=== PATIENT | male | born 1940 | race Caucasian/White ===

== ENCOUNTER 2016-04-03 19:49 | Inpatient (IN) | payer MEDICARE ==
[2016-04-03] MEDS ORDERED: ASPIRIN 81 MG CHEW PO STA (19:54)
[2016-04-03] MEDS ORDERED: NITROGLYCERIN OINT 1 INCH/GM PACKET TOPICAL STA (19:54)
--- NOTE | 2016-04-03 20:03 | ED ---
General Adult HPI - General Chief complaint: Chest Pain Stated complaint: chest pains Time Seen by Provider: 04/03/16 19:53 Source: patient, EMS, RN notes reviewed Mode of arrival: EMS Limitations: no limitations - History of Present Illness Initial comments: Patient is a pleasant 75-year-old male presenting to the emergency department complaining of chest discomfort. Onset was prior to arrival. Discomfort was somewhat severe and patient did have a syncopal episode. Patient states discomfort is minimal at this time. Patient does have some associated dyspnea which is near resolved here patient was sweaty earlier. Patient does feel somewhat nauseated still. Patient does have a history of similar problems. See associated with heart problems. 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 No leg pain or swelling. No cough or fever. Discomfort is described as pressure. No radiation. - Related Data Home Medications Medication Instructions Recorded Confirmed Aspirin 325 mg PO DAILY 04/03/16 04/03/16 Benazepril HCl [Lotensin] 40 mg PO DAILY 04/03/16 04/03/16 Calcium Carbonate [Calcium] 600 mg PO BID 04/03/16 04/03/16 Dostinex(Cabergoline) 0.5mg 0.5 mg PO TU 04/03/16 04/03/16 Furosemide [Lasix] 40 mg PO BID 04/03/16 04/03/16 Gabapentin [Neurontin] 300 mg PO TID 04/03/16 04/03/16 Isosorbide Mononitrate ER [Imdur] 60 mg PO DAILY 04/03/16 04/03/16 Levothyroxine Sodium [Synthroid] 112 mcg PO DAILY 04/03/16 04/03/16 Magnesium Oxide [Mag-Ox] 250 mg PO DAILY 04/03/16 04/03/16 Multivitamins, Thera [Multivitamin] 1 tab PO DAILY 04/03/16 04/03/16 Niacin 500 mg PO DAILY 04/03/16 04/03/16 [place]-3 Fatty Acids/Fish Oil [Fish 1 cap PO DAILY 04/03/16 04/03/16 Oil 1,000 mg Softgel] Potassium 99 mg PO BID 04/03/16 04/03/16 amLODIPine [Norvasc] 10 mg PO DAILY 04/03/16 04/03/16 Allergies Allergy/AdvReac Type Severity Reaction Status Date / Time Penicillins Allergy Rash/Hives Verified 04/03/16 20:17 Review of Systems ROS Statement: Those systems with pertinent positive or pertinent negative responses have been documented in the HPI. ROS Other: All systems not noted in ROS Statement are negative. Constitutional: Denies: fever Eyes: Denies: eye pain ENT: Denies: ear pain Respiratory: Reports: dyspnea. 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 History of Any Multi-Drug Resistant Organisms: None Reported Past Surgical History: Cholecystectomy Additional Past Surgical History / Comment(s): triple bipass Past Psychological History: No Psychological Hx Reported Smoking Status: Former smoker Past Alcohol Use History: Rare Past Drug Use History: None Reported General Exam Limitations: no limitations General appearance: alert, in no apparent distress Head exam: Present: atraumatic Eye exam: Present: normal appearance, PERRL ENT exam: Present: normal oropharynx Neck exam: Present: normal inspection Respiratory exam: Present: normal lung sounds bilaterally Cardiovascular Exam: Present: regular rate, normal rhythm Expanded Peripheral pulses: 2+: Radial (R), Radial (L), Dorsalis Pedis (R), Dorsalis Pedis (L) GI/Abdominal exam: Present: soft. Absent: distended, tenderness, pulsatile mass Extremities exam: Present: normal inspection. Absent: pedal edema, joint swelling, calf tenderness Neurological exam: Present: alert Psychiatric exam: Present: normal affect, normal mood Skin exam: Absent: rash Course Vital Signs 04/03/16 04/03/16 19:56 21:13 Temperature 96.9 F L Pulse Rate 58 L 60 Respiratory 16 14 Rate Blood Pressure 133/76 138/68 O2 Sat by Pulse 99 99 Oximetry EKG Findings - EKG Comments: EKG Findings:: Sinus bradycardia at 57. First we AV block with a TX of 238. QRS 160. QT 478. QTC 465. Left axis. Right bundle branch block. Left anterior fascicular block. PVC present. No acute ST change. Medical Decision Making - Medical Decision Making Patient reevaluated and resting comfortably in bed. Patient only complains of mild nausea and lightheadedness. Reglan provided. Patient and family updated on results and plan. Case was discussed in detail with practitioner coach operator, who will admit for Dr. Willis, covering for Dr. Pate, consult will be placed for cardiology. Admission orders written. IV heparin started. - Lab Data Result diagrams: 04/03/16 20:00 04/03/16 20:00 Lab Results 04/03/16 04/03/16 04/03/16 Range/Units 20:00 20:00 20:00 WBC 6.4 (3.8-10.6) k/uL RBC 4.45 (4.30-5.90) m/uL Hgb 13.5 (13.0-17.5) gm/dL Hct 39.5 (39.0-53.0) % MCV 88.7 (80.0-100.0) fL MCH 30.4 (25.0-35.0) pg MCHC 34.3 (31.0-37.0) g/dL RDW 13.1 (11.5-15.5) % Plt Count 145 L (150-450) k/uL Neutrophils % 61 % Lymphocytes % 29 % Monocytes % 6 % Eosinophils % 2 % Basophils % 1 % Neutrophils # 3.9 (1.3-7.7) k/uL Lymphocytes # 1.8 (1.0-4.8) k/uL Monocytes # 0.4 (0-1.0) k/uL Eosinophils # 0.1 (0-0.7) k/uL Basophils # 0.0 (0-0.2) k/uL PT (9.0-12.0) sec INR (<1.1) APTT (22.0-30.0) sec D-Dimer (<0.60) mg/L FEU Sodium 142 (137-145) mmol/L Potassium 3.9 (3.5-5.1) mmol/L Chloride 107 (98-107) mmol/L Carbon Dioxide 21 L (22-30) mmol/L Anion Gap 14 mmol/L BUN 21 H (9-20) mg/dL Creatinine 1.02 (0.66-1.25) mg/dL Est GFR (MDRD) Af Amer >60 (>60 ml/min/1.73 sqM) Est GFR (MDRD) Non-Af >60 (>60 ml/min/1.73 sqM) Glucose 107 H (74-99) mg/dL Calcium 9.5 (8.4-10.2) mg/dL Magnesium 2.1 (1.6-2.3) mg/dL Total Bilirubin 0.5 (0.2-1.3) mg/dL AST 23 (17-59) U/L ALT 34 (21-72) U/L Alkaline Phosphatase 63 (38-126) U/L Total Creatine Kinase 277 H (55-170) U/L CK-MB (CK-2) 3.8 H* (0.0-2.4) ng/mL CK-MB (CK-2) Rel Index 1.4 Troponin I <0.012 (0.000-0.034) ng/mL NT-Pro-B Natriuret Pep pg/mL Total Protein 6.8 (6.3-8.2) g/dL Albumin 4.1 (3.5-5.0) g/dL 04/03/16 04/03/16 Range/Units 20:00 20:00 WBC (3.8-10.6) k/uL RBC (4.30-5.90) m/uL Hgb (13.0-17.5) gm/dL Hct (39.0-53.0) % MCV (80.0-100.0) fL MCH (25.0-35.0) pg MCHC (31.0-37.0) g/dL RDW (11.5-15.5) % Plt Count (150-450) k/uL Neutrophils % % Lymphocytes % % Monocytes % % Eosinophils % % Basophils % % Neutrophils # (1.3-7.7) k/uL Lymphocytes # (1.0-4.8) k/uL Monocytes # (0-1.0) k/uL Eosinophils # (0-0.7) k/uL Basophils # (0-0.2) k/uL PT 10.7 (9.0-12.0) sec INR 1.1 (<1.1) APTT 23.5 (22.0-30.0) sec D-Dimer 0.27 (<0.60) mg/L FEU Sodium (137-145) mmol/L Potassium (3.5-5.1) mmol/L Chloride (98-107) mmol/L Carbon Dioxide (22-30) mmol/L Anion Gap mmol/L BUN (9-20) mg/dL Creatinine (0.66-1.25) mg/dL Est GFR (MDRD) Af Amer (>60 ml/min/1.73 sqM) Est GFR (MDRD) Non-Af (>60 ml/min/1.73 sqM) Glucose (74-99) mg/dL Calcium (8.4-10.2) mg/dL Magnesium (1.6-2.3) mg/dL Total Bilirubin (0.2-1.3) mg/dL AST (17-59) U/L ALT (21-72) U/L Alkaline Phosphatase (38-126) U/L Total Creatine Kinase (55-170) U/L CK-MB (CK-2) (0.0-2.4) ng/mL CK-MB (CK-2) Rel Index Troponin I (0.000-0.034) ng/mL NT-Pro-B Natriuret Pep 322 pg/mL Total Protein (6.3-8.2) g/dL Albumin (3.5-5.0) g/dL - Radiology Data Radiology results: image reviewed (Chest x-ray shows cardiomegaly without acute process.) Critical Care Time Critical Care Time: Yes Total Critical Care Time: 32 Disposition Clinical Impression: Unstable angina pectoris, Syncope Disposition: ADMITTED IP TO THIS HOSP
[2016-04-03 20:16] LABS: Basophils % (A) 1 %; CH 31.4; CHCM 35.6; Eosinophils # (A) 0.1 k/uL (0-0.7); Eosinophils % (A) 2 %; HCT 39.5 % (39.0-53.0); HDW 2.91; HGB 13.5 gm/dL (13.0-17.5); Luc # (Auto) 0.14; Luc % (Auto) 2; Lymphocytes # (A) 1.8 k/uL (1.0-4.8); Lymphocytes % (A) 29 %; MCH 30.4 pg (25.0-35.0); MCHC 34.3 g/dL (31.0-37.0); MCV 88.7 fL (80.0-100.0); Mean Platelet Volume 8.6; Monocytes # (A) 0.4 k/uL (0-1.0); Monocytes % (A) 6 %; Neutrophils # (A) 3.9 k/uL (1.3-7.7); Neutrophils % (A) 61 %; RBC 4.45 m/uL (4.30-5.90); RDW 13.1 % (11.5-15.5); WBC 6.4 k/uL (3.8-10.6); WBC (Perox) 6.48
[2016-04-03 20:31] LABS: INR 1.1 (<1.1); Partial Thromboplastin Time 23.5 sec (22.0-30.0); Prothrombin Time 10.7 sec (9.0-12.0)
--- NOTE | 2016-04-03 20:36 | XR ---
EXAMINATION TYPE: XR chest 2V DATE OF EXAM: 04/03/2016 8:29 PM COMPARISON: NONE HISTORY: Chest pain. TECHNIQUE: Frontal and lateral views of the chest are obtained. FINDINGS: Underlying emphysematous change may be present as there is flattened hemidiaphragms on late ral view. Sternal wires and mediastinal clips are seen. There is no suspicious focal air space opacit y, pleural effusion, or pneumothorax seen. The cardiac silhouette size is enlarged. Cannot exclude m ild central vascular congestion. The osseous structures are somewhat demineralized. Mild multilevel height loss in the mid thoracic spine is present. IMPRESSION: Cardiomegaly without suspicious acute pulmonary process.
[2016-04-03 20:37] LABS: ALT 34 U/L (21-72); AST 23 U/L (17-59); Alkaline Phosphatase 63 U/L (38-126); Anion Gap 14 mmol/L; Blood Urea Nitrogen 21 mg/dL (9-20); Calcium 9.5 mg/dL (8.4-10.2); Carbon Dioxide 21 mmol/L (22-30); Chloride 107 mmol/L (98-107); Creatine Kinase 277 U/L (55-170); Glucose 107 mg/dL (74-99); Magnesium 2.1 mg/dL (1.6-2.3); Non-African American GFR(MDRD) >60 (>60 ml/min/1.73 sqM); Potassium 3.9 mmol/L (3.5-5.1); Sodium 142 mmol/L (137-145); Total Bilirubin 0.5 mg/dL (0.2-1.3); Total Protein 6.8 g/dL (6.3-8.2)
[2016-04-03 20:49] LABS: Troponin I <0.012 ng/mL (0.000-0.034)
[2016-04-03 20:53] LABS: Creatine Kinase MB 3.8 ng/mL (0.0-2.4)
[2016-04-03] MEDS ORDERED: HEPARIN SODIUM,PORCINE 5,000 UNIT/ML 1 ML VIAL IV ONE (21:35)
[2016-04-03] MEDS ORDERED: HEPARIN SODIUM,PORCINE 5,000 UNIT/ML 1 ML VIAL IV PRN (21:35)
[2016-04-03] MEDS ORDERED: NITROGLYCERIN SL TABS 0.4 MG TAB SUBLINGUAL PRN (21:35)
[2016-04-03] MEDS ORDERED: HEPARIN SODIUM,PORCINE/D5W PMX 25,000 UNIT in DEXTROSE/WATER 1 500ML.BAG IV SCH (21:45)
[2016-04-03 23:56] VITALS: BMI 40.6
[2016-04-04 03:04] LABS: Troponin I 0.016 ng/mL (0.000-0.034)
[2016-04-04 03:08] LABS: Creatine Kinase MB 3.8 ng/mL (0.0-2.4)
[2016-04-04] MEDS: NITROGLYCERIN OINT 1 INCH/GM PACKET TOPICAL SCH ×2 (06:06→06:11)
[2016-04-04 09:45] LABS: Mean Platelet Volume 8.7
[2016-04-04 10:14] LABS: Creatine Kinase 181 U/L (55-170)
[2016-04-04] MEDS ORDERED: AMINOPHYLLINE 500 MG/20 ML VIAL IV PRN (10:17)
[2016-04-04] MEDS ORDERED: REGADENOSON 0.4 MG/5 ML SYRINGE IV ONE (10:17)
[2016-04-04 10:26] LABS: Troponin I <0.012 ng/mL (0.000-0.034)
--- NOTE | 2016-04-04 10:26 | P.PN ---
Progress Note - Text This is an addendum to the dictated cardiology consultation. The patient has a known history of CAD, post bypass in 2010 with BARRETO to the LAD and saphenous vein graft to the diagonal and the RCA, his grafts were patent in 2012. He presents with a syncopal episode and a loss of bladder control. He has been feeling occasional palpitations and dizziness on and off for 2 weeks. He has no prior history of syncope or documented arrhythmia. He denies any significant peripheral edema, PND or orthopnea. He has no symptoms of angina pectoris. In the past his systolic function was normal. 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 He has episode of tachycardia that appears to be SVT with retrograde P waves. His presentation could be related to a complete heart block because of his trifascicular block or significant pauses after the tachycardia. I will obtain an echocardiogram and an MPI. If there is no evidence of ischemia and his systolic function is normal then he will need to proceed with an EP study and probable pacemaker implantation. I discussed those findings with the patient. Thank you for this consult we will follow with you.
--- NOTE | 2016-04-04 10:27 | P.CRDCN ---
History of Present Illness Consult date: 04/04/16 Requesting physician: Aaron Rowland Consult reason: sycope Chief complaint: Syncope History of present illness: This is a pleasant 75-year-old gentleman who follows with Dr. Kwok in the office. He has a known history of coronary artery disease with prior bypass surgery approximately 5 years ago, at which time the patient underwent a BARRETO to the LAD, saphenous vein graft to the diagonal, saphenous vein graft to the PLV branch of the RCA history also of hypertension, hyperlipidemia, intolerant to statins, he takes niacin at home. The patient presents to the hospital following a syncopal episode at home. He states that he was sitting on the couch watching TV, and without warning he passed out. According to the patient his states that he was making snoring respirations and she was unable to wake him up. Upon wakening he was confused as to where he was, he did lose bowel and bladder function and was extremely diaphoretic. Patient does state that over the past couple of weeks he has noticed occasional palpitations with his heart racing very fast. He also states that he's been getting intermittent episodes of lightheadedness. Denies any chest pressure or heaviness. Initial EKG on presentation here showed a sinus bradycardia with a first-degree AV block and a right bundle branch pattern, occasional PVCs. Just prior to 4 AM this morning patient was noted to become quite tachycardic, he initially had a PVC then went into what appears to be an atrial tachycardia with a heart rate in the 130s. Patient states he did feel mild discomfort and palpitations in his chest at that time. EKG performed following that again showed a sinus bradycardia with a long first-degree AV block, right bundle branch block pattern. Laboratory data was reviewed, CBC normal, d-dimer negative, potassium 3.9, BUN 21 and creatinine 1.0. Troponins 0.012, 0.016. BNP level 322. At the time of my examination this morning, patient feels well, he does state when he gets up to do something he does have mild dizziness and lightheadedness. 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 History of Any Multi-Drug Resistant Organisms: None Reported Past Surgical History: Cholecystectomy Additional Past Surgical History / Comment(s): triple bipass, cholecystectomy 2016 Past Anesthesia/Blood Transfusion Reactions: No Reported Reaction Past Psychological History: No Psychological Hx Reported Smoking Status: Never smoker Past Alcohol Use History: Rare Past Drug Use History: None Reported Medications and Allergies Home Medications Medication Instructions Recorded Confirmed Type Aspirin 325 mg PO DAILY 04/03/16 04/03/16 History Benazepril HCl [Lotensin] 40 mg PO DAILY 04/03/16 04/03/16 History Calcium Carbonate [Calcium] 600 mg PO BID 04/03/16 04/03/16 History Dostinex(Cabergoline) 0.5mg 0.5 mg PO TU 04/03/16 04/03/16 History Furosemide [Lasix] 40 mg PO BID 04/03/16 04/03/16 History Gabapentin [Neurontin] 300 mg PO TID 04/03/16 04/03/16 History Isosorbide Mononitrate ER [Imdur] 60 mg PO DAILY 04/03/16 04/03/16 History Levothyroxine Sodium [Synthroid] 112 mcg PO DAILY 04/03/16 04/03/16 History Magnesium Oxide [Mag-Ox] 250 mg PO DAILY 04/03/16 04/03/16 History Multivitamins, Thera [Multivitamin] 1 tab PO DAILY 04/03/16 04/03/16 History Niacin 500 mg PO DAILY 04/03/16 04/03/16 History [place]-3 Fatty Acids/Fish Oil [Fish 1 cap PO DAILY 04/03/16 04/03/16 History Oil 1,000 mg Softgel] Potassium 99 mg PO BID 04/03/16 04/03/16 History amLODIPine [Norvasc] 10 mg PO DAILY 04/03/16 04/03/16 History Allergies Allergy/AdvReac Type Severity Reaction Status Date / Time Penicillins Allergy Rash/Hives Verified 04/03/16 20:17 Physical Exam Vitals: Vital Signs Temp Pulse Pulse Resp BP BP Pulse Ox 04/04/16 09:00 97.6 F 55 L 16 121/67 96 04/04/16 04:00 97.8 F 123 H 17 142/84 97 04/04/16 00:00 97.9 F 56 L 18 126/73 95 04/03/16 23:11 97.8 F 54 L 18 123/75 96 04/03/16 22:06 58 L 16 144/77 97 Intake and Output 04/03/16 04/04/16 04/04/16 22:59 06:59 14:59 Intake Total 640 Output Total 500 Balance 140 Intake: Intake, IV Titration 160 Amount Heparin Sodium,Porcine/ 160 D5w Pmx 25,000 unit In Dextrose/Water 1 500ml. bag @ 7.88 UNITS/KG/HR 20 .01 mls/hr IV .Q24H ARNULFO Rx#:[id number] Oral 480 Output: Urine 500 Other: Voiding Method Toilet Toilet # Voids 2 Weight 136 kg PHYSICAL EXAMINATION: HEENT: Head is atraumatic, normocephalic. Pupils equal, round. Neck is supple. There is no elevated jugular venous pressure. HEART EXAMINATION: Heart S1, S2 normal. No murmur or gallop heard. CHEST EXAMINATION: Lungs are clear to auscultation and precussion. No chest wall tenderness is noted on palpation or with deep breathing. ABDOMEN: Soft, nontender. Bowel sounds are heard. No organomegaly noted. EXTREMITIES: 2+ peripheral pulses with no evidence of peripheral edema and no calf tenderness noted. NEUROLOGIC patient is awake, alert and oriented -3. . Results 04/04/16 09:22 04/03/16 20:00 Cardiac Enzymes 04/04/16 Range/Units 02:00 CK-MB (CK-2) 3.8 H* (0.0-2.4) ng/mL Troponin I 0.016 (0.000-0.034) ng/mL Coagulation 04/04/16 Range/Units 09:22 APTT 26.8 (22.0-30.0) sec CBC 04/04/16 Range/Units 09:22 Plt Count 140 L (150-450) k/uL Current Medications Generic Name Dose Route Start Last Admin Trade Name Freq PRN Reason Stop Dose Admin Aspirin 325 mg 04/04/16 09:00 Aspirin PO DAILY ARNULFO Heparin Sodium (Porcine) 0 unit 04/03/16 21:35 Heparin IV Q6HR PRN Low PTT Protocol Heparin Sodium/Dextrose 25,000 500 mls @ 20.01 mls/hr 04/03/16 21:45 22:02 unit/ IV Solution IV 7.88 units/kg/hr .Q24H ARNULFO 20.01 mls/hr Protocol Administration 7.88 UNITS/KG/HR Nitroglycerin 1 inch 04/04/16 00:00 04/04/16 06:11 Nitro-Bid Oint TOPICAL 1 inch Q6HR ARNULFO Administration Nitroglycerin 0.4 mg 04/03/16 21:35 Nitrostat SUBLINGUAL Q5M PRN Chest Pain Intake and Output 04/03/16 04/04/16 04/04/16 22:59 06:59 14:59 Intake Total 640 Output Total 500 Balance 140 Intake: Intake, IV Titration 160 Amount Heparin Sodium,Porcine/ 160 D5w Pmx 25,000 unit In Dextrose/Water 1 500ml. bag @ 7.88 UNITS/KG/HR 20 .01 mls/hr IV .Q24H ARNULFO Rx#:[id number] Oral 480 Output: Urine 500 Other: Voiding Method Toilet Toilet # Voids 2 Weight 136 kg 04/04/16 09:22 EKG Interpretations (text) Initial EKG shows a sinus bradycardia with first-degree AV block present right bundle branch block pattern. Assessment and Plan Plan: Assessment and plan #1 syncope, rule out cardiac causes. #2 arrhythmia, sinus bradycardia with long first-degree AV block and right bundle branch block pattern and left access,(trifasicular block) episode of tachyarrhythmia with a heart rate in the 130s to 140s. #3 known history of coronary artery disease and prior bypass surgery #4 hypertension #5 hyperlipidemia, intolerant to statins , on niacin. #6 hypothyroidism Plan We will obtain an echocardiogram with Doppler study. We will also request a Lexiscan be performed today. Consult will be requested with for possible pacemaker implantation as well as evaluation for tachyarrhythmia. Resume home medications at a lower dose. Further recommendations to follow. DNP note has been reviewed, I agree with a documented findings and plan of care. Patient was seen and examined.
[2016-04-04] MEDS ORDERED: ASPIRIN 325 MG TAB PO SCH (10:30)
[2016-04-04] MEDS: ASPIRIN 325 MG TAB PO SCH (10:31)
[2016-04-04 10:32] LABS: Creatine Kinase MB 3.6 ng/mL (0.0-2.4)
--- NOTE | 2016-04-04 12:26 | ECHOF ---
Referral Reason:syncope MEASUREMENTS -------- HEIGHT: 182.9 cm WEIGHT: 135.6 kg BP: 121/67 RVIDd: 4.3 cm (< 3.3) IVSd: 1.5 cm (0.6 - 1.1) LVIDd: 5.7 cm (3.9 - 5.3) LVPWd: 1.4 cm (0.6 - 1.1) IVSs: 2.3 cm LVIDs: 4.5 cm LVPWs: 1.4 cm LA Diam: 5.0 cm (2.7 - 3.8) LAESV Index (A-L): 45.73 ml/m Ao Diam: 3.5 cm (2.0 - 3.7) AV Cusp: 2.3 cm (1.5 - 2.6) LA Diam: 5.7 cm (2.7 - 3.8) MV EXCURSION: 25.965 mm (> 18.000) MV EF SLOPE: 102 mm/s (70 - 150) EPSS: 0.4 cm MV E Mario: 0.62 m/s MV DecT: 227 ms MV A Mario: 0.82 m/s MV E/A Ratio: 0.76 MV E Mario: 0.62 m/s RAP: 5.00 mmHg RVSP: 41.95 mmHg FINDINGS -------- Sinus rhythm. This was a technically adequate study. There is mild concentric left ventricular hypertrophy. Overall left ventricular systolic function is low-normal with, an EF between 50 - 55 %. Pseudonormal LV filling pattern, consistent with elevated LA pressure. The right ventricle is normal in size. LA is severely dilated >40 ml/m2 The right atrial size is normal. There is mild aortic valve sclerosis. There is no evidence of aortic regurgitation. Mild mitral annular calcification present. Mild mitral regurgitation is present. Mild tricuspid regurgitation present. There is no evidence of pulmonary hypertension. The right ventricular systolic pressure, as measured by Doppler, is 41.95mmHg. There is no pulmonic regurgitation present. The aortic root size is normal. There is no pericardial effusion. CONCLUSIONS -------- 1. There is mild concentric left ventricular hypertrophy. 2. The right ventricular systolic pressure, as measured by Doppler, is 41.95mmHg. 3. Overall left ventricular systolic function is low-normal with, an EF between 50 - 55 %. 4. Pseudonormal LV filling pattern, consistent with elevate LA pressure. 5. LA is severely dilated >40 ml/m2 6. There is mild aortic valve sclerosis. 7. Mild mitral annular calcification present. 8. Mild mitral regurgitation is present. 9. Mild tricuspid regurgitation present. 10. There is no evidence of pulmonary hypertension. [employer] INTERPRETER: Carina Rogers RDCS
--- NOTE | 2016-04-04 14:14 | NM ---
EXAMINATION TYPE: NM stress lexiscan cardiolite DATE OF EXAM: 04/04/2016 1:29 PM COMPARISON: Chest x-ray same date HISTORY: Chest pain, coronary artery disease, syncope TECHNIQUE: After the intravenous administration of 11 mCi Tc 99m Sestamibi - Cardiolite resting SPEC T images acquired 65 minutes post injection. The patient received 0.4mg Lexiscan, 27.4 mCi Tc 99m Sestamibi - Stress images obtained [address] injection FINDINGS: Review of stress and rest SPECT images demonstrates decreased uptake of the radiopharmaceutical along the inferior and inferolateral left ventricular myocardium on stress images as compared to rest imag es Gated analysis shows normal wall motion with an estimated left ventricular ejection fraction of 55 %. IMPRESSION: Pharmacologically induced left ventricular myocardial ischemia
[2016-04-04] MEDS: LEVOTHYROXINE 112 MCG TAB PO SCH (14:20)
[2016-04-04] MEDS: NIACIN TR 500 MG CAPSULE.ER PO SCH (14:20)
[2016-04-04] MEDS: amLODIPine 5 MG TAB PO SCH (14:20)
[2016-04-04] MEDS: LISINOPRIL 20 MG TAB PO SCH (14:20)
[2016-04-04] MEDS ORDERED: CLINDAMYCIN 600 MG in SODIUM CHLORIDE 0.9% IRRIGATIO 250 ML IRRIGATION ONE (15:03)
[2016-04-04] MEDS ORDERED: CLINDAMYCIN 900 MG in DEXTROSE 5% IN WATER 50 ML IVPB ONE ×2 (15:03)
[2016-04-04] MEDS: SODIUM CHLORIDE 0.9% 1,000 ML IV SCH (16:39)
--- NOTE | 2016-04-04 17:37 | P.CRDCN ---
History of Present Illness Consult reason: sycope History of present illness: 75-year-old male patient of Dr. Rowland and Dr. Kwok He was sitting when he lost consciousness abruptly and made grunting sounds without any convulsions or seizure activity he was very sweaty at that time according to his and was not responding. She called EMS and he slowly came around. He was incontinent of urine. Patient has no recollection of the event. No trauma since he was sitting at that time. His was unable to wake him up, he was extremely diaphoretic, making snoring respirations and grunting sounds and he did lose control of his bowel and bladder. 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 Later on, earlier this morning just before 4 PM he had tachycardia between 120- 130 beats a minute. This was a supraventricular tachycardia and was documented and twelve-lead ECG. Patient did not have a syncopal spell. According to him he is been having recurrent episodes of palpitations also but on associated with syncope. Labs are reviewed. Troponins are borderline, normal BNP, normal electrolytes potassium is normal No reversible causes, No incriminating medications Impression Episode of loss of consciousness while sitting associated with snoring or/ grunting respirations and diaphoresis in the setting of trifascicular block on the twelve-lead ECG. His most likely diagnosis is sudden bradycardia most likely secondary to abrupt AV block resulting in loss of consciousness and prolonged enough to cause sweating and loss of bowel and bladder function secondary to cerebral hypoperfusion History of recurrent palpitations and documented SVT without loss of consciousness. This is a second and separate problem and will be addressed at a later date Coronary artery disease status post coronary artery bypass grafting Possible inferior wall ischemia on Lexiscan stress testing, performed today Hypertension Dyslipidemia Normal LV function Not on any AV laurence blocking drugs Intolerant of statins Plan Dual-chamber pacemaker for management of syncope in the setting of trifascicular block Beta blockers may be begun thereafter for management of SVT and later an EP study and ablation can be performed after 3 months Address inferior wall ischemia per Dr. Dr. Melendez and Dr. Wyatt's assessment. I will implant a permanent pacemaker so that in case he does require any coronary intervention, he does not go into complete heart block during such a time. 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 History of Any Multi-Drug Resistant Organisms: None Reported Past Surgical History: Cholecystectomy Additional Past Surgical History / Comment(s): triple bipass, cholecystectomy 2016 Past Anesthesia/Blood Transfusion Reactions: No Reported Reaction Past Psychological History: No Psychological Hx Reported Smoking Status: Never smoker Past Alcohol Use History: Rare Past Drug Use History: None Reported Medications and Allergies Home Medications Medication Instructions Recorded Confirmed Type Aspirin 325 mg PO DAILY 04/03/16 04/03/16 History Benazepril HCl [Lotensin] 40 mg PO DAILY 04/03/16 04/03/16 History Calcium Carbonate [Calcium] 600 mg PO BID 04/03/16 04/03/16 History Dostinex(Cabergoline) 0.5mg 0.5 mg PO TU 04/03/16 04/03/16 History Furosemide [Lasix] 40 mg PO BID 04/03/16 04/03/16 History Gabapentin [Neurontin] 300 mg PO TID 04/03/16 04/03/16 History Isosorbide Mononitrate ER [Imdur] 60 mg PO DAILY 04/03/16 04/03/16 History Levothyroxine Sodium [Synthroid] 112 mcg PO DAILY 04/03/16 04/03/16 History Magnesium Oxide [Mag-Ox] 250 mg PO DAILY 04/03/16 04/03/16 History Multivitamins, Thera [Multivitamin] 1 tab PO DAILY 04/03/16 04/03/16 History Niacin 500 mg PO DAILY 04/03/16 04/03/16 History [place]-3 Fatty Acids/Fish Oil [Fish 1 cap PO DAILY 04/03/16 04/03/16 History Oil 1,000 mg Softgel] Potassium 99 mg PO BID 04/03/16 04/03/16 History amLODIPine [Norvasc] 10 mg PO DAILY 04/03/16 04/03/16 History Allergies Allergy/AdvReac Type Severity Reaction Status Date / Time Penicillins Allergy Rash/Hives Verified 04/03/16 20:17 Physical Exam Vitals: Vital Signs Temp Pulse Pulse Resp BP BP Pulse Ox 04/04/16 16:40 97.7 F 59 L 16 136/72 96 04/04/16 16:00 97.7 F 59 L 16 136/72 96 04/04/16 11:29 97.6 F 62 16 148/76 96 04/04/16 09:00 97.6 F 55 L 16 121/67 96 04/04/16 04:00 97.8 F 123 H 17 142/84 97 04/04/16 00:00 97.9 F 56 L 18 126/73 95 04/03/16 23:11 97.8 F 54 L 18 123/75 96 04/03/16 22:06 58 L 16 144/77 97 Intake and Output 04/04/16 04/04/16 04/04/16 06:59 14:59 22:59 Intake Total 640 484.456 Output Total 500 700 Balance 140 -215.544 Intake: Intake, IV Titration 160 244.456 Amount Heparin Sodium,Porcine/ 160 244.456 D5w Pmx 25,000 unit In Dextrose/Water 1 500ml. bag @ 7.88 UNITS/KG/HR 20 .01 mls/hr IV .Q24H [facility] Rx#:[id number] Oral 480 240 Output: Urine 500 700 Other: Voiding Method Toilet Toilet Toilet # Voids 2 1 Weight 136 kg Results 04/04/16 09:22 04/03/16 20:00 Cardiac Enzymes 04/04/16 04/04/16 Range/Units 02:00 09:22 CK-MB (CK-2) 3.8 H* 3.6 H* (0.0-2.4) ng/mL Troponin I 0.016 <0.012 (0.000-0.034) ng/mL Coagulation 04/04/16 Range/Units 09:22 APTT 26.8 (22.0-30.0) sec Lipids 04/04/16 Range/Units 09:22 Triglycerides 237 H (<150) mg/dL Cholesterol 164 (<200) mg/dL HDL Cholesterol 40 (40-60) mg/dL CBC 04/04/16 Range/Units 09:22 Plt Count 140 L (150-450) k/uL Current Medications Generic Name Dose Route Start Last Admin Trade Name Freq PRN Reason Stop Dose Admin Amlodipine Besylate 5 mg 04/04/16 10:30 04/04/16 14:20 Norvasc PO 5 mg DAILY [facility] Administration Aspirin 325 mg 04/04/16 09:00 04/04/16 10:31 Aspirin PO 325 mg DAILY [facility] Administration Calcium Carbonate/Glycine 500 mg 04/04/16 21:00 Tums PO BID [facility] Furosemide 40 mg 04/04/16 17:30 Lasix PO BID@0900,1600 [facility] Gabapentin 300 mg 04/04/16 22:00 Neurontin PO TID [facility] Heparin Sodium (Porcine) 0 unit 04/03/16 21:35 04/04/16 10:30 Heparin IV 4,000 unit Q6HR PRN Administration Low PTT Protocol Sodium Chloride 1,000 mls @ 20 mls/hr 04/04/16 15:15 04/04/16 16:39 Saline 0.9% IV Not Given .Q24H [facility] Isosorbide Mononitrate 60 mg 04/05/16 09:00 Imdur PO DAILY [facility] Levothyroxine Sodium 112 mcg 04/04/16 10:30 04/04/16 14:20 Synthroid PO 112 mcg 0630 [facility] Administration Lisinopril 20 mg 04/04/16 10:30 04/04/16 14:20 Zestril PO 20 mg DAILY [facility] Administration Magnesium Oxide 400 mg 04/05/16 09:00 Mag-Ox PO DAILY [facility] Multivitamins 1 each 04/05/16 12:00 Theragran PO DAILY@1200 [facility] Niacin 500 mg 04/04/16 10:30 04/04/16 14:20 Niacin Tr PO 500 mg DAILY [facility] Administration Nitroglycerin 0.4 mg 04/03/16 21:35 Nitrostat SUBLINGUAL Q5M PRN Chest Pain Non-Formulary Medication 0.5 mg 04/05/16 17:04 Dostinex(Cabergoline) 0.5mg PO [facility] [place] Intake and Output 04/04/16 04/04/16 04/04/16 06:59 14:59 22:59 Intake Total 640 484.456 Output Total 500 700 Balance 140 -215.544 Intake: Intake, IV Titration 160 244.456 Amount Heparin Sodium,Porcine/ 160 244.456 D5w Pmx 25,000 unit In Dextrose/Water 1 500ml. bag @ 7.88 UNITS/KG/HR 20 .01 mls/hr IV .Q24H [facility] Rx#:[id number] Oral 480 240 Output: Urine 500 700 Other: Voiding Method Toilet Toilet Toilet # Voids 2 1 Weight 136 kg 04/04/16 09:22
[2016-04-04] MEDS ORDERED: IOHEXOL 350 MG/ML 100 ML BOTTLE INJ ONE (17:59)
[2016-04-04] MEDS ORDERED: IV FLUID CONTINUATION 600 ML IV ONE (18:10)
[2016-04-04] MEDS ORDERED: fentaNYL (PF) 50 MCG/ML 2 ML AMP ONE (18:13)
[2016-04-04] MEDS ORDERED: MIDAZOLAM 2 MG/2 ML VIAL ONE (18:13)
[2016-04-04] MEDS ORDERED: fentaNYL (PF) 50 MCG/ML 2 ML AMP IV ONE (18:15)
[2016-04-04] MEDS ORDERED: MIDAZOLAM 2 MG/2 ML VIAL IVP ONE (18:15)
[2016-04-04] MEDS ORDERED: LIDOCAINE 1% INJ 10MG/ML (20 ML MDV) SQ ONE (18:21)
--- NOTE | 2016-04-04 19:29 | P.PCN ---
Preoperative Diagnosis: Patient underwent EP procedure under conscious sedation/moderate sedation, monitoring of the level of consciousness and physiologic parameters including but not limited to vital signs and oxygenation. Patient tolerated the procedure well without any acute complications. Start time: 18:15 Stop time: 19:25
[2016-04-04] MEDS ORDERED: ACETAMINOPHEN TAB 325 MG TAB PO PRN (19:30)
[2016-04-04] MEDS ORDERED: HYDROcodone/APAP 5-325MG 1 EACH TAB PO PRN (19:30)
[2016-04-04] MEDS ORDERED: ACETAMINOPHEN IV (For NPO) 1,000 MG in EMPTY BAG 1 BAG IVPB ONE (20:00)
--- NOTE | 2016-04-04 20:29 | PCN ---
DATE OF PROCEDURE: Woo Oglesby was admitted with an episode of loss of consciousness while sitting. He made snorting/grunting respirations and was completely unconscious for a fair amount of time when his called EMS. He has an underlying trifascicular block and no AV laurence blocking drugs on board. He is brought in for dual-chamber pacemaker. He also has recurrent supraventricular tachycardia, but this was not associated with syncope and has been documented in the hospital. He has an underlying right bundle branch block, left anterior fascicular block and prolonged TX interval. He underwent a dual-chamber pacemaker implantation. The patient was brought to the EP lab in a fasting state. Written informed consent was obtained prior to the procedure. IV antibiotics were administered. Left pectoral area was prepped and draped as per protocol. 1% Lidocaine was used for local anesthesia. An incision was made over the ( ) deltopectoral groove about 1.5 cm medial to it. The incision was carried down to level of pectoralis muscle. A subfascial pocket was made. Hemostasis was assured. The left axillary vein was accessed at 2 separate points under fluoroscopy after left upper extremity venogram was performed. Two leads were positioned in the right heart using appropriate sheath. The atrial lead was a [employer]ge[employer] MRI 45 cm model #7740, serial [id number]. P waves were 3 mV, pacing threshold 1.1 v at 0.4 ms, pacing impedance of 657 ohms. The 10 v test was negative. The RV lead was a [employer]ge[employer] MRI model #7732, 59 cm in length and serial [id number]. R waves 11.8 mV, pacing threshold 0.6 v at 0.4 ms, pacing impedance 953 ohms. The 10 v test was negative. Both leads were secured to the underlying pectoralis fascia using 2 nonabsorbale sutures. The pocket was irrigated with antibiotic solution. Leads were connected to the generator ([employer] MRI ELDR, model number L331, serial #[id number]. The lead and the generator were placed in the subfascial pocket. The wound was closed in 3 layers and dressed per protocol. The device was secured to the underlying pectoralis muscle. Wound was closed in 3 layers and dressed per protocol. Result: Successful dual-chamber pacemaker implantation for syncope while sitting in the setting of underlying trifascicular block and underlying coronary disease, status post coronary artery bypass grafting. PLAN: Start with Metoprolol XL 25 mg p.o. daily for management of SVT. Again 3 to 4 months and SVT ablation will be performed. This was discussed with the family.
[2016-04-04] MEDS: GABAPENTIN 300 MG CAP PO SCH (20:39)
[2016-04-04] MEDS: FUROSEMIDE 40 MG TAB PO SCH (20:39)
[2016-04-04] MEDS: METOPROLOL SUCCINATE (ER) 25 MG TAB.ER.24H PO SCH (20:39)
[2016-04-04] MEDS: CALCIUM CARBONATE 500 MG CHEWABLE PO SCH (20:39)
[2016-04-04] MEDS ORDERED: NON-FORMULARY DRUG (Potassium [Potassium] 99 MG) PO SCH (21:00)
[2016-04-04 22:59] LABS: Appearance,Urine Clear (Clear); Bilirubin,Urine Negative (Negative); Glucose,Urine (UA) Negative (Negative); Ketones,Urine Negative (Negative); Leukocyte Esterase,Urine Negative (Negative); Nitrite,Urine Negative (Negative); PH, Urine 6.5 (5.0-8.0); Protein,Urine Negative (Negative); Specific Gravity,Urine 1.017 (1.001-1.035); UA Billing (MACRO vs. MICRO) CHEM; Urobilinogen,Urine <2.0 mg/dL (<2.0)
[2016-04-04] MEDS: CLINDAMYCIN 900 MG in DEXTROSE 5% IN WATER 50 ML IVPB SCH ×2 (23:40)
[2016-04-05] MEDS: CLINDAMYCIN 900 MG in DEXTROSE 5% IN WATER 50 ML IVPB SCH ×6 (06:32→17:13)
[2016-04-05] MEDS: LEVOTHYROXINE 112 MCG TAB PO SCH (06:32)
[2016-04-05 06:44] LABS: Basophils % (A) 1 %; CH 31.1; CHCM 34.1; Eosinophils # (A) 0.1 k/uL (0-0.7); Eosinophils % (A) 2 %; HCT 44.5 % (39.0-53.0); HDW 2.89; HGB 14.6 gm/dL (13.0-17.5); Luc # (Auto) 0.16; Luc % (Auto) 2; Lymphocytes # (A) 1.8 k/uL (1.0-4.8); Lymphocytes % (A) 28 %; MCH 30.1 pg (25.0-35.0); MCHC 32.9 g/dL (31.0-37.0); MCV 91.5 fL (80.0-100.0); Mean Platelet Volume 8.2; Monocytes # (A) 0.4 k/uL (0-1.0); Monocytes % (A) 6 %; Neutrophils # (A) 4.1 k/uL (1.3-7.7); Neutrophils % (A) 62 %; RBC 4.87 m/uL (4.30-5.90); RDW 13.1 % (11.5-15.5); WBC 6.7 k/uL (3.8-10.6); WBC (Perox) 6.49
[2016-04-05 06:57] LABS: Anion Gap 14 mmol/L; Blood Urea Nitrogen 14 mg/dL (9-20); Calcium 9.3 mg/dL (8.4-10.2); Carbon Dioxide 19 mmol/L (22-30); Chloride 109 mmol/L (98-107); Glucose 83 mg/dL (74-99); Non-African American GFR(MDRD) >60 (>60 ml/min/1.73 sqM); Potassium 4.2 mmol/L (3.5-5.1); Sodium 142 mmol/L (137-145)
--- NOTE | 2016-04-05 07:19 | HP ---
DATE OF ADMISSION: DATE OF SERVICE: 04/04/2016 Chief complaints are syncope and chest pain. HISTORY OF PRESENT ILLNESS: This 75-year-old gentleman with the past medical history of multiple medical problems including CAD, hypertension, history of pituitary tumor, cholecystectomy, history of CAD, CABG being followed by Dr. Rowland in the outpatient setting apparently the chair and watching TV, drinking a pop and the patient apparently had a syncopal episode and the patient passed out. Subsequently patient was taken to the emergency room, but the patient was mildly confused after the episode which lasted for a few minutes. The patient also complaining of some vague chest pain. The patient also had some hacking cough after that and because of multiple complex medical issues, the patient came to [facility] and admitted for further evaluation and treatment. The EKG showed trifascicular block and the troponins are negative, but creatine kinase elevated 277 and triglycerides of 237, platelets 140. The patient admitted for further evaluation and treatment. Cardiology's evaluation . There is no history of fever, rigors or chills. No history of any seizure movements at this time. The patient also had an episode of incontinence after the syncope. PAST MEDICAL HISTORY: History of CAD, CABG, history of hypertension, history of pituitary tumor, history of triple bypass, cholecystectomy. MEDICATIONS PRIOR TO ADMISSION: 1. Norvasc, 10 mg p.o. daily. 2. Potassium 999 mg p.o. b.i.d. 3. [place] 3 fatty acid p.o. daily. 4. Niacin 500 mg p.o. daily. 5. Multivitamins 1 p.o. daily. 6. Magnesium oxide 250 mg daily. 7. Synthroid 112 mcg p.o. daily. 8. Imdur 60 mg daily. 9. Neurontin 300 mg t.i.d. 10. Lasix 40 mg b.i.d. 11. Dostinex 0.5 mg p.o. Monday. 12. Calcium 600 mg p.o. b.i.d. 13. Lotensin 40 mg p.o. daily. 14. Aspirin 325 mg daily. Allergies are PENICILLIN. FAMILY HISTORY: No history of heart disease or strokes in the family. SOCIAL HISTORY: No history of smoking. No history of alcohol intake. REVIEW OF SYSTEMS: ENT: As mentioned earlier.. CARDIOVASCULAR: As mentioned earlier. RESPIRATORY: No cough. GI: No nausea. : No dysuria. NERVOUS SYSTEM: As mentioned earlier.. ALLERGY/IMMUNOLOGY: No asthma or hayfever. MUSCULOSKELETAL: As mentioned earlier. HEMATOLOGY/ONCOLOGY: As mentioned earlier.. ENDOCRINE: As mentioned earlier.. CONSTITUTIONAL: As mentioned earlier. DERMATOLOGY: Negative. RHEUMATOLOGY: Negative. PSYCHIATRY: As mentioned earlier. PHYSICAL EXAMINATION: The patient is alert and oriented x3. Pulse is 58, blood pressure 144/77, respirations 16, temperature 97.8, pulse ox 97% on 2 L. HEENT: Conjunctivae normal. Oral mucosa moist. NECK: No jugular venous distention. No carotid bruit. No lymph node enlargement. CARDIOVASCULAR: S1 and S2, muffled. No S3, no S4. RESPIRATORY: Breath sounds diminished at the bases. A few scattered rhonchi and crackles. ABDOMEN: Soft, obese, nontender. No mass palpable. LEGS: No edema, no swelling. NERVOUS SYSTEM: Higher function as mentioned earlier. Cranial nerves 2 through 12 grossly intact. Eye movements are full in all directions. Moves all 4 limbs. No focal motor or sensory dysfunction. Gait is normal. SKIN: No ulcers, rashes or bleeding. LYMPHATICS: No lymphadenopathy of neck, axillae or groin. JOINTS: There are no deforming arthropathy. LABS: Platelet 140s, WBC 6.4, hemoglobin 13.5. Glucose 107 . Creatine kinase 277. Triglycerides 237. ASSESSMENT: 1. Syncope, possibly acute transient ischemic attack possibly cardiac arrhythmia. 2. Rule out seizure disorder. 3. Chest pain, rule out acute coronary syndrome. 4. Increased CK and CK-MB with normal Troponins. 5. Hypertriglyceridemia. 6. Decreased TSH with normal free T4. 7. Thrombocytopenia, mild. 8. History of coronary artery disease, coronary artery bypass grafting. 9. History of cholecystectomy. 10. History of pituitary tumors. 11. Hypertension history. 12. Obesity with body mass index of 40.7. RECOMMENDATIONS AND DISCUSSION: This 75-year-old gentleman presented with multiple complex medical issues, we will monitor the patient closely. Continue the current medications. Continue symptomatic treatment. Will obtain cardiovascular and neurovascular workup. Also, Cardiology and Neurology have been consulted. Otherwise, CAT scan of the brain will also be checked. Guarded prognosis because of multiple complex medical issues. Further recommendations to follow. A copy of dictation will be forwarded to Dr. Rowland who is the primary physician. See orders for details. GILMA
[2016-04-05] MEDS: amLODIPine 5 MG TAB PO SCH (08:01)
[2016-04-05] MEDS: ASPIRIN 325 MG TAB PO SCH (08:01)
[2016-04-05] MEDS: CALCIUM CARBONATE 500 MG CHEWABLE PO SCH (08:02)
[2016-04-05] MEDS: LISINOPRIL 20 MG TAB PO SCH (08:02)
[2016-04-05] MEDS: FUROSEMIDE 40 MG TAB PO SCH ×2 (08:02→17:14)
[2016-04-05] MEDS: GABAPENTIN 300 MG CAP PO SCH ×2 (08:02→17:14)
[2016-04-05] MEDS: METOPROLOL SUCCINATE (ER) 25 MG TAB.ER.24H PO SCH (08:03)
[2016-04-05] MEDS: NIACIN TR 500 MG CAPSULE.ER PO SCH (08:03)
--- NOTE | 2016-04-05 08:07 | XR ---
EXAMINATION TYPE: XR chest 2V DATE OF EXAM: 04/05/2016 6:51 AM COMPARISON: Prior chest x-ray March HISTORY: Status post pacemaker placement TECHNIQUE: Frontal and lateral views of the chest are obtained. FINDINGS: There is no focal air space opacity, pleural effusion, or pneumothorax seen. The cardiac silhouette size is within normal limits. There is been interval placement of a generator in the left pectoral region, leads are present in the right atrium and ventricle. There are overlying cardiac le ads. Prominent lung volumes suggest underlying COPD. Patient is post median sternotomy. The osseous s tructures are intact. IMPRESSION: No acute cardiopulmonary process.
[2016-04-05] MEDS ORDERED: MAGNESIUM OXIDE 400 MG TAB PO SCH (09:00)
[2016-04-05] MEDS ORDERED: ISOSORBIDE MONONITRATE ER 60 MG TAB.ER.24H PO SCH (09:00)
[2016-04-05] MEDS ORDERED: NON-FORMULARY DRUG (Omega-3 Fatty Acids/Fish Oil [Fish Oil 1,000 Mg Softgel] 1 CAP) PO SCH (09:00)
[2016-04-05] MEDS ORDERED: METOPROLOL TARTRATE 25 MG TAB PO SCH (09:30)
--- NOTE | 2016-04-05 11:10 | CT ---
EXAMINATION TYPE: CT brain wo con DATE OF EXAM: 04/05/2016 10:50 AM COMPARISON: NONE HISTORY: 75-year-old male with syncope. TECHNIQUE: Examination was done in axial plane without intravenous contrast. Coronal and sagittal reconstructio ns performed. CT DLP: 1308 mGycm Automated exposure control for dose reduction was used. FINDINGS: There is no evidence of acute intracranial hemorrhage, acute ischemic changes, mass, mass-effect, or extra-axial fluid collection. There is no effacement of cerebral sulci or basal subarachnoid cister ns. There is no hydrocephalus. There is no midline shift. Dasilva-white matter distinction is preserv ed. Mild generalized cerebral cortical atrophy. Prominent choroid plexus calcifications. Mild mucosal thickening within the ethmoid air cells. Mastoid air cells are well pneumatized. Orbits and globes appear intact. IMPRESSION: No acute intracranial abnormality seen.
[2016-04-05] MEDS ORDERED: MULTIVITAMINS, THERA 1 EACH TAB PO SCH (12:00)
--- NOTE | 2016-04-05 12:09 | P.PN ---
Subjective Principal diagnosis: Syncope This is a pleasant 75-year-old gentleman who follows regularly with Dr. Kwok in the office. He has a known history of coronary artery disease with prior bypass surgery, hypertension, hyperlipidemia. He presented to the hospital with syncope, patient was found on the property claims manager to have a trifascicular block as well as intermittent SVT. He underwent implantation of a permanent pacemaker yesterday by Dr. Miguel. Device was interrogated this morning and is functioning appropriately, chest x-ray was performed which did not reveal any evidence of a pneumothorax. He was noted at times on his telemetry strips to have tachycardia through the night. Beta ashok this morning was increased to 25 mg one tablet by mouth twice a day. He also underwent a stress test yesterday which revealed pharmacologically induced ischemia in the inferior wall region. He may be able to be discharged home today, a follow-up appointment will be made with Dr. Kwok in the office one week. It was explained to the patient in detail that he may require cardiac catheterization as an outpatient. This will be further discussed in the office by Dr. Kwok. Objective - Vital Signs Vital signs: Vital Signs Temp 97.5 F L 04/05/16 04:00 Pulse 51 L 04/05/16 08:00 Resp 16 04/05/16 08:00 BP 127/66 04/05/16 08:00 Pulse Ox 96 04/05/16 08:00 Intake & Output 04/04/16 04/05/16 04/05/16 18:59 06:59 18:59 Intake Total 610.456 890 180 Output Total 700 2100 Balance -89.544 -1210 180 Weight 132.3 kg Intake: IV 126 Intake, IV Titration 244.456 410 Amount ACETAMINOPHEN IV (For NPO 100 ) 1,000 mg In Empty Bag 1 bag @ 400 mls/hr IVPB ONCE ONE Rx#:[id number] Clindamycin 900 mg In 50 Dextrose 5% in Water 50 ml @ 100 mls/hr IVPB ONCE ONE Rx#:[id number] Clindamycin 900 mg In 100 Dextrose 5% in Water 50 ml @ 100 mls/hr IVPB Q6HR [facility] Rx#:[id number] Heparin Sodium,Porcine/ 244.456 D5w Pmx 25,000 unit In Dextrose/Water 1 500ml. bag @ 7.88 UNITS/KG/HR 20 .01 mls/hr IV .Q24H [facility] Rx#:[id number] Sodium Chloride 0.9% 1, 160 000 ml @ 20 mls/hr IV . Q24H [facility] Rx#:[id number] Oral 240 480 180 Output: Urine 700 2100 Other: Voiding Method Toilet Toilet Toilet # Voids 1 2 - Exam PHYSICAL EXAMINATION: HEENT: Head is atraumatic, normocephalic. Pupils equal, round. Neck is supple. There is no elevated jugular venous pressure. HEART EXAMINATION: Heart S1, S2 normal. No murmur or gallop heard. CHEST EXAMINATION: Lungs are clear to auscultation and precussion. No chest wall tenderness is noted on palpation or with deep breathing. Site of pacemaker implantation, dressing is dry and intact. ABDOMEN: Soft, nontender. Bowel sounds are heard. No organomegaly noted. EXTREMITIES: 2+ peripheral pulses with no evidence of peripheral edema and no calf tenderness noted. NEUROLOGIC patient is awake, alert and oriented -3. . - Labs CBC & Chem 7: 04/05/16 05:27 04/05/16 05:27 Labs: Abnormal Lab Results - Last 24 Hours (Table) 04/04/16 04/05/16 04/05/16 Range/Units 09:22 05:27 05:27 Plt Count 146 L (150-450) k/uL Chloride 109 H (98-107) mmol/L Carbon Dioxide 19 L (22-30) mmol/L Triglycerides 237 H (<150) mg/dL TSH 0.070 L (0.465-4.680) mIU/L Assessment and Plan Plan: Assessment and plan #1 syncope, evidence of trifasicular block and SVT, s/p Pacemaker insertion of yesterday #2 known history of coronary artery disease and prior bypass surgery #3 hypertension #4 hyperlipidemia, intolerant to statins , on niacin. #5 hypothyroidism #6 Positive Stress Test Plan Patient may be able to be discharged home today. A follow-up appointment will be made with Dr. Kwok in the office and device clinic in one week. will also require outpatient cardiac catheterization, this will be further discussed in the office in one week at his office appointment. DNP note has been reviewed, I agree with a documented findings and plan of care. Patient was seen and examined.
[2016-04-05 14:21] VITALS: TEMP 96.7
[2016-04-05 14:59] VITALS: BP 111/58; PULSE 61; RESP 18
[2016-04-05] MEDS ORDERED: DOSTINEX PO SCH (17:04)
[2016-04-05] MEDS: SODIUM CHLORIDE 0.9% 1,000 ML IV SCH (17:13)
--- NOTE | 2016-04-06 08:51 | EEG ---
DATE OF SERVICE: 04/05/2016 REASON FOR TESTING: Syncope. AGE: 75Y DESCRIPTION OF THE PROCEDURE: This EEG was performed using a 21-channel digital electroencephalograph, following the international 10 to 20 system. DESCRIPTION OF THE RECORDING: From the beginning of the tracing, and with the patient's eyes closed, the background rhythm was mostly consisting of 9 Hz alpha frequency in the posterior occipital leads. No obvious asymmetry is seen. Photic stimulation was performed with a minimal driving response seen. No pathological waves were elicited. Hyperventilation was not performed. Occasional muscle and movement artifacts are seen. Later in the tracing, the patient does reach stage II of sleep and occasional sleep spindles and K complexes are seen. No epileptiform discharges were seen. His EKG lead showed a regular rate and rhythm. INTERPRETATION: This asleep and awake EEG can be considered within normal limits. There was no asymmetry seen. No epileptiform discharges were noticed. The absence of epileptiform discharges does not rule out the diagnosis of epilepsy, therefore, clinical correlation is recommended.
--- NOTE | 2016-04-06 10:56 | DS ---
DATE OF ADMISSION: 04/03/2016 DATE OF DISCHARGE: 04/05/2016 FINAL DIAGNOSES: 1. 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 2. Possible acute transient ischemic attack. 3. Rule out seizure disorder. 4. Chest pain, rule out acute coronary artery syndrome. 5. Positive stress test. 6. Increased CK, CK-MB within normal troponins. 7. Hypertriglyceridemia. 8. Decreased TSH with normal FT4. 9. Thrombocytopenia, mild. 10. History of coronary artery disease, coronary artery bypass grafting. 11. History of cholecystectomy. 12. History of pituitary tumor. 13. History of hypertension. 14. Obesity, body mass index is 40.7. 15. FULL CODE. DISCHARGE DISPOSITION: The patient will be discharged in a stable with guarded prognosis. Discharge will be cleared by Cardiology and Neurology. HISTORY OF PRESENT ILLNESS: This 75-year-old gentleman with a past medical history of multiple medical problems admitted with syncope. Patient follows with Dr. Rowland in the outpatient setting. Cardiology evaluated the patient and patient also had trifascicular block, and as well as apparent tachycardia. Cardiology performed a pacemaker implantation because of concerns for complete heart block. The patient also had a full neurology work-up. The stress test was positive. Cardiology recommended outpatient followup and possibly cardiac catheterization. Neurology has seen the patient for neurovascular work-up, including EEG. If neurology clears the, patient will be discharged home with the following advice and medication. On exam, vitals are stable. CARDIOVASCULAR SYSTEM: S1, S2, muffled. ABDOMEN: Soft. NERVOUS SYSTEM: No focal deficits. Discharge advice: 1. Diet is cardiac. 2. Activity limited until followup. 3. Follow up with Dr. Dawn in one week. 4. Follow up with Dr. Rowland as advised. 5. Follow up with Cardiology as advised. Medications will be as before: 1. Dostinex that is Cabergoline 0.5 p.o. Monday. 2. Tylenol 650 q.6 p.r.n. 3. Aspirin 325 mg daily. 4. Lotensin 40 mg p.o. daily. 5. Calcium 600 mg p.o. b.i.d. 6. Lasix 40 mg p.o. b.i.d. 7. Neurontin 300 mg p.o. t.i.d. 8. [place] 5 mg q.4 p.r.n. 9. Imdur ER 60 mg p.o. daily. 10. Synthroid 112 mcg p.o. daily. 11. Magnesium oxide 250 mg p.o. daily. 12. Lopressor 25 mg p.o. b.i.d. 13. Multivitamin 1 p.o. daily. 14. Niacin 500 mg p.o. daily. 15. [place]-3 fatty acid 1 p.o. daily. 16. Potassium 99 mg p.o. b.i.d. 17. Norvasc 5 mg p.o. daily. Once again, the patient will be discharged in a stable condition with guarded prognosis.
--- NOTE | 2016-04-06 14:45 | EST ---
DATE OF SERVICE: 04/04/2016 AGE: 75Y SEX: M HT: 72" WT: 299 lbs. Lexiscan Cardiolite Stress Test *Heart Rate Blood Pressure *Rest: 56 Rest: 168/70 * *Max. Achieved: 71 Maximum BP: 174/71 85% PMHR: 134 100% PMHR: 146 *METS: - INDICATIONS: Syncope MEDICATIONS: - Scan Cardiolite study was performed. Peak heart rate of 71 was achieved. Maximum blood pressure of 174/71 mmHg was noted. Resting EKG shows normal sinus rhythm with QRS morphology suggestive of right bundle branch block pattern was noted. No ST segment depression suggestive of ischemia is noted. The results of the nuclear study will follow.
== END 2016-04-05 18:33 | disposition home or self-care (01) | DRG 243 ==
LOC: EC 19:49 → MERGE 21:34 → 6SEL 21:34
PROVIDERS: ADMIT Hospitalist; ATTEND Hospitalist
PROC: 02H63JZ Insertion of Pacemaker Lead into Right Atrium, Percutaneous Approach (ICD-10-PCS; 2016-04-04)
PROC: 02HK3JZ Insertion of Pacemaker Lead into Right Ventricle, Percutaneous Approach (ICD-10-PCS; 2016-04-04)
PROC: 0JH606Z Insertion of Pacemaker, Dual Chamber into Chest Subcutaneous Tissue and Fascia, Open Approach (ICD-10-PCS; principal; 2016-04-04 17:00)
DX: I45.3 Trifascicular block (principal); I24.9 Acute ischemic heart disease, unspecified; G45.9 Transient cerebral ischemic attack, unspecified; D69.6 Thrombocytopenia, unspecified; I47.1 Supraventricular tachycardia; G40.909 Epilepsy, unspecified, not intractable, without status epilepticus; I10 Essential (primary) hypertension; E03.9 Hypothyroidism, unspecified; E66.9 Obesity, unspecified; E78.1 Pure hyperglyceridemia; I25.10 Atherosclerotic heart disease of native coronary artery without angina pectoris; E78.5 Hyperlipidemia, unspecified; Z68.41 Body mass index [BMI] 40.0-44.9, adult; Z79.82 Long term (current) use of aspirin; Z79.899 Other long term (current) drug therapy; Z87.891 Personal history of nicotine dependence; Z88.0 Allergy status to penicillin; Z95.1 Presence of aortocoronary bypass graft
CPT/HCPCS: 33208; 36415; 70450; 71020; 78452; 80048; 80053; 80061; 80306; 81003; 82550; 82553; 83735; 83880; 84439; 84443; 84484; 85025; 85049; 85379; 85610; 85730; 93005; 93017; 93306; 95819; 96374; 99291

== ENCOUNTER 2016-04-28 06:32 | Day surgery (SDC) | payer MEDICARE ==
[2016-04-25 13:34] VITALS: BMI 39.3
[~2016-04-28 06:32] MED LIST: ALPRAZolam 0.25 MG TAB PO PRN; ALPRAZolam 0.5 MG TAB PO PRN; ASPIRIN 325 MG TAB PO STA; ATORVASTATIN 80 MG TAB PO STA; NITROGLYCERIN SL TABS 0.4 MG TAB SUBLINGUAL PRN; SODIUM CHLORIDE 0.9% 1,000 ML in EMPTY BAG 1 BAG IV ONE
[2016-04-28] MEDS ORDERED: LIDOCAINE 2% INJ 20 MG/ML (20 ML MDV) ONE (07:08)
[2016-04-28] MEDS ORDERED: SODIUM CHLORIDE 0.9% 1,000 ML IV ONE (07:12)
[2016-04-28 07:17] VITALS: TEMP 97.3
[2016-04-28] MEDS ORDERED: MIDAZOLAM 2 MG/2 ML VIAL ONE (07:29)
[2016-04-28] MEDS ORDERED: MIDAZOLAM 2 MG/2 ML VIAL IVP ONE (07:31)
[2016-04-28] MEDS ORDERED: LIDOCAINE 2% INJ 20 MG/ML SQ ONE ×2 (07:36)
[2016-04-28] MEDS ORDERED: IOHEXOL 350 MG/ML 100 ML BOTTLE INJ ONE (08:00)
[2016-04-28] MEDS ORDERED: RX INFO: IV CONTRAST WAS GIVEN 1 EACH MISC MISCELLANE PRN (08:03)
[2016-04-28] MEDS ORDERED: SODIUM CHLORIDE 0.9% 1,000 ML IV SCH (08:15)
--- NOTE | 2016-04-28 08:40 | CC ---
DATE OF SERVICE: 04/28/2016 The referring physician is Dr. Rowland. INDICATION: Syncope with abnormal stress test. Patient presented to the hospital a few weeks ago with syncope. Had bifascicular block which was thought to be responsible for his syncope. Underwent permanent pacemaker placement. He underwent a stress test at that time that revealed ischemia due to which he was advised to undergo cardiac catheterization. He has known CAD, status post CABG with BARRETO to LAD, venous graft to diag and PLV. At the last catheterization in 2012, the graft to the PLV was atretic. PROCEDURE NOTE: After obtaining informed consent, left heart catheterization, coronary angiogram and selective injection of the bypass grafts was performed using standard Anali catheters. BARRETO was engaged using a Joby catheter and a Glidewire was used. Patient tolerated the procedure well without any obvious immediate complications. A femoral angiogram was performed and Angio-Seal was deployed for hemostasis. FINDINGS: 1. HEMODYNAMICS: Left ventricular end-diastolic pressure is 10 to 12 mm. There is no significant gradient across the aortic valve. 2. LEFT VENTRICULOGRAM: Left ventriculogram was not performed. 3. ANGIOGRAPHIC DATA: LEFT MAIN CORONARY ARTERY: Left main coronary artery is a normal size vessel and is free of stenosis. Divides into left anterior descending coronary artery and circumflex coronary artery. Circumflex coronary artery and its branches are free of significant stenosis. LAD appears completely occluded in its proximal part. A large diagonal branch has a 95% stenosis. Right coronary artery is a large dominant vessel and the PDA shows a 70% stenosis, which is unchanged compared to a lesion noted in 2013 that has been managed medically. SELECTIVE INJECTION OF THE BYPASS GRAFTS: 1. BARRETO to LAD: BARRETO appears patent. Both the anastomotic sites are free of disease. The body of the graft is free of disease and the [place] vessel is free of stenosis. 2. VENOUS GRAFT TO THE DIAGONAL: Both the proximal and distal anastomotic sites are free of disease. Body of the graft is normal and the [place] vessel is normal. 3. Venous graft to the right coronary artery appears atretic similar to the previous cardiac catheterization. CONCLUSIONS: 1. [place] 2-vessel coronary artery disease with patent BARRETO to LAD, patent venous graft to diag. 2. Atretic venous graft to the PLV, unchanged and coronary anatomy of the [place] right coronary artery, which appears irregular, ectatic in the proximal part and the PLV has a significant lesion, but this was noted on a cardiac cath in the past. The patient is free of angina, shortness of breath; hence, I advised him on continued medical therapy at this time. Total sedation time was 30 minutes.
[2016-04-28 09:23] VITALS: RESP 16
[2016-04-28 12:11] VITALS: BP 116/59; PULSE 50
== END 2016-04-28 13:02 | disposition home or self-care (01) ==
LOC: CATHCVL 06:32
PROVIDERS: ATTEND Internal Medicine Cardiovascular Disease
DX: I25.10 Atherosclerotic heart disease of native coronary artery without angina pectoris (principal); I10 Essential (primary) hypertension; E78.2 Mixed hyperlipidemia; I49.5 Sick sinus syndrome; Z79.82 Long term (current) use of aspirin; Z79.899 Other long term (current) drug therapy; Z95.1 Presence of aortocoronary bypass graft; Z95.0 Presence of cardiac pacemaker; Z88.0 Allergy status to penicillin; Z82.49 Family history of ischemic heart disease and other diseases of the circulatory system
CPT/HCPCS: 93459; C1760; C1769 ×2; C1894; J2001; J2250; Q9967

== ENCOUNTER 2016-07-24 14:39 | Emergency (ER) | payer MEDICARE ==
[2016-07-24 14:50] VITALS: BP 145/80; PULSE 51; RESP 18; TEMP 97.4
[2016-07-24] MEDS ORDERED: DIAZEPAM 5 MG TAB PO STA (15:07)
[2016-07-24] MEDS ORDERED: HYDROcodone/APAP 5-325MG 1 EACH TAB PO STA (15:07)
[2016-07-24] MEDS ORDERED: KETOROLAC 60 MG/2 ML VIAL IM STA (15:07)
--- NOTE | 2016-07-24 15:07 | ED ---
General Adult HPI - General Chief complaint: Extremity Problem,Nontraumatic Stated complaint: Leg Pain Time Seen by Provider: 07/24/16 14:51 Source: patient, RN notes reviewed, old records reviewed Mode of arrival: wheelchair Limitations: no limitations - History of Present Illness Initial comments: This is a 75-year-old male here for evaluation of leg pain. Patient has bilateral hamstring pain. Worse with movement worse when he bends over. Worse with walking. Patient has history of back pain history of difficulty with ambulation and does walk with a cane. Denies trauma, denies fall. Denies abdominal pain or fever. Denies loss of bowel or bladder. No modifying factors or pain, although he did take an [place] estimated it and it did improve. Symptoms are going on 6 days. No prior evaluation - Related Data Home Medications Medication Instructions Recorded Confirmed Furosemide [Lasix] 40 mg PO BID 05/17/15 07/24/16 Aspirin 325 mg PO DAILY 04/03/16 07/24/16 Benazepril HCl [Lotensin] 40 mg PO DAILY 04/03/16 07/24/16 Dostinex(Cabergoline) 0.5mg 0.5 mg PO TU 04/03/16 07/24/16 Gabapentin [Neurontin] 300 mg PO TID 04/03/16 07/24/16 Isosorbide Mononitrate ER [Imdur] 60 mg PO QAM 04/03/16 07/24/16 Levothyroxine Sodium [Synthroid] 112 mcg PO QAM 04/03/16 07/24/16 Magnesium Oxide [Mag-Ox] 250 mg PO DAILY 04/03/16 07/24/16 Multivitamins, Thera [Multivitamin 1 tab PO DAILY 04/03/16 07/24/16 (formulary)] Potassium 99 mg PO BID 04/03/16 07/24/16 Krill Oil 500 mg PO DAILY 04/25/16 07/24/16 Calcium Citrate 250 mg PO BID 07/24/16 07/24/16 Metoprolol Tartrate [Lopressor] 50 mg PO TID 07/24/16 07/24/16 Niacin (Inositol Niacinate) 400 mg PO QID 07/24/16 07/24/16 [Niacin Flush Free 500 mg Cap] Allergies Allergy/AdvReac Type Severity Reaction Status Date / Time Penicillins Allergy Rash/Hives Verified 07/24/16 15:16 Review of Systems ROS Statement: Those systems with pertinent positive or pertinent negative responses have been documented in the HPI. ROS Other: All systems not noted in ROS Statement are negative. 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 History of Any Multi-Drug Resistant Organisms: None Reported Past Surgical History: Cholecystectomy, Coronary Bypass/CABG, Pacemaker Additional Past Surgical History / Comment(s): triple bipass 5-2010, cholecystectomy 2015,[employer] Pacemaker Lt chest Past Anesthesia/Blood Transfusion Reactions: No Reported Reaction Type of Cardiac Device: Permanent Pacemaker Device Placement Date:: Mar 2016 Past Psychological History: No Psychological Hx Reported Smoking Status: Never smoker Past Alcohol Use History: Rare Past Drug Use History: None Reported - Past Family History Mother Family Medical History: Cancer Additional Family Medical History / Comment(s): CABG, Colon Cancer Father Family Medical History: Cancer Additional Family Medical History / Comment(s): Father of cancer unsure which type of cancer Brother(s) Additional Family Medical History / Comment(s): Brother had X4 Bypass General Exam Limitations: no limitations General appearance: alert, in no apparent distress Head exam: Present: atraumatic, normocephalic, normal inspection Eye exam: Present: normal appearance, PERRL, EOMI. Absent: scleral icterus, conjunctival injection, periorbital swelling ENT exam: Present: normal exam, mucous membranes moist Neck exam: Present: normal inspection. Absent: tenderness, meningismus, lymphadenopathy Respiratory exam: Present: normal lung sounds bilaterally. Absent: respiratory distress, wheezes, rales, rhonchi, stridor Cardiovascular Exam: Present: regular rate, normal rhythm, normal heart sounds. Absent: systolic murmur, diastolic murmur, rubs, gallop, clicks GI/Abdominal exam: Present: soft, normal bowel sounds. Absent: distended, tenderness, guarding, rebound, rigid Extremities exam: Present: normal inspection, full ROM, normal capillary refill. Absent: tenderness, pedal edema, joint swelling, calf tenderness Back exam: Present: normal inspection Neurological exam: Present: alert, oriented X3, CN II-XII intact Psychiatric exam: Present: normal affect, normal mood Skin exam: Present: warm, dry, intact, normal color. Absent: rash Course Vital Signs 07/24/16 14:47 Temperature 97.4 F L Pulse Rate 51 L Respiratory 18 Rate Blood Pressure 145/80 O2 Sat by Pulse 98 Oximetry - Reevaluation(s) Reevaluation #1: 07/24/16 15:21 Patient does have difficulty in ambulation, walks with caution Medical Decision Making - Medical Decision Making 75 male to the ED co back pain and strain, difficulty walking and pain with ambulatoin , does have back and disk diseaes, no trauma, nidia give pain control and follow up with Ortho - Radiology Data Radiology results: report reviewed (CT LS spine does show significant disk disease and spnial stenosis), image reviewed Disposition Clinical Impression: Morbid obesity, BMI 38.0-38.9,adult, Spinal stenosis Disposition: HOME SELF-CARE Condition: Good Instructions: Acute Low Back Pain (ED), Lumbar Radiculopathy (ED) Referrals: Aaron Rowland MD [Primary Care Provider] - 1-2 days Serafin Johnson DO [Doctor of Osteopathic Medicine] - 1-2 days
--- NOTE | 2016-07-24 15:47 | CT ---
EXAMINATION TYPE: CT sacrum wo con DATE OF EXAM: 07/24/2016 COMPARISON: NONE HISTORY: Leg pain and difficulty walking. CT DLP: 3325.4 mGycm Automated exposure control for dose reduction was used. FINDINGS: Multiple axial sections were obtained from L4 to S5 with no contrast. There is narrowing at L5-S1 disc space with vacuum disc. There is endplate spur formation. There is 5 mm anterior subluxation of L4 in relation L5. The sacral segments have normal alignment. I see no fr acture. There is moderate hypertrophic facet arthropathy in the lower lumbar spine. The sacroiliac alonso ints are intact. 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 NO EVIDENCE OF A SACRAL FRACTURE.
--- NOTE | 2016-07-24 15:52 | CT ---
EXAMINATION TYPE: CT lumbar spine wo con DATE OF EXAM: 07/24/2016 3:37 PM COMPARISON: NONE HISTORY: Leg pain and difficulty walking. CT DLP: 3325.4 mGycm Automated exposure control for dose reduction was used. Unenhanced CT of the lumbar spine was performed. Bone and soft tissue window settings are submitted as well as coronal and sagittal reconstructions. There is 5 mm anterior subluxation of L4 in relation L5. There is narrowing at L5-S1 disc space with vacuum disc. There is moderate hypertrophic facet arthropathy at L4-5 and L5-S1. There is no compress ion fracture. There is spurring of the endplates throughout the lumbar spine. There is no lumbar para spinal mass. There is spinal stenosis at L3-4 L4-5 due to facet arthropathy and subluxation. There is bilateral neural foraminal stenosis at L5-S1. There is suggestion of a moderate posterior L3-4 disc herniation centrally and to the right side. IMPRESSION: Multilevel spondylosis. Degenerative first degree L4-5 spondylolisthesis. Moderate spinal stenosis at L3-4 L4-5. No compression fracture. There is suggestion of a posterior disc herniation at L3-4 contr ibuting to the spinal stenosis. This appears increased in size compared to old CT scan of the abdomen of 05/17/2015. MR scan or CT myelogram would be helpful for further evaluation if clinically indicated .
== END 2016-07-24 16:25 | disposition home or self-care (01) ==
LOC: EC 14:39
DX: M48.06 Spinal stenosis, lumbar region (principal); E66.01 Morbid (severe) obesity due to excess calories; I10 Essential (primary) hypertension; I25.10 Atherosclerotic heart disease of native coronary artery without angina pectoris; Z79.82 Long term (current) use of aspirin; Z79.899 Other long term (current) drug therapy; Z88.0 Allergy status to penicillin; Z68.38 Body mass index [BMI] 38.0-38.9, adult
CPT/HCPCS: 72131; 72192; 99284; 96372; J1885

== ENCOUNTER 2016-10-23 11:10 | Emergency (ER) | payer MEDICARE ==
[2016-10-23 11:18] VITALS: RESP 18
[2016-10-23] MEDS ORDERED: KETOROLAC 30 MG/ML 1 ML VIAL IVP STA (12:23)
[2016-10-23] MEDS ORDERED: HYDROmorphone 1 MG/ML 1 ML SYRINGE IVP STA (12:23)
[2016-10-23] MEDS ORDERED: methylPREDNISolone SOD SUCCI 125 MG/2 ML VIAL IV STA (12:23)
[2016-10-23] MEDS ORDERED: DIAZEPAM 5 MG/ML 2 ML INJ IVP STA (12:23)
--- NOTE | 2016-10-23 13:47 | ED ---
Back Pain HPI - General Chief Complaint: Back Pain/Injury Stated Complaint: Back Pain Time Seen by Provider: 10/23/16 11:28 Source: patient, EMS - History of Present Illness Initial Comments: 76-year-old male with past medical history of coronary artery disease , hypertension, tumor on his pituitary, cholecystectomy, CABG, pacemaker present for evaluation of acute on chronic back pain. He states that he has been having back pain since July and he had spinal injections about 2-3 months ago which did provide some improvement in his symptoms over over the last 2 weeks he has been progressively getting worse. This morning he states that his pain was so intense that he was unable to get up from his chair. He denies any saddle anesthesia, lower extremity weakness, bowel or bladder irregularities, or midline back pain. Receding trauma or falls. - Related Data Home Medications Medication Instructions Recorded Confirmed Furosemide [Lasix] 40 mg PO DAILY 05/17/15 11/18/16 Aspirin 325 mg PO DAILY 04/03/16 11/18/16 Benazepril HCl [Lotensin] 40 mg PO DAILY 04/03/16 11/18/16 Dostinex(Cabergoline) 0.5mg 0.5 mg PO TU 04/03/16 11/18/16 Gabapentin [Neurontin] 300 mg PO TID 04/03/16 11/18/16 Isosorbide Mononitrate ER [Imdur] 60 mg PO QAM 04/03/16 11/18/16 Levothyroxine Sodium [Synthroid] 112 mcg PO QAM 04/03/16 11/18/16 Magnesium Oxide [Mag-Ox] 250 mg PO BID 04/03/16 11/18/16 Multivitamins, Thera [Multivitamin 1 tab PO DAILY 04/03/16 11/18/16 (formulary)] Potassium 99 mg PO BID 04/03/16 11/18/16 Krill Oil 500 mg PO DAILY 04/25/16 11/18/16 Calcium Citrate 250 mg PO BID 07/24/16 11/18/16 Metoprolol Tartrate [Lopressor] 50 mg PO TID 07/24/16 11/18/16 Niacin (Inositol Niacinate) 1,000 mg PO BID 07/24/16 11/18/16 [Niacin Flush Free 500 mg Cap] Glucosamine Sulfate 500 mg PO DAILY 11/18/16 11/18/16 HYDROcodone/APAP 5-325MG [[place] 1 - 2 tab PO TID 11/18/16 11/18/16 5-325] HYDROcodone/APAP 7.5-325MG [[place] 1 tab PO TID PRN 11/18/16 11/18/16 7.5-325] Loratadine 10 mg PO DAILY 11/18/16 11/18/16 Melatonin 5 mg PO HS 11/18/16 11/18/16 Nitroglycerin Sl Tabs [Nitrostat] 0.4 mg SUBLINGUAL Q5M PRN 11/18/16 11/18/16 Allergies Allergy/AdvReac Type Severity Reaction Status Date / Time Penicillins Allergy Rash/Hives Verified 11/18/16 12:29 Review of Systems ROS Statement: Those systems with pertinent positive or pertinent negative responses have been documented in the HPI. ROS Other: All systems not noted in ROS Statement are negative. Constitutional: Denies: fever, chills Eyes: Denies: eye pain, eye discharge, vision change ENT: Denies: ear pain, throat pain, congestion Respiratory: Denies: cough, dyspnea Cardiovascular: Denies: chest pain, palpitations, edema, syncope Endocrine: Denies: fatigue, polydipsia, polyuria Gastrointestinal: Denies: abdominal pain, nausea, vomiting Genitourinary: Denies: urgency, dysuria, hematuria, testicular pain, testicular mass Musculoskeletal: Reports: back pain, arthralgia. Denies: joint swelling, myalgia Skin: Denies: rash, lesions Neurological: Denies: headache, weakness Psychiatric: Denies: anxiety, depression Hematological/Lymphatic: Denies: easy bleeding, easy bruising 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 History of Any Multi-Drug Resistant Organisms: None Reported Past Surgical History: Cholecystectomy, Coronary Bypass/CABG, Pacemaker Additional Past Surgical History / Comment(s): triple bipass 5-2010, cholecystectomy 2015,[employer] Pacemaker Lt chest Past Anesthesia/Blood Transfusion Reactions: No Reported Reaction Type of Cardiac Device: Permanent Pacemaker Device Placement Date:: Mar 2016 Past Psychological History: No Psychological Hx Reported Smoking Status: Former smoker Past Alcohol Use History: Rare Past Drug Use History: None Reported - Past Family History Mother Family Medical History: Cancer Additional Family Medical History / Comment(s): CABG, Colon Cancer Father Family Medical History: Cancer Additional Family Medical History / Comment(s): Father of cancer unsure which type of cancer Brother(s) Additional Family Medical History / Comment(s): Brother had X4 Bypass General Exam General appearance: alert, in distress (Mild) Head exam: Present: atraumatic, normocephalic, normal inspection Eye exam: Present: normal appearance, PERRL, EOMI. Absent: scleral icterus, conjunctival injection, periorbital swelling ENT exam: Present: normal exam, mucous membranes moist Neck exam: Present: normal inspection. Absent: tenderness, meningismus, lymphadenopathy Respiratory exam: Present: normal lung sounds bilaterally. Absent: respiratory distress, wheezes, rales, rhonchi, stridor Cardiovascular Exam: Present: normal rhythm, bradycardia, normal heart sounds. Absent: systolic murmur, diastolic murmur, rubs, gallop, clicks GI/Abdominal exam: Present: soft, normal bowel sounds. Absent: distended, tenderness, guarding, rebound, rigid Rectal exam: Present: deferred Extremities exam: Present: normal inspection, full ROM, normal capillary refill. Absent: tenderness, pedal edema, joint swelling, calf tenderness Back exam: Present: tenderness, paraspinal tenderness. Absent: full ROM, vertebral tenderness, rash noted Neurological exam: Present: alert, oriented X3, CN II-XII intact Psychiatric exam: Present: normal affect, normal mood Skin exam: Present: warm, dry, intact, normal color. Absent: rash Course Vital Signs 10/23/16 10/23/16 10/23/16 11:14 13:19 14:05 Temperature 97.3 F L 98.0 F Pulse Rate 51 L 50 L 51 L Respiratory 18 18 18 Rate Blood Pressure 207/102 163/81 166/82 O2 Sat by Pulse 97 96 97 Oximetry Medical Decision Making - Medical Decision Making 76-year-old male with past medical history as noted above presented for evaluation of acute on chronic back pain. On physical examination he does appear to be in distress however he did receive 10 mg of morphine in route and states that his pain is markedly improved from prior to arrival. He does have bilateral lower back pain with some radiation down his legs. There are no red flag signs for cauda equina syndrome or spinal cord compression. The patient was provided with more pain control and on reevaluation he was able to get up and ambulate to the room. He was offered further imaging however he stated at this time he didn't think was necessary and that he was feeling appropriate to be discharged home. He was instructed on the warning signs and symptoms of worsening or concerning symptoms. He was further advised to follow-up with his primary care physician but to return to this facility if his symptoms should worsen or persist. The patient acknowledged an understanding of this information and agreed with this plan of care. Disposition Clinical Impression: Mechanical back pain Disposition: HOME SELF-CARE Condition: Stable Instructions: Chronic Back Pain (ED) Additional Instructions: Please use medication as discussed. Please follow up with family doctor if symptoms have not improved over the next two days. Please return to the emergency room if your symptoms increase or worsen or for any other concerns. Referrals: Aaron Rowland MD [Primary Care Provider] - 1-2 days Time of Disposition: 13:47
[2016-10-23 14:06] VITALS: BP 166/82; PULSE 51; TEMP 98
--- NOTE | 2016-10-25 08:22 | CDI ---
Documentation Clarification OP Dear Nadeem COBOS DO Please do addendum to ED report for HPI , Physical exam and MDM. Thank you, Melanie Ervin [employer] If you have any question, Please contact coding compliance specialist at [phone] [facility]
== END 2016-10-23 14:05 | disposition home or self-care (01) ==
LOC: EC 11:10
DX: G89.29 Other chronic pain (principal); M54.5 Low back pain; R00.1 Bradycardia, unspecified; I25.10 Atherosclerotic heart disease of native coronary artery without angina pectoris; I10 Essential (primary) hypertension; Z95.0 Presence of cardiac pacemaker; Z95.1 Presence of aortocoronary bypass graft; Z88.0 Allergy status to penicillin; Z79.82 Long term (current) use of aspirin; Z79.891 Long term (current) use of opiate analgesic; Z79.899 Other long term (current) drug therapy; Z87.891 Personal history of nicotine dependence
CPT/HCPCS: 99283; 96374; 96375 ×3; J2930; J3360; J1885; J1170

== ENCOUNTER → 2016-11-22 | Outpatient (CLI) | payer MEDICARE ==
[2016-11-22 11:35] LABS: Basophils % (A) 1 %; CH 31.9; CHCM 34.3; Eosinophils # (A) 0.2 k/uL (0-0.7); Eosinophils % (A) 3 %; HCT 42.5 % (39.0-53.0); HDW 2.87; HGB 14.4 gm/dL (13.0-17.5); Luc # (Auto) 0.11; Luc % (Auto) 2; Lymphocytes # (A) 1.6 k/uL (1.0-4.8); Lymphocytes % (A) 25 %; MCH 31.8 pg (25.0-35.0); MCV 93.6 fL (80.0-100.0); Mean Platelet Volume 8.4; Monocytes # (A) 0.3 k/uL (0-1.0); Monocytes % (A) 5 %; Neutrophils # (A) 4.1 k/uL (1.3-7.7); Neutrophils % (A) 65 %; RBC 4.54 m/uL (4.30-5.90); RDW 13.3 % (11.5-15.5); WBC 6.3 k/uL (3.8-10.6); WBC (Perox) 6.43
[2016-11-22 11:48] LABS: ALT 38 U/L (21-72); AST 18 U/L (17-59); Alkaline Phosphatase 67 U/L (38-126); Anion Gap 9 mmol/L; Blood Urea Nitrogen 28 mg/dL (9-20); Calcium 9.9 mg/dL (8.4-10.2); Carbon Dioxide 27 mmol/L (22-30); Chloride 104 mmol/L (98-107); Glucose 98 mg/dL (74-99); Non-African American GFR(MDRD) >60 (>60 ml/min/1.73 sqM); Potassium 4.6 mmol/L (3.5-5.1); Sodium 140 mmol/L (137-145); Total Bilirubin 0.7 mg/dL (0.2-1.3); Total Protein 6.8 g/dL (6.3-8.2)
[2016-11-22 11:50] LABS: Partial Thromboplastin Time 23.6 sec (22.0-30.0); Prothrombin Time 10.5 sec (9.0-12.0)
--- NOTE | 2016-11-22 12:08 | XR ---
EXAMINATION TYPE: XR chest 2V DATE OF EXAM: 11/22/2016 COMPARISON: 04/05/2016 HISTORY: Shortness of breath TECHNIQUE: Frontal and lateral views of the chest are obtained. FINDINGS: Scattered senescent parenchymal changes noted. Hyperinflation compatible with COPD. No evidence for infiltrate. No evidence for atelectasis. Heart size is stable. Mediastinal structures are stable and grossly unremarkable. No evidence for hilar prominence. Degenerative changes dorsal spine. IMPRESSION: 1. No evidence for acute pulmonary disease.
== END | disposition home or self-care (01) ==
LOC: LABPAT 10:54
PROVIDERS: ATTEND Orthopaedic Surgery Orthopaedic Surgery of the Spine
DX: Z01.818 Encounter for other preprocedural examination (principal); Z51.81 Encounter for therapeutic drug level monitoring; Z79.01 Long term (current) use of anticoagulants
CPT/HCPCS: 36415; 71020; 80053; 85025; 85610; 85730; 86850; 86900; 86901; 87070

== ENCOUNTER → 2016-11-23 | Outpatient (CLI) | payer MEDICARE ==
[2016-11-23 11:13] LABS: Appearance,Urine Clear (Clear); Bilirubin,Urine Negative (Negative); Glucose,Urine (UA) Negative (Negative); Ketones,Urine Negative (Negative); Leukocyte Esterase,Urine Negative (Negative); Nitrite,Urine Negative (Negative); Protein,Urine Negative (Negative); Specific Gravity,Urine 1.018 (1.001-1.035); UA Billing (MACRO vs. MICRO) CHEM; Urobilinogen,Urine <2.0 mg/dL (<2.0)
== END | disposition home or self-care (01) ==
LOC: LABPAT 09:21
PROVIDERS: ATTEND Orthopaedic Surgery Orthopaedic Surgery of the Spine
DX: Z01.812 Encounter for preprocedural laboratory examination (principal); Z51.81 Encounter for therapeutic drug level monitoring; Z79.01 Long term (current) use of anticoagulants
CPT/HCPCS: 81003

== ENCOUNTER 2016-11-30 06:40 | Observation (INO) | payer MEDICARE ==
[2016-11-18 13:04] VITALS: BMI 39.3
[~2016-11-30 06:40] MED LIST changes: -ALPRAZolam 0.25 MG TAB PO PRN; -ALPRAZolam 0.5 MG TAB PO PRN; -ASPIRIN 325 MG TAB PO STA; -ATORVASTATIN 80 MG TAB PO STA; +BACITRACIN 50,000 UNIT, POLYMYXIN B 500,000 UNIT in SODIUM CHLORIDE 0.9% IRRIGATIO 1,00... IRRIGATION ONE; +DEXAMETHASONE SOD PHOSPHATE 10 MG/ML 1 ML VIAL IV ONE; +HYDROmorphone 0.5 MG/0.5 ML SYRINGE IVP PRN; +LACTATED RINGERS 1,000 ML IV SCH; +LIDOCAINE 1% 20 ML VIAL (10MG/ML) FOR IV START INTRADERMA PRN; +MIDAZOLAM 2 MG/2 ML VIAL IV PRN; -NITROGLYCERIN SL TABS 0.4 MG TAB SUBLINGUAL PRN; +ONDANSETRON 4 MG/2 ML VIAL IVP ONE; +SCOPOLAMINE 1.5MG/72HR PATCH TRANSDERM ONE; -SODIUM CHLORIDE 0.9% 1,000 ML in EMPTY BAG 1 BAG IV ONE; +ceFAZolin 3 GM in SODIUM CHLORIDE 0.9% 100 ML IVPB ONE
[2016-11-30] MEDS ORDERED: NEOSTIGMINE 1 MG/ML 10 ML VIAL ONE (08:30)
[2016-11-30] MEDS ORDERED: ROCURONIUM BROMIDE 10 MG/ML 10 ML VIAL IV ONE (08:30)
[2016-11-30] MEDS ORDERED: MIDAZOLAM 2 MG/2 ML VIAL ONE (08:30)
[2016-11-30] MEDS ORDERED: fentaNYL (PF) 50 MCG/ML 2 ML AMP ONE (08:30)
[2016-11-30] MEDS ORDERED: GLYCOPYRROLATE 0.2 MG/ML 2 ML VIAL ONE (08:30)
[2016-11-30] MEDS ORDERED: SUCCINYLCHOLINE CHLORIDE 100 MG/5 ML SYR IV ONE (08:30)
[2016-11-30] MEDS ORDERED: PROPOFOL 10 MG/ML 20 ML VIAL IV ONE (08:30)
[2016-11-30] MEDS ORDERED: LIDOCAINE 1% INJ 10MG/ML (20 ML MDV) ONE (08:30)
[2016-11-30] MEDS ORDERED: PHENYLEPHRINE-0.9% NACL SYG 1 MG/10 ML SYRINGE ONE (08:30)
--- NOTE | 2016-11-30 10:16 | P.DS ---
Providers Date of admission: 11/30/16 06:40 Attending physician: Serafin Johnson Consults: 11/30/16 09:46 Consult Physician Stat Consulting Provider: Adriana Ward Consult Reason/Comments: SURGERY CANCELLED DUE TO ARRYTHMIA Do you want consulting provider notified?: Yes Primary care physician: [facility] Course: Patient presented to the hospital today for his scheduled lumbar spinal surgery of decompression and fusion L3 4 L4 5 L5-S1. He had gone through clearance preoperatively and was not have good vital signs and stable medical condition preoperatively. However today on admission and preoperative holding area he was slightly tachycardic with pulse of approximately 105. He was evaluated with anesthesia and I felt that they be able to control the pressure and the pulse appropriately. He went through induction and was sedated and intubated. He had a Montes catheter placed. His pulse remained somewhat high of 105 to 115. He was slightly hypotensive and that was able to control with neostigmine. His pulse remained elevated and tachycardic with a sinus rhythm. He is not having PVT's. He was not having stimulation from his pacemaker. Given the tachycardia with slight hypotension, as well as his history of pituitary tumor, was difficult to predict how the patient may respond during the surgical procedure which was scheduled to be several hours long, involved significant blood loss and would be performed in a prone position. Certainly surgery would but the patient's cardiorespiratory status at some stress and given his tachycardia that was a new incidence for him today this would provide increased risk for him if we're to proceed with the surgery. Long discussions were done with anesthesia department and with our service and we decided to cancel case for today and postpone for now. The patient will be able to be discharged today if he is a sympathetic after the postanesthesia care unit recovery to be further worked up with his primary care physician as well as cardiology for appropriate clearance prior to rescheduling. I discussed this at length with his and she understands. I answered her questions best my ability and language she can understand understand. They will be discharged with close follow-up. Plan - Discharge Summary New Discharge Prescriptions: No Action Furosemide [Lasix] 40 mg PO DAILY Potassium 99 mg PO BID Multivitamins, Thera [Multivitamin (formulary)] 1 tab PO DAILY Dostinex(Cabergoline) 0.5mg 0.5 mg PO TU Aspirin 325 mg PO DAILY Levothyroxine Sodium [Synthroid] 112 mcg PO QAM Isosorbide Mononitrate ER [Imdur] 60 mg PO QAM Gabapentin [Neurontin] 300 mg PO TID Benazepril HCl [Lotensin] 40 mg PO DAILY Magnesium Oxide [Mag-Ox] 250 mg PO BID Krill Oil 500 mg PO DAILY Calcium Citrate 250 mg PO BID Niacin (Inositol Niacinate) [Niacin Flush Free 500 mg Cap] 1,000 mg PO BID Metoprolol Tartrate [Lopressor] 50 mg PO TID HYDROcodone/APAP 5-325MG [[place] 5-325] 1 - 2 tab PO TID Loratadine 10 mg PO DAILY HYDROcodone/APAP 7.5-325MG [[place] 7.5-325] 1 tab PO TID PRN PRN Reason: Pain Glucosamine Sulfate 500 mg PO DAILY Nitroglycerin Sl Tabs [Nitrostat] 0.4 mg SUBLINGUAL Q5M PRN PRN Reason: CP Melatonin 5 mg PO HS Discharge Medication List Furosemide [Lasix] 40 mg PO DAILY 05/17/15 [History] Aspirin 325 mg PO DAILY 04/03/16 [History] Benazepril HCl [Lotensin] 40 mg PO DAILY 04/03/16 [History] Dostinex(Cabergoline) 0.5mg 0.5 mg PO TU 04/03/16 [History] Gabapentin [Neurontin] 300 mg PO TID 04/03/16 [History] Isosorbide Mononitrate ER [Imdur] 60 mg PO QAM 04/03/16 [History] Levothyroxine Sodium [Synthroid] 112 mcg PO QAM 04/03/16 [History] Magnesium Oxide [Mag-Ox] 250 mg PO BID 04/03/16 [History] Multivitamins, Thera [Multivitamin (formulary)] 1 tab PO DAILY 04/03/16 [History ] Potassium 99 mg PO BID 04/03/16 [History] Krill Oil 500 mg PO DAILY 04/25/16 [History] Calcium Citrate 250 mg PO BID 07/24/16 [History] Metoprolol Tartrate [Lopressor] 50 mg PO TID 07/24/16 [History] Niacin (Inositol Niacinate) [Niacin Flush Free 500 mg Cap] 1,000 mg PO BID 07/24 [History] Glucosamine Sulfate 500 mg PO DAILY 11/18/16 [History] HYDROcodone/APAP 5-325MG [[place] 5-325] 1 - 2 tab PO TID 11/18/16 [History] HYDROcodone/APAP 7.5-325MG [[place] 7.5-325] 1 tab PO TID PRN 11/18/16 [History] Loratadine 10 mg PO DAILY 11/18/16 [History] Melatonin 5 mg PO HS 11/18/16 [History] Nitroglycerin Sl Tabs [Nitrostat] 0.4 mg SUBLINGUAL Q5M PRN 11/18/16 [History] Follow up Appointment(s)/Referral(s): Aaron Rowland MD [Primary Care Provider] - 3 Days (eval for tachycardia surgical clearance) Serafin Johnson DO [Doctor of Osteopathic Medicine] - 2 Weeks (surgical rescheduling)
[2016-11-30] MEDS ORDERED: NITROGLYCERIN SL TABS 0.4 MG TAB SUBLINGUAL PRN (11:59)
[2016-11-30] MEDS ORDERED: HYDROcodone/APAP 7.5-325MG 1 EACH TAB PO PRN (11:59)
[2016-11-30] MEDS ORDERED: ASPIRIN 325 MG TAB PO SCH (12:00)
[2016-11-30] MEDS ORDERED: FUROSEMIDE 40 MG TAB PO SCH (12:00)
[2016-11-30 12:36] LABS: Anion Gap 8 mmol/L; Blood Urea Nitrogen 12 mg/dL (9-20); Carbon Dioxide 25 mmol/L (22-30); Chloride 108 mmol/L (98-107); Glucose 89 mg/dL (74-99); Non-African American GFR(MDRD) >60 (>60 ml/min/1.73 sqM); Potassium 4.2 mmol/L (3.5-5.1); Sodium 141 mmol/L (137-145)
[2016-11-30 12:46] VITALS: RESP 18
--- NOTE | 2016-11-30 12:52 | CONS ---
CONSULTATION Mr. Oglesby is a 76-year-old gentleman who is seen in consultation in the recovery room to evaluate the patient for cardiac arrhythmia. This patient was supposed to have a back surgery. The patient underwent anesthesia and after that, patient was noticed to have and a possible ventricular tachycardia on the monitor and the surgery was canceled. Patient was not symptomatic. This patient has a known stable coronary artery disease with a prior history of coronary artery bypass surgery. Patient had a BARRETO graft to the LAD, saphenous vein graft to the diag and saphenous vein graft to the PLV branch of the RCA. The patient had a right bundle branch block and left anterior fascicular block, underwent a dual-chamber pacemaker in March of 2016. Patient's pacemaker was checked about 2 months ago. At that time, it was normal. The patient has a history of hypertension, dyslipidemia. He denies any history of the recent syncope. The patient had a recent stress test which was normal. PAST MEDICAL HISTORY: Includes a history of coronary artery bypass surgery, history of permanent pacemaker. HOME MEDICATIONS: Include: 1. Aspirin. 2. Benazepril 40 mg daily. 3. Imdur 60 mg daily. 4. Lasix 40 mg daily. 5. Gabapentin 1 capsule 3 times a day. 6. Metoprolol 50 mg b.i.d. 7. Magnesium. 8. Nitrostat. 9. Niacin and. 10.Synthroid. REVIEW OF THE SYSTEMS: Otherwise unremarkable. PHYSICAL EXAMINATION: At present reveals a 76-year-old gentleman who does not appear to be in any acute distress at present. The patient's blood pressure is 170/80 mmHg. HEAD/ENT: Negative. NECK: Supple. There is no increase in jugular venous pressure. Both the carotid pulses are felt. There is no bruit. CHEST: Symmetrical. HEART: The PMI is not felt. First and second heart sounds are normal. No significant murmurs are noted. LUNGS: Clinically clear to auscultation and percussion. ABDOMEN: Soft. Liver and spleen are not enlarged. EXTREMITIES: Peripheral pulses are 2+. EKG shows normal sinus rhythm with a QRS morphology suggestive of right bundle branch block pattern is noted. FINAL IMPRESSION: 1. This patient had an episode of the wide QRS complex tachycardia on the monitor after induction of anesthesia. Exact nature of the patient's arrhythmia is unclear. I am not sure whether it is an nonsustained supraventricular tachycardia or ventricular tachycardia. There is no definite previous history of any symptomatic tachy arrhythmia. 2. Stable coronary artery disease with prior history of coronary artery bypass surgery. 3. Status post functioning demand pacemaker. RECOMMENDATIONS: We would recommend to observe the patient on the telemetry for 24 hours. We will interrogate the pacemaker and see what kind of arrhythmia is that. We will check a BMP and magnesium level and continue the patient on his cardiac medications. If no significant arrhythmias are noted on the pacemaker analysis, then patient can undergo the surgery. MMODL / IJN: [id number] /
--- NOTE | 2016-11-30 13:20 | ECHOF ---
Referral Reason:SURGERY CANCELLED DUE TO RUN OF V TACH DROP IN BP MEASUREMENTS -------- HEIGHT: 182.9 cm WEIGHT: 131.5 kg BP: RVIDd: 4.0 cm (< 3.3) IVSd: 1.5 cm (0.6 - 1.1) LVIDd: 5.6 cm (3.9 - 5.3) LVPWd: 1.1 cm (0.6 - 1.1) IVSs: 1.9 cm LVIDs: 4.7 cm LVPWs: 1.5 cm LAESV Index (A-L): 46.19 ml/m Ao Diam: 3.6 cm (2.0 - 3.7) AV Cusp: 2.2 cm (1.5 - 2.6) LA Diam: 5.4 cm (2.7 - 3.8) MV EXCURSION: 14.308 mm (> 18.000) MV EF SLOPE: 103 mm/s (70 - 150) EPSS: 0.7 cm MV E Mario: 0.76 m/s MV DecT: 217 ms MV A Mario: 0.74 m/s MV E/A Ratio: 1.03 RAP: 5.00 mmHg RVSP: 33.39 mmHg FINDINGS -------- Paced rhythm. Morbid Obesity The left ventricular size is normal. There is moderate concentric left ventricular hypertrophy. Overall left ventricular systolic function is low-normal with, an EF between 50 - 55 %. The right ventricle is moderate to severely enlarged. LA is severely dilated >40 ml/m2 The right atrial size is normal. There is mild aortic valve sclerosis. There is no evidence of aortic regurgitation. Mild mitral annular calcification present. Mild mitral regurgitation is present. Mild tricuspid regurgitation present. There is no evidence of pulmonary hypertension. The right ventricular systolic pressure, as measured by Doppler, is 33.39mmHg. The pulmonic valve was not well visualized. The aortic root size is normal. There is no pericardial effusion. CONCLUSIONS -------- 1. Morbid Obesity 2. Mild tricuspid regurgitation present. 3. There is no evidence of pulmonary hypertension. 4. The right ventricular systolic pressure, as measured by Doppler, is 33.39mmHg. 5. The pulmonic valve was not well visualized. 6. The aortic root size is normal. 7. There is no pericardial effusion. 8. The left ventricular size is normal. 9. There is moderate concentric left ventricular hypertrophy. 10. Overall left ventricular systolic function is low-normal with, an EF between 50 - 55 %. 11. The right ventricle is moderate to severely enlarged. 12. LA is severely dilated >40 ml/m2 13. There is mild aortic valve sclerosis. 14. Mild mitral annular calcification present. 15. Mild mitral regurgitation is present. GUIDE DOG MOBILITY INSTRUCTOR: Carina Rogers RDCS
[2016-11-30] MEDS ORDERED: METOPROLOL TARTRATE 25 MG TAB PO STA (13:32)
[2016-11-30 15:35] VITALS: BP 135/72; PULSE 51; TEMP 97.8
[2016-11-30] MEDS ORDERED: METOPROLOL TARTRATE 50 MG TAB PO SCH (16:00)
[2016-11-30] MEDS ORDERED: GABAPENTIN 300 MG CAP PO SCH (16:00)
[2016-11-30] MEDS ORDERED: METOPROLOL TARTRATE 25 MG TAB PO SCH (16:00)
[2016-11-30] MEDS ORDERED: CALCIUM CARBONATE 500 MG CHEWABLE PO SCH (17:30)
--- NOTE | 2016-11-30 18:24 | P.HPIM ---
History of Present Illness H&P Date: 11/30/16 Chief Complaint: tachycardia 76 year old male with PMHx CAD s/p CABG, hypertension , hyperlipidemia. He presented for an elective surgical intervention which has to be cancelled due to development of arrhythmia in the OR. 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 however he did not have any associated symptoms with the tachyarrhythmia and did not lose his pulse. He later was evaluated by cardiology and had 2D echo done, and his pacemaker was interrogated and showed paced tachycardia with no evidence of Vtach. Patient had a recent stress test done 2 months ago which was reported to be within normal limits. He currently reports no symptoms of dizziness, chest pain , shortness of breath , headache, nausea or vomiting. He denies any syncope or arrhythmias at home. I discussed the case with Ortho , and they have cancelled all plans for surgery at this time, and to follow up with them as OP. Cardiology has cleared the patient to have surgery as scheduled by ortho. Review of Systems Constitutional: Patient reports no fever, no chills, no night sweating, no significant weight changes Eyes: Patient reports no visual changes, no eye pain ENT: Patient reports no ear pain, no rhinorrhea, no sore throat Cardiovascular: Patient reports no chest pain, no exertional dyspnea, no peripheral leg edema, no orthopnea, no paroxysmal nocturnal dyspnea Respiratory:Patient reports no cough, no wheezing, no shortness of breath Gastrointestinal: Patient reports no diarrhea, no constipation, no nausea no vomiting, no abdominal pain Genitourinary: Patient reports no dysuria, no hematuria, no changes in urinary habits, no genital lesions Musculoskeletal: Patient reports no muscle pain, he reports chronic low back pain radiating to both lower extremities , limiting his activities of daily living Psychiatric: Patient reports no changes in mood or memory, no suicidal ideation , no anxiety Endocrine: Patient reports no heat intolerance, no cold intolerance, no excessive thirst, no polyuria Neurological: Patient reports no focal neurologic deficits, no weakness, no numbness, no tingling Hem/Lymphatic: Patient reports no bleeding tendency, no bruising, no swollen lymph glands Allergic/Immun: Patient reports no recent allergic reactions Skin: Patient reports no rashes, no pruritis, no ulcers 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 History of Any Multi-Drug Resistant Organisms: None Reported Past Surgical History: Cholecystectomy, Coronary Bypass/CABG, Pacemaker Additional Past Surgical History / Comment(s): triple bipass 5-2010, cholecystectomy 2015,[employer] Pacemaker Lt chest Past Anesthesia/Blood Transfusion Reactions: No Reported Reaction Type of Cardiac Device: Permanent Pacemaker Device Placement Date:: Mar 2016 Past Psychological History: No Psychological Hx Reported Smoking Status: Former smoker Past Alcohol Use History: Rare Past Drug Use History: None Reported - Past Family History Mother Family Medical History: Cancer Additional Family Medical History / Comment(s): CABG, Colon Cancer Father Family Medical History: Cancer Additional Family Medical History / Comment(s): Father of cancer unsure which type of cancer Brother(s) Additional Family Medical History / Comment(s): Brother had X4 Bypass Medications and Allergies Home Medications and Allergies Comment(s): reviewed Home Medications Medication Instructions Recorded Confirmed Type Furosemide [Lasix] 40 mg PO DAILY 05/17/15 11/30/16 History Aspirin 325 mg PO DAILY 04/03/16 11/30/16 History Benazepril HCl [Lotensin] 40 mg PO DAILY 04/03/16 11/30/16 History Dostinex(Cabergoline) 0.5mg 0.5 mg PO TU 04/03/16 11/30/16 History Gabapentin [Neurontin] 300 mg PO TID 04/03/16 11/30/16 History Isosorbide Mononitrate ER [Imdur] 60 mg PO QAM 04/03/16 11/30/16 History Levothyroxine Sodium [Synthroid] 112 mcg PO QAM 04/03/16 11/30/16 History Magnesium Oxide [Mag-Ox] 250 mg PO BID 04/03/16 11/30/16 History Multivitamins, Thera [Multivitamin 1 tab PO DAILY 04/03/16 11/30/16 History (formulary)] Potassium 99 mg PO BID 04/03/16 11/30/16 History Krill Oil 500 mg PO DAILY 04/25/16 11/30/16 History Calcium Citrate 250 mg PO BID 07/24/16 11/30/16 History Glucosamine Sulfate 500 mg PO DAILY 11/18/16 11/30/16 History HYDROcodone/APAP 5-325MG [[place] 1 - 2 tab PO TID 11/18/16 11/30/16 History 5-325] HYDROcodone/APAP 7.5-325MG [[place] 1 tab PO TID PRN 11/18/16 11/30/16 History 7.5-325] Loratadine 10 mg PO DAILY 11/18/16 11/30/16 History Melatonin 5 mg PO HS 11/18/16 11/30/16 History Nitroglycerin Sl Tabs [Nitrostat] 0.4 mg SUBLINGUAL Q5M PRN 11/18/16 11/30/16 History Metoprolol Tartrate [Lopressor] 75 mg PO TID #100 tab 11/30/16 Rx Niacin (Inositol Niacinate) 1,000 mg PO BID 11/30/16 11/30/16 History [Niacin Flush Free 500 mg Cap] Allergies Allergy/AdvReac Type Severity Reaction Status Date / Time Penicillins Allergy Rash/Hives Verified 11/30/16 07:18 Physical Exam Vitals: Vital Signs Temp Pulse Pulse Pulse Resp BP BP 11/30/16 16:00 50 L 51 L 18 11/30/16 15:32 97.8 F 51 L 18 135/72 11/30/16 12:48 50 L 50 L 18 11/30/16 12:45 97.5 F L 50 L 18 159/84 11/30/16 11:55 50 L 16 148/65 11/30/16 11:25 50 L 16 127/65 11/30/16 10:55 50 L 16 136/83 11/30/16 10:40 50 L 17 125/61 11/30/16 10:25 50 L 16 129/60 11/30/16 10:10 50 L 16 135/84 11/30/16 09:55 50 L 16 142/73 11/30/16 09:40 97.4 F L 50 L 16 140/85 11/30/16 06:53 97.8 F 50 L 16 160/77 Pulse Ox 11/30/16 16:00 11/30/16 15:32 97 11/30/16 12:48 11/30/16 12:45 97 11/30/16 11:55 98 11/30/16 11:25 96 11/30/16 10:55 98 11/30/16 10:40 96 11/30/16 10:25 98 11/30/16 10:10 99 11/30/16 09:55 99 11/30/16 09:40 99 11/30/16 06:53 98 Intake and Output 11/30/16 11/30/16 11/30/16 06:59 14:59 22:59 Intake Total 610 Balance 610 Intake: IV 250 Oral 360 Constitutional: No acute distress, conversant, pleasant Eyes: Anicteric sclerae, moist conjunctiva, no lid-lag Pupils equal round reactive to light ENMT: NC/AT Oropharynx clear, no erythema, exudates Neck: Supple, FROM, no masses, or JVD No carotid bruits No thyromegaly Lungs: Clear to auscultation Clear to percussion Normal respiratory effort, no accessory muscle use palpable pace maker under his left anterior upper chest Cardiovascular: Heart regular in rate and rhythm, No murmurs, gallops, or rubs No peripheral edema Abdominal: Soft Nontender, no guarding, rebound or rigidity Abdomen moving with respiration Normoactive bowel sounds No hepatomegaly, No splenomegaly No palpable mass No abdominal wall hernia noted Skin: Normal temperature, tone, texture, turgor No induration No subcutaneous nodules No rash, lesions No ulcers Extremities: No digital cyanosis No clubbing Pedal pulses intact and symmetrical Radial pulses intact and symmetrical No calf tenderness Psychiatric: Alert and oriented to person, place and time Appropriate affect fair judgment Neuro Muscles Strength 5/5 in all 4 extremities Sensation to light touch grossly present throughout Cranial nerves II-XII grossly intact No focal sensory deficits Lymphatics: no palpable cervical or supraclavicular , or inguinal lymph nodes Results CBC & Chem 7: 11/30/16 10:23 Labs: Abnormal Lab Results - Last 24 Hours (Table) 11/30/16 Range/Units 10:23 Chloride 108 H (98-107) mmol/L Thrombosis Risk Factor Assmnt - Choose All That Apply Each Factor Represents 1 point: Obesity (BMI >25), Swollen legs (current) Each Risk Factor Represents 2 Points: Major surgery Each Risk Factor Represents 3 Points: Age 75 years or older Each Risk Factor Represents 5 Points: Major surgery lasting over 3 hours Thrombosis Risk Factor Assessment Total Risk Factor Score: 12 Thrombosis Risk Factor Assessment Level: High Risk Assessment and Plan (1) Pacemaker-mediated tachycardia Narrative/Plan: device interrogated settings adjusted patient asymptomatic evaluated by cardiology metoprolol dose adjusted electrolytes unremarkable Current Visit: Yes Status: Acute Code(s): I49.9 - CARDIAC ARRHYTHMIA, UNSPECIFIED SNOMED Code(s): 050944290 (2) History of coronary artery bypass graft x 3 Narrative/Plan: stable continue home medication s Current Visit: No Status: Chronic Code(s): Z95.1 - PRESENCE OF AORTOCORONARY BYPASS GRAFT SNOMED Code(s): 526758150 (3) Hypertension Narrative/Plan: blood pressure controlle d Current Visit: No Status: Chronic Code(s): I10 - ESSENTIAL (PRIMARY) HYPERTENSION SNOMED Code(s): 26109650 Plan: patient is stable from internal medicine stand point Echocardiogram reviewed, preserved left ventricular ejection fraction pacemaker interrogated, showing pacemaker mediated tachycardia, settings adjusted metoprolol dose adjusted patient to be discharged in stable medical condition, surgical plans has canceled follow up OP with cardiology , PCP. and ortho
[2016-11-30] MEDS ORDERED: NIACIN TR 500 MG CAPSULE.ER PO SCH (21:00)
[2016-11-30] MEDS ORDERED: MELATONIN 5 MG TABLET PO SCH (21:00)
[2016-11-30] MEDS ORDERED: [UNRECOGNIZED DRUG - REMARK] PO SCH (21:00)
[2016-11-30] MEDS ORDERED: MAGNESIUM OXIDE 400 MG TAB PO SCH (21:00)
[2016-11-30] MEDS ORDERED: POTASSIUM CHLORIDE ORAL LIQUID 40 MEQ/30 ML CUP PO SCH (21:00)
[2016-12-01] MEDS ORDERED: LEVOTHYROXINE 112 MCG TAB PO SCH (06:30)
[2016-12-01] MEDS ORDERED: NON-FORMULARY DRUG (Krill Oil [Krill Oil] 500 MG) PO SCH (09:00)
[2016-12-01] MEDS ORDERED: LORATADINE 10 MG TAB PO SCH (09:00)
[2016-12-01] MEDS ORDERED: LISINOPRIL 20 MG TAB PO SCH (09:00)
[2016-12-01] MEDS ORDERED: ISOSORBIDE MONONITRATE ER 60 MG TAB.ER.24H PO SCH (09:00)
[2016-12-01] MEDS ORDERED: NON-FORMULARY DRUG (Glucosamine Sulfate 500 MG) PO SCH (09:00)
[2016-12-01] MEDS ORDERED: MULTIVITAMINS, THERA 1 EACH TAB PO SCH (12:00)
[2016-12-06] MEDS ORDERED: DOSTINEX PO SCH (12:00)
== END 2016-11-30 18:30 | disposition home or self-care (01) ==
LOC: INTOOBSV 06:40 → 2ORMAIN 06:40 → 3OBS 11:56
PROVIDERS: ADMIT Internal Medicine; ATTEND Internal Medicine
DX: I49.9 Cardiac arrhythmia, unspecified (principal); Z53.09 Procedure and treatment not carried out because of other contraindication; M51.26 Other intervertebral disc displacement, lumbar region; M51.36 Other intervertebral disc degeneration, lumbar region; M54.16 Radiculopathy, lumbar region; M43.16 Spondylolisthesis, lumbar region; I10 Essential (primary) hypertension; I95.9 Hypotension, unspecified; Z95.1 Presence of aortocoronary bypass graft; E78.5 Hyperlipidemia, unspecified; I25.10 Atherosclerotic heart disease of native coronary artery without angina pectoris; D49.7 Neoplasm of unspecified behavior of endocrine glands and other parts of nervous system; Z95.0 Presence of cardiac pacemaker; Z79.82 Long term (current) use of aspirin; Z79.899 Other long term (current) drug therapy; Z87.891 Personal history of nicotine dependence; Z80.0 Family history of malignant neoplasm of digestive organs; Z88.0 Allergy status to penicillin; E66.9 Obesity, unspecified; Z68.39 Body mass index [BMI] 39.0-39.9, adult; E03.9 Hypothyroidism, unspecified
CPT/HCPCS: 93288; 93306; 93005; 86900; 86901; 80048; 83735; 86850; G0378; G0379; J2250; J2710; J2001; J3010; J2370; J0330; J2704

== ENCOUNTER 2016-12-26 10:57 | Inpatient (IN) | payer MEDICARE ==
[2016-12-19 12:01] VITALS: BMI 39.0
[~2016-12-26 10:57] MED LIST changes: -HYDROmorphone 0.5 MG/0.5 ML SYRINGE IVP PRN; +HYDROmorphone 1 MG/ML 1 ML SYRINGE IVP PRN; -LACTATED RINGERS 1,000 ML IV SCH; -LIDOCAINE 1% 20 ML VIAL (10MG/ML) FOR IV START INTRADERMA PRN; -MIDAZOLAM 2 MG/2 ML VIAL IV PRN; -SCOPOLAMINE 1.5MG/72HR PATCH TRANSDERM ONE
[2016-12-26] MEDS ORDERED: LIDOCAINE 1% 20 ML VIAL (10MG/ML) FOR IV START INTRADERMA ONE (11:43)
[2016-12-26] MEDS: LACTATED RINGERS 1,000 ML IV SCH ×2 (11:43→12:16)
[2016-12-26] MEDS ORDERED: CLINDAMYCIN 900 MG in DEXTROSE 5% IN WATER 50 ML IVPB STA ×2 (11:55)
[2016-12-26] MEDS ORDERED: fentaNYL (PF) 50 MCG/ML 2 ML AMP ONE (12:15)
[2016-12-26] MEDS ORDERED: GLYCOPYRROLATE 0.2 MG/ML 2 ML VIAL ONE (12:15)
[2016-12-26] MEDS ORDERED: ALBUMIN HUMAN 5% 250 ML BOTTLE IVPB ONE (12:15)
[2016-12-26] MEDS ORDERED: PHENYLEPHRINE-0.9% NACL SYG 1 MG/10 ML SYRINGE ONE (12:15)
[2016-12-26] MEDS ORDERED: ePHEDrine SULFATE/0.9% NACL/PF 50 MG/5 ML SYRINGE IV ONE (12:15)
[2016-12-26] MEDS ORDERED: PROPOFOL 10 MG/ML 20 ML VIAL IV ONE (12:15)
[2016-12-26] MEDS ORDERED: HYDROmorphone (PF) 1 MG/ML ONE (12:15)
[2016-12-26] MEDS ORDERED: ROCURONIUM BROMIDE 10 MG/ML 10 ML VIAL IV ONE (12:15)
[2016-12-26] MEDS ORDERED: SUCCINYLCHOLINE CHLORIDE 100 MG/5 ML SYR IV ONE (12:15)
[2016-12-26] MEDS ORDERED: MIDAZOLAM 2 MG/2 ML VIAL ONE (12:15)
[2016-12-26] MEDS ORDERED: THROMBIN (BOVINE) 5,000 UNIT VIAL MISCELLANE ONE (13:32)
[2016-12-26] MEDS ORDERED: BUPIVACAINE-EPI 0.5%-1:200,000 10 ML VIAL SQ ONE (13:32)
[2016-12-26] MEDS ORDERED: GELATIN SPONGE,ABSORB (LARGE) 1 EACH SPONGE TOPICAL ONE (13:32)
--- NOTE | 2016-12-26 16:15 | XR ---
EXAMINATION TYPE: XR lumbar spine 2 or 3V DATE OF EXAM: 12/26/2016 COMPARISON: 12/26/2016 HISTORY: 76-year-old male heart replacement in OR TECHNIQUE: Intraoperative AP and lateral views FINDINGS: Images show placement of transpedicular screws on both sides at L3-S1 levels. The left L3 transpedicu lar screw distal aspect may be skirting the cortex of the superior vertebral endplate. IMPRESSION: Transpedicular screws from L3 through S1 levels. The distal aspect of the left L3 screw may be skirti ng or just violating the cortex of the superior endplate.
[2016-12-26] MEDS ORDERED: LACTATED RINGERS 1,000 ML IV ONE (16:18)
--- NOTE | 2016-12-26 16:56 | XR ---
EXAMINATION TYPE: XR lumbar spine 1V DATE OF EXAM: 12/26/2016 COMPARISON: NONE HISTORY: 76-year-old male needle placement in OR TECHNIQUE: Portable crosstable lateral view FINDINGS: Metallic needle is present along the posterior margin of the L4 superior endplate. There is grade 1 a nterolisthesis at L4-L5. IMPRESSION: Metal needle along the posterior margin of the L4 superior endplate.
[2016-12-26] MEDS ORDERED: BUPIVACAINE (PF) 0.25% 30 ML VIAL SQ ONE (17:02)
[2016-12-26] MEDS ORDERED: HYDROmorphone 1 MG/ML 1 ML SYRINGE IVP PRN (17:27)
[2016-12-26] MEDS ORDERED: HYDROcodone/APAP 5-325MG 1 EACH TAB PO PRN (17:27)
[2016-12-26] MEDS ORDERED: BENZOCAINE/MENTHOL LOZENG 1 EACH LOZENGE MUCOUS MEM PRN (17:27)
[2016-12-26] MEDS ORDERED: MAGNESIUM HYDROXIDE 2,400 MG/10 ML CUP PO PRN (17:27)
[2016-12-26] MEDS ORDERED: HYDROmorphone PCA 5 MG/25 ML SYRINGE IV PRN (17:27)
[2016-12-26] MEDS ORDERED: DIAZEPAM 5 MG TAB PO PRN (17:27)
[2016-12-26] MEDS ORDERED: HYDROcodone/APAP 7.5-325MG 1 EACH TAB PO PRN (17:30)
--- NOTE | 2016-12-26 17:40 | P.OP ---
Date of Procedure: 12/26/16 Preoperative Diagnosis: Severe spinal stenosis L3 4 L4 5 L5-S1, Spondylolisthesis L4 5, degenerative disc disease L3 4 L4 5 L5-S1, facet arthrosis L3 4 L4 5 L5-S1, low back pain and bilateral lower extremity radiculopathy, neurogenic claudication Postoperative Diagnosis: Same Anesthesia: GETA Pathology: none sent Condition: stable Disposition: PACU Description of Procedure: BRIEF OPERATIVE NOTE Preoperative Diagnosis: Severe spinal stenosis L3 4 L4 5 L5-S1, spinal listhesis L4 5, neurogenic claudication, degenerative disc disease, facet arthrosis, low back pain with lower extremity radiculopathy Postoperative Diagnosis: Same Procedure: Laminectomy and decompression with wide bilateral foraminotomies and partial facetectomy bilaterally L3 4 L4 5 L5-S1 Posterior lateral decompression and fusion L3 4 L4 5 L5-S1 Aspiration of bone marrow aspirate. Using The pedicle of L4 on the right Local autogenous bone grafting Use of Cell Saver Use of bone graft extenders Use of neuro monitoring Surgeon: Dr. Johnson Director Marketing Analytics: Kevin ROMERO who is present throughout the entire the case persistence during positioning, dissection, exposure, visualization, and all crucial elements of the case as well as closure. Anesthesia: General anesthesia Estimated blood loss: Approximately 1300 mL with 585 mL given back through Cell Saver Complications: None apparent Components implanted: K2M [place] pedicle screw system with use of 8 screws measuring 6.5 mm in diameter to rods one cross-link. We also used one large osteoamp Sponge and 15 mL of DBX bone fibers to supplemental local autogenous bone graft and bone marrow aspirate Disposition: To recovery room in good stable condition. OPERATIVE INDICATIONS The patient has had long-standing issues in their lower back and lower extremities. He was having worsening symptoms despite aggressive conservative care. He was found to have severe spinal stenosis at multiple levels in his lumbar spine as well as degenerative disc disease and spondylolisthesis with some dynamic instability. He was having worsening symptoms with his back and lower extremities and having severe neurogenic claudication. His imaging correlated well with his symptoms and we discussed various treatment options. The patient has been through conservative treatment. We discussed various treatment options including surgery, and the patient wishes to proceed with surgery We discussed the risk, patient's alternatives and benefits of surgery including but not limited to, risk of bleeding risk of infection, risk of need for further surgery, risk of decreased, loss of motion, muscle function, malunion nonunion, hardware failure, nerve damage, paralysis, heart attack, blindness and . The patient was interested in pursuing surgical intervention. He had had his surgery initially postponed due to some rapid heart rate but this was remedied and worked up with cardiology and he was found have stable and good clearance for surgery from a cardiology standpoint and we' re able to proceed with surgery. OPERATIVE SUMMARY After discussing all the risks, patient alternatives and benefits at length, the patient elected to proceed with surgical intervention, signed informed consent, and presented for their procedure. The patient was seen and examined in the preoperative holding area and the surgical site was marked. The patient was given antibiotics and brought to the operating room. The patient was sedated and intubated by anesthesia in standard fashion. The patient was positioned on to the operating room table in a prone position on the appropriate frame which was well-padded and well molded. We were careful to pad any bony prominences and pressure points. We were careful to maintain the patient's cervical spine and good neutral alignment and position throughout. The patient was prepped and draped in a normal standard fashion. An appropriate timeout and keystone protocol performed. We were able to proceed with the surgery. The local wound area was infiltrated with local anesthetic. An incision was made at the midline longitudinally over the appropriate levels from L3 to S1. Dissection was taken down subcutaneously to the level of the fascia which was split midline. Dissection was taken over the lamina bilaterally over the facet joints and to the transverse processes. Intraoperative x-ray was taken which showed a marker at the appropriate level at L4. With the appropriate level positively confirmed, we were able to proceed with placement of the pedicle holes and screws. The patient had all their twitches back. The patient had severe overgrowth and significant severe facet arthrosis with large osteophytic spurring throughout his lumbar spine on the exposed areas from L3 to S1. I did take down large amounts of osteophytic spurring nor to expose the appropriate level. There was some increased level of difficulty with the case due to this. The wound was copiously irrigated and suctioned dry as had been done periodically throughout the case. Screw holes were established similarly at each level. A sharp awl was used to establish the starting hole at L3, 4, 5, and S1 bilaterally. It was palpated and found to have good for banuelos and good base. A monitored Steffee probe was used to establish the pedicle hole. It was positioned so there was no stimulation at 12 mA. The hole was palpated and found to have good for banuelos and a good base. The hole was tapped with the appropriate sized tap. The transverse process or sacral ala was decorticated with a high-speed bur. I was able to use these holes to place the appropriate size screw and good alignment and good position with good bony purchase. At the L3 screw on the left I did redirect the screw to get good alignment and good position after the initial x-ray and was able to get good realignment. When the screws were inserted there were stimulated, and found to have no stimulation at 20 mA. I was able to turn my attention to the decompression. decompression was performed with a combination of rongeurs, curettes, Kerrison rongeurs and a ball -tip feeler at L3 4 L4 5 and L5-S1. All of the bone that was removed was stripped and morcellized for use as autogenous bone graft later in the case. The patient had extremely severe central and bilateral foraminal stenosis at L3 4 and L4 5 and L5-S1 bilaterally. I performed decompression removing the lamina as well as ligamentum flavum and partial facetectomy with foraminotomy large bone spurs and facet capsule. I was able to remedy this throughout the decompression while maintaining good protection of the dura and getting good central and bilateral foraminal decompression. I was able to obtain good central decompression as well as wide bilateral foraminal decompression at L3 4 L4 5 and L5-S1. There is no evidence of dural tear or leak. Good hemostasis was maintained. The wound was irrigated and suctioned dry. With the hardware intact, intraoperative x-ray was again taken which showed good alignment and position of the hardware at the appropriate levels at L3 4 5 and S1. We were then able to measure, contour and place the rods and appropriate hardware bilaterally. I was able to place capcrews, tighten them down, and shear them off appropriately. With this intact I was able to place the local autogenous bone graft with additional bone graft enhancer as necessary into the posterior lateral gutters bilaterally. With the bone graft intact, a stable construct, and good decompression at the appropriate levels from L3 to S1, we were able to proceed with closure. Good hemostasis was maintained. There is no evidence of dural tear or leak. The fascia was closed for a watertight closure. The subcutaneous tissue was closed over a superficial drain. The subcuticular tissue was closed with absorbable suture. The wound was cleaned and dried and dressed with the appropriate dressing. The drapes were broken down. The patient was gently rolled back onto their hospital bed being careful to maintain their cervical spine and good neutral alignment and position. They were woken up by anesthesia, extubated, and brought to the recovery room in good stable condition. The patient will be admitted to the hospital for appropriate postoperative care , medical management and monitoring. We will continue to follow them closely about the postoperative course.
[2016-12-26] MEDS ORDERED: CALCIUM CITRATE 250 MG PO SCH (21:00)
[2016-12-26] MEDS ORDERED: NON-FORMULARY DRUG (Potassium [Potassium] 99 MG) PO SCH (21:00)
[2016-12-26] MEDS: CLINDAMYCIN 900 MG in DEXTROSE 5% IN WATER 50 ML IVPB SCH ×4 (22:30→23:08)
[2016-12-26] MEDS: MAGNESIUM OXIDE 400 MG TAB PO SCH (22:31)
[2016-12-26] MEDS: GABAPENTIN 300 MG CAP PO SCH (22:31)
[2016-12-26] MEDS: NIACIN TR 500 MG CAPSULE.ER PO SCH (22:31)
[2016-12-26] MEDS: METOPROLOL TARTRATE 25 MG TAB PO SCH (22:31)
[2016-12-26] MEDS: SODIUM CHLORIDE 0.9% 1,000 ML IV SCH (22:33)
--- NOTE | 2016-12-26 23:25 | XR ---
EXAMINATION TYPE: XR lumbar spine 2 or 3V DATE OF EXAM: 12/26/2016 CLINICAL HISTORY: Low back surgery TECHNIQUE: Frontal and lateral images of the lumbar spine are obtained. COMPARISON: Lumbar spine x-ray earlier today FINDINGS: There are 5 lumbar type vertebral bodies redemonstrated. There is redemonstration of bilat eral intrapedicular screws L3-S1 level. Left L3 screw has been adjusted in the interval There is stab le grade 1 anterolisthesis of L4 on L5. There is stable moderate disc space narrowing L5-S1 level. Th ere is prominent right lateral spur L2-L3 level redemonstrated. IMPRESSION: Improved alignment of left L3 screw after repositioning.
[2016-12-27] MEDS: ONDANSETRON 4 MG/2 ML VIAL IVP PRN (00:32)
[2016-12-27] MEDS: HYDROcodone/APAP 5-325MG 1 EACH TAB PO PRN ×2 (02:28→21:00)
[2016-12-27] MEDS: HYDROmorphone 1 MG/ML 1 ML SYRINGE IVP PRN ×3 (04:50→20:06)
[2016-12-27] MEDS: LACTATED RINGERS 1,000 ML IV SCH (05:35)
[2016-12-27] MEDS: CLINDAMYCIN 900 MG in DEXTROSE 5% IN WATER 50 ML IVPB SCH ×4 (06:19→11:54)
[2016-12-27] MEDS: LEVOTHYROXINE 112 MCG TAB PO SCH (06:20)
[2016-12-27 06:38] LABS: Basophils % (A) 0 %; CH 31.1; CHCM 34.1; Eosinophils % (A) 0 %; HCT 34.8 % (39.0-53.0); HDW 2.99; HGB 11.6 gm/dL (13.0-17.5); Luc # (Auto) 0.06; Luc % (Auto) 1; Lymphocytes # (A) 0.7 k/uL (1.0-4.8); Lymphocytes % (A) 7 %; MCH 30.6 pg (25.0-35.0); MCHC 33.3 g/dL (31.0-37.0); MCV 91.7 fL (80.0-100.0); Mean Platelet Volume 8.7; Monocytes # (A) 0.7 k/uL (0-1.0); Monocytes % (A) 7 %; Neutrophils % (A) 84 %; RDW 14.1 % (11.5-15.5); WBC 9.5 k/uL (3.8-10.6); WBC (Perox) 10.23
[2016-12-27 06:49] LABS: Anion Gap 6 mmol/L; Blood Urea Nitrogen 16 mg/dL (9-20); Carbon Dioxide 27 mmol/L (22-30); Chloride 105 mmol/L (98-107); Glucose 146 mg/dL (74-99); Non-African American GFR(MDRD) >60 (>60 ml/min/1.73 sqM); Potassium 4.4 mmol/L (3.5-5.1); Sodium 138 mmol/L (137-145)
--- NOTE | 2016-12-27 08:23 | P.PN ---
Progress Note - Text Progress Note Date: 12/27/16 Orthopedic Spine Patient is a pleasant 76-year-old male who is seen and examined at the bedside following posterior lateral decompression and fusion performed yesterday. Patient states they are doing well postsurgically. He does have some pain at the surgical site. He is not currently experiencing any lower extremity radiculopathy symptoms. Currently does not complain of nausea, vomiting, fever , or chills. He was experiencing some nausea last night after receiving pain medication but his nausea improved after eating. Patient was able to eat some breakfast this morning without difficulty. Patient states pain has been adequately controlled. Montes catheter remains intact. Patient has not been out of bed swelling. Patient does state he feels he has some left-sided abdominal pain and feels like gas. SVT was reported during surgical intervention. Patient was transferred to selective care following surgery with consultation placed for cardiology. Physical Exam Lumbar Fusion: Status post surgical day number 1 Patient is awake, alert, and oriented 3 Vital signs stable Good chest excursion with deep inspiration and expiration; O2 nasal cannula intact Abdomen soft nontender; significant pain with palpation over the left side of the abdomen where the patient states he feels gas pain Dorsiflexion, plantarflexion, and extensor hallucis longus positive sustained bilaterally No signs or symptoms of DVT; no calf pain; pneumatic cuffs not currently intact bilateral lower extremities Dressing is clean, dry, and intact; no erythema, purulence, or signs of infection Hemovac drain well secure Neurovascularly intact bilaterally lower extremities Assessment: Posterior lateral decompression and fusion L3-4, L4-5, L5-S1 L3-4, L4-5, and L5-S1 severe spinal canal stenosis, facet arthrosis, and degenerative disc disease L4-5 spondylolisthesis Neurogenic claudication Low back pain with bilateral lower extremity radiculopathy Reported SVT during surgery; history of pacemaker placement Plan: 1. Ambulate as tolerated; work with Physical Therapy to increase mobilization 2. Continue pain control with IV and oral medications 3. Dressing to remain intact; Hemovac drain will remain intact until tomorrow; tomorrow dressing and Hemovac drain removed; dressing will be changed to nonstick Telfa and Tegaderm 4. Medical management can continue to manage patient for patient's other medical issues; patient has been placed with Dr. Rowland 5. Consultation also has been placed with cardiology for further evaluation for reported SVT during surgical intervention; patient does have history of pacemaker placement 6. We will continue to follow the patient closely 7. Patient can follow-up with Kevin Germain PA-C or Dr. Edgar Johnson at [facility] in 2-3 weeks following discharge
[2016-12-27] MEDS: SODIUM CHLORIDE 0.9% 1,000 ML IV SCH (08:56)
[2016-12-27] MEDS: MULTIVITAMINS, THERA 1 EACH TAB PO SCH (08:57)
[2016-12-27] MEDS: FUROSEMIDE 40 MG TAB PO SCH (08:57)
[2016-12-27] MEDS: ASPIRIN 325 MG TAB PO SCH (08:57)
[2016-12-27] MEDS: SENNOSIDES-DOCUSATE SODIUM 1 EACH TAB PO SCH (08:58)
[2016-12-27] MEDS: METOPROLOL TARTRATE 25 MG TAB PO SCH ×3 (08:58→21:03)
[2016-12-27] MEDS: NIACIN TR 500 MG CAPSULE.ER PO SCH ×2 (08:59→21:02)
[2016-12-27] MEDS: MAGNESIUM OXIDE 400 MG TAB PO SCH ×2 (08:59→21:03)
[2016-12-27] MEDS: GABAPENTIN 300 MG CAP PO SCH ×3 (08:59→21:03)
[2016-12-27] MEDS: LISINOPRIL 20 MG TAB PO SCH (08:59)
[2016-12-27] MEDS ORDERED: DOSTINEX PO SCH (09:00)
[2016-12-27] MEDS: ISOSORBIDE MONONITRATE ER 60 MG TAB.ER.24H PO SCH (09:00)
--- NOTE | 2016-12-27 12:23 | CONS ---
CONSULTATION This is a 76-year-old gentleman who sees Dr. Kwok in the outpatient setting. He was admitted for an extensive laminectomy that was performed yesterday and apparently intraoperatively there was a episode of SVT and therefore I was asked to see him. Dr. Kwok had seen this patient prior to surgery and had okayed him for the operation considering that he is a moderate risk. Surgery was performed uneventfully. This morning, patient is in sinus rhythm, hemodynamically stable, resting comfortably without symptoms. He does have history of CAD, previous bypass surgery, sick sinus syndrome with symptomatic bradycardia, for which he has a dual-chamber pacemaker that was performed in March of this year. He also has hypertension and hyperlipidemia, both of which are under good control. At the time of my evaluation, he is resting comfortably without symptoms. Rhythm strip reviewed that is available to me suggests that patient is really in a sinus rhythm with underlying right bundle branch block pattern. He also has some paced beats which are appropriate. There is no evidence of any SVT that is evident to me. PAST MEDICAL HISTORY: 1. CAD with history of prior bypass surgery. 2. Hypertension. 3. Hyperlipidemia. 4. Sick sinus syndrome with symptomatic bradycardia, status post permanent pacemaker that is functioning well. MEDICATIONS: Medications at home include benazepril, gabapentin, Imdur, Lasix, magnesium oxide, metoprolol tartrate 75 mg t.i.d., potassium supplements, and Synthroid 112 mcg daily. ALLERGIES: PENICILLIN. REVIEW OF SYSTEMS: Unremarkable other than above-mentioned facts. PHYSICAL EXAMINATION: On examination, blood pressure is 118/70, pulse rate is 64 per minute, regular. HEENT: Unremarkable. Fundus was not examined by me. Neck is supple. I cannot appreciate any significant JVD. There is no carotid bruit. Heart exam reveals S1, S2 heard normally, but distant heart sounds. I cannot hear any murmurs. Lungs reveal diminished decent air entry. Abdomen is soft. Lower extremity exam revealed palpable pulses. No edema. Central nervous system is normal grossly. EKG in the chart revealed a sinus mechanism with evidence of right bundle with left posterior block, nonspecific ST-T changes. IMPRESSION: 1. Apparently patient had supraventricular tachycardia, which was very transient. I cannot see any such rhythm strips. 2. History of sick sinus syndrome with symptomatic bradycardia and a pacemaker that is functioning well. 3. Coronary artery disease with previous bypass surgery. 4. Hypertension. 5. Hyperlipidemia. 6. Status post extensive back surgery with laminectomy that was performed by Dr. Johnson uneventfully. RECOMMENDATIONS: From a cardiac standpoint, I believe we will continue all his medications including beta blockers. We will continue. He can be transferred to the surgery floor with remote telemetry. No aggressive intervention necessary from a cardiac standpoint. I discussed my thoughts in detail with the patient. Thank you very much for the consult. BRITTANY / KESHIAN: [id number] /
[2016-12-28] MEDS ORDERED: HYDROmorphone 1 MG/ML 1 ML SYRINGE ONE (03:15)
[2016-12-28] MEDS ORDERED: HYDROcodone/APAP 5-325MG 1 EACH TAB ONE (03:15)
[2016-12-28] MEDS: HYDROmorphone 1 MG/ML 1 ML SYRINGE IVP PRN ×2 (04:56→09:11)
[2016-12-28] MEDS: SODIUM CHLORIDE 0.9% 1,000 ML IV SCH ×2 (06:29→15:29)
[2016-12-28 07:23] LABS: Basophils % (A) 0 %; CH 31.2; CHCM 34.5; Eosinophils # (A) 0.1 k/uL (0-0.7); Eosinophils % (A) 1 %; HCT 30.8 % (39.0-53.0); HDW 2.95; HGB 10.5 gm/dL (13.0-17.5); Luc % (Auto) 1; Lymphocytes # (A) 1.1 k/uL (1.0-4.8); Lymphocytes % (A) 10 %; MCH 31.2 pg (25.0-35.0); MCHC 34.2 g/dL (31.0-37.0); MCV 91.1 fL (80.0-100.0); Monocytes # (A) 0.7 k/uL (0-1.0); Monocytes % (A) 6 %; Neutrophils # (A) 8.6 k/uL (1.3-7.7); Neutrophils % (A) 81 %; RBC 3.38 m/uL (4.30-5.90); RDW 13.7 % (11.5-15.5); WBC 10.6 k/uL (3.8-10.6); WBC (Perox) 11.39
[2016-12-28] MEDS: HYDROcodone/APAP 5-325MG 1 EACH TAB PO PRN ×3 (07:40→21:38)
[2016-12-28] MEDS: LEVOTHYROXINE 112 MCG TAB PO SCH (10:36)
[2016-12-28] MEDS: ASPIRIN 325 MG TAB PO SCH (10:37)
[2016-12-28] MEDS: FUROSEMIDE 40 MG TAB PO SCH (10:39)
[2016-12-28] MEDS: GABAPENTIN 300 MG CAP PO SCH ×3 (10:39→21:11)
[2016-12-28] MEDS: ISOSORBIDE MONONITRATE ER 60 MG TAB.ER.24H PO SCH (10:40)
[2016-12-28] MEDS: LISINOPRIL 20 MG TAB PO SCH (10:40)
[2016-12-28] MEDS: MAGNESIUM OXIDE 400 MG TAB PO SCH ×2 (10:41→21:11)
[2016-12-28] MEDS: METOPROLOL TARTRATE 25 MG TAB PO SCH ×3 (10:41→21:11)
[2016-12-28] MEDS: NIACIN TR 500 MG CAPSULE.ER PO SCH ×2 (10:42→21:11)
[2016-12-28] MEDS: SENNOSIDES-DOCUSATE SODIUM 1 EACH TAB PO SCH (10:42)
[2016-12-28] MEDS: MULTIVITAMINS, THERA 1 EACH TAB PO SCH (12:57)
--- NOTE | 2016-12-28 17:55 | P.PN ---
Progress Note - Text Progress Note Date: 12/28/16 Orthopedic Spine Patient is a pleasant 76-year-old male who is seen and examined at the bedside following posterior lateral decompression and fusion performed yesterday. Patient states they are doing well postsurgically. He does have some pain at the surgical site. He is not currently experiencing any lower extremity radiculopathy symptoms. Currently does not complain of nausea, vomiting, fever , or chills. Patient was able to eat some breakfast this morning without difficulty. Patient states pain has been adequately controlled. He has taken less IV pain medication and is trying to control his pain or medication. Yesterday he was in selective care and was seen and examined by cardiology who cleared the patient from a cardiac standpoint. He was transferred to [facility] today. He has been able to sit in a bedside chair with assistance of therapy. He has not tried to ambulate. Montes catheter was discontinued yesterday. He has not been able to urinate today. Nursing was planning to bladder scan him but he was able to void over 300 mL at the bedside without significant difficulty. He has no new complaints today. He is not complaining of any abdominal pain today. I discussed was the patient today the possibility of discharge to rehabilitation facility prior to returning home. He states he does not currently feel he would like to put the stress on his for her to try to help take care of him at home and he feels rehab may be an appropriate plan of care at the time of discharge. Physical Exam Lumbar Fusion: Status post surgical day number 2 Patient is awake, alert, and oriented 3 Vital signs stable Good chest excursion with deep inspiration and expiration; O2 nasal cannula intact Abdomen soft nontender Dorsiflexion, plantarflexion, and extensor hallucis longus positive sustained bilaterally No signs or symptoms of DVT; no calf pain; pneumatic cuffs not currently intact bilateral lower extremities Dressing is clean, dry, and intact; no erythema, purulence, or signs of infection; dressing is removed during physical examination and nonstick Telfa, Silverlon, and Tegaderm is placed over the incision site Hemovac drain well secure; Hemovac drain is discontinued during physical examination Neurovascularly intact bilaterally lower extremities Assessment: Posterior lateral decompression and fusion L3-4, L4-5, L5-S1 L3-4, L4-5, and L5-S1 severe spinal canal stenosis, facet arthrosis, and degenerative disc disease L4-5 spondylolisthesis Neurogenic claudication Low back pain with bilateral lower extremity radiculopathy Reported SVT during surgery; history of pacemaker placement Plan: 1. Ambulate as tolerated; work with Physical Therapy to increase mobilization 2. Continue pain control with IV and oral medications; we will plan to start tapering him off IV pain medications and try to control his pain on oral medications in anticipation for discharge 3. Hemovac drain has been removed during physical examination; dressing has been removed and changed; nonstick Telfa, Silverlon dressing, and Tegaderm is placed and intact over the incision site 4. Medical management can continue to manage patient for patient's other medical issues ; patient has been placed with Dr. Rowland 5. Consultation has also been placed was social work for possible rehabilitation placement at discharge 6. We will continue to follow the patient closely 7. Patient can follow-up with Kevin Germain PA-C or Dr. Edgar Johnson at [facility] in 2-3 weeks following discharge
--- NOTE | 2016-12-28 18:36 | P.CONS ---
History of Present Illness - Reason for Consult Consult date: 12/28/16 medical management Requesting physician: Serafin Johnson - Chief Complaint post operative care - History of Present Illness 76 year old male , known to our service, with PMHx of CAD post CABG, SSS post pacemaker. presented for elective extensive back surgery. 1 month ago surgery was cancelled due to pacemaker malfunction that was thought to be NSVT. Today he is seen POD # 2 upon primary team request as we cover his PCP dr. Rowland. Patient underwent laminectomy that he tolerated well, had an episode of SVT in the OR, then was evaluated by cardiology who deemed him to be stable. today he is seen in medical consultation, reports tolerating surgery, currently tolerating diet, denies any nausea or vomiting, chest pain or SOB. he has passed urine, but did not pass a BM yet. He did not attempt to walk yet but was able to stand up today, He continues to report some controlled lower back pain , but without features of radiculopathy. He reports some chronic heaviness/ weakness in his Lower extremity that has not changed compared to before surgery. He is looking at possible placement at rehab facility once discharged from the hospital . otherwise, denies any evidence of GI bleeding, denies any focal neurological deficits. He is satisfied with his post surgical course so far. He denies any palpitations Patient had thorough cardiac evaluation during his last hospital stay, including pacemaker interrogation which showed no evidence of NSVT (but did reveal pacemaker tachycardia , eventually pacemaker settings were adjusted) , had a 2D echocardiogram which was unremarkable , and 3 months ago he had a stress test that was within normal limits. Review of Systems Pertinent positives as noted in HPI. 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, doesn't use CPAP, neuropathy, this surgery was rescheduled from November due to tachycardia History of Any Multi-Drug Resistant Organisms: None Reported Past Surgical History: Cholecystectomy, Coronary Bypass/CABG, Heart Catheterization, Hernia Repair, Pacemaker Additional Past Surgical History / Comment(s): triple bypass -2010, [employer]emaker Lt chest Past Anesthesia/Blood Transfusion Reactions: No Reported Reaction Type of Cardiac Device: Permanent Pacemaker Device Placement Date:: Mar 2016 Smoking Status: Former smoker - Past Family History Mother Family Medical History: Cancer Additional Family Medical History / Comment(s): CABG, Colon Cancer Father Family Medical History: Cancer Additional Family Medical History / Comment(s): Father of cancer unsure which type of cancer Brother(s) Additional Family Medical History / Comment(s): Brother had X4 Bypass Medications and Allergies Home Medications Medication Instructions Recorded Confirmed Type Furosemide [Lasix] 40 mg PO DAILY 05/17/15 12/26/16 History Aspirin 325 mg PO DAILY 04/03/16 12/26/16 History Benazepril HCl [Lotensin] 40 mg PO DAILY 04/03/16 12/26/16 History Dostinex(Cabergoline) 0.5mg 0.5 mg PO TU 04/03/16 12/26/16 History Gabapentin [Neurontin] 300 mg PO TID 04/03/16 12/26/16 History Isosorbide Mononitrate ER [Imdur] 60 mg PO QAM 04/03/16 12/26/16 History Levothyroxine Sodium [Synthroid] 112 mcg PO QAM 04/03/16 12/26/16 History Magnesium Oxide [Mag-Ox] 250 mg PO BID 04/03/16 12/26/16 History Multivitamins, Thera [Multivitamin 1 tab PO DAILY 04/03/16 12/26/16 History (formulary)] Potassium 99 mg PO BID 04/03/16 12/26/16 History Krill Oil 500 mg PO DAILY 04/25/16 12/26/16 History Calcium Citrate 250 mg PO BID 07/24/16 12/26/16 History Glucosamine Sulfate 500 mg PO DAILY 11/18/16 12/26/16 History HYDROcodone/APAP 7.5-325MG [[place] 1 tab PO TID PRN 11/18/16 12/26/16 History 7.5-325] Loratadine 10 mg PO DAILY 11/18/16 12/26/16 History Melatonin 5 mg PO HS 11/18/16 12/26/16 History Nitroglycerin Sl Tabs [Nitrostat] 0.4 mg SUBLINGUAL Q5M PRN 11/18/16 12/26/16 History Metoprolol Tartrate [Lopressor] 75 mg PO TID #100 tab 11/30/16 12/26/16 Rx Niacin (Inositol Niacinate) 1,000 mg PO BID 11/30/16 12/26/16 History [Niacin Flush Free 500 mg Cap] Allergies Allergy/AdvReac Type Severity Reaction Status Date / Time Penicillins Allergy Rash/Hives Verified 12/26/16 11:11 Physical Exam Vitals: Vital Signs Temp Pulse Pulse Resp BP Pulse Ox 12/28/16 16:00 18 12/28/16 15:00 98.7 F 60 18 115/55 93 L 12/28/16 10:00 63 18 12/28/16 07:00 98.4 F 64 20 142/72 63 L 12/27/16 22:15 98.6 F 12/27/16 21:48 102.3 F H 60 16 115/62 94 L 12/27/16 19:35 63 Intake and Output 12/28/16 12/28/16 12/28/16 06:59 14:59 22:59 Intake Total 200 525 Output Total 90 Balance 200 435 Intake: Intake, IV Titration 525 Amount Sodium Chloride 0.9% 1, 525 000 ml @ 75 mls/hr IV . [id number] [facility] Rx#:[id number] Oral 200 Output: Drainage 90 Back 90 Other: Voiding Method Urinal Urinal Constitutional: No acute distress, conversant, pleasant Eyes: Anicteric sclerae, moist conjunctiva, no lid-lag Pupils equal round reactive to light ENMT: NC/AT Oropharynx clear, no erythema, exudates Neck: Supple, FROM, no masses, or JVD No carotid bruits No thyromegaly Lungs: Clear to auscultation Clear to percussion Normal respiratory effort, no accessory muscle use Cardiovascular: Heart regular in rate and rhythm, No murmurs, gallops, or rubs pacemaker palpable over left ant chest No peripheral edema Abdominal: Soft Nontender, no guarding, rebound or rigidity Abdomen moving with respiration Normoactive bowel sounds No hepatomegaly, No splenomegaly No palpable mass No abdominal wall hernia noted Skin: Normal temperature, tone, texture, turgor No induration No subcutaneous nodules No rash, lesions No ulcers Extremities: No digital cyanosis No clubbing Pedal pulses intact and symmetrical Radial pulses intact and symmetrical No calf tenderness Psychiatric: Alert and oriented to person, place and time Appropriate affect fair judgment Neuro Muscles Strength 5/5 in bilateral upper extremities, and -4/5 in his lower extremities bilaterally Sensation to light touch grossly present throughout Cranial nerves II-XII grossly intact No focal sensory deficits Back exam deferred as patient chose to avoid excessive movement as it might exacerbate pain Lymphatics: no palpable cervical or supraclavicular , or inguinal lymph nodes Results Results: reviewed CBC & Chem 7: 12/28/16 07:09 12/27/16 06:01 Labs: Abnormal Lab Results - Last 24 Hours (Table) 12/28/16 Range/Units 07:09 RBC 3.38 L (4.30-5.90) m/uL Hgb 10.5 L (13.0-17.5) gm/dL Hct 30.8 L (39.0-53.0) % Plt Count 100 L (150-450) k/uL Neutrophils # 8.6 H (1.3-7.7) k/uL Assessment and Plan (1) Spinal stenosis Narrative/Plan: POD #2 post posterior lateral decompression Current Visit: Yes Status: Acute Code(s): M48.00 - SPINAL STENOSIS, SITE UNSPECIFIED SNOMED Code(s): 38593176 (2) History of coronary artery bypass graft x 3 Narrative/Plan: stable now continue home meds Current Visit: No Status: Chronic Code(s): Z95.1 - PRESENCE OF AORTOCORONARY BYPASS GRAFT SNOMED Code(s): 494588734 (3) Hypertension Narrative/Plan: blood pressure controlled continue home meds Current Visit: No Status: Chronic Code(s): I10 - ESSENTIAL (PRIMARY) HYPERTENSION SNOMED Code(s): 72970740 (4) DVT prophylaxis Narrative/Plan: mechanical due to spine surgery Current Visit: Yes Status: Acute Code(s): QAI2835 - SNOMED Code(s): 478828130 (5) Hypothyroidism Narrative/Plan: continue levothyroxin Current Visit: Yes Status: Acute Code(s): E03.9 - HYPOTHYROIDISM, UNSPECIFIED SNOMED Code(s): 25832182 (6) Anemia Narrative/Plan: post operative blood loss, stable now Current Visit: Yes Status: Acute Code(s): D64.9 - ANEMIA, UNSPECIFIED SNOMED Code(s): 218030382 (7) Thrombocytopenia Narrative/Plan: chronic and stable unknown underlying cause defer to OP workup and follow up no evidence of acute bleeding at this point Current Visit: Yes Status: Acute Code(s): D69.6 - THROMBOCYTOPENIA, UNSPECIFIED SNOMED Code(s): 162696730 Plan: check morning labs check A1C due to elevated blood sugar Thank you for allowing us to participate in the care of this patient. We will follow up along with you, Do not hesitate to contact us with questions. Someone can be reached from the [facility] hospitalist group at all hours of the day at [phone]. patient is stable from internal medicine stand point for discharge, patient would possibly benefit from subacute rehab placement
[2016-12-28] MEDS: LACTATED RINGERS 1,000 ML IV SCH (22:11)
[2016-12-29 02:02] LABS: Glucose,Whole Blood 131 mg/dL (75-99)
[2016-12-29] MEDS: HYDROcodone/APAP 5-325MG 1 EACH TAB PO PRN (02:56)
[2016-12-29 02:58] LABS: Glucose,Whole Blood 140 mg/dL (75-99)
[2016-12-29] MEDS: ONDANSETRON 4 MG/2 ML VIAL IVP PRN (02:59)
[2016-12-29] MEDS: HYDROmorphone 1 MG/ML 1 ML SYRINGE IVP PRN ×5 (03:14→21:20)
[2016-12-29] MEDS: SODIUM CHLORIDE 0.9% 1,000 ML IV SCH ×2 (03:29→11:50)
[2016-12-29] MEDS: LEVOTHYROXINE 112 MCG TAB PO SCH ×2 (04:45→06:08)
[2016-12-29] MEDS: LACTATED RINGERS 1,000 ML IV SCH (04:46)
[2016-12-29 06:37] LABS: Basophils % (A) 0 %; CH 32.3; CHCM 34.9; Eosinophils # (A) 0.1 k/uL (0-0.7); Eosinophils % (A) 1 %; HCT 29.3 % (39.0-53.0); HDW 3.19; HGB 9.9 gm/dL (13.0-17.5); Luc # (Auto) 0.12; Luc % (Auto) 1; Lymphocytes # (A) 1.1 k/uL (1.0-4.8); Lymphocytes % (A) 11 %; MCH 31.2 pg (25.0-35.0); MCHC 33.6 g/dL (31.0-37.0); MCV 92.8 fL (80.0-100.0); Mean Platelet Volume 9.1; Monocytes # (A) 0.5 k/uL (0-1.0); Monocytes % (A) 5 %; Neutrophils # (A) 7.9 k/uL (1.3-7.7); Neutrophils % (A) 82 %; RBC 3.16 m/uL (4.30-5.90); RDW 12.7 % (11.5-15.5); WBC 9.7 k/uL (3.8-10.6); WBC (Perox) 10.38
[2016-12-29 06:49] LABS: Anion Gap 5 mmol/L; Blood Urea Nitrogen 11 mg/dL (9-20); Calcium 8.5 mg/dL (8.4-10.2); Carbon Dioxide 24 mmol/L (22-30); Chloride 105 mmol/L (98-107); Glucose 130 mg/dL (74-99); Non-African American GFR(MDRD) >60 (>60 ml/min/1.73 sqM); Phosphorus 2.2 mg/dL (2.5-4.5); Potassium 3.7 mmol/L (3.5-5.1); Sodium 134 mmol/L (137-145)
[2016-12-29] MEDS: ISOSORBIDE MONONITRATE ER 60 MG TAB.ER.24H PO SCH (08:11)
[2016-12-29] MEDS: ASPIRIN 325 MG TAB PO SCH (08:11)
[2016-12-29] MEDS: SENNOSIDES-DOCUSATE SODIUM 1 EACH TAB PO SCH (08:11)
[2016-12-29] MEDS: NIACIN TR 500 MG CAPSULE.ER PO SCH ×2 (08:11→21:18)
[2016-12-29] MEDS: GABAPENTIN 300 MG CAP PO SCH ×3 (08:12→21:18)
[2016-12-29] MEDS: METOPROLOL TARTRATE 25 MG TAB PO SCH ×3 (08:12→21:18)
[2016-12-29] MEDS: LISINOPRIL 20 MG TAB PO SCH (08:12)
[2016-12-29] MEDS: MAGNESIUM OXIDE 400 MG TAB PO SCH ×2 (08:12→21:18)
[2016-12-29] MEDS: FUROSEMIDE 40 MG TAB PO SCH (08:12)
--- NOTE | 2016-12-29 08:52 | P.PN ---
Progress Note - Text Progress Note Date: 12/29/16 Postoperative day #3 Patient is seen and examined today at bedside. He was brought up to selective care in regards to recurrence of tachycardia into the 140s yesterday. He was having some sensation of increased heart rate his chest yesterday. He denies any shortness of breath. He says that he was doing well in terms of his pain over the past 2 days but was having a little bit more difficulty this morning. The patient has some pain around the surgical site as expected. Pain is being controlled with medication. Physical Exam Afebrile with stable vital signs Abdomen is soft nontender. Chest has good excursion deep and space expiration The incision site is clean dry and intact. No erythema there is no purulence. There is no active drainage. No evidence of infection Extremities have not had neurologic change from prior to surgery. He has sustained dorsal flexion plantar flexion and extensor hallucis longus intact Calves and thighs were soft nontender without evidence of DVT. Assessment/Plan Postoperative day #3 status post open decompression and fusion at L3 4 L4 5 and L5-S1 for his severe spinal stenosis with lower extremity radiculopathy and degenerative disc disease The patient has been having some tachycardia and is being managed workup further with cardiology. He does have history of pacemaker which had some paced tachycardia in the recent past which needed adjustment but had been stabilized. I'm unsure what is causing his new tachycardia at this point and he will continue with his workup and management with medicine and cardiology. Patient is progressing as expected from the surgery in terms of his pain. We will continue to increase the patient's mobilization with therapy. We will continue pain control with oral or IV medications. We'll continue to follow patient closely. Is likely this will need subacute rehab or inpatient rehab after discharge in the next 1-2 days
[2016-12-29] MEDS: POTAS-SOD-PHOS 278-164-250 MG 1 EACH PACKET PO SCH ×3 (10:09→21:19)
--- NOTE | 2016-12-29 10:55 | P.PN ---
Subjective Progress Note Date: 12/29/16 Principal diagnosis: Patient seen and examined in follow-up postoperatively, and supraventricular tachycardia 76-year-old male with past medical history of coronary artery disease status post CABG. History of sick sinus syndrome status post pacemaker. Patient was seen in this hospital a month ago where his surgery was canceled due to tachyarrhythmias however asymptomatic which later was found to be due to pacemaker malfunction which was revised and readjusted surgery was canceled at that time. Patient presented this time for an elective back surgery he had one event of supraventricular tachycardia again asymptomatic that was evaluated by cardiology patient underwent the surgery tolerate well. During postoperative day #3 patient had another event tachyarrhythmia at this time was symptomatic associated with trouble breathing and sweating along with chest pain patient was transferred to the cardiac unit for further care and monitoring. Patient seen and examined today reported the palpitation events that woke him up from sleep 3 in the morning was associated with profuse sweating trouble breathing and some chest pain, he currently feels comfortable denies any chest pain or trouble breathing but he is anxious about that event overnight. Otherwise he is tolerating diet and eager to go to rehab for further care once stable Objective - Vital Signs Vital signs: Vital Signs Temp 98.3 F 12/29/16 08:00 Pulse 60 12/29/16 08:00 Resp 19 12/29/16 08:00 BP 127/58 12/29/16 08:00 Pulse Ox 97 12/29/16 08:00 Intake & Output 12/28/16 12/29/16 12/29/16 18:59 06:59 18:59 Intake Total 525 975 240 Output Total 90 1000 Balance 435 -25 240 Weight 0 g Intake: IV 975 Sodium Chloride 0.9% 1, 975 000 ml @ 75 mls/hr IV . [id number] [facility] Rx#:[id number] Intake, IV Titration 525 Amount Sodium Chloride 0.9% 1, 525 000 ml @ 75 mls/hr IV . [id number] [facility] Rx#:[id number] Oral 240 Output: Drainage 90 Back 90 Urine 1000 Other: Voiding Method Urinal Bedside Commode Bedside Commode Urinal Urinal # Voids 3 - Exam Constitutional: vital signs stable, Not in acute distress, pleasant, conversant Lungs: Clear to auscultation bilaterally, clear to percussion, normal respiratory effort Cardiovascular: Regular rate and rhythm, no murmurs, no gallops, no rubs, no peripheral edema Gastrointestinal: Soft, no tenderness to palpation, bowel sounds positive, no abdominal wall hernias Extremities: No digital cyanosis or ischemia, peripheral pulses palpable and equal over bilateral dorsalis pedis artery, no calf muscle tenderness Psych: Alert, oriented to place, person and time - Labs CBC & Chem 7: 12/29/16 06:20 12/29/16 06:20 Labs: Abnormal Lab Results - Last 24 Hours (Table) 12/29/16 12/29/16 12/29/16 Range/Units 02:00 02:55 06:20 RBC 3.16 L (4.30-5.90) m/uL Hgb 9.9 L (13.0-17.5) gm/dL Hct 29.3 L (39.0-53.0) % Plt Count 109 L (150-450) k/uL Neutrophils # 7.9 H (1.3-7.7) k/uL Sodium (137-145) mmol/L Glucose (74-99) mg/dL POC Glucose (mg/dL) 131 H 140 H (75-99) mg/dL Phosphorus (2.5-4.5) mg/dL TSH (0.465-4.680) mIU/L 12/29/16 12/29/16 Range/Units 06:20 06:20 RBC (4.30-5.90) m/uL Hgb (13.0-17.5) gm/dL Hct (39.0-53.0) % Plt Count (150-450) k/uL Neutrophils # (1.3-7.7) k/uL Sodium 134 L (137-145) mmol/L Glucose 130 H (74-99) mg/dL POC Glucose (mg/dL) (75-99) mg/dL Phosphorus 2.2 L (2.5-4.5) mg/dL TSH 0.070 L (0.465-4.680) mIU/L Assessment and Plan (1) Tachyarrhythmia Narrative/Plan: another episode of symptomatic arrhythmia proceeded with trouble breathing and sweating Cardiology following Check TSH and free T4 patient has history of hypothyroid last checked was in March Consider interrogation of his pacemaker Monitoring in the cardiac unit Continue with beta blockers metoprolol Current Visit: Yes Status: Acute Code(s): R00.0 - TACHYCARDIA, UNSPECIFIED SNOMED Code(s): 7889962 (2) Spinal stenosis Narrative/Plan: POD #3 post posterior lateral decompression Pain control and further management per or throat Physical therapy and possible placement at rehab postacute care Current Visit: Yes Status: Acute Code(s): M48.00 - SPINAL STENOSIS, SITE UNSPECIFIED SNOMED Code(s): 68100977 (3) History of coronary artery bypass graft x 3 Narrative/Plan: stable now continue home meds IRAIDA inhibitor Beta ashok aspirin Current Visit: No Status: Chronic Code(s): Z95.1 - PRESENCE OF AORTOCORONARY BYPASS GRAFT SNOMED Code(s): 760869089 (4) Hypertension Narrative/Plan: blood pressure controlled continue home meds IRAIDA inhibitor ashok Current Visit: No Status: Chronic Code(s): I10 - ESSENTIAL (PRIMARY) HYPERTENSION SNOMED Code(s): 75997153 (5) DVT prophylaxis Narrative/Plan: mechanical due to spine surgery Current Visit: Yes Status: Acute Code(s): KFQ9419 - SNOMED Code(s): 024758382 (6) Hypothyroidism Narrative/Plan: continue levothyroxin TSH Free T4 Current Visit: Yes Status: Acute Code(s): E03.9 - HYPOTHYROIDISM, UNSPECIFIED SNOMED Code(s): 98090233 (7) Anemia Narrative/Plan: post operative blood loss, slight drop from baseline Current Visit: Yes Status: Acute Code(s): D64.9 - ANEMIA, UNSPECIFIED SNOMED Code(s): 321486482 (8) Thrombocytopenia Narrative/Plan: chronic and stable unknown underlying cause defer to OP workup and follow up no evidence of acute bleeding at this point Current Visit: Yes Status: Acute Code(s): D69.6 - THROMBOCYTOPENIA, UNSPECIFIED SNOMED Code(s): 011041669 Plan: Thyroid testing is unremarkable, free T4 at goal continue current levothyroxine dose follow-up outpatient Await further cardiology input regarding patient's tachycardia overnight
[2016-12-29] MEDS: FERROUS SULFATE 325 MG TAB PO SCH ×2 (11:47→17:13)
[2016-12-29] MEDS: MULTIVITAMINS, THERA 1 EACH TAB PO SCH (11:50)
--- NOTE | 2016-12-29 12:09 | P.PN ---
Subjective Progress Note Date: 12/29/16 Physical pleasant 46-year-old gentleman who sees to [place] office. Medical history of coronary artery disease with prior bypass surgery, hypertension, hyperlipidemia, sick sinus syndrome with symptomatic bradycardia, status post permanent pacemaker. Was initially admitted to the hospital to undergo extensive laminectomy that was performed on the . He was later found to have some SVT and subsequently some atrial fibrillation with rapid ventricular response with a bundle branch block with quite a wide curious morphology. At which time he was transferred back to the telemetry unit. She is currently on metoprolol tartrate 25 mg by mouth 3 times a day. Today, heart rates have been fairly well-controlled and the patient is in sinus rhythm. Objective - Vital Signs Vital signs: Vital Signs Temp 98.0 F 12/29/16 11:35 Pulse 100 12/29/16 11:55 Resp 18 12/29/16 11:55 BP 125/74 12/29/16 11:35 Pulse Ox 97 12/29/16 08:00 Intake & Output 12/28/16 12/29/16 12/29/16 18:59 06:59 18:59 Intake Total 525 975 240 Output Total 90 1000 Balance 435 -25 240 Weight 0 g Intake: IV 975 Sodium Chloride 0.9% 1, 975 000 ml @ 75 mls/hr IV . [id number] [facility] Rx#:[id number] Intake, IV Titration 525 Amount Sodium Chloride 0.9% 1, 525 000 ml @ 75 mls/hr IV . [id number] [facility] Rx#:[id number] Oral 240 Output: Drainage 90 Back 90 Urine 1000 Other: Voiding Method Urinal Bedside Commode Bedside Commode Urinal Urinal # Voids 3 - Exam PHYSICAL EXAMINATION: HEENT: Head is atraumatic, normocephalic. Pupils equal, round. Neck is supple. There is no elevated jugular venous pressure. HEART EXAMINATION: Heart sounds regular, S1 and S2 normal. No murmur or gallop heard. CHEST EXAMINATION: Lungs are clear to auscultation and precussion. No chest wall tenderness is noted on palpation or with deep breathing. ABDOMEN: Soft, nontender. Bowel sounds are heard. No organomegaly noted. EXTREMITIES: 2+ peripheral pulses with evidence of trace peripheral edema and no calf tenderness noted. NEUROLOGIC patient is awake, alert and oriented x3. . - Labs CBC & Chem 7: 12/29/16 06:20 12/29/16 06:20 Labs: Abnormal Lab Results - Last 24 Hours (Table) 12/29/16 12/29/16 12/29/16 Range/Units 02:00 02:55 06:20 RBC 3.16 L (4.30-5.90) m/uL Hgb 9.9 L (13.0-17.5) gm/dL Hct 29.3 L (39.0-53.0) % Plt Count 109 L (150-450) k/uL Neutrophils # 7.9 H (1.3-7.7) k/uL Sodium (137-145) mmol/L Glucose (74-99) mg/dL POC Glucose (mg/dL) 131 H 140 H (75-99) mg/dL Phosphorus (2.5-4.5) mg/dL TSH (0.465-4.680) mIU/L 12/29/16 12/29/16 Range/Units 06:20 06:20 RBC (4.30-5.90) m/uL Hgb (13.0-17.5) gm/dL Hct (39.0-53.0) % Plt Count (150-450) k/uL Neutrophils # (1.3-7.7) k/uL Sodium 134 L (137-145) mmol/L Glucose 130 H (74-99) mg/dL POC Glucose (mg/dL) (75-99) mg/dL Phosphorus 2.2 L (2.5-4.5) mg/dL TSH 0.070 L (0.465-4.680) mIU/L Assessment and Plan Assessment: #1 paroxysmal atrial fibrillation with rapid ventricular response, new onset 2 history of sick sinus syndrome with symptomatic bradycardia, status post pacemaker #3 history of coronary artery disease with prior bypass surgery #4 hypertension #5 hyperlipidemia #6 status post extensive back surgery with laminectomy that was performed by Dr. Johnson Plan: From cardiology's perspective, we will continue beta blockers. We will start the patient on anticoagulation when okayed by Dr. Johnson. We'll continue to follow the patient for further recommendations accordingly. [employer] note has been reviewed, I agree with a documented findings and plan of care. Patient was seen and examined.
[2016-12-29] MEDS ORDERED: DIGOXIN 250 MCG/ML 2 ML AMP IVP ONE (12:44)
[2016-12-29] MEDS ORDERED: HYDROmorphone 0.5 MG/0.5 ML SYRINGE IVP PRN (18:29)
[2016-12-30] MEDS: LACTATED RINGERS 1,000 ML IV SCH (01:34)
[2016-12-30] MEDS: NITROGLYCERIN SL TABS 0.4 MG TAB SUBLINGUAL PRN ×2 (02:19→02:25)
[2016-12-30] MEDS ORDERED: HYDROmorphone 2 MG/ML 1 ML SYRINGE IVP PRN (02:28)
[2016-12-30] MEDS: SODIUM CHLORIDE 0.9% 1,000 ML IV SCH (02:38)
[2016-12-30 03:26] VITALS: PULSE 74
[2016-12-30] MEDS: HYDROcodone/APAP 5-325MG 1 EACH TAB PO PRN (05:04)
[2016-12-30] MEDS: LEVOTHYROXINE 112 MCG TAB PO SCH (06:33)
[2016-12-30] MEDS: FERROUS SULFATE 325 MG TAB PO SCH (06:33)
[2016-12-30] MEDS: METOPROLOL TARTRATE 25 MG TAB PO SCH (08:03)
[2016-12-30] MEDS: NIACIN TR 500 MG CAPSULE.ER PO SCH (08:03)
[2016-12-30] MEDS: POTAS-SOD-PHOS 278-164-250 MG 1 EACH PACKET PO SCH (08:04)
[2016-12-30] MEDS: MULTIVITAMINS, THERA 1 EACH TAB PO SCH (08:04)
[2016-12-30] MEDS: MAGNESIUM OXIDE 400 MG TAB PO SCH (08:04)
[2016-12-30] MEDS: LISINOPRIL 20 MG TAB PO SCH (08:04)
[2016-12-30] MEDS: ISOSORBIDE MONONITRATE ER 60 MG TAB.ER.24H PO SCH (08:04)
[2016-12-30] MEDS: FUROSEMIDE 40 MG TAB PO SCH (08:04)
[2016-12-30] MEDS: GABAPENTIN 300 MG CAP PO SCH (08:04)
[2016-12-30] MEDS: ASPIRIN 325 MG TAB PO SCH (08:04)
[2016-12-30 08:30] VITALS: RESP 18
--- NOTE | 2016-12-30 08:38 | P.PN ---
Progress Note - Text Progress Note Date: 12/30/16 Orthopedic Spine Patient is a pleasant 76-year-old male who is seen and examined at the bedside following posterior lateral decompression and fusion performed Monday. Patient states they are doing ok postsurgically. He does have some pain at the surgical site. He is not currently experiencing any lower extremity radiculopathy symptoms. Currently does not complain of nausea, vomiting, fever , or chills. Patient was able to eat dinner last night and breakfast this morning without difficulty. Patient states pain has been adequately controlled. Patient was transferred back to [facility] after he went into atrial fibrillation. Patient is being seen and examined by cardiology. Cardiology plans to start anticoagulation therapy. Nursing states patient is also scheduled to undergo interrogation of his pacemaker today to verify it is working appropriately. Patient states he would like to be discharged from hospital and get to rehab as soon as possible. He has been able to void without difficulty. He has no new complaints today. He is not complaining of any abdominal pain today. Patient has been seen and examined by social work to is working on possible discharged to [facility]. Physical Exam Lumbar Fusion: Status post surgical day number Patient is awake, alert, and oriented 3 Vital signs stable Good chest excursion with deep inspiration and expiration; O2 nasal cannula intact Abdomen soft nontender Dorsiflexion, plantarflexion, and extensor hallucis longus positive sustained bilaterally No signs or symptoms of DVT; no calf pain; pneumatic cuffs not currently intact bilateral lower extremities Dressing is dry and intact; no erythema, purulence, or signs of infection; dressing is removed during physical examination and ABDs and paper tape is reapplied No active drainage from the incision site Neurovascularly intact bilaterally lower extremities Assessment: Posterior lateral decompression and fusion L3-4, L4-5, L5-S1 L3-4, L4-5, and L5-S1 severe spinal canal stenosis, facet arthrosis, and degenerative disc disease L4-5 spondylolisthesis Neurogenic claudication Low back pain with bilateral lower extremity radiculopathy Atrial fibrillation; history of pacemaker placement Plan: 1. Ambulate as tolerated; work with Physical Therapy to increase mobilization 2. Continue pain control with IV and oral medications as prescribed as needed; we will plan to start tapering him off IV pain medications and try to control his pain on oral medications in anticipation for discharge 3. Cardiology will continue to follow patient closely; cardiology will plan to start anticoagulation therapy; interrogation of pacemaker is planned for today 4. Dr. Rowland in medicine will continue to manage patient for patient's other medical issues 5. Consultation has also been placed was social work for possible rehabilitation placement at discharge; currently planning on discharge to [facility] 6. We will continue to follow the patient closely 7. Patient can follow-up with Kevin Germain PA-C or Dr. Edgar Johnson at [facility] in 2-3 weeks following discharge
[2016-12-30] MEDS ORDERED: APIXABAN 5 MG TAB PO SCH (09:30)
[2016-12-30 11:26] VITALS: BP 115/58; TEMP 97.3
--- NOTE | 2016-12-30 12:20 | P.DS ---
Providers Date of admission: 12/26/16 10:57 Expected date of discharge: 12/30/16 Attending physician: Serafin Johnson Consults: 12/26/16 17:27 Consult Physician Routine Consulting Provider: Jason Rodriguez Consult Reason/Comments: Medical management Do you want consulting provider notified?: Already Contacted 12/29/16 02:49 Consult Physician Urgent Consulting Provider: Coy Beckham Consult Reason/Comments: high heart rate Do you want consulting provider notified?: Yes Primary care physician: Aaron Rowland - Discharge Diagnosis(es) (1) Spinal stenosis, lumbar region with neurogenic claudication Current Visit: Yes Status: Acute (2) DDD (degenerative disc disease), lumbosacral Current Visit: Yes Status: Acute (3) Low back pain Current Visit: Yes Status: Acute (4) Radiculopathy with lower extremity symptoms Current Visit: Yes Status: Acute (5) Spondylolisthesis at L4-L5 level Current Visit: Yes Status: Acute (6) Lumbar facet arthropathy Current Visit: Yes Status: Acute (7) Pacemaker Current Visit: Yes Status: Acute Hospital Course: This is a pleasant 76-year-old male who presented with L3-4, L4-5, and L5-S1 severe spinal canal stenosis, degenerative disc disease, and facet arthrosis, L4 -5 spondylolisthesis, low back pain, neurogenic claudication, and bilateral lower extremity radiculopathy who failed outpatient conservative therapy. He was admitted for Posterior lateral decompression and fusion L3-4, L4-5, and L5- S1. Patient was having some difficulty with SVT during surgical intervention. He was transferred to [facility] care where he was seen and examined by cardiology. He was cleared by cardiology and subsequently transferred to [facility]. While on [facility], he did start to experience atrial fibrillation. He was transferred back to [facility] care for further evaluation by cardiology. Patient has been seen and examined by cardiology today. Patient has a history of pacemaker placement and was also scheduled to have interrogation of his pacemaker today to verify he was working appropriately. Per nursing, patient has been cleared for discharge from a cardiology standpoint and from a medicine standpoint by Dr. Rodriguez. Patient states he is ready for discharge and is looking forward to discharge to rehabilitation facility today. He continues to have some pain at the surgical site but states his pain is adequately controlled. He is not currently experiencing any significant lower extremity radiculopathy bilaterally. Condition on day of discharge stable. Patient will be discharged to [facility] rehabilitation facility. Patient was cleared preoperatively for surgery by Dr. Rowland. Patient currently denies any nausea, vomiting, fever, or chills. Patient is eating and voiding freely without difficulty. At this time, patient may shower without a dressing intact over the surgical site. Rehabilitation may continue with daily dressing changes over the site as needed. Patient should refrain from driving until at least after their first follow-up appointment in the office. Patient should avoid excessive bending, lifting, and twisting; no lifting greater than 10 pounds. Patient is given a prescription for [place] 7.5 mg/325 mg 1 tab every 6 hours as needed for pain. We will plan for medicine to complete the med rec at the time of discharge to [facility] rehabilitation [facility]. Physical Exam Lumbar Fusion: Status post surgical day number 4 Patient is awake, alert, and oriented 3 Vital signs stable Good chest excursion with deep inspiration and expiration; O2 nasal cannula intact Abdomen soft nontender Dorsiflexion, plantarflexion, and extensor hallucis longus positive sustained bilaterally No signs or symptoms of DVT; no calf pain; pneumatic cuffs not currently intact bilateral lower extremities Dressing is dry and intact; no erythema, purulence, or signs of infection; dressing is removed during physical examination and ABDs and paper tape is reapplied No active drainage from the incision site Neurovascularly intact bilaterally lower extremities Patient Condition at Discharge: Stable Plan - Discharge Summary Discharge Rx Participant: No New Discharge Prescriptions: New HYDROcodone/APAP 7.5-325MG [[place] 7.5-325] 1 each PO Q6HR PRN #90 tab PRN Reason: Pain Ferrous Sulfate [Iron (65 MG Elemental)] 325 mg PO BID-W/MEALS tab Continue Isosorbide Mononitrate ER [Imdur] 60 mg PO QAM Gabapentin [Neurontin] 300 mg PO TID Benazepril HCl [Lotensin] 40 mg PO DAILY Nitroglycerin Sl Tabs [Nitrostat] 0.4 mg SUBLINGUAL Q5M PRN PRN Reason: CP Niacin (Inositol Niacinate) [Niacin Flush Free 500 mg Cap] 1,000 mg PO BID Metoprolol Tartrate [Lopressor] 75 mg PO TID #100 tab No Action Furosemide [Lasix] 40 mg PO DAILY Potassium 99 mg PO BID Multivitamins, Thera [Multivitamin (formulary)] 1 tab PO DAILY Dostinex(Cabergoline) 0.5mg 0.5 mg PO TU Aspirin 325 mg PO DAILY Levothyroxine Sodium [Synthroid] 112 mcg PO QAM Magnesium Oxide [Mag-Ox] 250 mg PO BID Krill Oil 500 mg PO DAILY Calcium Citrate 250 mg PO BID Loratadine 10 mg PO DAILY HYDROcodone/APAP 7.5-325MG [[place] 7.5-325] 1 tab PO TID PRN PRN Reason: Pain Glucosamine Sulfate 500 mg PO DAILY Melatonin 5 mg PO HS Discharge Medication List Furosemide [Lasix] 40 mg PO DAILY 05/17/15 [History] Aspirin 325 mg PO DAILY 04/03/16 [History] Benazepril HCl [Lotensin] 40 mg PO DAILY 04/03/16 [History] Dostinex(Cabergoline) 0.5mg 0.5 mg PO TU 04/03/16 [History] Gabapentin [Neurontin] 300 mg PO TID 04/03/16 [History] Isosorbide Mononitrate ER [Imdur] 60 mg PO QAM 04/03/16 [History] Levothyroxine Sodium [Synthroid] 112 mcg PO QAM 04/03/16 [History] Magnesium Oxide [Mag-Ox] 250 mg PO BID 04/03/16 [History] Multivitamins, Thera [Multivitamin (formulary)] 1 tab PO DAILY 04/03/16 [History ] Potassium 99 mg PO BID 04/03/16 [History] Krill Oil 500 mg PO DAILY 04/25/16 [History] Calcium Citrate 250 mg PO BID 07/24/16 [History] Glucosamine Sulfate 500 mg PO DAILY 11/18/16 [History] HYDROcodone/APAP 7.5-325MG [[place] 7.5-325] 1 tab PO TID PRN 11/18/16 [History] Loratadine 10 mg PO DAILY 11/18/16 [History] Melatonin 5 mg PO HS 11/18/16 [History] Nitroglycerin Sl Tabs [Nitrostat] 0.4 mg SUBLINGUAL Q5M PRN 11/18/16 [History] Metoprolol Tartrate [Lopressor] 75 mg PO TID #100 tab 11/30/16 [Rx] Niacin (Inositol Niacinate) [Niacin Flush Free 500 mg Cap] 1,000 mg PO BID 11/30 [History] Ferrous Sulfate [Iron (65 MG Elemental)] 325 mg PO BID-W/MEALS tab 12/30/16 [Rx ] HYDROcodone/APAP 7.5-325MG [[place] 7.5-325] 1 each PO Q6HR PRN #90 tab 12/30/16 [ Rx] Follow up Appointment(s)/Referral(s): Kevin Germain, PAC [PHYSICIAN [facility] ARCHITECT] - 2 Weeks (Patient may follow-up with Kevin Germain PA-C or Dr. Edgar Johnson at [facility] in 2-3 weeks following discharge. ) Activity/Diet/Wound Care/Special Instructions: 1. Patient may shower without a dressing at this time 2. Patient should refrain from driving until at least after their first follow- up appointment in the office. 3. Patient should avoid excessive bending, twisting, and lifting; no lifting greater than 10 pounds 4. Take medications as prescribed 5. Do not soak in tub Discharge Disposition: TRANSFER TO SNF/ECF
--- NOTE | 2016-12-30 13:36 | P.PN ---
Subjective Progress Note Date: 12/30/16 This is a 76-year-old gentleman with history of coronary artery disease and prior bypass surgery, hypertension, hyperlipidemia, sick sinus syndrome with prior pacemaker, was admitted to the hospital to undergo extensive laminectomy and was found to have some SVT with subsequent atrial fibrillation. For this reason he was transferred to the telemetry unit. A discussion regarding anticoagulation was made with orthopedics, we will start the patient on Eliquis today, arrangements are being made for transfer to rehab today. Objective - Vital Signs Vital signs: Vital Signs Temp 97.3 F L 12/30/16 11:23 Pulse 74 12/30/16 11:23 Resp 18 12/30/16 11:23 BP 115/58 12/30/16 11:23 Pulse Ox 96 12/30/16 11:23 Intake & Output 12/29/16 12/30/16 12/30/16 18:59 06:59 18:59 Intake Total 240 1200 477 Output Total 900 Balance 240 300 477 Intake: IV 1200 Sodium Chloride 0.9% 1, 1200 000 ml @ 75 mls/hr IV . [id number] [facility] Rx#:[id number] Oral 240 477 Output: Urine 900 Other: Voiding Method Bedside Commode Urinal Urinal Urinal # Voids 1 - Exam PHYSICAL EXAMINATION: HEENT: Head is atraumatic, normocephalic. Pupils equal, round. Neck is supple. There is no elevated jugular venous pressure. HEART EXAMINATION: Heart sounds , S1 and [id number] irregular. No murmur or gallop heard. CHEST EXAMINATION: Lungs are clear to auscultation and precussion. No chest wall tenderness is noted on palpation or with deep breathing. ABDOMEN: Soft, nontender. Bowel sounds are heard. No organomegaly noted. EXTREMITIES: 2+ peripheral pulses with evidence of trace peripheral edema and no calf tenderness noted. NEUROLOGIC patient is awake, alert and oriented x3. - Labs CBC & Chem 7: 12/29/16 06:20 12/29/16 06:20 Assessment and Plan Plan: Assessment: #1 paroxysmal atrial fibrillation with rapid ventricular response, new onset #2 history of sick sinus syndrome with symptomatic bradycardia, status post pacemaker #3 history of coronary artery disease with prior bypass surgery #4 hypertension #5 hyperlipidemia #6 status post extensive back surgery with laminectomy that was performed by Dr. Johnson Plan We'll start the patient on Eliquis 5 mg one tablet by mouth twice a day. He may be able to be transferred to rehab from cardiology's perspective and we will make a follow-up appointment in the office post discharge. DNP note has been reviewed, I agree with a documented findings and plan of care. Patient was seen and examined.
[2016-12-30] MEDS: SENNOSIDES-DOCUSATE SODIUM 1 EACH TAB PO SCH (14:19)
--- NOTE | 2016-12-30 14:22 | P.PN ---
Subjective Progress Note Date: 12/30/16 Principal diagnosis: Patient seen and examined in follow-up postoperatively, and new onset Afib 76-year-old male with past medical history of coronary artery disease status post CABG. History of sick sinus syndrome status post pacemaker. Patient was seen in this hospital a month ago where his surgery was canceled due to tachyarrhythmias however asymptomatic which later was found to be due to pacemaker malfunction which was revised and readjusted surgery was canceled at that time. Patient presented this time for an elective back surgery he had one event of supraventricular tachycardia again asymptomatic that was evaluated by cardiology patient underwent the surgery tolerate well. During postoperative day #3 patient had another event tachyarrhythmia at this time was symptomatic associated with trouble breathing and sweating along with chest pain patient was transferred to the cardiac unit for further care and monitoring. Patient seen and examined today reported no more events of palpitations, doing well, no new complaints , denies any chest pain or trouble breathing. Otherwise he is tolerating diet and eager to go to rehab for further care once stable Objective - Vital Signs Vital signs: Vital Signs Temp 97.3 F L 12/30/16 11:23 Pulse 74 12/30/16 11:23 Resp 18 12/30/16 11:23 BP 115/58 12/30/16 11:23 Pulse Ox 96 12/30/16 11:23 Intake & Output 12/29/16 12/30/16 12/30/16 18:59 06:59 18:59 Intake Total 240 1200 477 Output Total 900 Balance 240 300 477 Intake: IV 1200 Sodium Chloride 0.9% 1, 1200 000 ml @ 75 mls/hr IV . [id number] [facility] Rx#:[id number] Oral 240 477 Output: Urine 900 Other: Voiding Method Bedside Commode Urinal Urinal Urinal # Voids 1 - Exam Constitutional: vital signs stable, Not in acute distress, pleasant, conversant Lungs: Clear to auscultation bilaterally, clear to percussion, normal respiratory effort Cardiovascular: Regular rate and rhythm, no murmurs, no gallops, no rubs, no peripheral edema Gastrointestinal: Soft, no tenderness to palpation, bowel sounds positive, no abdominal wall hernias Extremities: No digital cyanosis or ischemia, peripheral pulses palpable and equal over bilateral dorsalis pedis artery, no calf muscle tenderness Psych: Alert, oriented to place, person and time surgical site looks a little wet with some blood tinged drainage, his dressing was slightly soaked. but the surgical wound otherwise looked clean and healing nicely. - Labs CBC & Chem 7: 12/29/16 06:20 12/29/16 06:20 Assessment and Plan (1) New onset a-fib Narrative/Plan: paroxysmal afib cardiology following continue with BB s/p PPM cardiology recommended starting on eliquis, Ortho cleared the patient to start Eliquis DC aspirin Thyroid function checked, and was appropriate at this time Current Visit: Yes Status: Acute Code(s): I48.91 - UNSPECIFIED ATRIAL FIBRILLATION SNOMED Code(s): 57553382 (2) Tachyarrhythmia Current Visit: Yes Status: Acute Code(s): R00.0 - TACHYCARDIA, UNSPECIFIED SNOMED Code(s): 5105312 (3) Spinal stenosis Narrative/Plan: POD #4 post posterior lateral decompression Pain control and further management per or throat Physical therapy and possible placement at rehab postacute care discussed with ortho HEATHER Castillo, he reassured me that the wound looks good. and healing as expected Current Visit: Yes Status: Acute Code(s): M48.00 - SPINAL STENOSIS, SITE UNSPECIFIED SNOMED Code(s): 32037946 (4) History of coronary artery bypass graft x 3 Narrative/Plan: stable now continue home meds IRAIDA inhibitor Beta ashok aspirin Current Visit: No Status: Chronic Code(s): Z95.1 - PRESENCE OF AORTOCORONARY BYPASS GRAFT SNOMED Code(s): 156134466 (5) Hypertension Narrative/Plan: blood pressure controlled continue home meds IRAIDA inhibitor ashok Current Visit: No Status: Chronic Code(s): I10 - ESSENTIAL (PRIMARY) HYPERTENSION SNOMED Code(s): 96970971 (6) DVT prophylaxis Narrative/Plan: currently on eliquis for P afib Current Visit: Yes Status: Acute Code(s): NYA9993 - SNOMED Code(s): 524341484 (7) Hypothyroidism Narrative/Plan: continue levothyroxin TSH Free T4 at goal Current Visit: Yes Status: Acute Code(s): E03.9 - HYPOTHYROIDISM, UNSPECIFIED SNOMED Code(s): 49904675 (8) Anemia Narrative/Plan: post operative blood loss, slight drop from baseline Current Visit: Yes Status: Acute Code(s): D64.9 - ANEMIA, UNSPECIFIED SNOMED Code(s): 561168185 (9) Thrombocytopenia Narrative/Plan: chronic and stable unknown underlying cause defer to OP workup and follow up no evidence of acute bleeding at this point Current Visit: Yes Status: Acute Code(s): D69.6 - THROMBOCYTOPENIA, UNSPECIFIED SNOMED Code(s): 422110575 Plan: patient stable from internal medicine stand point for discharge Ortho cleared the patient to start Eliquis patient counseled to monitor for any evidence of GI bleeding OP f/u with PCP re post op anemia and thrombocytopenia
[2016-12-31] MEDS ORDERED: ASPIRIN 81 MG PO SCH (09:00)
== END 2016-12-30 14:39 | DRG 454 ==
LOC: 2ORMAIN 10:57 → 3SUR 17:37 → 6SEL 18:00 → 5MS5E 12-27 17:18 → 6SEL 12-29 03:43
PROVIDERS: ADMIT Orthopaedic Surgery Orthopaedic Surgery of the Spine; ATTEND Orthopaedic Surgery Orthopaedic Surgery of the Spine
PROC: 0SG1071 Fusion of 2 or more Lumbar Vertebral Joints with Autologous Tissue Substitute, Posterior Approach, Posterior Column, Open Approach (ICD-10-PCS; 2016-12-26)
PROC: 0SG10AJ Fusion of 2 or more Lumbar Vertebral Joints with Interbody Fusion Device, Posterior Approach, Anterior Column, Open Approach (ICD-10-PCS; 2016-12-26)
PROC: 0SG3071 Fusion of Lumbosacral Joint with Autologous Tissue Substitute, Posterior Approach, Posterior Column, Open Approach (ICD-10-PCS; 2016-12-26)
PROC: 00NY0ZZ Release Lumbar Spinal Cord, Open Approach (ICD-10-PCS; 2016-12-26)
PROC: 0SG30AJ Fusion of Lumbosacral Joint with Interbody Fusion Device, Posterior Approach, Anterior Column, Open Approach (ICD-10-PCS; 2016-12-26)
PROC: 07DS3ZZ Extraction of Vertebral Bone Marrow, Percutaneous Approach (ICD-10-PCS; 2016-12-26)
PROC: 4A11X4G Monitoring of Peripheral Nervous Electrical Activity, Intraoperative, External Approach (ICD-10-PCS; 2016-12-26)
PROC: 0SG30AJ Fusion of Lumbosacral Joint with Interbody Fusion Device, Posterior Approach, Anterior Column, Open Approach (ICD-10-PCS; principal; 2016-12-26 12:30)
DX: M48.062 Spinal stenosis, lumbar region with neurogenic claudication (principal); I47.1 Supraventricular tachycardia; D69.6 Thrombocytopenia, unspecified; I48.0 Paroxysmal atrial fibrillation; E83.39 Other disorders of phosphorus metabolism; I45.10 Unspecified right bundle-branch block; D50.0 Iron deficiency anemia secondary to blood loss (chronic); E03.9 Hypothyroidism, unspecified; I10 Essential (primary) hypertension; E78.5 Hyperlipidemia, unspecified; I25.10 Atherosclerotic heart disease of native coronary artery without angina pectoris; M46.96 Unspecified inflammatory spondylopathy, lumbar region; M51.16 Intervertebral disc disorders with radiculopathy, lumbar region; M43.16 Spondylolisthesis, lumbar region; M51.17 Intervertebral disc disorders with radiculopathy, lumbosacral region; G47.30 Sleep apnea, unspecified; Z79.82 Long term (current) use of aspirin; Z79.899 Other long term (current) drug therapy; Z95.0 Presence of cardiac pacemaker; Z90.49 Acquired absence of other specified parts of digestive tract; Z87.891 Personal history of nicotine dependence; Z95.1 Presence of aortocoronary bypass graft; Z88.0 Allergy status to penicillin
CPT/HCPCS: 72020; 72100; 80048; 83036; 83735; 84100; 84439; 84443; 85025; 86850; 86891; 86900; 86901; 93005; 94760

== ENCOUNTER 2016-12-31 14:16 | Inpatient (IN) | payer MEDICARE ==
[2016-12-31] MEDS ORDERED: ACETAMINOPHEN TAB 325 MG TAB PO STA (14:35)
[2016-12-31 14:47] LABS: Basophils % (A) 0 %; CH 32.2; CHCM 36.2; Eosinophils # (A) 0.2 k/uL (0-0.7); Eosinophils % (A) 2 %; HCT 28.8 % (39.0-53.0); HDW 3.58; HGB 9.9 gm/dL (13.0-17.5); Luc # (Auto) 0.04; Luc % (Auto) 0; Lymphocytes # (A) 0.3 k/uL (1.0-4.8); Lymphocytes % (A) 3 %; MCH 30.8 pg (25.0-35.0); MCHC 34.5 g/dL (31.0-37.0); MCV 89.4 fL (80.0-100.0); Mean Platelet Volume 8.9; Monocytes # (A) 0.3 k/uL (0-1.0); Monocytes % (A) 3 %; Neutrophils # (A) 8.7 k/uL (1.3-7.7); Neutrophils % (A) 91 %; Poikilocytosis Slight; RBC 3.22 m/uL (4.30-5.90); RDW 12.7 % (11.5-15.5); WBC 9.5 k/uL (3.8-10.6); WBC (Perox) 9.62
[2016-12-31 14:56] LABS: INR 1.3 (<1.2); Partial Thromboplastin Time 22.3 sec (22.0-30.0); Prothrombin Time 12.5 sec (9.0-12.0)
[2016-12-31 15:03] LABS: ALT 37 U/L (21-72); AST 21 U/L (17-59); Alkaline Phosphatase 63 U/L (38-126); Anion Gap 10 mmol/L; Blood Urea Nitrogen 14 mg/dL (9-20); Calcium 8.6 mg/dL (8.4-10.2); Carbon Dioxide 22 mmol/L (22-30); Chloride 102 mmol/L (98-107); Glucose 156 mg/dL (74-99); Non-African American GFR(MDRD) >60 (>60 ml/min/1.73 sqM); Potassium 3.7 mmol/L (3.5-5.1); Sodium 134 mmol/L (137-145); Total Protein 5.4 g/dL (6.3-8.2)
[2016-12-31] MEDS ORDERED: SODIUM CHLORIDE 0.9% 500 ML IV ONE (15:20)
--- NOTE | 2016-12-31 15:23 | XR ---
EXAMINATION TYPE: XR chest 2V DATE OF EXAM: 12/31/2016 COMPARISON: 12/16/2016 HISTORY: Fever, sore throat, weakness and tachycardia. TECHNIQUE: Frontal and lateral views of the chest are obtained. FINDINGS: Again the lungs are hyperinflated, similar to the prior. There is new mild pulmonary vascu lar congestion in comparison to the prior and cardiac enlargement with post CABG changes and left-naila ed cardiac device. No new focal consolidation, pleural effusion or pneumothorax is seen. Moderate mul tilevel degenerative changes of the thoracic spine are noted. IMPRESSION: Pulmonary vascular congestion and comminution with early megaly may relate to underlying congestive heart failure exacerbation. No new focal consolidation, pleural effusion or pneumothorax.
[2016-12-31] MEDS: SODIUM CHLORIDE 0.9% 1,000 ML IV SCH (15:58)
--- NOTE | 2016-12-31 16:50 | ED ---
General Adult HPI - General Chief complaint: Fever Stated complaint: Weakness Time Seen by Provider: 12/31/16 14:17 Source: patient, family, EMS, RN notes reviewed, old records reviewed Mode of arrival: EMS Limitations: physical limitation - History of Present Illness Initial comments: 78-year-old male presents with fever and urinary incontinence. Patient had recent lumbar laminectomy. Patient was discharged and sent to rehab for physical therapy. Over the past 25 patient has had multiple episodes of urinary incontinence. Is also had fever. He also complains of chills and Robert 's. Patient denies any worsening back pain or incisional pain. Denies significant abdominal pain. Denies chest pain or shortness of breath. Denies cough. According the patient's has been no episodes of nausea and vomiting. - Related Data Home Medications Medication Instructions Recorded Confirmed Furosemide [Lasix] 40 mg PO DAILY 05/17/15 12/31/16 Benazepril HCl [Lotensin] 40 mg PO DAILY 04/03/16 12/31/16 Dostinex(Cabergoline) 0.5mg 0.5 mg PO TU 04/03/16 12/31/16 Gabapentin [Neurontin] 300 mg PO TID 04/03/16 12/31/16 Isosorbide Mononitrate ER [Imdur] 60 mg PO QAM 04/03/16 12/31/16 Levothyroxine Sodium [Synthroid] 112 mcg PO QAM 04/03/16 12/31/16 Multivitamins, Thera [Multivitamin 1 tab PO DAILY 04/03/16 12/31/16 (formulary)] Krill Oil 500 mg PO DAILY 04/25/16 12/31/16 Calcium Citrate 250 mg PO BID 07/24/16 12/31/16 Glucosamine Sulfate 500 mg PO DAILY 11/18/16 12/31/16 Loratadine 10 mg PO HS 11/18/16 12/31/16 Melatonin 5 mg PO HS 11/18/16 12/31/16 Nitroglycerin Sl Tabs [Nitrostat] 0.4 mg SUBLINGUAL Q5M PRN 11/18/16 12/31/16 Niacin (Inositol Niacinate) 1,000 mg PO BID 11/30/16 12/31/16 [Niacin Flush Free 500 mg Cap] Ferrous Sulfate [Iron (65 MG 325 mg PO BID 12/31/16 12/31/16 Elemental)] HYDROcodone/APAP 7.5-325MG [[place] 1 tab PO Q6HR PRN 12/31/16 12/31/16 7.5-325] Sennosides-Docusate Sodium 1 tab PO DAILY 12/31/16 12/31/16 [Senokot-S] Previous Rx's Medication Instructions Recorded Metoprolol Tartrate [Lopressor] 75 mg PO TID #100 tab 11/30/16 Apixaban [Eliquis] 5 mg PO BID #60 tab 12/30/16 Magnesium Hydroxide [Milk of 2,400 mg PO DAILY PRN ml 12/30/16 Magnesia Concentrate] Allergies Allergy/AdvReac Type Severity Reaction Status Date / Time Penicillins Allergy Rash/Hives Verified 12/31/16 15:02 Review of Systems ROS Statement: Those systems with pertinent positive or pertinent negative responses have been documented in the HPI. ROS Other: All systems not noted in ROS Statement are negative. 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 History of Any Multi-Drug Resistant Organisms: None Reported Past Surgical History: Cholecystectomy, Coronary Bypass/CABG, Pacemaker Additional Past Surgical History / Comment(s): triple bipass 5-2010, cholecystectomy 2015,[employer] Pacemaker Lt chest, laminectomy Past Anesthesia/Blood Transfusion Reactions: No Reported Reaction Type of Cardiac Device: Permanent Pacemaker Device Placement Date:: Mar 2016 Past Psychological History: No Psychological Hx Reported Smoking Status: Former smoker Past Alcohol Use History: None Reported Past Drug Use History: None Reported - Past Family History Mother Family Medical History: Cancer Additional Family Medical History / Comment(s): CABG, Colon Cancer Father Family Medical History: Cancer Additional Family Medical History / Comment(s): Father of cancer unsure which type of cancer Brother(s) Additional Family Medical History / Comment(s): Brother had X4 Bypass General Exam Limitations: physical limitation General appearance: alert, in no apparent distress Head exam: Present: atraumatic, normocephalic Eye exam: Present: normal appearance, PERRL. Absent: scleral icterus, conjunctival injection ENT exam: Present: normal exam Neck exam: Present: normal inspection. Absent: tenderness, meningismus Respiratory exam: Present: normal lung sounds bilaterally. Absent: respiratory distress, wheezes, rhonchi Cardiovascular Exam: Present: regular rate, normal rhythm GI/Abdominal exam: Present: soft. Absent: distended, tenderness Extremities exam: Present: normal inspection, normal capillary refill Back exam: Present: other (Midline lumbar incision, clean dry and intact, no surrounding cellulitis, no purulent drainage.) Neurological exam: Present: alert, oriented X3, CN II-XII intact. Absent: motor sensory deficit Psychiatric exam: Present: normal affect, normal mood Skin exam: Present: warm, dry, intact. Absent: cyanosis, diaphoretic Course Vital Signs 12/31/16 12/31/16 12/31/16 14:28 16:05 17:48 Temperature 103.0 F H 98.0 F Pulse Rate 77 63 57 L Respiratory 20 18 17 Rate Blood Pressure 130/60 96/47 146/62 O2 Sat by Pulse 93 L 95 99 Oximetry EKG Findings - EKG Comments: EKG Findings:: EKG shows sinus rhythm bifascicular block, rate of 70, OH interval 176 QRS duration 184, QTC 5:15, paced rhythm Medical Decision Making - Medical Decision Making 76-year-old male presenting with fever, chills, and Robert's. Laboratory studies reveal white blood cell count 9.5, hemoglobin stable 9.9, lactic acid is 2.3 which is mildly elevated. Chest x-ray shows mild pulmonary vascular congestion, no focal pneumonia and urinalysis is positive for infection. Patient is started on IV antibiotics for presumed UTI with sepsis. Case is discussed with Dr. Guzman from orthopedics, as patient is postop lumbar laminectomy. Patient will be admitted to internal medicine with orthopedics on consult. Diagnosis: UTI with sepsis - Lab Data Result diagrams: 12/31/16 14:31 12/31/16 14:20 Lab Results 12/31/16 12/31/16 12/31/16 Range/Units 14:20 14:20 14:20 WBC (3.8-10.6) k/uL RBC (4.30-5.90) m/uL Hgb (13.0-17.5) gm/dL Hct (39.0-53.0) % MCV (80.0-100.0) fL MCH (25.0-35.0) pg MCHC (31.0-37.0) g/dL RDW (11.5-15.5) % Plt Count (150-450) k/uL Neutrophils % % Lymphocytes % % Monocytes % % Eosinophils % % Basophils % % Neutrophils # (1.3-7.7) k/uL Lymphocytes # (1.0-4.8) k/uL Monocytes # (0-1.0) k/uL Eosinophils # (0-0.7) k/uL Basophils # (0-0.2) k/uL Poikilocytosis PT (9.0-12.0) sec INR (<1.2) APTT (22.0-30.0) sec Sodium 134 L (137-145) mmol/L Potassium 3.7 (3.5-5.1) mmol/L Chloride 102 (98-107) mmol/L Carbon Dioxide 22 (22-30) mmol/L Anion Gap 10 mmol/L BUN 14 (9-20) mg/dL Creatinine 0.89 (0.66-1.25) mg/dL Est GFR (MDRD) Af Amer >60 (>60 ml/min/1.73 sqM) Est GFR (MDRD) Non-Af >60 (>60 ml/min/1.73 sqM) Glucose 156 H (74-99) mg/dL Plasma Lactic Acid Matt 2.3 H* (0.7-2.0) mmol/L Calcium 8.6 (8.4-10.2) mg/dL Total Bilirubin 1.0 (0.2-1.3) mg/dL AST 21 (17-59) U/L ALT 37 (21-72) U/L Alkaline Phosphatase 63 (38-126) U/L Troponin I (0.000-0.034) ng/mL Total Protein 5.4 L (6.3-8.2) g/dL Albumin 2.9 L (3.5-5.0) g/dL Urine Color Urine Appearance (Clear) Urine pH (5.0-8.0) Ur Specific [place] (1.001-1.035) Urine Protein (Negative) Urine Glucose (UA) (Negative) Urine Ketones (Negative) Urine Blood (Negative) Urine Nitrite (Negative) Urine Bilirubin (Negative) Urine Urobilinogen (<2.0) mg/dL Ur Leukocyte Esterase (Negative) Urine RBC (0-5) /hpf Urine WBC (0-5) /hpf Urine WBC Clumps (None) /hpf Urine Bacteria (None) /hpf Urine Mucus (None) /hpf Influenza Type A RNA Not Detected (Not Detectd) Influenza Type B (PCR) Not Detected (Not Detectd) 12/31/16 12/31/16 12/31/16 Range/Units 14:20 14:20 14:31 WBC 9.5 (3.8-10.6) k/uL RBC 3.22 L (4.30-5.90) m/uL Hgb 9.9 L (13.0-17.5) gm/dL Hct 28.8 L (39.0-53.0) % MCV 89.4 (80.0-100.0) fL MCH 30.8 (25.0-35.0) pg MCHC 34.5 (31.0-37.0) g/dL RDW 12.7 (11.5-15.5) % Plt Count 151 (150-450) k/uL Neutrophils % 91 % Lymphocytes % 3 % Monocytes % 3 % Eosinophils % 2 % Basophils % 0 % Neutrophils # 8.7 H (1.3-7.7) k/uL Lymphocytes # 0.3 L (1.0-4.8) k/uL Monocytes # 0.3 (0-1.0) k/uL Eosinophils # 0.2 (0-0.7) k/uL Basophils # 0.0 (0-0.2) k/uL Poikilocytosis Slight PT 12.5 H (9.0-12.0) sec INR 1.3 H (<1.2) APTT 22.3 (22.0-30.0) sec Sodium (137-145) mmol/L Potassium (3.5-5.1) mmol/L Chloride (98-107) mmol/L Carbon Dioxide (22-30) mmol/L Anion Gap mmol/L BUN (9-20) mg/dL Creatinine (0.66-1.25) mg/dL Est GFR (MDRD) Af Amer (>60 ml/min/1.73 sqM) Est GFR (MDRD) Non-Af (>60 ml/min/1.73 sqM) Glucose (74-99) mg/dL Plasma Lactic Acid Matt (0.7-2.0) mmol/L Calcium (8.4-10.2) mg/dL Total Bilirubin (0.2-1.3) mg/dL AST (17-59) U/L ALT (21-72) U/L Alkaline Phosphatase (38-126) U/L Troponin I 0.035 H* (0.000-0.034) ng/mL Total Protein (6.3-8.2) g/dL Albumin (3.5-5.0) g/dL Urine Color Urine Appearance (Clear) Urine pH (5.0-8.0) Ur Specific [place] (1.001-1.035) Urine Protein (Negative) Urine Glucose (UA) (Negative) Urine Ketones (Negative) Urine Blood (Negative) Urine Nitrite (Negative) Urine Bilirubin (Negative) Urine Urobilinogen (<2.0) mg/dL Ur Leukocyte Esterase (Negative) Urine RBC (0-5) /hpf Urine WBC (0-5) /hpf Urine WBC Clumps (None) /hpf Urine Bacteria (None) /hpf Urine Mucus (None) /hpf Influenza Type A RNA (Not Detectd) Influenza Type B (PCR) (Not Detectd) 12/31/16 Range/Units 16:51 WBC (3.8-10.6) k/uL RBC (4.30-5.90) m/uL Hgb (13.0-17.5) gm/dL Hct (39.0-53.0) % MCV (80.0-100.0) fL MCH (25.0-35.0) pg MCHC (31.0-37.0) g/dL RDW (11.5-15.5) % Plt Count (150-450) k/uL Neutrophils % % Lymphocytes % % Monocytes % % Eosinophils % % Basophils % % Neutrophils # (1.3-7.7) k/uL Lymphocytes # (1.0-4.8) k/uL Monocytes # (0-1.0) k/uL Eosinophils # (0-0.7) k/uL Basophils # (0-0.2) k/uL Poikilocytosis PT (9.0-12.0) sec INR (<1.2) APTT (22.0-30.0) sec Sodium (137-145) mmol/L Potassium (3.5-5.1) mmol/L Chloride (98-107) mmol/L Carbon Dioxide (22-30) mmol/L Anion Gap mmol/L BUN (9-20) mg/dL Creatinine (0.66-1.25) mg/dL Est GFR (MDRD) Af Amer (>60 ml/min/1.73 sqM) Est GFR (MDRD) Non-Af (>60 ml/min/1.73 sqM) Glucose (74-99) mg/dL Plasma Lactic Acid Matt (0.7-2.0) mmol/L Calcium (8.4-10.2) mg/dL Total Bilirubin (0.2-1.3) mg/dL AST (17-59) U/L ALT (21-72) U/L Alkaline Phosphatase (38-126) U/L Troponin I (0.000-0.034) ng/mL Total Protein (6.3-8.2) g/dL Albumin (3.5-5.0) g/dL Urine Color Yellow Urine Appearance Cloudy (Clear) Urine pH 6.0 (5.0-8.0) Ur Specific [place] 1.008 (1.001-1.035) Urine Protein Trace H (Negative) Urine Glucose (UA) Negative (Negative) Urine Ketones 1+ H (Negative) Urine Blood Large H (Negative) Urine Nitrite Negative (Negative) Urine Bilirubin Negative (Negative) Urine Urobilinogen <2.0 (<2.0) mg/dL Ur Leukocyte Esterase Large H (Negative) Urine RBC 158 H (0-5) /hpf Urine WBC 42 H (0-5) /hpf Urine WBC Clumps Few H (None) /hpf Urine Bacteria Few H (None) /hpf Urine Mucus Rare H (None) /hpf Influenza Type A RNA (Not Detectd) Influenza Type B (PCR) (Not Detectd) Disposition Clinical Impression: Sepsis secondary to UTI Disposition: ADMITTED IP TO THIS [facility] Condition: Stable Referrals: Aaron Rowland MD [Primary Care Provider] - 1-2 days Decision to Admit Reason: Admit from EC Decision Date: 12/31/16 Decision Time: 18:06
[2016-12-31 17:14] LABS: Appearance,Urine Cloudy (Clear); Bacteria,Urine Few /hpf; Bilirubin,Urine Negative (Negative); Glucose,Urine (UA) Negative (Negative); Ketones,Urine 1+ (Negative); Leukocyte Esterase,Urine Large (Negative); Mucus,Urine Rare /hpf; Nitrite,Urine Negative (Negative); Particle Count 10808; Protein,Urine Trace (Negative); RBC,Urine 158 /hpf (0-5); Specific Gravity,Urine 1.008 (1.001-1.035); UA Billing (MACRO vs. MICRO) MICRO; Urobilinogen,Urine <2.0 mg/dL (<2.0); WBC,Urine 42 /hpf (0-5)
[2016-12-31] MEDS ORDERED: cefTRIAXone IN SWFI 1,000 MG/10 ML SYRINGE IVP STA (17:18)
[2016-12-31] MEDS ORDERED: IV VANCOMYCIN PER PHARMACY 1 EACH MISC MISCELLANE PRN (17:58)
[2016-12-31] MEDS ORDERED: NALOXONE 0.4 MG/ML 1 ML VIAL IV PRN ×2 (18:01→20:18)
[2016-12-31] MEDS ORDERED: VANCOMYCIN 2,000 MG in SODIUM CHLORIDE 0.9% 500 ML IVPB ONE (19:00)
[2016-12-31] MEDS ORDERED: ONDANSETRON 4 MG/2 ML VIAL IVP PRN (20:18)
[2016-12-31] MEDS ORDERED: ACETAMINOPHEN TAB 325 MG TAB PO PRN (20:18)
[2016-12-31] MEDS ORDERED: NITROGLYCERIN SL TABS 0.4 MG TAB SUBLINGUAL PRN (20:22)
[2016-12-31] MEDS ORDERED: MAGNESIUM HYDROXIDE 2,400 MG/10 ML CUP PO PRN (20:22)
--- NOTE | 2016-12-31 20:39 | P.HPIM ---
History of Present Illness H&P Date: 12/31/16 Chief Complaint: Chills 78-year-old male who was just recently discharged from the hospital day before yesterday presents with fever and urinary incontinence. Patient had recent lumbar laminectomy and was discharged to rehab for physical therapy. He had a Montes catheter during the hospitalization for 2 days on Monday and Monday. After the Montes catheter was taken out he did not have any issues. Today he started having severe chills, his thought that he was having a seizure. When he arrived to the emergency department he spiked a temperature of 103. Currently the fever is resolved. He mentioned a slight dysuria yesterday, a slight suprapubic abdominal pain as well but nothing significant. He also felt slightly nauseous but no vomiting. No diarrhea. Denies chest pain or shortness of breath. Denies cough. He does not recall having a urinary tract infection in the past. 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 History of Any Multi-Drug Resistant Organisms: None Reported Past Surgical History: Cholecystectomy, Coronary Bypass/CABG, Pacemaker Additional Past Surgical History / Comment(s): triple bipass 5-2010, cholecystectomy 2015,[employer] Edwin Pacemaker Lt chest, laminectomy Past Anesthesia/Blood Transfusion Reactions: No Reported Reaction Type of Cardiac Device: Permanent Pacemaker Device Placement Date:: Mar 2016 Past Psychological History: No Psychological Hx Reported Smoking Status: Former smoker Past Alcohol Use History: None Reported Past Drug Use History: None Reported - Past Family History Mother Family Medical History: Cancer Additional Family Medical History / Comment(s): CABG, Colon Cancer Father Family Medical History: Cancer Additional Family Medical History / Comment(s): Father of cancer unsure which type of cancer Brother(s) Additional Family Medical History / Comment(s): Brother had X4 Bypass Medications and Allergies Home Medications Medication Instructions Recorded Confirmed Type Furosemide [Lasix] 40 mg PO DAILY 05/17/15 12/31/16 History Benazepril HCl [Lotensin] 40 mg PO DAILY 04/03/16 12/31/16 History Dostinex(Cabergoline) 0.5mg 0.5 mg PO TU 04/03/16 12/31/16 History Gabapentin [Neurontin] 300 mg PO TID 04/03/16 12/31/16 History Isosorbide Mononitrate ER [Imdur] 60 mg PO QAM 04/03/16 12/31/16 History Levothyroxine Sodium [Synthroid] 112 mcg PO QAM 04/03/16 12/31/16 History Multivitamins, Thera [Multivitamin 1 tab PO DAILY 04/03/16 12/31/16 History (formulary)] Krill Oil 500 mg PO DAILY 04/25/16 12/31/16 History Calcium Citrate 250 mg PO BID 07/24/16 12/31/16 History Glucosamine Sulfate 500 mg PO DAILY 11/18/16 12/31/16 History Loratadine 10 mg PO HS 11/18/16 12/31/16 History Melatonin 5 mg PO HS 11/18/16 12/31/16 History Nitroglycerin Sl Tabs [Nitrostat] 0.4 mg SUBLINGUAL Q5M PRN 11/18/16 12/31/16 History Metoprolol Tartrate [Lopressor] 75 mg PO TID #100 tab 11/30/16 12/31/16 Rx Niacin (Inositol Niacinate) 1,000 mg PO BID 11/30/16 12/31/16 History [Niacin Flush Free 500 mg Cap] Apixaban [Eliquis] 5 mg PO BID #60 tab 12/30/16 12/31/16 Rx Magnesium Hydroxide [Milk of 2,400 mg PO DAILY PRN ml 12/30/16 12/31/16 Rx Magnesia Concentrate] Ferrous Sulfate [Iron (65 MG 325 mg PO BID 12/31/16 12/31/16 History Elemental)] HYDROcodone/APAP 7.5-325MG [[place] 1 tab PO Q6HR PRN 12/31/16 12/31/16 History 7.5-325] Sennosides-Docusate Sodium 1 tab PO DAILY 12/31/16 12/31/16 History [Senokot-S] Allergies Allergy/AdvReac Type Severity Reaction Status Date / Time Penicillins Allergy Rash/Hives Verified 12/31/16 15:02 Physical Exam Vitals: Vital Signs Temp Pulse Resp BP Pulse Ox 12/31/16 19:02 98.1 F 57 L 17 136/58 97 12/31/16 17:48 57 L 17 146/62 99 12/31/16 16:05 98.0 F 63 18 96/47 95 12/31/16 14:28 103.0 F H 77 20 130/60 93 L Intake and Output 12/31/16 12/31/16 12/31/16 06:59 14:59 22:59 Output Total 286 Balance -286 Output: Urine 30 Straight 30 Post Void Residual 256 Other: Weight 136.078 kg Patient Weight 01/01/17 06:59 Weight 136.078 kg Constitutional: No acute distress, conversant, pleasant Eyes:Anicteric sclerae, moist conjunctiva, no lid-lag, PERRLA, ENMT: Oropharynx clear, no erythema, exudates Neck: Supple, FROM, no masses, or JVD, No carotid bruits, No thyromegaly Lungs: Clear to auscultation, Clear to percussion, Normal respiratory effort, no accessory muscle use Cardiovascular: Heart regular in rate and rhythm, No murmurs, gallops, or rubs, No peripheral edema Abdominal: Soft, slight suprapubic tenderness, no guarding, rebound or rigidity , Normoactive bowel sounds, No hepatomegaly, No splenomegaly, No palpable mass Skin: Normal temperature, tone, texture, turgor, no induration, No subcutaneous nodules, No rash, lesions, No ulcers Extremities: No digital cyanosis, No clubbing, Pedal pulses intact and symmetrical, Radial pulses intact and symmetrical, No calf tenderness Psychiatric: Alert and oriented to person, place and time, appropriate affect, intact judgement Neuro: Muscles Strength 5/5 in all 4 extremities, Sensation to light touch grossly present throughout, Cranial nerves II-XII grossly intact, no focal sensory deficits Results CBC & Chem 7: 12/31/16 14:31 12/31/16 14:20 Labs: Abnormal Lab Results - Last 24 Hours (Table) 12/31/16 12/31/16 12/31/16 Range/Units 14:20 14:20 14:20 RBC (4.30-5.90) m/uL Hgb (13.0-17.5) gm/dL Hct (39.0-53.0) % Neutrophils # (1.3-7.7) k/uL Lymphocytes # (1.0-4.8) k/uL PT 12.5 H (9.0-12.0) sec INR 1.3 H (<1.2) Sodium 134 L (137-145) mmol/L Glucose 156 H (74-99) mg/dL Plasma Lactic Acid Matt 2.3 H* (0.7-2.0) mmol/L Troponin I (0.000-0.034) ng/mL Total Protein 5.4 L (6.3-8.2) g/dL Albumin 2.9 L (3.5-5.0) g/dL Urine Protein (Negative) Urine Ketones (Negative) Urine Blood (Negative) Ur Leukocyte Esterase (Negative) Urine RBC (0-5) /hpf Urine WBC (0-5) /hpf Urine WBC Clumps (None) /hpf Urine Bacteria (None) /hpf Urine Mucus (None) /hpf 12/31/16 12/31/16 12/31/16 Range/Units 14:20 14:31 16:51 RBC 3.22 L (4.30-5.90) m/uL Hgb 9.9 L (13.0-17.5) gm/dL Hct 28.8 L (39.0-53.0) % Neutrophils # 8.7 H (1.3-7.7) k/uL Lymphocytes # 0.3 L (1.0-4.8) k/uL PT (9.0-12.0) sec INR (<1.2) Sodium (137-145) mmol/L Glucose (74-99) mg/dL Plasma Lactic Acid Matt (0.7-2.0) mmol/L Troponin I 0.035 H* (0.000-0.034) ng/mL Total Protein (6.3-8.2) g/dL Albumin (3.5-5.0) g/dL Urine Protein Trace H (Negative) Urine Ketones 1+ H (Negative) Urine Blood Large H (Negative) Ur Leukocyte Esterase Large H (Negative) Urine RBC 158 H (0-5) /hpf Urine WBC 42 H (0-5) /hpf Urine WBC Clumps Few H (None) /hpf Urine Bacteria Few H (None) /hpf Urine Mucus Rare H (None) /hpf Assessment and Plan Plan: #1 Acute severe sepsis with lactic acidosis: Admit to selective care Repeat lactic acid Broad-spectrum antibiotics ceftriaxone and vancomycin Urine cultures and blood cultures were sent in the emergency department IV fluids Labs, chest x-ray and EKG reviewed #2 High troponins: Unclear significance, likely secondary to sepsis as patient does not have any evidence of EKG changes and he is not symptomatic, no chest pain or shortness of breath We'll repeat #3 Recent laminectomy: Doing well in that regard Pain control #4 Hypertension, hypothyroidism Stable Continue home medications #5 DVT prophylaxis: Early mobilization and SCDs Sepsis - Sepsis Sepsis Focused Exam #3 Sepsis Focused Exam Complete: Yes Vital Signs & RN Notes Reviewed: Yes
[2016-12-31] MEDS: FERROUS SULFATE 325 MG TAB PO SCH (22:44)
[2016-12-31] MEDS: MELATONIN 5 MG TABLET PO SCH (22:44)
[2016-12-31] MEDS: CALCIUM CARBONATE 500 MG CHEWABLE PO SCH (22:44)
[2016-12-31] MEDS: APIXABAN 5 MG TAB PO SCH (22:44)
[2016-12-31] MEDS: LORATADINE 10 MG TAB PO SCH (22:44)
[2016-12-31] MEDS: GABAPENTIN 300 MG CAP PO SCH (22:45)
[2016-12-31] MEDS: METOPROLOL TARTRATE 25 MG TAB PO SCH (22:45)
[2016-12-31] MEDS: NIACIN TR 500 MG CAPSULE.ER PO SCH (22:45)
[2016-12-31] MEDS: HYDROcodone/APAP 7.5-325MG 1 EACH TAB PO PRN (22:54)
[2017-01-01] MEDS: LEVOTHYROXINE 112 MCG TAB PO SCH (06:07)
[2017-01-01] MEDS: SODIUM CHLORIDE 0.9% 1,000 ML IV SCH ×3 (06:08→21:29)
[2017-01-01 06:22] LABS: Basophils % (A) 0 %; CH 31.5; CHCM 34.7; Eosinophils # (A) 0.2 k/uL (0-0.7); Eosinophils % (A) 3 %; HCT 27.2 % (39.0-53.0); HDW 3.69; HGB 9.1 gm/dL (13.0-17.5); Luc % (Auto) 2; Lymphocytes # (A) 0.6 k/uL (1.0-4.8); Lymphocytes % (A) 10 %; MCH 30.5 pg (25.0-35.0); MCHC 33.4 g/dL (31.0-37.0); MCV 91.5 fL (80.0-100.0); Mean Platelet Volume 8.1; Monocytes # (A) 0.3 k/uL (0-1.0); Monocytes % (A) 5 %; Neutrophils # (A) 5.3 k/uL (1.3-7.7); Neutrophils % (A) 80 %; Poikilocytosis Slight; RBC 2.97 m/uL (4.30-5.90); RDW 12.9 % (11.5-15.5); WBC 6.6 k/uL (3.8-10.6); WBC (Perox) 6.86
[2017-01-01 06:36] LABS: Anion Gap 7 mmol/L; Blood Urea Nitrogen 11 mg/dL (9-20); Calcium 8.2 mg/dL (8.4-10.2); Carbon Dioxide 24 mmol/L (22-30); Chloride 106 mmol/L (98-107); Glucose 114 mg/dL (74-99); Magnesium 2.2 mg/dL (1.6-2.3); Non-African American GFR(MDRD) >60 (>60 ml/min/1.73 sqM); Phosphorous 2.9 mg/dL (2.5-4.5); Potassium 3.5 mmol/L (3.5-5.1); Sodium 137 mmol/L (137-145)
[2017-01-01] MEDS ORDERED: VANCOMYCIN 2,000 MG in SODIUM CHLORIDE 0.9% 500 ML IVPB SCH ×2 (08:00→16:00)
[2017-01-01] MEDS: ISOSORBIDE MONONITRATE ER 60 MG TAB.ER.24H PO SCH (08:34)
[2017-01-01] MEDS: GABAPENTIN 300 MG CAP PO SCH ×3 (08:34→21:28)
[2017-01-01] MEDS: LISINOPRIL 20 MG TAB PO SCH (08:34)
[2017-01-01] MEDS: METOPROLOL TARTRATE 25 MG TAB PO SCH ×3 (08:34→21:28)
[2017-01-01] MEDS: CALCIUM CARBONATE 500 MG CHEWABLE PO SCH ×2 (08:34→21:27)
[2017-01-01] MEDS: APIXABAN 5 MG TAB PO SCH ×2 (08:34→21:27)
[2017-01-01] MEDS: FERROUS SULFATE 325 MG TAB PO SCH ×2 (08:34→21:27)
[2017-01-01] MEDS: NIACIN TR 500 MG CAPSULE.ER PO SCH ×2 (08:35→21:28)
[2017-01-01] MEDS: SENNOSIDES-DOCUSATE SODIUM 1 EACH TAB PO SCH (08:35)
[2017-01-01] MEDS: cefTRIAXone IN SWFI 1,000 MG/10 ML SYRINGE IVP SCH (08:39)
[2017-01-01] MEDS ORDERED: NON-FORMULARY DRUG (Krill Oil [Krill Oil] 500 MG) PO SCH (09:00)
[2017-01-01] MEDS ORDERED: NON-FORMULARY DRUG (Glucosamine Sulfate 500 MG) PO SCH (09:00)
[2017-01-01] MEDS: MULTIVITAMINS, THERA 1 EACH TAB PO SCH (12:21)
--- NOTE | 2017-01-01 13:45 | CONS ---
CONSULTATION Please refer to my recent notes in the chart. This patient was discharged for less than 48 hours and comes back into the hospital with complaints of fever and chills, is found to have UTI, and has been placed on antibiotics. He has a history of CAD, previous bypass surgery, sick sinus syndrome with a permanent pacemaker. While he was here in the hospital, he had several episodes of atrial flutter with a rapid ventricular rate with a 2 as to 1 conduction, also some episodes of atrial fibrillation. On reviewing the rhythm strips. He is having some pacemaker mediated tachycardia type picture as well. The device needs to be interrogated tomorrow. He is resting comfortably without symptoms. Antibiotics are already in place. His lactic acid was elevated with hydration it has come down to normal. He is resting comfortably at the time of my evaluation without symptoms. He feels better. Does not have any chest pain or palpitations. Blood pressure today is 130/70, pulse rate is 60 per minute. Appears to be now in sinus with a right bundle. The JVD of 1 cm. No carotid bruit. S1-S2 heard normally. Short systolic murmur noted. Lungs reveal diminished air entry. Abdomen is soft. Lower extremities reveal diminished pulses. Central nervous system is normal. IMPRESSION: 1. Urinary tract infection and sepsis. 2. History of paroxysmal atrial fibrillation, atrial fib and flutter, on Eliquis. 3. History of prior bypass surgery. 4. History of sick sinus syndrome and permanent pacemaker. The device will be interrogated. RECOMMENDATION: I am recommending that from a cardiac standpoint, no intervention. Continue Eliquis and beta-ashok tomorrow. We will interrogate the device and see if there is any evidence of pacemaker mediated tachycardia, which I am not sure of, but this should be excluded given the rhythm strip review. I agree with the antibiotics already outlined. Thank you very much for the consult. MMODL / IJN: [id number] /
--- NOTE | 2017-01-01 14:04 | P.CNOR ---
History of Present Illness - HPI Consult date: 01/01/17 Consult reason: other History of present illness: Postoperative day #6 status post decompression and fusion L3 4 L4 5 and L5-S1 Patient is well known to our service. 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 Last Monday he underwent decompression and fusion at L3 4 L4 5 L5-S1 as per his operative note. Postoperatively he was making progress with his mobility and pain control. He had some hypotension issues and was monitored closely with our service as well as with medical service and cardiology. He stabilized appropriately and was able to improve overall. He was able to be discharged to [facility] facility without any evidence of infection at that point on Monday. Unfortunately he had fevers and chills yesterday while at the [facility] facility. He was found to have a positive urinalysis and culture still pending. He was admitted in regards to urinary tract infection with possible sepsis. Today he feels better now that he is on antibiotics again. He says his overall malaise has improved and he is no longer shivering or having fevers. He says his back has been doing well. He has been able to continue with his mobility. He is not having new problems in his legs. Review of Systems as stated per HPI. He denies any new numbness tingling in his lower extremity. He says his overall pain in his legs has improved with the surgery. He denies chest pain or shortness of breath. He has some left lower quadrant abdominal pain. He denies any nausea or vomiting. 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 History of Any Multi-Drug Resistant Organisms: None Reported Past Surgical History: Cholecystectomy, Coronary Bypass/CABG, Pacemaker Additional Past Surgical History / Comment(s): triple bipass 5-2010, cholecystectomy 2015,[employer] Pacemaker Lt chest, laminectomy Past Anesthesia/Blood Transfusion Reactions: No Reported Reaction Type of Cardiac Device: Permanent Pacemaker Device Placement Date:: Mar 2016 Past Psychological History: No Psychological Hx Reported Smoking Status: Former smoker Past Alcohol Use History: None Reported Past Drug Use History: None Reported - Past Family History Mother Family Medical History: Cancer Additional Family Medical History / Comment(s): CABG, Colon Cancer Father Family Medical History: Cancer Additional Family Medical History / Comment(s): Father of cancer unsure which type of cancer Brother(s) Additional Family Medical History / Comment(s): Brother had X4 Bypass Medications and Allergies Home Medications Medication Instructions Recorded Confirmed Type Furosemide [Lasix] 40 mg PO DAILY 05/17/15 12/31/16 History Benazepril HCl [Lotensin] 40 mg PO DAILY 04/03/16 12/31/16 History Dostinex(Cabergoline) 0.5mg 0.5 mg PO TU 04/03/16 12/31/16 History Gabapentin [Neurontin] 300 mg PO TID 04/03/16 12/31/16 History Isosorbide Mononitrate ER [Imdur] 60 mg PO QAM 04/03/16 12/31/16 History Levothyroxine Sodium [Synthroid] 112 mcg PO QAM 04/03/16 12/31/16 History Multivitamins, Thera [Multivitamin 1 tab PO DAILY 04/03/16 12/31/16 History (formulary)] Krill Oil 500 mg PO DAILY 04/25/16 12/31/16 History Calcium Citrate 250 mg PO BID 07/24/16 12/31/16 History Glucosamine Sulfate 500 mg PO DAILY 11/18/16 12/31/16 History Loratadine 10 mg PO HS 11/18/16 12/31/16 History Melatonin 5 mg PO HS 11/18/16 12/31/16 History Nitroglycerin Sl Tabs [Nitrostat] 0.4 mg SUBLINGUAL Q5M PRN 11/18/16 12/31/16 History Metoprolol Tartrate [Lopressor] 75 mg PO TID #100 tab 11/30/16 12/31/16 Rx Niacin (Inositol Niacinate) 1,000 mg PO BID 11/30/16 12/31/16 History [Niacin Flush Free 500 mg Cap] Apixaban [Eliquis] 5 mg PO BID #60 tab 12/30/16 12/31/16 Rx Magnesium Hydroxide [Milk of 2,400 mg PO DAILY PRN ml 12/30/16 12/31/16 Rx Magnesia Concentrate] Ferrous Sulfate [Iron (65 MG 325 mg PO BID 12/31/16 12/31/16 History Elemental)] HYDROcodone/APAP 7.5-325MG [[place] 1 tab PO Q6HR PRN 12/31/16 12/31/16 History 7.5-325] Sennosides-Docusate Sodium 1 tab PO DAILY 12/31/16 12/31/16 History [Senokot-S] Allergies Allergy/AdvReac Type Severity Reaction Status Date / Time Penicillins Allergy Rash/Hives Verified 12/31/16 15:02 Physical Examination Osteopathic Statement: *. No significant issues noted on an osteopathic structural exam other than those noted in the History and Physical/Consult. - L Spine: dermatomal strength & reflexes bilateral Strength: hip flexion: 5/5 (At his lower back incisions remained clean dry and intact. There is no erythema there is no drainage. There is some mild ecchymosis. His lower extremities have sustained dorsal flexion plantar flexion and extensor hallucis longus hip flexion and knee extension. His thighs and calves soft nontender. He has some global breakaway strength but overall his strength appropriate for his age.) Results - Labs Labs: Abnormal Lab Results - Last 24 Hours (Table) 12/31/16 12/31/16 12/31/16 Range/Units 14:20 14:20 14:20 RBC (4.30-5.90) m/uL Hgb (13.0-17.5) gm/dL Hct (39.0-53.0) % Plt Count (150-450) k/uL Neutrophils # (1.3-7.7) k/uL Lymphocytes # (1.0-4.8) k/uL PT 12.5 H (9.0-12.0) sec INR 1.3 H (<1.2) Sodium 134 L (137-145) mmol/L Glucose 156 H (74-99) mg/dL Plasma Lactic Acid Matt 2.3 H* (0.7-2.0) mmol/L Calcium (8.4-10.2) mg/dL Troponin I (0.000-0.034) ng/mL Total Protein 5.4 L (6.3-8.2) g/dL Albumin 2.9 L (3.5-5.0) g/dL Urine Protein (Negative) Urine Ketones (Negative) Urine Blood (Negative) Ur Leukocyte Esterase (Negative) Urine RBC (0-5) /hpf Urine WBC (0-5) /hpf Urine WBC Clumps (None) /hpf Urine Bacteria (None) /hpf Urine Mucus (None) /hpf 12/31/16 12/31/16 12/31/16 Range/Units 14:20 14:31 16:51 RBC 3.22 L (4.30-5.90) m/uL Hgb 9.9 L (13.0-17.5) gm/dL Hct 28.8 L (39.0-53.0) % Plt Count (150-450) k/uL Neutrophils # 8.7 H (1.3-7.7) k/uL Lymphocytes # 0.3 L (1.0-4.8) k/uL PT (9.0-12.0) sec INR (<1.2) Sodium (137-145) mmol/L Glucose (74-99) mg/dL Plasma Lactic Acid Matt (0.7-2.0) mmol/L Calcium (8.4-10.2) mg/dL Troponin I 0.035 H* (0.000-0.034) ng/mL Total Protein (6.3-8.2) g/dL Albumin (3.5-5.0) g/dL Urine Protein Trace H (Negative) Urine Ketones 1+ H (Negative) Urine Blood Large H (Negative) Ur Leukocyte Esterase Large H (Negative) Urine RBC 158 H (0-5) /hpf Urine WBC 42 H (0-5) /hpf Urine WBC Clumps Few H (None) /hpf Urine Bacteria Few H (None) /hpf Urine Mucus Rare H (None) /hpf 12/31/16 01/01/17 01/01/17 Range/Units 19:46 05:27 05:27 RBC 2.97 L (4.30-5.90) m/uL Hgb 9.1 L (13.0-17.5) gm/dL Hct 27.2 L (39.0-53.0) % Plt Count 147 L (150-450) k/uL Neutrophils # (1.3-7.7) k/uL Lymphocytes # 0.6 L (1.0-4.8) k/uL PT (9.0-12.0) sec INR (<1.2) Sodium (137-145) mmol/L Glucose 114 H (74-99) mg/dL Plasma Lactic Acid Matt (0.7-2.0) mmol/L Calcium 8.2 L (8.4-10.2) mg/dL Troponin I 0.078 H* (0.000-0.034) ng/mL Total Protein (6.3-8.2) g/dL Albumin (3.5-5.0) g/dL Urine Protein (Negative) Urine Ketones (Negative) Urine Blood (Negative) Ur Leukocyte Esterase (Negative) Urine RBC (0-5) /hpf Urine WBC (0-5) /hpf Urine WBC Clumps (None) /hpf Urine Bacteria (None) /hpf Urine Mucus (None) /hpf 01/01/17 Range/Units 05:27 RBC (4.30-5.90) m/uL Hgb (13.0-17.5) gm/dL Hct (39.0-53.0) % Plt Count (150-450) k/uL Neutrophils # (1.3-7.7) k/uL Lymphocytes # (1.0-4.8) k/uL PT (9.0-12.0) sec INR (<1.2) Sodium (137-145) mmol/L Glucose (74-99) mg/dL Plasma Lactic Acid Matt (0.7-2.0) mmol/L Calcium (8.4-10.2) mg/dL Troponin I 0.040 H* (0.000-0.034) ng/mL Total Protein (6.3-8.2) g/dL Albumin (3.5-5.0) g/dL Urine Protein (Negative) Urine Ketones (Negative) Urine Blood (Negative) Ur Leukocyte Esterase (Negative) Urine RBC (0-5) /hpf Urine WBC (0-5) /hpf Urine WBC Clumps (None) /hpf Urine Bacteria (None) /hpf Urine Mucus (None) /hpf Microbiology - Last 24 Hours (Table) 12/31/16 16:51 Urine Culture - Preliminary Urine,Catheterized H & H 12/31/16 01/01/17 Range/Units 14:31 05:27 Hgb 9.9 L 9.1 L (13.0-17.5) gm/dL Hct 28.8 L 27.2 L (39.0-53.0) % Coagulation 12/31/16 Range/Units 14:20 INR 1.3 H (<1.2) Result Diagrams: 01/01/17 05:27 01/01/17 05:27 Assessment and Plan Assessment: Postoperative day #6 status post open decompression and fusion L3 4 L4 5 L5-S1 for his severe spinal stenosis with neurogenic claudication and lower extremity radiculopathy with weakness From his lumbar spine his issues. Be relatively stable. New urinary tract infection with fevers and chills, improving The patient is being treated medically for his urinary tract infection and fever. He should continue his antibiotics and medical management. He is improving thus far with medical management and hopefully we will continue to make progress. From a spine standpoint his low back appears to be stable. I do not see any evidence of infection at the surgical site. His lower extremities have maintained their strength postoperatively and he should continue with his mobilization and regular therapy. His wounds appear to be healing appropriately and is okay for him shower with area uncovered.
[2017-01-01] MEDS: HYDROcodone/APAP 7.5-325MG 1 EACH TAB PO PRN ×2 (14:49→21:30)
--- NOTE | 2017-01-01 18:29 | P.PN ---
Subjective Progress Note Date: 01/01/17 Principal diagnosis: Patient patient was seen and examined in follow-up of urinary tract infection 76-year-old male with recent low back surgery currently postoperative day #6, sent in from rehab center due to fevers and suspected urinary tract infection. Patient seen and examined today feels back to his baseline reports controlled back pain at surgical site denies any difficult urination at this time denies any chest pain or trouble breathing Objective - Vital Signs Vital signs: Vital Signs Temp 97.0 F L 01/01/17 15:58 Pulse 59 L 01/01/17 16:00 Resp 16 01/01/17 16:00 BP 144/66 01/01/17 15:58 Pulse Ox 98 01/01/17 15:58 Intake & Output 12/31/16 01/01/17 01/01/17 18:59 06:59 18:59 Intake Total 1700 716 Output Total 286 1700 Balance -286 0 716 Weight 136.078 kg 148.4 kg Intake: Intake, IV Titration 1700 Amount Sodium Chloride 0.9% 1, 1200 000 ml @ 100 mls/hr IV . Q10H ARNULFO Rx#:[id number] Vancomycin 2,000 mg In 500 Sodium Chloride 0.9% 500 ml @ 167 mls/hr IVPB Q16H ARNULFO Rx#:[id number] Oral 716 Output: Urine 30 1700 Straight 30 Post Void Residual 256 Other: Voiding Method Urinal Urinal # Voids 1 1 # Bowel Movements 1 - Exam Constitutional: vital signs stable, Not in acute distress, pleasant, conversant Lungs: Clear to auscultation bilaterally, clear to percussion, normal respiratory effort Cardiovascular: Regular rate and rhythm, no murmurs, no gallops, no rubs, no peripheral edema Gastrointestinal: Soft, no tenderness to palpation, no palpable hepatosplenomegally, bowel sounds positive, no abdominal wall hernias Extremities: No digital cyanosis or ischemia, peripheral pulses palpable and equal over bilateral radial arteries and dorsalis pedis artery, no calf muscle tenderness. Surgical dressing over low back minimally soaked with bloody drainage no tenderness to palpation no evidence of induration or erythema Psych: Alert, oriented to place, person and time - Labs CBC & Chem 7: 01/01/17 05:27 01/01/17 05:27 Labs: Abnormal Lab Results - Last 24 Hours (Table) 12/31/16 01/01/17 01/01/17 Range/Units 19:46 05:27 05:27 RBC 2.97 L (4.30-5.90) m/uL Hgb 9.1 L (13.0-17.5) gm/dL Hct 27.2 L (39.0-53.0) % Plt Count 147 L (150-450) k/uL Lymphocytes # 0.6 L (1.0-4.8) k/uL Glucose 114 H (74-99) mg/dL Calcium 8.2 L (8.4-10.2) mg/dL Troponin I 0.078 H* (0.000-0.034) ng/mL 01/01/17 Range/Units 05:27 RBC (4.30-5.90) m/uL Hgb (13.0-17.5) gm/dL Hct (39.0-53.0) % Plt Count (150-450) k/uL Lymphocytes # (1.0-4.8) k/uL Glucose (74-99) mg/dL Calcium (8.4-10.2) mg/dL Troponin I 0.040 H* (0.000-0.034) ng/mL Microbiology - Last 24 Hours (Table) 12/31/16 14:20 Blood Culture - Preliminary Blood No Growth after 24 hours 12/31/16 16:51 Urine Culture - Preliminary Urine,Catheterized Assessment and Plan Assessment: 76-year-old male with past medical history coronary artery disease status post CABG, history of sick sinus syndrome and paroxysmal A. fib status post pacemaker. He is currently postoperative day #6 was low back surgery with laminectomy he was at rehab he developed fevers and symptoms of urinary tract infection was sent back to the hospital for further management. Plan: Urinary tract infection without sepsis without Montes catheter Patient currently on Rocephin Await cultures Discontinue vancomycin for now as there is no evidence of surgical site infection per or so Postoperative day #6 post laminectomy Orthopedic has evaluated the patient and deemed him stable from surgical standpoint without evidence of infection at surgical site recommended to continue current medical therapy. Paroxysmal A. fib currently in sinus rhythm on anticoagulation Patient is currently on anticoagulation for paroxysmal A. fib Continue metoprolol Coronary artery disease status post CABG Continue home medications Postoperative anemia currently stable Continue with iron supplementation by mouth Hypothyroidism continue with Synthroid DVT prophylaxis patient on eliquis for paroxysmal A. fib
[2017-01-01] MEDS: LORATADINE 10 MG TAB PO SCH (21:27)
[2017-01-01] MEDS: MELATONIN 5 MG TABLET PO SCH (21:28)
[2017-01-02] MEDS: HYDROcodone/APAP 7.5-325MG 1 EACH TAB PO PRN ×3 (02:28→20:25)
--- NOTE | 2017-01-02 08:29 | P.PN ---
Progress Note - Text Progress Note Date: 01/02/17 Orthopedic Spine Patient is a pleasant 76-year-old male who is seen and examined at the bedside following posterior lateral decompression and fusion performed last Monday. He is postoperative day # 7. Patient was discharged to rehabilitation over the weekend and subsequently readmitted after experiencing fever and chills along with a urinary tract infection. He has been seen and examined by medicine. He states he is not currently experiencing fever or chills. He did have a low- grade temperature last night at 101. His pain has been controlled surgical site of the lumbar spine. He feels like he is improving in terms of his lumbar spine. He is eager to be discharged back to rehabilitation. He has been eating and voiding without significant difficulty. Currently does not complain of nausea, vomiting, fever, or chills. Patient has a history of pacemaker placement as well and was placed on anticoagulation therapy by cardiology prior to his recent discharge. Physical Exam Lumbar Fusion: Status post surgical day number 7 Patient is awake, alert, and oriented 3 Vital signs stable Good chest excursion with deep inspiration and expiration Abdomen soft nontender Dorsiflexion, plantarflexion, and extensor hallucis longus positive sustained bilaterally No signs or symptoms of DVT; no calf pain; pneumatic cuffs not currently intact bilateral lower extremities Dressing is clean, dry, and intact; no erythema, purulence, or signs of infection No active drainage at the incision site Neurovascularly intact bilaterally lower extremities Assessment: Posterior lateral decompression and fusion L3-4, L4-5, L5-S1 L3-4, L4-5, and L5-S1 severe spinal canal stenosis, facet arthrosis, and degenerative disc disease L4-5 spondylolisthesis Neurogenic claudication Low back pain with bilateral lower extremity radiculopathy Urinary tract infection Low-grade temperature; 101 at midnight on 01/02/2017 History of pacemaker placement Plan: 1. Ambulate as tolerated; work with Physical Therapy to increase mobilization 2. Continue pain control with oral medications as prescribed as needed 3. Dr. Rodriguez in medicine will continue to manage patient for patient's other medical including urinary tract infection 4. We will continue to follow the patient closely 5. Patient can follow-up with Kevin Germain PA-C or Dr. Edgar Johnson at [facility] in 2-3 weeks following discharge
[2017-01-02] MEDS: SODIUM CHLORIDE 0.9% 1,000 ML IV SCH ×2 (08:39→15:42)
[2017-01-02] MEDS: METOPROLOL TARTRATE 25 MG TAB PO SCH ×3 (08:42→20:25)
[2017-01-02] MEDS: CALCIUM CARBONATE 500 MG CHEWABLE PO SCH ×2 (08:42→20:23)
[2017-01-02] MEDS: NIACIN TR 500 MG CAPSULE.ER PO SCH ×2 (08:42→20:24)
[2017-01-02] MEDS: GABAPENTIN 300 MG CAP PO SCH ×3 (08:42→20:25)
[2017-01-02] MEDS: SENNOSIDES-DOCUSATE SODIUM 1 EACH TAB PO SCH (08:42)
[2017-01-02] MEDS: ISOSORBIDE MONONITRATE ER 60 MG TAB.ER.24H PO SCH (08:42)
[2017-01-02] MEDS: LISINOPRIL 20 MG TAB PO SCH (08:42)
[2017-01-02] MEDS: APIXABAN 5 MG TAB PO SCH ×2 (08:42→20:23)
[2017-01-02] MEDS: FERROUS SULFATE 325 MG TAB PO SCH ×2 (08:43→20:24)
[2017-01-02] MEDS: LEVOTHYROXINE 112 MCG TAB PO SCH (08:44)
[2017-01-02] MEDS: MULTIVITAMINS, THERA 1 EACH TAB PO SCH (08:45)
[2017-01-02] MEDS: cefTRIAXone IN SWFI 1,000 MG/10 ML SYRINGE IVP SCH (08:45)
--- NOTE | 2017-01-02 13:48 | P.PN ---
Subjective Progress Note Date: 01/02/17 Principal diagnosis: UTI, sepsis This is a pleasant 76-year-old gentleman who recently underwent back surgery about a week ago, has a history of paroxysmal atrial fibrillation and atrial flutter, sick sinus syndrome and permanent pacemaker. He presented to the hospital from the rehab with complaints of fever and chills and was found to have a UTI. His hospitalization, he was found have several options of atrial flutter with rapid ventricular response as well as some likely pacemaker mediated tachycardia. Upon examination he is resting comfortably in bed. He still feels as if he is febrile. From cardiac standpoint, patient is feeling well. He denies complaints of chest discomfort, shortness of breath or palpitations. Objective - Vital Signs Vital signs: Vital Signs Temp 97.9 F 01/02/17 11:26 Pulse 68 01/02/17 11:26 Resp 16 01/02/17 11:26 BP 136/69 01/02/17 11:26 Pulse Ox 97 01/02/17 11:26 Intake & Output 01/01/17 01/02/17 01/02/17 18:59 06:59 18:59 Intake Total 716 118 Output Total 400 695 Balance 716 400 577 Weight 141.6 kg Intake: Oral 716 118 Output: Urine 400 695 Other: Voiding Method Urinal Urinal Urinal # Voids 1 # Bowel Movements 1 1 - Exam PHYSICAL EXAMINATION: HEENT: Head is atraumatic, normocephalic. Pupils equal, round. Neck is supple. There is no elevated jugular venous pressure. HEART EXAMINATION: Heart sounds regular, S1 and S2 normal. No murmur or gallop heard. CHEST EXAMINATION: Lungs are clear to auscultation and precussion. No chest wall tenderness is noted on palpation or with deep breathing. ABDOMEN: Soft, nontender. Bowel sounds are heard. No organomegaly noted. EXTREMITIES: 2+ peripheral pulses with no evidence of peripheral edema and no calf tenderness noted. NEUROLOGIC patient is awake, alert and oriented x3. . - Labs CBC & Chem 7: 01/01/17 05:27 01/01/17 05:27 Labs: Microbiology - Last 24 Hours (Table) 12/31/16 16:51 Urine Culture - Preliminary Urine,Catheterized Gram Neg Bacilli 12/31/16 14:20 Blood Culture - Preliminary Blood No Growth after 24 hours Assessment and Plan Assessment: #1 paroxysmal atrial fibrillation and atrial flutter #2 recent back surgery #3 UTI with sepsis #4 likely pacemaker mediated tachycardia Plan: From director product management perspective, we will await interrogation by international representative from [place]. Further recommendations to be made based on these findings. [employer] note has been reviewed, I agree with a documented findings and plan of care. Patient was seen and examined.
--- NOTE | 2017-01-02 15:06 | P.PN ---
Subjective Progress Note Date: 01/02/17 Principal diagnosis: Patient patient was seen and examined in follow-up of urinary tract infection 76-year-old male with recent low back surgery currently postoperative day #6, sent in from rehab center due to fevers and suspected urinary tract infection. Patient seen and examined today feels back to his baseline reports controlled back pain at surgical site denies any difficult urination at this time denies any chest pain or trouble breathing During this hospitalization he's had atrial flutter with rapid ventricular response as well as some likely pacemaker mediated tachycardia. Today the patient complains of fatigue lightheadedness, denies any chest pain. Reports minimal drainage from the surgical site, denies any fevers chills or night sweats Objective - Vital Signs Vital signs: Vital Signs Temp 97.9 F 01/02/17 11:26 Pulse 68 01/02/17 11:26 Resp 16 01/02/17 11:26 BP 136/69 01/02/17 11:26 Pulse Ox 97 01/02/17 11:26 Intake & Output 01/01/17 01/02/17 01/02/17 18:59 06:59 18:59 Intake Total 716 118 Output Total 400 970 Balance 056 400 -672 Weight 141.6 kg Intake: Oral 716 118 Output: Urine 400 970 Other: Voiding Method Urinal Urinal Urinal # Voids 1 # Bowel Movements 1 1 - Exam Constitutional: No acute distress, conversant, pleasant Eyes: Anicteric sclerae, moist conjunctiva, no lid-lag, PERRLA ENMT: NC/AT,Oropharynx clear, no erythema, exudates Neck:Supple, FROM, no masses, or JVD, No carotid bruits; No thyromegaly Lungs: Clear to auscultation, Clear to percussion, Normal respiratory effort, no accessory muscle use Cardiovascular: Irregular with gallops, or rubs no peripheral edema Abdominal: Soft Nontender, nom distended, no guarding, no rebound or rigidity, Normoactive bowel sounds No hepatomegaly, No splenomegaly, No palpable mass No abdominal wall hernia noted Skin: Normal temperature, tone, texture, turgor, No induration No subcutaneous nodules, No rash, lesions, No ulcers Extremities:No digital cyanosis No clubbing, Pedal pulses intact and symmetrical Radial pulses intact and symmetrical Normal gait and station, No calf tenderness Musculoskeletal :Dorsiflexion, plantarflexion, and extensor hallucis longus positive sustained bilaterally No signs or symptoms of DVT; no calf pain; pneumatic cuffs not currently intact bilateral lower extremities Dressing is clean, dry, and intact; no erythema, purulence, or signs of infection No active drainage at the incision site Neurovascularly intact bilaterally lower extremities Psychiatric: Alert and oriented to person, place and time, Appropriate affect Intact judgement Neuro: Muscles Strength 5/5 in all 4 extremities, Sensation to light touch grossly present throughout, Cranial nerves II-XII grossly intact. No focal sensory deficits - Labs CBC & Chem 7: 01/01/17 05:27 01/01/17 05:27 Labs: Microbiology - Last 24 Hours (Table) 12/31/16 16:51 Urine Culture - Preliminary Urine,Catheterized Gram Neg Bacilli 12/31/16 14:20 Blood Culture - Preliminary Blood No Growth after 24 hours Assessment and Plan (1) UTI (urinary tract infection) Narrative/Plan: * Patient afebrile continue antibiotics with Rocephin and urine culture growing gram-negative bacilli * Definitive culture pending Current Visit: Yes Status: Acute Code(s): N39.0 - URINARY TRACT INFECTION, SITE NOT SPECIFIED SNOMED Code(s): 72179407 (2) Paroxysmal A-fib Narrative/Plan: * Cardiology following patient's scheduled to have interrogation of his pacemaker from [place] * Continue Lopressor and eliquis Current Visit: Yes Status: Acute Code(s): I48.0 - PAROXYSMAL ATRIAL FIBRILLATION SNOMED Code(s): 281359967 (3) History of coronary artery bypass graft x 3 Current Visit: No Status: Chronic Code(s): Z95.1 - PRESENCE OF AORTOCORONARY BYPASS GRAFT SNOMED Code(s): 063460367
[2017-01-02] MEDS: MELATONIN 5 MG TABLET PO SCH (20:24)
[2017-01-02] MEDS: LORATADINE 10 MG TAB PO SCH (20:24)
[2017-01-03] MEDS: LEVOTHYROXINE 112 MCG TAB PO SCH (06:38)
[2017-01-03] MEDS: SODIUM CHLORIDE 0.9% 1,000 ML IV SCH ×2 (06:38→11:14)
[2017-01-03] MEDS: FERROUS SULFATE 325 MG TAB PO SCH (07:57)
[2017-01-03] MEDS: SENNOSIDES-DOCUSATE SODIUM 1 EACH TAB PO SCH (07:57)
[2017-01-03] MEDS: GABAPENTIN 300 MG CAP PO SCH (07:57)
[2017-01-03] MEDS: NIACIN TR 500 MG CAPSULE.ER PO SCH (07:57)
[2017-01-03] MEDS: APIXABAN 5 MG TAB PO SCH (07:57)
[2017-01-03] MEDS: ISOSORBIDE MONONITRATE ER 60 MG TAB.ER.24H PO SCH (07:57)
[2017-01-03] MEDS: CALCIUM CARBONATE 500 MG CHEWABLE PO SCH (07:58)
[2017-01-03] MEDS: cefTRIAXone IN SWFI 1,000 MG/10 ML SYRINGE IVP SCH (08:47)
[2017-01-03] MEDS: LISINOPRIL 20 MG TAB PO SCH (08:53)
[2017-01-03 09:11] VITALS: RESP 16
[2017-01-03] MEDS: METOPROLOL TARTRATE 25 MG TAB PO SCH (09:12)
[2017-01-03] MEDS: HYDROcodone/APAP 7.5-325MG 1 EACH TAB PO PRN ×2 (09:17→15:38)
[2017-01-03] MEDS: MULTIVITAMINS, THERA 1 EACH TAB PO SCH (11:22)
[2017-01-03 12:37] VITALS: BP 158/76; PULSE 48; TEMP 97.1
--- NOTE | 2017-01-03 12:44 | P.PN ---
Progress Note - Text Progress Note Date: 01/03/17 Orthopedic Spine Patient is a pleasant 76-year-old male who is seen and examined at the bedside following posterior lateral decompression and fusion performed last Monday. He is postoperative day # 8. Patient was discharged to rehabilitation over the weekend and subsequently readmitted after experiencing fever and chills along with a urinary tract infection. Recent urine culture is positive for Klebsiella pneumonia. He has been seen and examined by medicine. He states he is not currently experiencing fever or chills. He continues to state his pain has been controlled surgical site of the lumbar spine. He feels like he is improving in terms of his lumbar spine. He has no new complaints in regards to his lumbar spine. He is eager to be discharged back to rehabilitation. He has been eating and voiding without significant difficulty. Currently does not complain of nausea, vomiting, fever, or chills. Patient has a history of pacemaker placement as well and was placed on anticoagulation therapy by cardiology prior to his recent discharge. Physical Exam Lumbar Fusion: Status post surgical day number 8 Patient is awake, alert, and oriented 3 Vital signs stable Good chest excursion with deep inspiration and expiration Abdomen soft nontender Dorsiflexion, plantarflexion, and extensor hallucis longus positive sustained bilaterally No signs or symptoms of DVT; no calf pain; pneumatic cuffs not currently intact bilateral lower extremities Dressing is clean, dry, and intact; no erythema, purulence, or signs of infection; Dressing removed from incision site No active drainage at the incision site Neurovascularly intact bilaterally lower extremities Assessment: Posterior lateral decompression and fusion L3-4, L4-5, L5-S1 L3-4, L4-5, and L5-S1 severe spinal canal stenosis, facet arthrosis, and degenerative disc disease L4-5 spondylolisthesis Neurogenic claudication Low back pain with bilateral lower extremity radiculopathy Urinary tract infection culture positive for Klebsiella pneumonia Low-grade temperature; 101 at midnight on 01/02/2017 History of pacemaker placement Plan: 1. Ambulate as tolerated; work with Physical Therapy to increase mobilization 2. Continue pain control with oral medications as prescribed as needed 3. Dr. Rodriguez in medicine will continue to manage patient for patient's other medical including urinary tract infection with culture positive for Klebsiella pneumonia 4. We will continue to follow the patient closely; from an orthopedic spine standpoint, patient is clear for discharge once cleared by other medical providers 5. Patient can follow-up with Keivn Germain PA-C or Dr. Edgar Johnson at [facility] in 2-3 weeks following discharge
--- NOTE | 2017-01-03 15:18 | P.PN ---
Subjective Progress Note Date: 01/03/17 Principal diagnosis: UTI, sepsis This is a pleasant 76-year-old gentleman who recently underwent back surgery about a week ago, has a history of paroxysmal atrial fibrillation and atrial flutter, sick sinus syndrome and permanent pacemaker. He presented to the hospital from the rehab with complaints of fever and chills and was found to have a UTI. His hospitalization, he was found have several options of atrial flutter with rapid ventricular response as well as some likely pacemaker mediated tachycardia. Upon examination he is resting comfortably in bed. He still feels as if he is febrile. From cardiac standpoint, patient is feeling well. He denies complaints of chest discomfort, shortness of breath or palpitations. His pacemaker was interrogated yesterday and did show some episodes of both SVT and nonsustained ventricular tachycardia. This was per the report from the pipeline technician. 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 No Report of PMT. Objective - Vital Signs Vital signs: Vital Signs Temp 97.1 F L 01/03/17 12:00 Pulse 48 L 01/03/17 12:00 Resp 16 01/03/17 12:00 BP 158/76 01/03/17 12:00 Pulse Ox 98 01/03/17 12:00 Intake & Output 01/02/17 01/03/17 01/03/17 18:59 06:59 18:59 Intake Total 1078 240 Output Total 971 800 Balance 107 -800 240 Weight 140 kg Intake: Oral 1078 240 Output: Urine 970 800 Urine/Stool Mix 1 Other: Voiding Method Urinal Urinal # Voids 2 # Bowel Movements 1 1 - Exam PHYSICAL EXAMINATION: HEENT: Head is atraumatic, normocephalic. Pupils equal, round. Neck is supple. There is no elevated jugular venous pressure. HEART EXAMINATION: Heart sounds regular, S1 and S2 normal. No murmur or gallop heard. CHEST EXAMINATION: Lungs are clear to auscultation and precussion. No chest wall tenderness is noted on palpation or with deep breathing. ABDOMEN: Soft, nontender. Bowel sounds are heard. No organomegaly noted. EXTREMITIES: 2+ peripheral pulses with no evidence of peripheral edema and no calf tenderness noted. NEUROLOGIC patient is awake, alert and oriented x3. . 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 He will follow-up with Dr. Miguel for an EP consult and Dr. Kwok is his primary underwear finisher in the office. DISTRIBUTION COORDINATOR note has been reviewed, I agree with a documented findings and plan of care. Patient was seen and examined.
--- NOTE | 2017-01-03 15:26 | P.DS ---
Providers Date of admission: 12/31/16 18:04 Expected date of discharge: 01/03/17 Attending physician: Aniyah Cast MD Consults: 12/31/16 18:03 Consult Physician Urgent Consulting Provider: Serafin Johnson Consult Reason/Comments: UTI with sepsis, postop fever Do you want consulting provider notified?: Yes, Notify in am 01/01/17 01:12 Consult Physician Routine Consulting Provider: Coy Beckham Consult Reason/Comments: high trops Do you want consulting provider notified?: Yes, Notify in am Primary care physician: Aaron Rowland - Discharge Diagnosis(es) (1) UTI (urinary tract infection) Current Visit: Yes Status: Acute (2) Paroxysmal A-fib Current Visit: Yes Status: Acute (3) History of coronary artery bypass graft x 3 Current Visit: No Status: Chronic (4) Hypothyroidism Current Visit: No Status: Acute Hospital Course: 76-year-old male with past medical history coronary artery disease status post CABG, history of sick sinus syndrome and paroxysmal A. fib status post pacemaker. He was admitted for urinary tract infection and started on empiric IV antibiotics with Rocephin. Urine cultures eventually grew Klebsiella pneumoniae that was sensitive to Rocephin. The patient was seen by his orthopedic surgeon as he was postop laminectomy, there is no concern for any surgical site infection. The patient did have episode of paroxysmal A. fib and atrial flutter with pacemaker mediated tachycardia. Cardiology was consulted and the patient was started on metoprolol and and plans are made to interrogate the patient's pacemaker in the outpatient clinic setting at follow-up visit with Dr. Miguel. The patient was subsequently discharged home in stable condition with plans for follow-up with cardiology Patient Condition at Discharge: Stable Plan - Discharge Summary Discharge Rx Participant: No New Discharge Prescriptions: New HYDROcodone/APAP 7.5-325MG [Cameron 7.5-325] 1 each PO Q6HR PRN #20 tab PRN Reason: Pain HYDROcodone/APAP 7.5-325MG [Cameron 7.5-325] 1 tab PO Q6HR PRN #20 tab PRN Reason: Pain Continue Furosemide [Lasix] 40 mg PO DAILY Multivitamins, Thera [Multivitamin (formulary)] 1 tab PO DAILY Dostinex(Cabergoline) 0.5mg 0.5 mg PO TU Levothyroxine Sodium [Synthroid] 112 mcg PO QAM Isosorbide Mononitrate ER [Imdur] 60 mg PO QAM Gabapentin [Neurontin] 300 mg PO TID Benazepril HCl [Lotensin] 40 mg PO DAILY Krill Oil 500 mg PO DAILY Calcium Citrate 250 mg PO BID Loratadine 10 mg PO HS Glucosamine Sulfate 500 mg PO DAILY Nitroglycerin Sl Tabs [Nitrostat] 0.4 mg SUBLINGUAL Q5M PRN PRN Reason: Chest Pain Melatonin 5 mg PO HS Niacin (Inositol Niacinate) [Niacin Flush Free 500 mg Cap] 1,000 mg PO BID Metoprolol Tartrate [Lopressor] 75 mg PO TID #100 tab Magnesium Hydroxide [Milk of Magnesia Concentrate] 2,400 mg PO DAILY PRN ml PRN Reason: Constipation Apixaban [Eliquis] 5 mg PO BID #60 tab Ferrous Sulfate [Iron (65 MG Elemental)] 325 mg PO BID Sennosides-Docusate Sodium [Senokot-S] 1 tab PO DAILY Discontinued HYDROcodone/APAP 7.5-325MG [Cameron 7.5-325] 1 tab PO Q6HR PRN PRN Reason: Pain Discharge Medication List Furosemide [Lasix] 40 mg PO DAILY 05/17/15 [History] Benazepril HCl [Lotensin] 40 mg PO DAILY 04/03/16 [History] Dostinex(Cabergoline) 0.5mg 0.5 mg PO TU 04/03/16 [History] Gabapentin [Neurontin] 300 mg PO TID 04/03/16 [History] Isosorbide Mononitrate ER [Imdur] 60 mg PO QAM 04/03/16 [History] Levothyroxine Sodium [Synthroid] 112 mcg PO QAM 04/03/16 [History] Multivitamins, Thera [Multivitamin (formulary)] 1 tab PO DAILY 04/03/16 [History ] Krill Oil 500 mg PO DAILY 04/25/16 [History] Calcium Citrate 250 mg PO BID 07/24/16 [History] Glucosamine Sulfate 500 mg PO DAILY 11/18/16 [History] Loratadine 10 mg PO HS 11/18/16 [History] Melatonin 5 mg PO HS 11/18/16 [History] Nitroglycerin Sl Tabs [Nitrostat] 0.4 mg SUBLINGUAL Q5M PRN 11/18/16 [History] Metoprolol Tartrate [Lopressor] 75 mg PO TID #100 tab 11/30/16 [Rx] Niacin (Inositol Niacinate) [Niacin Flush Free 500 mg Cap] 1,000 mg PO BID 11/30 [History] Apixaban [Eliquis] 5 mg PO BID #60 tab 12/30/16 [Rx] Magnesium Hydroxide [Milk of Magnesia Concentrate] 2,400 mg PO DAILY PRN ml [Rx] Ferrous Sulfate [Iron (65 MG Elemental)] 325 mg PO BID 12/31/16 [History] Sennosides-Docusate Sodium [Senokot-S] 1 tab PO DAILY 12/31/16 [History] HYDROcodone/APAP 7.5-325MG [Cameron 7.5-325] 1 each PO Q6HR PRN #20 tab 01/03/17 [ Rx] HYDROcodone/APAP 7.5-325MG [Cameron 7.5-325] 1 tab PO Q6HR PRN #20 tab 01/03/17 [ Rx] Follow up Appointment(s)/Referral(s): Mk Miguel MD [STAFF PHYSICIAN] - 1 Week Kevin Germain PAC [PHYSICIAN STAMP MAKER] - 2 Weeks (Patient may follow-up with Kevin Germain PA-C or Dr. Edgar Johnson at [facility] in 2-3 weeks following discharge as previously scheduled. ) Aaron Rowland MD [Primary Care Provider] - 1-2 days Jaswinder Kwok MD [STAFF PHYSICIAN] - 2 Weeks Patient Instructions/Handouts: Urinary Tract Infection in Men (DC) Activity/Diet/Wound Care/Special Instructions: 1. Patient may shower without dressing intact at this time 2. Patient should refrain from driving until at least after their first follow- up appointment in the office. 3. Patient should avoid excessive bending, twisting, and lifting; no lifting greater than 10 pounds 4. Take medications as prescribed 5. Do not soak in tub 6. Heart Healthy Diet [facility]charge [facility]position: [facility]
[2017-01-03] MEDS ORDERED: DOSTINEX PO SCH (20:22)
== END 2017-01-03 17:30 | DRG 872 ==
LOC: EC 14:16 → 6SEL 18:04
PROVIDERS: ADMIT Internal Medicine; ATTEND Internal Medicine
DX: A41.9 Sepsis, unspecified organism (principal); I47.2 Ventricular tachycardia; E87.2 Acidosis; I95.9 Hypotension, unspecified; I49.5 Sick sinus syndrome; I48.92 Unspecified atrial flutter; N39.0 Urinary tract infection, site not specified; I48.0 Paroxysmal atrial fibrillation; I47.1 Supraventricular tachycardia; R65.20 Severe sepsis without septic shock; I10 Essential (primary) hypertension; E03.9 Hypothyroidism, unspecified; I25.10 Atherosclerotic heart disease of native coronary artery without angina pectoris; M19.90 Unspecified osteoarthritis, unspecified site; B96.1 Klebsiella pneumoniae [K. pneumoniae] as the cause of diseases classified elsewhere; R01.1 Cardiac murmur, unspecified; R32 Unspecified urinary incontinence; Z88.0 Allergy status to penicillin; Z79.01 Long term (current) use of anticoagulants; Z98.1 Arthrodesis status; Z79.899 Other long term (current) drug therapy; Z79.891 Long term (current) use of opiate analgesic; Z80.0 Family history of malignant neoplasm of digestive organs; Z87.891 Personal history of nicotine dependence; Z95.1 Presence of aortocoronary bypass graft; Z95.0 Presence of cardiac pacemaker; Z90.49 Acquired absence of other specified parts of digestive tract; Z87.39 Personal history of other diseases of the musculoskeletal system and connective tissue
CPT/HCPCS: 36415; 51701; 51798; 71020; 80048; 80053; 81001; 83605; 83735; 84100; 84484; 85025; 85610; 85730; 87040; 87077; 87086; 87186; 87502; 93005; 94760; 96361; 96374; 99285

== ENCOUNTER → 2018-12-24 | Outpatient (CLI) | payer MEDICARE ==
--- NOTE | 2018-12-24 13:10 | XR ---
EXAMINATION TYPE: XR chest 2V DATE OF EXAM: 12/24/2018 COMPARISON: 12/31/2016 HISTORY: Cough for 4 weeks TECHNIQUE: Frontal and lateral views of the chest are obtained. FINDINGS: Cardiomediastinal silhouette is mildly enlarged with post CABG change and dual-lead left-s ided cardiac device. Slight eventration of the right hemidiaphragm is seen. Minimal bibasilar opaciti es on the frontal view only appear as atelectasis and a linear. Bridging anterior osteophytes of the thoracic spine suggesting diffuse idiopathic skeletal hyperostosis. Slight pulmonary hyperinflation a nd slight flattening of the diaphragm on the lateral views. Correlate with liver function tests to ex clude COPD. IMPRESSION: 1. Minimal bibasilar subsegmental dependent atelectasis. 2. Slight flattening of the diaphragms on the lateral view and pulmonary hyperinflation. Correlate wi pulmonary function tests to evaluate for COPD. 3. Persistent mildly enlarged cardiomediastinal silhouette and post CABG changes of the chest.
== END | disposition home or self-care (01) ==
LOC: RADXRMAIN 12:42
PROVIDERS: ATTEND Internal Medicine
DX: R91.8 Other nonspecific abnormal finding of lung field (principal); I27.20 Pulmonary hypertension, unspecified; Z95.1 Presence of aortocoronary bypass graft
CPT/HCPCS: 71046

== ENCOUNTER → 2019-07-15 | Outpatient (CLI) | payer MEDICARE ==
[2019-07-15 18:51] LABS: Chol/HDL Ratio 4.78; LDL Cholesterol,Calculated 101.8 mg/dL (0.0-131.0); VLDL Calculation 38.2 mg/dL (5.00-40.00)
== END | disposition home or self-care (01) ==
LOC: LABWHC1 13:17
PROVIDERS: ATTEND Internal Medicine Cardiovascular Disease
DX: E78.2 Mixed hyperlipidemia (principal)
CPT/HCPCS: 36415; 80061; 84450; 84460

== ENCOUNTER 2021-08-24 06:13 | Day surgery (SDC) | payer MEDICARE ==
[~2021-08-24 06:13] MED LIST changes: +ALPRAZolam 0.25 MG TAB PO PRN; +ALPRAZolam 0.5 MG TAB PO PRN; +ASPIRIN 325 MG TAB PO STA; +ATORVASTATIN 80 MG TAB PO STA; -BACITRACIN 50,000 UNIT, POLYMYXIN B 500,000 UNIT in SODIUM CHLORIDE 0.9% IRRIGATIO 1,00... IRRIGATION ONE; -DEXAMETHASONE SOD PHOSPHATE 10 MG/ML 1 ML VIAL IV ONE; +HEPARIN SODIUM,PORCINE 10,000 UNIT in SODIUM CHLORIDE 0.9% 1,000 ML IRRIGATION PRN; +HEPARIN SODIUM,PORCINE 2,500 UNIT in SODIUM CHLORIDE 0.9% 250 ML IRRIGATION PRN; -HYDROmorphone 1 MG/ML 1 ML SYRINGE IVP PRN; +NITROGLYCERIN SL TABS 0.4 MG TAB SUBLINGUAL PRN; -ONDANSETRON 4 MG/2 ML VIAL IVP ONE; +SODIUM CHLORIDE 0.9% 500 ML 500 ML IV ONE; -ceFAZolin 3 GM in SODIUM CHLORIDE 0.9% 100 ML IVPB ONE
[2021-08-24 06:56] LABS: Calcium 9.5 mg/dL (8.4-10.2); Potassium 4.3 mmol/L (3.5-5.1)
[2021-08-24] MEDS ORDERED: VERAPAMIL 2.5 MG/ML 2 ML AMP ONE (07:11)
[2021-08-24] MEDS ORDERED: fentaNYL (PF) 50 MCG/ML 2 ML AMP ONE (07:28)
[2021-08-24] MEDS ORDERED: MIDAZOLAM 2 MG/2 ML VIAL IV ONE (07:33)
[2021-08-24] MEDS: fentaNYL (PF) 50 MCG/ML 2 ML AMP IV ONE ×2 (07:33→08:56)
[2021-08-24] MEDS ORDERED: LIDOCAINE 1% INJ 10MG/ML (30 ML VIAL-PF) SQ ONE (07:35)
[2021-08-24] MEDS ORDERED: HEPARIN SODIUM 1,000 UN/ML (10ML VL) ONE (08:34)
[2021-08-24] MEDS ORDERED: HEPARIN SODIUM 1,000 UN/ML (10ML VL) IV ONE (08:35)
[2021-08-24] MEDS ORDERED: IOPAMIDOL-370 125ML BTL INJ ONE (08:37)
[2021-08-24] MEDS ORDERED: CLOPIDOGREL 75 MG TAB ONE (08:45)
[2021-08-24] MEDS ORDERED: CLOPIDOGREL 75 MG TAB PO ONE (08:48)
[2021-08-24] MEDS ORDERED: niCARdipine 25 MG/10 ML VIAL ONE (08:50)
[2021-08-24] MEDS ORDERED: niCARdipine Syringe (1,000 mcg/10 mL) INTRACORON ONE (09:09)
[2021-08-24] MEDS ORDERED: NITROGLYCERIN 1000MCG/10ML SYRINGE INTRACORON ONE (09:09)
[2021-08-24] MEDS ORDERED: IOPAMIDOL-370 100ML BTL INJ ONE (09:13)
[2021-08-24] MEDS ORDERED: MAGNESIUM HYDROXIDE 2,400 MG/10 ML CUP PO PRN (09:17)
[2021-08-24] MEDS ORDERED: NITROGLYCERIN SL TABS 0.4 MG TAB SUBLINGUAL PRN ×2 (09:17→09:20)
[2021-08-24] MEDS ORDERED: MAG HYDROX/AL HYDROX/SIMETH 30 ML CUP PO PRN (09:20)
[2021-08-24] MEDS ORDERED: ATROPINE SULFATE 0.1 MG/ML 10ML SYRINGE IV PRN (09:20)
[2021-08-24] MEDS ORDERED: ZOLPIDEM 5 MG TAB PO PRN (09:20)
[2021-08-24] MEDS ORDERED: RX INFO: IV CONTRAST WAS GIVEN 1 EACH MISC MISCELLANE PRN (09:20)
--- NOTE | 2021-08-24 09:24 | P.PCN ---
Date of Procedure: 08/24/21 Operative Findings: PERCUTANEOUS CORONARY INTERVENTION Performing physician Hector Ralph M.D. Procedure Performed: 1. Successful stenting of the distal PLV branch of the RCA using 2.75 x 15 mm Xience drug-eluting stent with an excellent angiographic results. 2. Successful stending of the proximal PLV branch of the RCA using 3.0 x 15 mm Xience drug-eluting stent with an excellent angiographic result. 3. Gradient measurement across the left subclavian artery Indication: Chest discomfort in this 81-year-old gentleman who sees Dr. Kwok regularly who was known to have CAD with prior revascularization. He underwent a heart catheterization and that revealed patent BARRETO to LAD with occluded vein graft to the diagonal and occluded vein graft to the RCA. He was brought to undergo PCI of the RCA and subsequently PCI of the diagonal. Approach: Right common femoral artery Complications: None Level of Sedation: Moderate with a sedation length of 50 minutes Procedure Discussion: Please refer to be diagnostic heart catheterization was performed by Dr. Kwok. Anticoagulation was initiated using heparin with continuous ACT monitoring throughout the case. Subsequently I did engage the RCA using an Amplatzer 1 guiding catheter. I did wire the PLV branch using a run-through wire. After that balloon angioplasty of the PLV was performed using 2.5 mm balloon and then a 3.0 mm balloon. For the distal lesion I deployed 2.75 x 15 mm stent and for the proximal lesion I deployed 3.0 x 15 mm stents. Both stents were positioned under fluoroscopy guidance and deployed under 20 jason for 20 seconds. The following angiogram showed good angiographic results and the procedure was completed without any complication Postprocedure Management: 1. Dual antiplatelet therapy using aspirin and Plavix for at least 6 months 2. Aggressive cholesterol control 3. Follow-up with the patient
[2021-08-24] MEDS ORDERED: DOSTINEX PO SCH (09:30)
[2021-08-24] MEDS ORDERED: SODIUM CHLORIDE 0.9% 1,000 ML in EMPTY BAG 1 BAG IV SCH (09:30)
--- NOTE | 2021-08-24 13:23 | CC ---
CARDIAC CATHETERIZATION REPORT INDICATION: Progressively worsening shortness of breath in a patient with known CAD status post prior bypass surgery with BARRETO to LAD, venous graft to diagonal and venous graft to RCA. At his previous cardiac catheterization in 2017, the venous graft to the PDA was atretic. PROCEDURE NOTE: After obtaining informed consent, left heart catheterization and coronary angiogram were performed via the right femoral artery using standard Anali catheters. The BARRETO was selectively engaged using a Joby catheter. The venous branches were engaged using the right Anali catheter. The patient tolerated the procedure well without any obvious immediate complications. The BARRETO was engaged by Dr. Ralph the on-call reaming press operator. FINDINGS: HEMODYNAMICS: Central aortic pressure is 130/70 mm. LEFT VENTRICULOGRAM: Not performed. ANGIOGRAPHIC DATA: LEFT MAIN CORONARY ARTERY: Left main coronary artery is a normal-sized vessel and is free of stenosis. Divides into left anterior descending coronary artery and circumflex coronary artery. The distal left main shows a 50% stenosis. CIRCUMFLEX CORONARY ARTERY: Circumflex coronary artery is subtotally occluded in its proximal part. LEFT ANTERIOR DESCENDING CORONARY ARTERY: The LAD gives off 2 large caliber diagonal branches and appears occluded after the origin of the second diag. Both the diags have a long segment of narrowing. BARRETO to LAD: BARRETO to LAD appears patent with no significant disease in the body of the graft at the proximal and distal anastomotic sites and the [place] LAD itself is free of disease. Venous graft to the right coronary artery appears atretic and occluded. Venous graft to the diag appears occluded. Right coronary artery is a large dominant vessel that gives off a large PDA and PLV branches. There are [id number] collaterals to the LAD. PLV shows a focal area of 80% to 90% stenosis. CONCLUSIONS: Severe three-vessel coronary artery disease as described above with patent BARRETO to LAD, occluded venous graft to the right and diagonal branch and new subtotal occlusion of the circumflex coronary artery. PLAN: Patient will undergo angioplasty of the PLV and we will bring him back and do angioplasty of the diag and circumflex coronary artery. MMODL / IJN: [id number] /
[2021-08-24] MEDS: SODIUM CHLORIDE 0.9% 1,000 ML in EMPTY BAG 1 BAG IV SCH ×4 (16:13→21:08)
[2021-08-24] MEDS: DILTIAZEM ORAL 30 MG TAB PO SCH ×2 (17:25→20:22)
[2021-08-24] MEDS: traMADol 50 MG TAB PO SCH (20:22)
[2021-08-24] MEDS: GABAPENTIN 300 MG CAP PO SCH (20:22)
[2021-08-24] MEDS: METOPROLOL TARTRATE 25 MG TAB PO SCH (20:22)
[2021-08-24] MEDS: FUROSEMIDE 40 MG TAB PO SCH (20:23)
[2021-08-24] MEDS: CALCIUM CARBONATE 500 MG CHEWABLE PO SCH (20:25)
[2021-08-24] MEDS ORDERED: MELATONIN 5 MG TABLET PO SCH (21:00)
[2021-08-24] MEDS ORDERED: PRAVASTATIN SODIUM 20 MG TAB PO SCH (21:00)
[2021-08-24] MEDS ORDERED: LORATADINE 10 MG TAB PO SCH (21:00)
[2021-08-25] MEDS ORDERED: LEVOTHYROXINE 112 MCG TAB PO SCH (06:30)
[2021-08-25 07:46] VITALS: BP 158/98; PULSE 58; RESP 18; TEMP 98
[2021-08-25] MEDS ORDERED: NON FORMULARY DRUG (Krill Oil [Krill Oil] 500 MG Capsule) PO SCH (09:00)
[2021-08-25] MEDS ORDERED: NON FORMULARY DRUG (Potassium Citrate [Potassium Citrate] 99 MG Capsule) PO SCH (09:00)
[2021-08-25] MEDS ORDERED: LOSARTAN 50 MG TAB PO SCH (09:00)
[2021-08-25] MEDS ORDERED: NON FORMULARY DRUG (Glucosamine Sulfate 500 MG Cap) PO SCH (09:00)
[2021-08-25] MEDS ORDERED: ASPIRIN 325 MG TAB PO SCH (09:00)
[2021-08-25] MEDS ORDERED: CLOPIDOGREL 75 MG TAB PO SCH (09:00)
[2021-08-25] MEDS ORDERED: CHOLECALCIFEROL 25 MCG (1000 IU) TABLET PO SCH (09:00)
[2021-08-25] MEDS ORDERED: CYANOCOBALAMIN 500 MCG TAB PO SCH (09:00)
[2021-08-25] MEDS ORDERED: MULTIVITAMINS, THERA 1 EACH TAB PO SCH (09:00)
[2021-08-25] MEDS ORDERED: ISOSORBIDE MONONITRATE ER 60 MG TAB.ER.24H PO SCH (09:00)
[2021-08-25] MEDS: CALCIUM CARBONATE 500 MG CHEWABLE PO SCH (09:49)
[2021-08-25] MEDS: DILTIAZEM ORAL 30 MG TAB PO SCH (09:51)
[2021-08-25] MEDS: FUROSEMIDE 40 MG TAB PO SCH (09:51)
[2021-08-25] MEDS: GABAPENTIN 300 MG CAP PO SCH (09:51)
[2021-08-25] MEDS: METOPROLOL TARTRATE 25 MG TAB PO SCH (09:52)
[2021-08-25] MEDS: traMADol 50 MG TAB PO SCH (09:53)
[2021-08-25 10:10] VITALS: BMI 41.1
--- NOTE | 2021-08-25 18:59 | CONS ---
CONSULTATION PROCEDURES PERFORMED: 1. Left heart catheterization, selective injection of the bypass grafts. 2. Angioplasty of the [place] right coronary artery. HOSPITAL COURSE: This is an 81-year-old gentleman with known history of coronary artery disease status post CABG with BARRETO to LAD, [employer] venous graft to right coronary artery and an occluded venous graft to the diagonal branch. The occlusion of the venous graft to the diagonal branch is new compared to a cardiac catheterization in 2017. The patient also developed new occlusion in the [place] circumflex coronary artery disease which is chronically occluded and also has a tight lesion in the PLV that is new compared to previous catheterization. He had been found to have angioplasty of the PLV, which was technically challenging and we decided to bring him back and perform angioplasty of the diagonal branch and consider a NUCLEAR MEDICINE OFFICER of the [place] circumflex coronary artery. This morning patient is doing well and is free of cardiac symptoms. On exam, afebrile, heart rate is 56 beats per minute, blood pressure is 160/70, respiratory rate 16, O2 saturation is 96% on room air. There is no jugular venous distention. Chest exam reveals good air entry bilaterally. Heart exam reveals first and second heart sounds. No gallop. No murmur. Abdomen is soft. Exam of extremities did not reveal any edema. Peripheral pulses are palpable. Right groin access site shows mild ecchymosis without hematoma, bruit or pulsatile masses. Labs at the time of discharge include a potassium of 4.3 creatinine is 1.1. EKG shows paced rhythm with underlying atypical atrial flutter. DISCHARGE MEDICATIONS: Include aspirin 81 mg daily, Plavix 75 mg daily, continue the Eliquis that the patient was on at home, losartan 100 mg daily, diltiazem 50 mg three times a day, metoprolol 25 b.i.d., Synthroid, Imdur 60 mg daily, Lasix 20 b.i.d., Pravachol 10 mg daily, and sublingual nitroglycerine on a p.r.n. basis. FOLLOWUP: Patient will be followed up in my office in two weeks time and I will schedule him for a staged angioplasty to the [place] diagonal branch and a NUCLEAR MEDICINE OFFICER. MMODL / IJN: [id number] /
== END 2021-08-25 14:42 | disposition home or self-care (01) ==
LOC: CATHCVL 06:13 → 6NMEDSUR 14:40 → CATHCVL 08-25 14:42
PROVIDERS: ATTEND Internal Medicine Cardiovascular Disease
DX: I25.10 Atherosclerotic heart disease of native coronary artery without angina pectoris (principal); I25.810 Atherosclerosis of coronary artery bypass graft(s) without angina pectoris; I10 Essential (primary) hypertension; R94.39 Abnormal result of other cardiovascular function study; E78.2 Mixed hyperlipidemia; Z82.49 Family history of ischemic heart disease and other diseases of the circulatory system; Z87.891 Personal history of nicotine dependence; I49.5 Sick sinus syndrome; I48.0 Paroxysmal atrial fibrillation; Z79.01 Long term (current) use of anticoagulants; Z79.82 Long term (current) use of aspirin; Z79.890 Hormone replacement therapy; Z79.899 Other long term (current) drug therapy; Z88.0 Allergy status to penicillin
CPT/HCPCS: 93455; 80048; C9600; C1760; C1769 ×4; C1887; C1725 ×3; C1894; C1874 ×2; J2250; J2001; J3010; J1644; Q9967 ×2

== ENCOUNTER → 2021-08-31 | Outpatient (CLI) | payer MEDICARE ==
[2021-08-31 14:33] LABS: African American GFR (CKD) 53.2 (60.0-200.0); Anion Gap 12.8 mmol/L (10.00-18.00); Blood Urea Nitrogen 21.2 mg/dL (9.0-27.0); Carbon Dioxide 23.5 mmol/L (20.0-27.5); Non-African American GFR(CKD) 45.9 (60.0-200.0); Potassium 4.5 mmol/L (3.5-5.5)
[2021-08-31 14:43] LABS: HCT 43.4 % (39.6-50.0); HGB 13.8 g/dL (13.0-17.0); MCH 30.3 pg (27.0-32.0); MCHC 31.8 g/dL (32.0-37.0); MCV 95.4 fL (80.0-97.0); Mean Platelet Volume 11.8 fL (9.5-12.2); NRBC Per 100 WBC 0 /100 WBCS (0.0-0.0); Platelet Count 140 X 10*3/uL (140-440); RBC 4.55 X 10*6/uL (4.40-5.60); RDW 13.7 % (11.5-14.5); WBC 7.55 X 10*3/uL (4.50-10.00)
== END | disposition home or self-care (01) ==
LOC: LABWHC1 08:43
PROVIDERS: ATTEND Internal Medicine Interventional Cardiology
DX: I25.10 Atherosclerotic heart disease of native coronary artery without angina pectoris (principal)
CPT/HCPCS: 36415; 80051; 82565; 84520; 85027

== ENCOUNTER 2021-09-01 11:01 | Day surgery (SDC) | payer MEDICARE ==
[~2021-09-01 11:01] MED LIST changes: +ASPIRIN 325 MG TAB PO ONE; -ASPIRIN 325 MG TAB PO STA; -ATORVASTATIN 80 MG TAB PO STA; -HEPARIN SODIUM,PORCINE 10,000 UNIT in SODIUM CHLORIDE 0.9% 1,000 ML IRRIGATION PRN; -HEPARIN SODIUM,PORCINE 2,500 UNIT in SODIUM CHLORIDE 0.9% 250 ML IRRIGATION PRN; -SODIUM CHLORIDE 0.9% 500 ML 500 ML IV ONE
[2021-09-01 11:33] LABS: Basophils # (A) 0.1 k/uL (0-0.2); Basophils % (A) 1 %; Eosinophils # (A) 0.1 k/uL (0-0.7); Eosinophils % (A) 1 %; HCT 44.8 % (39.0-53.0); HGB 14.6 gm/dL (13.0-17.5); Lymphocytes # (A) 1.9 k/uL (1.0-4.8); Lymphocytes % (A) 22 %; MCH 31.1 pg (25.0-35.0); MCHC 32.5 g/dL (31.0-37.0); MCV 95.9 fL (80.0-100.0); Monocytes # (A) 0.5 k/uL (0-1.0); Monocytes % (A) 6 %; Neutrophils % (A) 68 %; Platelet Count 162 k/uL (150-450); RBC 4.68 m/uL (4.30-5.90); RDW 13.8 % (11.5-15.5); WBC 8.8 k/uL (3.8-10.6)
[2021-09-01 11:48] LABS: Calcium 9.4 mg/dL (8.4-10.2); Potassium 4.1 mmol/L (3.5-5.1)
[2021-09-01] MEDS ORDERED: SODIUM CHLORIDE 0.9% 1,000 ML IV ONE ×2 (12:15→14:00)
[2021-09-01] MEDS ORDERED: LIDOCAINE 1% INJ 10MG/ML (30 ML VIAL-PF) SQ ONE (12:56)
[2021-09-01] MEDS ORDERED: MIDAZOLAM 2 MG/2 ML VIAL IV ONE (12:59)
[2021-09-01] MEDS: HEPARIN SODIUM 1,000 UN/ML (10ML VL) IV ONE ×2 (13:01→13:52)
[2021-09-01] MEDS: NITROGLYCERIN 1000MCG/10ML SYRINGE INTRACORON ONE ×2 (13:24→13:59)
[2021-09-01] MEDS ORDERED: CLOPIDOGREL 75 MG TAB ONE (13:53)
[2021-09-01] MEDS ORDERED: IOPAMIDOL-370 125ML BTL INJ ONE (14:01)
[2021-09-01] MEDS ORDERED: CLOPIDOGREL 75 MG TAB PO ONE (14:04)
[2021-09-01] MEDS ORDERED: ATROPINE SULFATE 0.1 MG/ML 10ML SYRINGE IV PRN (14:08)
[2021-09-01] MEDS ORDERED: MAG HYDROX/AL HYDROX/SIMETH 30 ML CUP PO PRN (14:08)
[2021-09-01] MEDS ORDERED: NITROGLYCERIN SL TABS 0.4 MG TAB SUBLINGUAL PRN ×2 (14:08→14:16)
[2021-09-01] MEDS ORDERED: RX INFO: IV CONTRAST WAS GIVEN 1 EACH MISC MISCELLANE PRN (14:08)
[2021-09-01] MEDS ORDERED: ZOLPIDEM 5 MG TAB PO PRN (14:08)
[2021-09-01] MEDS ORDERED: SODIUM CHLORIDE 0.9% 1,000 ML in EMPTY BAG 1 BAG IV SCH (14:15)
--- NOTE | 2021-09-01 14:16 | P.PCN ---
Date of Procedure: 09/01/21 Operative Findings: PERCUTANEOUS CORONARY INTERVENTION Performing physician Hector Ralph M.D. Procedure Performed: 1. Successful stenting of the second diagonal branch of the LAD using 2.5 x 28 mm Xience drug-eluting stent with an excellent angiographic results. 2. Successful PTCAof the first diagonal branch of the LAD using 2.0 mm balloon with reasonable angiographic result. 3. Selective right common femoral artery angiogram 4. Ultrasound-guided access the right common femoral are Indication: This is an 81-year-old gentleman who sees Dr. Wyatt regularly with coronary artery disease and status post coronary artery bypass grafting who was experiencing symptoms of angina recently need he underwent a heart catheterization by Dr. Wyatt and was found to have severe triple-vessel CAD. The BARRETO into LAD is patent. The SVG to diagonal was occluded. The SVG to RCA is occluded as well. He was brought today to undergo PTCA of the first and second diagonal branches are Approach: Right common femoral artery Complications: None Level of Sedation: Moderate with a sedation length of 67 minutes Procedure Discussion: After obtaining an informed consent the patient was brought to the cardiac open hearth laborer. The right common femoral artery was cannulated using puncture technique, the micropuncture wire passed easily then I placed 6-Lithuanian sheath in the right common femoral artery. Please note that the right common femoral artery was cannulated using puncture technique under ultrasound guidance. At that point anticoagulation was initiated using heparin. ACT monitoring was performed throughout the case. Subsequently I did engage the left main using a CLS guiding catheter. I did wire the second diagonal branch with a backup support of microcatheter and the wire was advanced to the distal portion of the second diagonal branch and that was a whisper wire. Balloon angioplasty of the LAD was performed using initially 1.5 mm balloon and subsequently 2.5 mm balloon. After that I deployed 2.5 x 28 mm stent where the stent was positioned under fluoroscopy guidance and deployed under its nominal pressure. I postdilated the stent using 2.75 mm noncompliant balloon. The angiogram showed good angiographic results. After that I did wire the first diagonal branch which is a 2 mm at least vessel using initially a whisper wire but that was unsuccessful but then I was able to wire it using Fielder XT wire. Angioplasty was performed using 2.0 x 8 mm balloon. I did only balloon angioplasty because the lesion was very close to the ostium and placing the stent will not jeopardize the left anterior descending artery. Kissing stent balloon was not an option because I had 6- [place] guiding catheter. The angiogram showed reasonable results with reduction of stenosis from 99% to 50%. The procedure was completed without any complication Postprocedure Management: 1. Dual antiplatelet therapy to be continuous for at least 6 month using aspirin and Plavix 2. Aggressive cholesterol control and risk factors modification 3. Consider PCI of the left circumflex which is chronically occluded if the patient continues to be symptomatic on maximize medical treatment
[2021-09-01] MEDS ORDERED: ACETAMINOPHEN TAB 325 MG TAB ONE (14:51)
[2021-09-01] MEDS: SODIUM CHLORIDE 0.9% 1,000 ML in EMPTY BAG 1 BAG IV SCH (15:12)
[2021-09-01] MEDS: DILTIAZEM ORAL 30 MG TAB PO SCH ×2 (17:20→23:36)
[2021-09-01] MEDS ORDERED: LORATADINE 10 MG TAB PO SCH (21:00)
[2021-09-01] MEDS ORDERED: MELATONIN 5 MG TABLET PO SCH (21:00)
[2021-09-01] MEDS ORDERED: PRAVASTATIN SODIUM 20 MG TAB PO SCH (21:00)
[2021-09-01] MEDS: FUROSEMIDE 40 MG TAB PO SCH (21:05)
[2021-09-01] MEDS: CALCIUM CARB-VIT D 500 MG-5 MCG TAB PO SCH (21:05)
[2021-09-01] MEDS: traMADol 50 MG TAB PO SCH (21:05)
[2021-09-01] MEDS: GABAPENTIN 300 MG CAP PO SCH (21:06)
[2021-09-01] MEDS: METOPROLOL TARTRATE 25 MG TAB PO SCH (21:07)
[2021-09-02] MEDS ORDERED: LEVOTHYROXINE 112 MCG TAB PO SCH (06:30)
[2021-09-02] MEDS: FUROSEMIDE 40 MG TAB PO SCH (08:17)
[2021-09-02] MEDS: GABAPENTIN 300 MG CAP PO SCH (08:17)
[2021-09-02] MEDS: METOPROLOL TARTRATE 25 MG TAB PO SCH (08:17)
[2021-09-02] MEDS: CALCIUM CARB-VIT D 500 MG-5 MCG TAB PO SCH (08:17)
[2021-09-02] MEDS: DILTIAZEM ORAL 30 MG TAB PO SCH ×2 (08:17→15:59)
[2021-09-02] MEDS: traMADol 50 MG TAB PO SCH (08:29)
[2021-09-02] MEDS ORDERED: ISOSORBIDE MONONITRATE ER 60 MG TAB.ER.24H PO SCH (09:00)
[2021-09-02] MEDS ORDERED: POTASSIUM CHLORIDE ER 10 MEQ TAB.ER.PRT PO SCH (09:00)
[2021-09-02] MEDS ORDERED: LOSARTAN 50 MG TAB PO SCH (09:00)
[2021-09-02] MEDS ORDERED: ASPIRIN 325 MG TAB PO SCH (09:00)
[2021-09-02] MEDS ORDERED: CLOPIDOGREL 75 MG TAB PO SCH (09:00)
[2021-09-02] MEDS ORDERED: CYANOCOBALAMIN 500 MCG TAB PO SCH (09:00)
[2021-09-02] MEDS ORDERED: CHOLECALCIFEROL 25 MCG (1000 IU) TABLET PO SCH (09:00)
[2021-09-02] MEDS ORDERED: NON FORMULARY DRUG (Krill Oil [Krill Oil] 500 MG Capsule) PO SCH (09:00)
[2021-09-02] MEDS ORDERED: NON FORMULARY DRUG (Glucosamine Sulfate 500 MG Cap) PO SCH (09:00)
[2021-09-02] MEDS ORDERED: MULTIVITAMINS, THERA 1 EACH TAB PO SCH (09:00)
[2021-09-02 11:39] VITALS: BMI 41.1
[2021-09-02 12:28] VITALS: BP 118/73; PULSE 61; RESP 16; TEMP 97.9
--- NOTE | 2021-09-03 08:07 | P.DS ---
Providers Attending physician: Hector Ralph Consults: 09/01/21 14:08 Consult Physician Routine Consulting Provider: [facility] Consult Reason/Comments: Post Interventional Patient Do you want consulting provider notified?: Already Contacted Primary care physician: Ananth Hendricks MD Hospital Course: The patient is an 81-year-old gentleman who underwent yesterday successful stenting of the second diagonal branch of the LAD and successful angioplasty of the first diagonal branch of the LAD. He was seen this morning. He is asymptomatic. He is hemodynamically stable. The right common femoral site appears to be soft and nontender and without any bruises. The patient is going to be discharged home and follow-up with Dr. Kwok as an outpatient. Plan - Discharge Summary Discharge Rx Participant: No New Discharge Prescriptions: Continue Furosemide [Lasix] 40 mg PO BID Multivitamins, Thera [Multivitamin (formulary)] 1 tab PO DAILY Dostinex(Cabergoline) 0.5mg 0.5 mg PO TU Levothyroxine Sodium [Synthroid] 112 mcg PO QAM Isosorbide Mononitrate ER [Imdur] 60 mg PO QAM Gabapentin [Neurontin] 300 mg PO BID Krill Oil 500 mg PO DAILY Calcium Citrate 250 mg PO BID Loratadine 10 mg PO HS Glucosamine Sulfate 500 mg PO DAILY Nitroglycerin Sl Tabs [Nitrostat] 0.4 mg SUBLINGUAL Q5M PRN PRN Reason: Chest Pain Melatonin 2.5 mg PO HS Metoprolol Tartrate [Lopressor] 25 mg PO BID Pravastatin Sodium [Pravachol] 10 mg PO HS traMADol HCL 50 mg PO BID Potassium Citrate 99 mg PO DAILY Cholecalciferol [Vitamin D3 (25 Mcg = 1000 Iu)] 25 mcg PO DAILY Aspirin 325 mg PO DAILY Clopidogrel [Plavix] 75 mg PO DAILY Apixaban [Eliquis] 5 mg PO QAM dilTIAZem HCL 30 mg PO TID Losartan Potassium 100 mg PO QAM Cyanocobalamin (Vitamin B-12) [Vitamin B-12] 1,000 mcg PO DAILY Discharge Medication List Furosemide [Lasix] 40 mg PO BID 05/17/15 [History] Dostinex(Cabergoline) 0.5mg 0.5 mg PO TU 04/03/16 [History] Gabapentin [Neurontin] 300 mg PO BID 04/03/16 [History] Isosorbide Mononitrate ER [Imdur] 60 mg PO QAM 04/03/16 [History] Levothyroxine Sodium [Synthroid] 112 mcg PO QAM 04/03/16 [History] Multivitamins, Thera [Multivitamin (formulary)] 1 tab PO DAILY 04/03/16 [History] Krill Oil 500 mg PO DAILY 04/25/16 [History] Calcium Citrate 250 mg PO BID 07/24/16 [History] Glucosamine Sulfate 500 mg PO DAILY 11/18/16 [History] Loratadine 10 mg PO HS 11/18/16 [History] Melatonin 2.5 mg PO HS 11/18/16 [History] Nitroglycerin Sl Tabs [Nitrostat] 0.4 mg SUBLINGUAL Q5M PRN 11/18/16 [History] Apixaban [Eliquis] 5 mg PO QAM 08/19/21 [History] Aspirin 325 mg PO DAILY 08/19/21 [History] Cholecalciferol [Vitamin D3 (25 Mcg = 1000 Iu)] 25 mcg PO DAILY 08/19/21 [History] Cyanocobalamin (Vitamin B-12) [Vitamin B-12] 1,000 mcg PO DAILY 08/19/21 [History] Losartan Potassium 100 mg PO QAM 08/19/21 [History] Metoprolol Tartrate [Lopressor] 25 mg PO BID 08/19/21 [History] Potassium Citrate 99 mg PO DAILY 08/19/21 [History] Pravastatin Sodium [Pravachol] 10 mg PO HS 08/19/21 [History] dilTIAZem HCL 30 mg PO TID 08/19/21 [History] traMADol HCL 50 mg PO BID 08/19/21 [History] Clopidogrel [Plavix] 75 mg PO DAILY 09/01/21 [History] Follow up Appointment(s)/Referral(s): Jaswinder Kwok MD [STAFF PHYSICIAN] - 09/14/21 4:30 pm Patient Instructions/Handouts: Heart Catheterization (DC) Discharge Disposition: HOME SELF-CARE
[2021-09-03] MEDS ORDERED: APIXABAN 2.5 MG TABLET PO SCH (09:00)
== END 2021-09-02 16:44 | disposition home or self-care (01) ==
LOC: CATHCVL 11:01 → 3SCARD 14:02 → CATHCVL 09-02 16:44
PROVIDERS: ATTEND Internal Medicine Interventional Cardiology
DX: I25.10 Atherosclerotic heart disease of native coronary artery without angina pectoris (principal); I25.82 Chronic total occlusion of coronary artery; R94.39 Abnormal result of other cardiovascular function study; I10 Essential (primary) hypertension; E78.2 Mixed hyperlipidemia; Z20.822 Contact with and (suspected) exposure to COVID-19; E66.01 Morbid (severe) obesity due to excess calories; Z68.41 Body mass index [BMI] 40.0-44.9, adult; Z95.1 Presence of aortocoronary bypass graft; Z88.0 Allergy status to penicillin; Z82.49 Family history of ischemic heart disease and other diseases of the circulatory system; I48.0 Paroxysmal atrial fibrillation; Z79.01 Long term (current) use of anticoagulants; Z79.82 Long term (current) use of aspirin; Z79.890 Hormone replacement therapy; Z79.899 Other long term (current) drug therapy
CPT/HCPCS: 92921; 80048; 82565; 85025; 87635; C9600; C1769 ×5; C1887 ×2; C1725 ×4; C1874; J2250; J2001; J1644; Q9967

== ENCOUNTER → 2022-01-05 | Outpatient (CLI) | payer MEDICARE ==
--- NOTE | 2022-01-05 14:50 | XR ---
EXAMINATION TYPE: XR chest 2V DATE OF EXAM: 01/05/2022 COMPARISON: 12/24/18 12/24/2018 HISTORY: Shortness of breath TECHNIQUE: Frontal and lateral views of the chest are obtained. FINDINGS: Scattered senescent parenchymal changes noted. Hyperinflation compatible with COPD. No evidence for infiltrate. No evidence for atelectasis. Heart size is stable. Mediastinal structures are stable and grossly unremarkable. No evidence for hilar prominence. Degenerative changes dorsal spine. IMPRESSION: 1. No evidence for acute pulmonary disease.
== END | disposition home or self-care (01) ==
LOC: RADXRMAIN 14:27
PROVIDERS: ATTEND Internal Medicine
DX: R06.02 Shortness of breath (principal)
CPT/HCPCS: 71046

== ENCOUNTER → 2022-02-22 | Outpatient (CLI) | payer MEDICARE | LOC: CPPFTMAIN 10:15 | PROVIDERS: ATTEND Internal Medicine | DX: R06.02 Shortness of breath (principal); Z88.0 Allergy status to penicillin; Z87.891 Personal history of nicotine dependence | CPT/HCPCS: 94060; 94726; 94729 ==

== ENCOUNTER 2022-06-01 11:10 | Inpatient (IN) | payer MEDICARE ==
[~2022-06-01 11:10] MED LIST changes: -ALPRAZolam 0.25 MG TAB PO PRN; -ALPRAZolam 0.5 MG TAB PO PRN; -ASPIRIN 325 MG TAB PO ONE; +DEXAMETHASONE SOD PHOSPHATE 4 MG/ML 1 ML VIAL IV ONE; +LACTATED RINGERS 1,000 ML IV SCH; +LIDOCAINE 1% (10MG/ML) FOR IV START INTRADERMA PRN; -NITROGLYCERIN SL TABS 0.4 MG TAB SUBLINGUAL PRN; +ONDANSETRON 4 MG/2 ML VIAL IVP ONE
[2022-06-01] MEDS ORDERED: MIDAZOLAM 2 MG/2 ML VIAL IVP ONE (12:40)
[2022-06-01] MEDS ORDERED: fentaNYL (PF) 50 MCG/ML 2 ML AMP ONE (13:01)
[2022-06-01] MEDS ORDERED: NEOSTIGMINE 1 MG/ML 10 ML VIAL ONE (13:01)
[2022-06-01] MEDS ORDERED: MIDAZOLAM 2 MG/2 ML VIAL ONE (13:01)
[2022-06-01] MEDS ORDERED: PHENYLEPHRINE-0.9% NACL SYG 1,000 MCG/10 ML SYRINGE ONE (13:01)
[2022-06-01] MEDS ORDERED: ROCURONIUM 10 MG/ML (5 ML VIAL) IV ONE (13:01)
[2022-06-01] MEDS ORDERED: LIDOCAINE 2% INJ 20 MG/ML (2 ML VIAL) ONE (13:01)
[2022-06-01] MEDS ORDERED: PROPOFOL 10 MG/ML 20 ML VIAL IV ONE (13:01)
[2022-06-01] MEDS ORDERED: GLYCOPYRROLATE 0.2 MG/ML 2 ML VIAL ONE (13:01)
[2022-06-01] MEDS ORDERED: SUGAMMADEX SODIUM 200 MG/2 ML SDV IV ONE (13:01)
[2022-06-01] MEDS ORDERED: ROPIVACAINE 5 MG/ML 30 ML VIAL ONE (13:01)
[2022-06-01] MEDS ORDERED: SODIUM CHLORIDE 0.9% (PF) 10 ML VIAL ONE (13:01)
[2022-06-01] MEDS ORDERED: SUCCINYLCHOLINE CHLORIDE 200 MG/10 ML VIAL IV ONE (13:01)
[2022-06-01] MEDS ORDERED: BUPIVACAINE (PF) 0.25% 30 ML VIAL SQ ONE (13:37)
--- NOTE | 2022-06-01 14:31 | P.ANPRN ---
Procedure Note - Anesthesia - Nerve Block Performed Right Erector Spinae Time Out Performed: Yes (12:40) Date of Procedure: 06/01/22 Procedure Start Time: 12:51 Procedure Stop Time: 12:56 Location of Patient: PreOp Indication: Acute Post-Operative Pain, Requested by Surgeon (Dr Uriarte) Sedation Type: Sedate with meaningful contact maintained Preparation: Sterile Prep Position: Sitting Catheter: None Needle Gauge: 21 Ultrasound used to visualize needle placement: Yes Ultrasound used to observe medication spread: Yes Injectate: 0.5% Ropivacaine (see comment for volume) (20cc +5cc PF Normal saline) Blood Aspirated: No Pain Paresthesia on Injection Noted: No Resistance on Injection: Normal Image Stored and Saved: Yes Events: Uneventful and Well Tolerated
[2022-06-01] MEDS: HYDROmorphone 0.5 MG/0.5 ML SYRINGE IVP PRN ×3 (14:53→16:15)
--- NOTE | 2022-06-01 15:04 | P.OP ---
Date of Procedure: 06/01/22 Preoperative Diagnosis: Bilateral pulmonary infiltrates CAD s/p CABG and PCI HTN HLD Hypothy Former smoker Postoperative Diagnosis: Same Procedure(s) Performed: 1. Bronchoscopy 2. Right video assisted thorascopic surgery - lung biopsy 3. Intercostal nerve block - 2 levels Anesthesia: KASSANDRA Surgeon: Geoff Uriarte Wreath Maker #1: Jesus Manuel Cedeno Estimated Blood Loss (ml): 10 Pathology: other (right upper and lower lobe for pathology and culture) Condition: stable Disposition: ICU Indications for Procedure: This patient is a remotely former smoker who presented to his PCP and pulmonary with progressive shortness of breath. The patient is vaccinated against covid and denied covid infection in the past. CT scan revealed bilateral pulmonary infiltrates concerning for possible IPF. All risks, benefits, and alternatives of a lung biopsy was discussed with the patient. He was in agreement to proceed. Operative Findings: Right lung appeared normal grossly. Pleura appeared normal. No masses or infiltrates. Description of Procedure: The patient underwent arterial line and errector spinae block in the pre- operative suite. He was brought back to the operating room and placed in the supine position. He was intubated with a double lumen tube and bronchoscopy was performed to confirm placement and for diagnostic purposes. The bilateral tracheo-bronchial tree was normal in appearance with minimal scant secretions. The patient was positioned in the left lateral decubitus position and his right chest was prepped and draped in the usual sterile fashion. Antibiotics were given. The right lung was isolated. I made a 2cm incision in the 7th ICS posterior axillary line and gained entry in the right chest under direct vision. There was good lung isolation. I made a seceond 2cm incision in the 9th ICS mid axillary line. The camera was inserted here and using only 2 incisions a portion of the right lower and upper lobe was grasped and a stapler fired using the endo MICAH purple loads. There was an in complete anterior fissure with the middle lobe so it was not biopsied. A 28F chest tube was placed via the inferior incision and the right lung was inflated. The incision was closed in layers of vicryl and the chest tube was anchored to the skin using an ethibond. The patient was extubated at the end of the procedure.
[2022-06-01] MEDS ORDERED: IPRATROPIUM-ALBUTEROL 3 ML NEB IH PRN (15:11)
[2022-06-01] MEDS ORDERED: ONDANSETRON 4 MG/2 ML VIAL IVP PRN (15:11)
[2022-06-01] MEDS ORDERED: traMADol 50 MG TAB PO PRN (15:11)
[2022-06-01] MEDS ORDERED: bisacodyL 10 MG SUPP RECTAL PRN (15:11)
[2022-06-01] MEDS ORDERED: ACETAMINOPHEN TAB 325 MG TAB PO PRN (15:11)
[2022-06-01] MEDS ORDERED: DEXTROSE 5%-0.45% NACL 1,000 ML IV SCH (15:11)
--- NOTE | 2022-06-01 15:21 | XR ---
EXAMINATION TYPE: XR chest 1V portable DATE OF EXAM: 06/01/2022 COMPARISON: 01/05/2022 INDICATION: Post lung biopsy TECHNIQUE: Single frontal view of the chest is obtained. FINDINGS: The heart size is normal. The pulmonary vasculature is normal. The lungs are clear. Right-sided chest tube is present. No pneumothorax is evident. Pacemaker overlies left chest. Sternot kennedi wires are in the midline. IMPRESSION: 1. No acute pulmonary process.
[2022-06-01] MEDS: DILTIAZEM ORAL 30 MG TAB PO SCH ×2 (17:15→21:07)
[2022-06-01] MEDS: KETOROLAC 15 MG/ML 1 ML VIAL IVP SCH (17:15)
[2022-06-01] MEDS: HEPARIN SODIUM,PORCINE/PF 5,000 UNIT/0.5 ML SYRINGE SQ SCH (17:16)
[2022-06-01] MEDS: IPRATROPIUM-ALBUTEROL 3 ML NEB IH SCH ×2 (20:08→20:09)
[2022-06-01] MEDS ORDERED: PRAVASTATIN SODIUM 20 MG TAB PO SCH (21:00)
[2022-06-01] MEDS ORDERED: LORATADINE 10 MG TAB PO SCH (21:00)
[2022-06-01] MEDS ORDERED: MELATONIN 5 MG TABLET PO SCH (21:00)
[2022-06-01] MEDS: ceFAZolin 3 GM in SODIUM CHLORIDE 0.9% 100 ML IVPB SCH (21:05)
[2022-06-01] MEDS: METOPROLOL TARTRATE 25 MG TAB PO SCH (21:07)
[2022-06-01] MEDS: CALCIUM CARBONATE 500 MG CHEWABLE PO SCH (21:07)
[2022-06-01] MEDS: GABAPENTIN 300 MG CAP PO SCH (21:07)
[2022-06-02 00:28] VITALS: PULSE 60
[2022-06-02] MEDS: KETOROLAC 15 MG/ML 1 ML VIAL IVP SCH ×3 (00:49→12:23)
[2022-06-02] MEDS: HEPARIN SODIUM,PORCINE/PF 5,000 UNIT/0.5 ML SYRINGE SQ SCH ×2 (00:49→09:11)
[2022-06-02] MEDS: ceFAZolin 3 GM in SODIUM CHLORIDE 0.9% 100 ML IVPB SCH (06:24)
[2022-06-02] MEDS ORDERED: LEVOTHYROXINE 75 MCG TAB PO SCH (06:30)
--- NOTE | 2022-06-02 07:16 | XR ---
EXAMINATION TYPE: XR chest 2V DATE OF EXAM: 06/02/2022 6:50 AM COMPARISON: Chest radiographs from 06/01/2022, CT chest 04/05/2022 TECHNIQUE: XR chest 2V Frontal and lateral views of the chest. CLINICAL INDICATION:Male, 81 years old with history of post lung biopsy; FINDINGS: Lungs/Pleura: There is no evidence of pleural effusion, focal consolidation, or pneumothorax. Pulmonary vascularity: Unremarkable. Heart/mediastinum: Cardiomediastinal silhouette is enlarged and stable. Two lead cardiac conduction d evice overlying the left hemithorax with lead tips projecting over the right ventricle and right atri um. Musculoskeletal: Multiple level degenerative disc disease changes seen throughout the spine. Midline sternotomy wires are noted and stable. No acute osseous abnormality. Other findings: None Lines/Tubes: Stable right chest tube. IMPRESSION: Stable right chest tube with no sizable pneumothorax.
[2022-06-02] MEDS ORDERED: PANTOPRAZOLE 40 MG TABLET PO SCH (07:30)
[2022-06-02 07:49] VITALS: RESP 18
[2022-06-02] MEDS ORDERED: ISOSORBIDE MONONITRATE ER 60 MG TAB.ER.24H PO SCH (09:00)
[2022-06-02] MEDS ORDERED: CYANOCOBALAMIN 500 MCG TAB PO SCH (09:00)
[2022-06-02] MEDS ORDERED: CLOPIDOGREL 75 MG TAB PO SCH (09:00)
[2022-06-02] MEDS ORDERED: FUROSEMIDE 40 MG TAB PO SCH (09:00)
[2022-06-02] MEDS ORDERED: CHOLECALCIFEROL 25 MCG (1000 IU) TABLET PO SCH (09:00)
[2022-06-02] MEDS ORDERED: ASPIRIN 325 MG TAB PO SCH (09:00)
[2022-06-02] MEDS ORDERED: POTASSIUM CHLORIDE ER 10 MEQ TAB.ER.PRT PO SCH (09:00)
[2022-06-02] MEDS ORDERED: MULTIVITAMINS, THERA 1 EACH TAB PO SCH (09:00)
[2022-06-02] MEDS: CALCIUM CARBONATE 500 MG CHEWABLE PO SCH (09:13)
[2022-06-02] MEDS: GABAPENTIN 300 MG CAP PO SCH (09:14)
[2022-06-02] MEDS: METOPROLOL TARTRATE 25 MG TAB PO SCH (09:14)
[2022-06-02] MEDS: DILTIAZEM ORAL 30 MG TAB PO SCH (09:14)
[2022-06-02] MEDS: IPRATROPIUM-ALBUTEROL 3 ML NEB IH SCH ×2 (09:16→12:47)
[2022-06-02 09:47] LABS: Basophils % (A) 0 %; Eosinophils # (A) 0.2 k/uL (0-0.7); Eosinophils % (A) 2 %; HCT 41.9 % (39.0-53.0); HGB 13.6 gm/dL (13.0-17.5); Lymphocytes # (A) 1.2 k/uL (1.0-4.8); Lymphocytes % (A) 16 %; MCH 29.2 pg (25.0-35.0); MCHC 32.4 g/dL (31.0-37.0); MCV 90.2 fL (80.0-100.0); Mean Platelet Volume 9.5; Monocytes # (A) 0.4 k/uL (0-1.0); Monocytes % (A) 5 %; Neutrophils # (A) 5.2 k/uL (1.3-7.7); Neutrophils % (A) 74 %; Platelet Count 113 k/uL (150-450); RBC 4.65 m/uL (4.30-5.90); RDW 13.8 % (11.5-15.5)
[2022-06-02 10:26] LABS: African American GFR (CKD) >90 (>60 ml/min/1.73 sqM); Anion Gap 6 mmol/L; Blood Urea Nitrogen 17 mg/dL (9-20); Calcium 8.9 mg/dL (8.4-10.2); Carbon Dioxide 28 mmol/L (22-30); Chloride 104 mmol/L (98-107); Glucose 140 mg/dL (74-99); Non-African American GFR(CKD) 78 (>60 ml/min/1.73 sqM); Potassium 4.3 mmol/L (3.5-5.1); Sodium 138 mmol/L (137-145)
[2022-06-02] MEDS ORDERED: KETOROLAC 15 MG/ML 1 ML VIAL IVP PRN (12:06)
--- NOTE | 2022-06-02 12:13 | P.DS ---
Providers Date of admission: 06/01/22 11:10 Expected date of discharge: 06/02/22 Attending physician: Geoff Uriarte MD Primary care physician: Ananth Hendricks MD Hospital Course: FINAL DIAGNOSIS: 1. Bilateral pulmonary infiltrates 2. Coronary artery disease status post three-vessel CABG and PCI 3. Hypertension 4. Hyperlipidemia 5. Sick sinus syndrome status post [facility] pacemaker placement 6. Paroxysmal atrial fibrillation on Eliquis outpatient for and take regulation 6. Hypothyroidism 7. Previous tobacco dependence PRINCIPAL PROCEDURE: 1. Bronchoscopy 2. Right video-assisted thoracoscopic surgery, lung biopsy 3. Intercostal nerve block at 2 levels HISTORY OF PRESENT ILLNESS: This is a 81-year-old gentleman who follows outpatient with Dr Hendricks for primary care and Dr. Vela for pulmonology. He has been treated for worsening shortness of breath and wheezing by Dr. Vela. Imaging included a CT of the chest demonstrated bilateral pulmonary infiltrates. The patient was referred to Dr. Uriarte from cardiothoracic surgery. He was recommended to undergo thoracoscopic lung biopsy. The usual perioperative course was discussed in detail with the patient, all risks and benefits were explained, all questions were answered, and consent was obtained to proceed with surgery. The patient scheduled at the earliest possible date after allowing for Plavix and Eliquis metabolism HOSPITAL COURSE: The patient was brought to the hospital on 06/01/22, taken to the preoperative area, prepared in the usual fashion, and subsequently taken to the operating room where Dr. Uriarte completed bronchoscopy followed by right video-assisted thoracoscopic lung biopsy. Upon completion of surgery the patient was extubated and taken to the recovery room for further monitoring. He was eventually admitted to [address] [place] [address] cardiac stepdown unit for further monitoring and evaluation. He had no air leak after surgery and his chest tube was placed to waterseal the night of surgery. Follow-up chest x-ray the next morning demonstrated no pneumothorax, the patient had no air leak present in his chest tube and it was removed without incident. Follow-up chest x-ray was stable. His oxygen was titrated down, he was tolerating oral diet, his pain was controlled, and he was ready to be discharged to home on postoperative day #1. He received written and verbal instruction regarding his medications, activity restrictions, signs and symptoms requiring physician notification, and follow-up appointments. Patient Condition at Discharge: Stable Plan - Discharge Summary Discharge Rx Participant: No New Discharge Prescriptions: New Acetaminophen Tab [Tylenol] 650 mg PO Q4HR PRN tab PRN Reason: Mild To Moderate Pain (1 - 6) Continue Furosemide [Lasix] 40 mg PO BID Multivitamins, Thera [Multivitamin (formulary)] 1 tab PO DAILY Dostinex(Cabergoline) 0.5mg 0.5 mg PO TU Isosorbide Mononitrate ER [Imdur] 60 mg PO QAM Gabapentin [Neurontin] 300 mg PO BID Calcium Citrate 250 mg PO BID Loratadine 10 mg PO HS Nitroglycerin Sl Tabs [Nitrostat] 0.4 mg SUBLINGUAL Q5M PRN PRN Reason: Chest Pain Melatonin 5 mg PO HS Metoprolol Tartrate [Lopressor] 25 mg PO BID Pravastatin Sodium [Pravachol] 10 mg PO HS Potassium Citrate 99 mg PO DAILY Cholecalciferol [Vitamin D3 (25 Mcg = 1000 Iu)] 25 mcg PO DAILY Aspirin 325 mg PO DAILY Apixaban [Eliquis] 5 mg PO QAM dilTIAZem HCL 30 mg PO TID Cyanocobalamin (Vitamin B-12) [Vitamin B-12] 1,000 mcg PO DAILY Levothyroxine Sodium [Synthroid] 37.5 mcg PO DAILY Clopidogrel [Plavix] 75 mg PO DAILY Discharge Medication List Furosemide [Lasix] 40 mg PO BID 05/17/15 [History] Dostinex(Cabergoline) 0.5mg 0.5 mg PO TU 04/03/16 [History] Gabapentin [Neurontin] 300 mg PO BID 04/03/16 [History] Isosorbide Mononitrate ER [Imdur] 60 mg PO QAM 04/03/16 [History] Multivitamins, Thera [Multivitamin (formulary)] 1 tab PO DAILY 04/03/16 [History] Calcium Citrate 250 mg PO BID 07/24/16 [History] Loratadine 10 mg PO HS 11/18/16 [History] Melatonin 5 mg PO HS 11/18/16 [History] Nitroglycerin Sl Tabs [Nitrostat] 0.4 mg SUBLINGUAL Q5M PRN 11/18/16 [History] Apixaban [Eliquis] 5 mg PO QAM 08/19/21 [History] Aspirin 325 mg PO DAILY 08/19/21 [History] Cholecalciferol [Vitamin D3 (25 Mcg = 1000 Iu)] 25 mcg PO DAILY 08/19/21 [History] Cyanocobalamin (Vitamin B-12) [Vitamin B-12] 1,000 mcg PO DAILY 08/19/21 [History] Metoprolol Tartrate [Lopressor] 25 mg PO BID 08/19/21 [History] Potassium Citrate 99 mg PO DAILY 08/19/21 [History] Pravastatin Sodium [Pravachol] 10 mg PO HS 08/19/21 [History] dilTIAZem HCL 30 mg PO TID 08/19/21 [History] Levothyroxine Sodium [Synthroid] 37.5 mcg PO DAILY 05/12/22 [History] Clopidogrel [Plavix] 75 mg PO DAILY 05/31/22 [History] Acetaminophen Tab [Tylenol] 650 mg PO Q4HR PRN tab 06/02/22 [Rx] Follow up Appointment(s)/Referral(s): Ananth Hendricks MD [Primary Care Provider] - As Needed Jimmy Vela DO [Doctor of Osteopathic Medicine] - 06/10/22 1:00 pm Geoff Uriarte MD [STAFF PHYSICIAN] - 06/15/22 2:00 pm Activity/Diet/Wound Care/Special Instructions: DISCHARGE INSTRUCTIONS: 1. No driving for 2 weeks, or until physician gives their ok. 2. No lifting, pushing, or pulling more than 10 pounds for 2 weeks. The physician will advise of any restriction changes. 3. Continue pain control per as needed orders. Alternate acetaminophen (Tylenol) and ibuprofen (Motrin/Advil) for pain. 4. Continue with incentive spirometry and splinting until otherwise directed by the physician. 5. Leave chest tube dressing for 48 hours. After that, remove all dressings and shower daily. 6. Routine incision care. No powders, lotions, ointments on incisions. 7. Please call surgeon/CASUALTY CLAIMS SUPERVISOR for temp greater than 101 F or purulent drainage from incisions. 8. Smoking cessation counseling and program information provided. Quitting smoking is the most important step you can take to improve your health. For additional information and assistance to quit smoking, please call the [place] tobacco quit line (9-656-QYBA-NOW/ ) or online: [email or web address]-to-qu it-tobacco Discharge Disposition: HOME SELF-CARE
[2022-06-02] MEDS ORDERED: APIXABAN 5 MG TAB PO SCH (12:15)
--- NOTE | 2022-06-02 12:17 | XR ---
EXAMINATION TYPE: XR chest 2V DATE OF EXAM: 06/02/2022 12:04 PM COMPARISON: Chest radiographs from 06/02/2022. TECHNIQUE: XR chest 2V Frontal and lateral views of the chest. CLINICAL INDICATION:Male, 81 years old with history of post chest tube removal; FINDINGS: Lungs/Pleura: There is no evidence of pleural effusion, focal consolidation, or pneumothorax. Pulmonary vascularity: Unremarkable. Heart/mediastinum: Cardiomediastinal silhouette is unremarkable. Two lead cardiac conduction device o verlying the left hemithorax with lead tips projecting over the right ventricle and right atrium. Musculoskeletal: Multiple level degenerative disc disease changes seen throughout the spine. No acute osseous abnormality. Median sternotomy wires. Other findings: Small amount of right chest wall subcutaneous emphysema. Lines/Tubes: Interval removal of right chest tube. IMPRESSION: Interval removal right chest tube with questionable trace apical pneumothorax. Attention on follow-up examination.
[2022-06-02 12:23] VITALS: BP 154/82; TEMP 98.1
--- NOTE | 2022-06-06 11:13 | CDI ---
Documentation Clarification Form Date: 06/06/2022 11:03:35 AM From: Deisi Mayorga Phone: Admit Date: 06/01/2022 11:10:00 AM Patient Name: Umberto Oglesby Visit Number: [id number] Discharge Date: 06/02/2022 3:08:00 PM ATTENTION: The Clinical Documentation Specialists (CDI) and [facility] Coding Staff appreciate your assistance in clarifying documentation. Please respond to the clarification below the line at the bottom and electronically sign. The CDI & [facility] Coding staff will review the response and follow-up if needed. Please note: Queries are made part of the Legal Health Record. If you have any questions, please contact the author of this message via ITS. Dr. 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 Coding guidelines do not allow coding professionals to code based on pathology results; therefore, clarification is requested. History/risk factors: 81yo M, Rt lung mass, Bilpulmonary infiltrates, CAD, CABG/PCI, HTN, HLD, hypothyroidism, former smoker, SSS w PPM, PAF Clinical Indicators: Bilateralpulmonary infiltrates Treatment: Bronchoscopy, Rt VATS, RLL and RULlung biopsy Please clarify if you agree with the pathology report diagnosis of interstitialpneumonitis and idiopathic pulmonary fibrosis/usual interstitial pneumonia: [ x ] Yes, interstitialpneumonitis and idiopathic pulmonary fibrosis/usual interstitial pneumonia [ ] No, interstitialpneumonitis only [ ] No, idiopathic pulmonary fibrosis/usual interstitial pneumonia only [ ] No, interstitialpneumonitis or idiopathic pulmonary fibrosis/usual interstitial pneumonia [ ] Other (please specify) [ ] Unable to determine (Template Last Revised: April 2020) MTDD
[2022-06-07] MEDS ORDERED: DOSTINEX PO SCH (09:00)
== END 2022-06-02 15:08 | disposition home or self-care (01) | DRG 168 ==
LOC: 2ORMAIN 11:10 → 3SCARD 16:24
PROVIDERS: ADMIT Thoracic Surgery (Cardiothoracic Vascular Surgery); ATTEND Thoracic Surgery (Cardiothoracic Vascular Surgery)
PROC: 0BB Respiratory System, Excision (ICD-10-PCS; 2022-06-01)
PROC: 3E0T3BZ Introduction of Anesthetic Agent into Peripheral Nerves and Plexi, Percutaneous Approach (ICD-10-PCS; 2022-06-01)
PROC: 0BBF4ZX Excision of Right Lower Lung Lobe, Percutaneous Endoscopic Approach, Diagnostic (ICD-10-PCS; principal; 2022-06-01 13:00)
DX: J84.112 Idiopathic pulmonary fibrosis (principal); I49.5 Sick sinus syndrome; J84.89 Other specified interstitial pulmonary diseases; I10 Essential (primary) hypertension; E03.9 Hypothyroidism, unspecified; I25.10 Atherosclerotic heart disease of native coronary artery without angina pectoris; E78.5 Hyperlipidemia, unspecified; I48.0 Paroxysmal atrial fibrillation; Z95.1 Presence of aortocoronary bypass graft; Z87.891 Personal history of nicotine dependence; Z95.0 Presence of cardiac pacemaker; Z79.01 Long term (current) use of anticoagulants; Z79.891 Long term (current) use of opiate analgesic; Z79.82 Long term (current) use of aspirin; Z79.02 Long term (current) use of antithrombotics/antiplatelets; Z79.890 Hormone replacement therapy; Z95.5 Presence of coronary angioplasty implant and graft
CPT/HCPCS: 64999; 71045; 71046; 76942; 80048; 84132; 85025; 86850; 86900; 86901; 87070; 87075; 87102; 87116; 87205; 87206; 88307; 94640; 94760

== ENCOUNTER → 2022-06-10 | Outpatient (CLI) | payer MEDICARE ==
[2022-06-10 20:04] LABS: African American GFR (CKD) 72.3 (60.0-200.0); Albumin 4.1 g/dL (3.8-4.9); Albumin/Globulin Ratio 2.12 (1.60-3.17); Anion Gap 11.8 mmol/L (10.00-18.00); Blood Urea Nitrogen 22.2 mg/dL (9.0-27.0); C Reactive Protein 1.8 mg/dL (0.00-0.80); Calcium 9.4 mg/dL (8.7-10.3); Carbon Dioxide 24.4 mmol/L (20.0-27.5); Non-African American GFR(CKD) 62.4 (60.0-200.0); Potassium 4.1 mmol/L (3.5-5.5); Total Bilirubin 1.1 mg/dL (0.30-1.20); Total Protein 6.1 g/dL (6.2-8.2)
== END | disposition home or self-care (01) ==
LOC: LABWHC1 13:50
PROVIDERS: ATTEND Internal Medicine Critical Care Medicine
DX: J67.9 Hypersensitivity pneumonitis due to unspecified organic dust (principal); J84.9 Interstitial pulmonary disease, unspecified; G60.3 Idiopathic progressive neuropathy; R06.09 Other forms of dyspnea
CPT/HCPCS: 36415; 80053; 82164; 85652; 86001; 86140; 86141; 86606; 86609

== ENCOUNTER → 2022-06-17 | Outpatient (CLI) | payer MEDICARE | END | disposition home or self-care (01) | LOC: LABWHC1 14:38 | PROVIDERS: ATTEND Internal Medicine Critical Care Medicine | DX: J84.9 Interstitial pulmonary disease, unspecified (principal); J67.9 Hypersensitivity pneumonitis due to unspecified organic dust; G60.3 Idiopathic progressive neuropathy; R06.09 Other forms of dyspnea | CPT/HCPCS: 36415; 86001; 86606; 86609 ==

== ENCOUNTER 2022-09-17 09:58 | Emergency (ER) | payer MEDICARE ==
[2022-09-17] MEDS ORDERED: SODIUM CHLORIDE 0.9% 1,000 ML IV STA (10:26)
[2022-09-17] MEDS ORDERED: PANTOPRAZOLE 40 MG/10 ML VIAL IVP STA (10:46)
--- NOTE | 2022-09-17 10:48 | ED ---
General Adult HPI - General Chief complaint: GI Bleed Stated complaint: poss GI bleed Time Seen by Provider: 09/17/22 10:05 Source: patient Mode of arrival: wheelchair Limitations: no limitations - History of Present Illness Initial comments: Dictation was produced using [employer] dictation software. please excuse any grammatical, word or spelling errors. Chief Complaint: 82-year-old male presents to the emergency Department for GI bleed History of Present Illness: 82-year-old male has past medical history of A. fib. He takes anticoagulation medication is here for bright red blood per rectum. Patient woke up this morning had large amounts of blood in the toilet. He states that one week ago he had some drops of blood in the toilet however it had resolved. Patient complains of some mild lower abdominal pain cramping. Denies any fever, chills or night sweats. does not feel that patient looks pale. Generally very fair skin. Patient denies any nausea. Denies any lightheadedness. The ROS documented in this emergency department record has been reviewed and confirmed by me. Those systems with pertinent positive or negative responses have been documented in the HPI. All other systems are other negative and/or n oncontributory. - Related Data Home Medications Medication Instructions Recorded Confirmed Furosemide [Lasix] 40 mg PO BID 05/17/15 05/31/22 Dostinex(Cabergoline) 0.5mg 0.5 mg PO TU 04/03/16 05/31/22 Gabapentin [Neurontin] 300 mg PO BID 04/03/16 05/31/22 Isosorbide Mononitrate ER [Imdur] 60 mg PO QAM 04/03/16 05/31/22 Multivitamins, Thera [Multivitamin 1 tab PO DAILY 04/03/16 05/31/22 (formulary)] Calcium Citrate 250 mg PO BID 07/24/16 05/31/22 Loratadine 10 mg PO HS 11/18/16 05/31/22 Melatonin 5 mg PO HS 11/18/16 05/31/22 Nitroglycerin Sl Tabs [Nitrostat] 0.4 mg SUBLINGUAL Q5M PRN 11/18/16 05/31/22 Apixaban [Eliquis] 5 mg PO QAM 08/19/21 05/31/22 Aspirin 325 mg PO DAILY 08/19/21 05/31/22 Cholecalciferol [Vitamin D3 (25 25 mcg PO DAILY 08/19/21 05/31/22 Mcg = 1000 Iu)] Cyanocobalamin (Vitamin B-12) 1,000 mcg PO DAILY 08/19/21 05/31/22 [Vitamin B-12] Metoprolol Tartrate [Lopressor] 25 mg PO BID 08/19/21 05/31/22 Potassium Citrate 99 mg PO DAILY 08/19/21 05/31/22 Pravastatin Sodium [Pravachol] 10 mg PO HS 08/19/21 05/31/22 dilTIAZem HCL 30 mg PO TID 08/19/21 05/31/22 Levothyroxine Sodium [Synthroid] 37.5 mcg PO DAILY 05/12/22 05/31/22 Clopidogrel [Plavix] 75 mg PO DAILY 05/31/22 05/31/22 Previous Rx's Medication Instructions Recorded Acetaminophen Tab [Tylenol] 650 mg PO Q4HR PRN tab 06/02/22 Allergies Allergy/AdvReac Type Severity Reaction Status Date / Time Penicillins Allergy Rash/Hives Verified 09/17/22 10:04 Review of Systems ROS Statement: Those systems with pertinent positive or pertinent negative responses have been documented in the HPI. ROS Other: All systems not noted in ROS Statement are negative. 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 skin cancer, frequent lower leg edema, SOB w/exertion,. sick sinus syndrome History of Any Multi-Drug Resistant Organisms: None Reported Past Surgical History: Back Surgery, Cholecystectomy, Coronary Bypass/CABG, Heart Catheterization With Stent, Pacemaker Additional Past Surgical History / Comment(s): triple bypass 5-2010, ch olecystectomy 2016,[employer] chest, laminectomy Past Anesthesia/Blood Transfusion Reactions: No Reported Reaction Additional Past Anesthesia/Blood Transfusion Reaction / Comment(s): unsure if ever had transfusion Date of Last Stent Placement:: 09/01/21 Type of Cardiac Device: Permanent Pacemaker Device Placement Date:: Mar 2016 Past Psychological History: No Psychological Hx Reported Smoking Status: Former smoker Past Alcohol Use History: None Reported Past Drug Use History: None Reported - Past Family History Mother Family Medical History: Cancer Additional Family Medical History / Comment(s): CABG, Colon Cancer Father Family Medical History: Cancer Additional Family Medical History / Comment(s): Father of cancer unsure which type of cancer Brother(s) Additional Family Medical History / Comment(s): Brother had X4 Bypass General Exam - General Exam Comments Initial Comments: PHYSICAL EXAM: General Impression: Alert and oriented x3, not in acute distress HEENT: Normocephalic atraumatic, extra-ocular movements intact, pupils equal and reactive to light bilaterally, mucous membranes moist. Cardiovascular: Heart regular rate and rhythm Chest: Able to complete full sentences, no retractions, no tachypnea Abdomen: abdomen soft, non-tender, non-distended, no organomegaly Musculoskeletal: Pulses present and equal in all extremities, no peripheral edema Motor: no focal deficits noted Neurological: CN II-XII grossly intact, no focal motor or sensory deficits noted Skin: Intact with no visualized rashes Psych: Normal affect and mood Rectal exam: Gross blood with oozing of dark what appears to be venous looking blood Limitations: no limitations Course Vital Signs 09/17/22 09/17/22 09/17/22 10:00 10:21 11:00 Temperature 98.0 F Pulse Rate 65 67 63 Respiratory 20 30 H 20 Rate Blood Pressure 76/56 113/72 99/72 O2 Sat by Pulse 96 96 96 Oximetry 09/17/22 09/17/22 11:15 11:45 Temperature Pulse Rate 63 71 Respiratory 16 18 Rate Blood Pressure 88/64 96/52 O2 Sat by Pulse 96 95 Oximetry EKG Findings - EKG Comments: EKG Findings:: My EKG interpretation: Ventricular rate 68, A. fib with right b undle branch block. No ME prolongation, no QTC prolongation, no ST or T-wave changes noted. Overall, this EKG is unremarkable Medical Decision Making - Medical Decision Making Was pt. sent in by a medical professional or institution (, PA, CERTIFIED ETHICAL HACKER, urgent care, hospital, or long-term...) When possible be specific @ -No Did you speak to anyone other than the patient for history (EMS, parent, family, police, friend...)? What history was obtained from this source @ - states patient has GI bleed Did you review nursing and triage notes (agree or disagree)? Why? @ -I reviewed and agree with nursing and triage notes Were old charts reviewed (outside hosp., previous admission, EMS record, old EKG, old radiological studies, urgent care reports/EKG's, long-term records)? Report findings @ -No old charts were reviewed Differential Diagnosis (chest pain, altered mental status, abdominal pain women, abdominal pain men, vaginal bleeding, musculoskeletal, weakness, fever, dys pnea, syncope, headache, dizziness, GI bleed, back pain, seizure, CVA, palpatations, mental health)? @ -Differential GI Bleed: Esophageal varices, aortoenteric fistula, Diana-Flores, gastritis, peptic ulcer disease, diverticulosis, inflammatory bowel disease, hemorrhoids, fissure, colitis, malignancy, Meckels diverticulum, this is not meant to be an all- inclusive list. EKG interpreted by me (3pts min.). @ -As above X-rays interpreted by me (1pt min.). @ -None done CT interpreted by me (1pt min.). @ -None done U/S interpreted by me (1pt. min.). @ -None done What testing was considered but not performed or refused? (CT, X-rays, U/S, labs)? Why? @ -None What meds were considered but not given or refused? Why? @ -None Did you discuss the management of the patient with other professionals (professionals i.e. , PA, CERTIFIED ETHICAL HACKER, lab, RT, psych nurse, psychiatric social worker supervisor, geomorphologist, teacher, boat officer, case finisher)? Give summary @ -Case was discussed with Dr. Chester at [facility] for ER to ER transfer. Was smoking cessation discussed for >3mins.? @ -No Was critical care preformed (if so, how long)? @ -73 minutes Were there social determinants of health that impacted care today? How? (Homelessness, low income, unemployed, alcoholism, drug addiction, transportation, low edu. Level, literacy, decrease access to med. care, residential, rehab)? @ -No Was there de-escalation of care discussed even if they declined (Discuss DNR or withdrawal of care, Hospice)? DNR status @ -No What co-morbidities impacted this encounter? (DM, HTN, Smoking, COPD, CAD, Cancer, CVA, ARF, Chemo, Hep., AIDS, mental health diagnosis, sleep apnea, morbid obesity)? @ -None Was patient admitted / discharged? Hospital course, mention meds given and route, prescriptions, significant lab abnormalities, going to OR and other per tinent info. @ -82-year-old male presents emergency department with GI bleed. Vital signs upon arrival shows initially low blood pressure. Patient did respond to fluids. He is having continuous bleeding. Given degree of bleeding his anticoagulation medications were reversed with [facility]. Laboratory evaluation obtained. CBC is unremarkable. Lactic acid was 2.1. Rest labs within acceptable limits. Patient is able to go to computed tomography scan. Undiagnosed new problem with uncertain prognosis? @ -No Drug Therapy requiring intensive monitoring for toxicity (Heparin, Nitro, Insulin, Cardizem)? @ -No Were any procedures done? @ -No Diagnosis/symptom? Acute, or Chronic, or Acute on Chronic? Uncomplicated (without systemic symptoms) or Complicated (systemic symptoms)? @ -1. GI bleed Side effects of treatment? @ -No Exacerbation, Progression, or Severe Exacerbation? @ -No Poses a threat to life or bodily function? How? (Chest pain, USA, OR, pneumonia, PE, COPD, DKA, ARF, appy, cholecystitis, CVA, Diverticulitis, Homicidal, Suicidal, threat to staff... and all critical care pts) @ -yes - Lab Data Result diagrams: 09/17/22 10:37 09/17/22 10:37 Lab Results 09/17/22 09/17/22 09/17/22 Range/Units 10:37 10:37 10:37 WBC 10.9 H (3.8-10.6) k/uL RBC 4.12 L (4.30-5.90) m/uL Hgb 13.2 (13.0-17.5) gm/dL Hct 37.9 L (39.0-53.0) % MCV 91.8 (80.0-100.0) fL MCH 32.1 (25.0-35.0) pg MCHC 35.0 (31.0-37.0) g/dL RDW 14.6 (11.5-15.5) % Plt Count 135 L (150-450) k/uL MPV 9.2 Neutrophils % 75 % Lymphocytes % 18 % Monocytes % 5 % Eosinophils % 1 % Basophils % 0 % Neutrophils # 8.2 H (1.3-7.7) k/uL Lymphocytes # 1.9 (1.0-4.8) k/uL Monocytes # 0.5 (0-1.0) k/uL Eosinophils # 0.1 (0-0.7) k/uL Basophils # 0.0 (0-0.2) k/uL PT 11.0 (9.0-12.0) sec INR 1.0 (<1.2) APTT 22.3 (22.0-30.0) sec Sodium 139 (137-145) mmol/L Potassium 4.4 (3.5-5.1) mmol/L Chloride 111 H (98-107) mmol/L Carbon Dioxide 24 (22-30) mmol/L Anion Gap 4 mmol/L BUN 26 H (9-20) mg/dL Creatinine 1.15 (0.66-1.25) mg/dL Est GFR (CKD-EPI)AfAm 69 (>60 ml/min/1.73 sqM) Est GFR (CKD-EPI)NonAf 60 (>60 ml/min/1.73 sqM) Glucose 118 H (74-99) mg/dL Plasma Lactic Acid Matt (0.7-2.0) mmol/L Calcium 8.8 (8.4-10.2) mg/dL Magnesium 2.3 (1.6-2.3) mg/dL Total Bilirubin 0.7 (0.2-1.3) mg/dL AST 18 (17-59) U/L ALT 24 (4-49) U/L Alkaline Phosphatase 43 (38-126) U/L Troponin I (0.000-0.034) ng/mL Total Protein 5.5 L (6.3-8.2) g/dL Albumin 3.4 L (3.5-5.0) g/dL Stool Occult Blood (Negative) Blood Type Blood Type Recheck Bld Type Recheck Status Antibody Screen Crossmatch Spec Expiration Date 09/17/22 09/17/22 09/17/22 Range/Units 10:37 10:37 10:40 WBC (3.8-10.6) k/uL RBC (4.30-5.90) m/uL Hgb (13.0-17.5) gm/dL Hct (39.0-53.0) % MCV (80.0-100.0) fL MCH (25.0-35.0) pg MCHC (31.0-37.0) g/dL RDW (11.5-15.5) % Plt Count (150-450) k/uL MPV Neutrophils % % Lymphocytes % % Monocytes % % Eosinophils % % Basophils % % Neutrophils # (1.3-7.7) k/uL Lymphocytes # (1.0-4.8) k/uL Monocytes # (0-1.0) k/uL Eosinophils # (0-0.7) k/uL Basophils # (0-0.2) k/uL PT (9.0-12.0) sec INR (<1.2) APTT (22.0-30.0) sec Sodium (137-145) mmol/L Potassium (3.5-5.1) mmol/L Chloride (98-107) mmol/L Carbon Dioxide (22-30) mmol/L Anion Gap mmol/L BUN (9-20) mg/dL Creatinine (0.66-1.25) mg/dL Est GFR (CKD-EPI)AfAm (>60 ml/min/1.73 sqM) Est GFR (CKD-EPI)NonAf (>60 ml/min/1.73 sqM) Glucose (74-99) mg/dL Plasma Lactic Acid Matt 2.1 H* (0.7-2.0) mmol/L Calcium (8.4-10.2) mg/dL Magnesium (1.6-2.3) mg/dL Total Bilirubin (0.2-1.3) mg/dL AST (17-59) U/L ALT (4-49) U/L Alkaline Phosphatase (38-126) U/L Troponin I <0.012 (0.000-0.034) ng/mL Total Protein (6.3-8.2) g/dL Albumin (3.5-5.0) g/dL Stool Occult Blood (Negative) Blood Type A Positive Blood Type Recheck A Pos Bld Type Recheck Status No Antibody Screen NEGATIVE Crossmatch See Detail Spec Expiration Date 09/20/2022 - 2340 08/05/23 Range/Units 10:44 WBC (3.8-10.6) k/uL RBC (4.30-5.90) m/uL Hgb (13.0-17.5) gm/dL Hct (39.0-53.0) % MCV (80.0-100.0) fL MCH (25.0-35.0) pg MCHC (31.0-37.0) g/dL RDW (11.5-15.5) % Plt Count (150-450) k/uL MPV Neutrophils % % Lymphocytes % % Monocytes % % Eosinophils % % Basophils % % Neutrophils # (1.3-7.7) k/uL Lymphocytes # (1.0-4.8) k/uL Monocytes # (0-1.0) k/uL Eosinophils # (0-0.7) k/uL Basophils # (0-0.2) k/uL PT (9.0-12.0) sec INR (<1.2) APTT (22.0-30.0) sec Sodium (137-145) mmol/L Potassium (3.5-5.1) mmol/L Chloride (98-107) mmol/L Carbon Dioxide (22-30) mmol/L Anion Gap mmol/L BUN (9-20) mg/dL Creatinine (0.66-1.25) mg/dL Est GFR (CKD-EPI)AfAm (>60 ml/min/1.73 sqM) Est GFR (CKD-EPI)NonAf (>60 ml/min/1.73 sqM) Glucose (74-99) mg/dL Plasma Lactic Acid Matt (0.7-2.0) mmol/L Calcium (8.4-10.2) mg/dL Magnesium (1.6-2.3) mg/dL Total Bilirubin (0.2-1.3) mg/dL AST (17-59) U/L ALT (4-49) U/L Alkaline Phosphatase (38-126) U/L Troponin I (0.000-0.034) ng/mL Total Protein (6.3-8.2) g/dL Albumin (3.5-5.0) g/dL Stool Occult Blood Positive (Negative) Blood Type Blood Type Recheck Bld Type Recheck Status Antibody Screen Crossmatch Spec Expiration Date Disposition Clinical Impression: GI bleed Disposition: OTHER INSTITUTION NOT DEFINED Condition: Critical Referrals: Ananth Hendricks MD [Primary Care Provider] - 1-2 days Time of Disposition: 12:22 - Out of Hospital Transfer - Req. Specs Out of Hospital Transfer - Requested Specifics: Other [facility] Center ([facility])
[2022-09-17 11:01] LABS: Basophils % (A) 0 %; Eosinophils # (A) 0.1 k/uL (0-0.7); Eosinophils % (A) 1 %; HCT 37.9 % (39.0-53.0); HGB 13.2 gm/dL (13.0-17.5); Lymphocytes # (A) 1.9 k/uL (1.0-4.8); Lymphocytes % (A) 18 %; MCH 32.1 pg (25.0-35.0); MCV 91.8 fL (80.0-100.0); Mean Platelet Volume 9.2; Monocytes # (A) 0.5 k/uL (0-1.0); Monocytes % (A) 5 %; Neutrophils # (A) 8.2 k/uL (1.3-7.7); Neutrophils % (A) 75 %; Platelet Count 135 k/uL (150-450); RBC 4.12 m/uL (4.30-5.90); RDW 14.6 % (11.5-15.5); WBC 10.9 k/uL (3.8-10.6)
[2022-09-17 11:10] LABS: ALT 24 U/L (4-49); AST 18 U/L (17-59); African American GFR (CKD) 69 (>60 ml/min/1.73 sqM); Albumin 3.4 g/dL (3.5-5.0); Alkaline Phosphatase 43 U/L (38-126); Anion Gap 4 mmol/L; Blood Urea Nitrogen 26 mg/dL (9-20); Calcium 8.8 mg/dL (8.4-10.2); Carbon Dioxide 24 mmol/L (22-30); Chloride 111 mmol/L (98-107); Glucose 118 mg/dL (74-99); Magnesium 2.3 mg/dL (1.6-2.3); Non-African American GFR(CKD) 60 (>60 ml/min/1.73 sqM); Potassium 4.4 mmol/L (3.5-5.1); Sodium 139 mmol/L (137-145); Total Bilirubin 0.7 mg/dL (0.2-1.3); Total Protein 5.5 g/dL (6.3-8.2)
[2022-09-17 11:12] LABS: Partial Thromboplastin Time 22.3 sec (22.0-30.0)
[2022-09-17] MEDS ORDERED: Kcentra PER PHARMACY 1 EACH MISC MISCELLANE PRN (11:30)
[2022-09-17] MEDS ORDERED: HUMAN PROTHROMBIN COMPLX IV ONE (12:00)
[2022-09-17] MEDS ORDERED: HUMAN PROTHROMBIN COMPLX 500 UNIT/16 ML VIAL IV ONE (12:00)
[2022-09-17 13:04] VITALS: BP 87/55; PULSE 72; RESP 18; TEMP 97.5
--- NOTE | 2022-09-17 14:16 | CT ---
EXAMINATION TYPE: CT angio abdomen pelvis DATE OF EXAM: 09/17/2022 COMPARISON: None INDICATION: Rectal bleeding, GI bleed DLP: 4755.8 mGycm, Automated exposure control for dose reduction was used. CONTRAST: 100 mL of Isovue 370. Study performed without Oral Contrast TECHNIQUE: Axial images were obtained from above the diaphragm to the pubic rami in the axial plane a t 5 mm thick sections. Reconstructed images are reviewed on the computer in the coronal plane. FINDINGS: Limited CT sections are obtained the lung bases. The lung bases are clear. CT ABDOMEN: Liver: Normal Spleen: Normal Pancreas: Normal Adrenal glands: The adrenal glands are normal. Gallbladder: Cholecystectomy clips are present. Kidneys: No masses are evident. No hydronephrosis is present. Small cortical renal cysts are presen t bilaterally. Aorta: Vascular calcification is within the aorta. Inferior vena cava: Normal. CT PELVIS: Loops of bowel within the abdomen and pelvis are normal. There are loops of bowel which are incom pletely distended or lack oral contrast limiting their evaluation. Appendix: Normal as visualized. Urinary bladder: Normal. Genitourinary structures: Prostate is prominent contains calcification. Osseous structures: No suspicious lytic or sclerotic lesions. CTA abdomen and pelvis: Contrast-filled aorta appears unremarkable. Celiac axis and superior mesenter ic artery identified. Some narrowing of the proximal celiac axis is not excluded. Renal arteries appe ar normal. Inferior mesenteric artery appears normal. Common iliac artery internal/external iliac art eries are patent. Vascular calcification is present. Common femoral arteries are normal. On careful examination of the GI tract there is a punctate of contrast within an air-fluid level of t he rectum, series 601 image 248. Some additional contrast is within the posterior rectum air-fluid le tarik, series 601 image 232. The position and small volume, this is suggested to be contrast from a different site. Small hemorrha ge could be considered. Pooling of contrast however is not identified Within the mid to distal transverse colon and descending colon there are some punctate hyperdensities present. These are nonspecific. Artifact may be present at these levels. Small hemorrhages levels ca nnot be excluded. Example image 601 image 159 In the mid sigmoid colon there is some focal contrast w ithin the sigmoid colon. Series 601 image 210. This could be a site of active hemorrhage a little poo ling of contrast is evident IMPRESSIONS: 1. There is a focal area with increased density could be a site of hemorrhage within the mid sigmoid colon. Pooling however is not identified. 2. Minimal contrast within the dependent colon at the level the rectum discussed above may be contras t coming from a proximal GI hemorrhage. Small hemorrhages at this site could be considered. 3. Additional hyperintense areas within the distal transverse and proximal descending colon regions a re felt to more likely be related to artifact. 4. Pooling is not otherwise identified to help localize active hemorrhage.
== END 2022-09-17 13:28 | disposition other institution (70) ==
LOC: EC 09:58
DX: K92.2 Gastrointestinal hemorrhage, unspecified (principal); I48.91 Unspecified atrial fibrillation; I25.10 Atherosclerotic heart disease of native coronary artery without angina pectoris; E78.5 Hyperlipidemia, unspecified; I10 Essential (primary) hypertension; M19.90 Unspecified osteoarthritis, unspecified site; Z87.891 Personal history of nicotine dependence; Z88.0 Allergy status to penicillin; Z79.02 Long term (current) use of antithrombotics/antiplatelets; Z79.82 Long term (current) use of aspirin; Z79.899 Other long term (current) drug therapy
CPT/HCPCS: 36415; 93005; 86900; 86901; 80053; 83605; 83735; 84484; 85025; 85610; 85730; 86850; 86920; 82272; 74174; 99291; 96365; 96375; 96361; 36430; P9016; J7168; C9113; Q9967

== ENCOUNTER → 2022-09-30 | Outpatient (CLI) | payer MEDICARE ==
--- NOTE | 2022-09-30 14:53 | XR ---
EXAMINATION TYPE: XR chest 2V DATE OF EXAM: 09/30/2022 COMPARISON: 06/02/2022 HISTORY: Shortness of breath TECHNIQUE: Frontal and lateral views of the chest are obtained. FINDINGS: Scattered senescent parenchymal changes noted. Hyperinflation compatible with COPD. No evidence for infiltrate. No evidence for atelectasis. Heart size is stable. Mediastinal structures are stable and grossly unremarkable. No evidence for hilar prominence. Degenerative changes dorsal spine. IMPRESSION: 1. No evidence for acute pulmonary disease.
[2022-09-30 15:05] LABS: Anisocytosis Slight; Basophils % (A) 0 %; Eosinophils # (A) 0.1 k/uL (0-0.7); Eosinophils % (A) 1 %; HCT 27.9 % (39.0-53.0); Hypochromasia Marked; Lymphocytes # (A) 0.7 k/uL (1.0-4.8); Lymphocytes % (A) 7 %; MCHC 33.3 g/dL (31.0-37.0); MCV 93.3 fL (80.0-100.0); Mean Platelet Volume 9.2; Monocytes # (A) 0.3 k/uL (0-1.0); Monocytes % (A) 3 %; Neutrophils # (A) 8.7 k/uL (1.3-7.7); Neutrophils % (A) 88 %; Platelet Count 208 k/uL (150-450); Poikilocytosis Moderate; RBC 2.99 m/uL (4.30-5.90); RDW 16.2 % (11.5-15.5); WBC 9.8 k/uL (3.8-10.6)
[2022-09-30 15:07] LABS: HGB 9.3 gm/dL (13.0-17.5)
[2022-09-30 15:14] LABS: ALT 22 U/L (4-49); AST 22 U/L (17-59); African American GFR (CKD) 60 (>60 ml/min/1.73 sqM); Albumin 3.4 g/dL (3.5-5.0); Albumin/Globulin Ratio 1.4; Alkaline Phosphatase 60 U/L (38-126); Anion Gap 8 mmol/L; Blood Urea Nitrogen 27 mg/dL (9-20); Calcium 8.7 mg/dL (8.4-10.2); Carbon Dioxide 21 mmol/L (22-30); Chloride 108 mmol/L (98-107); Globulin 2.4 g/dL; Glucose 116 mg/dL (74-99); Non-African American GFR(CKD) 52 (>60 ml/min/1.73 sqM); Potassium 4.2 mmol/L (3.5-5.1); Sodium 137 mmol/L (137-145); Total Bilirubin 0.6 mg/dL (0.2-1.3); Total Protein 5.8 g/dL (6.3-8.2)
[2022-09-30 15:31] LABS: T4, Free (Free Thyroxine) 1.32 ng/dL (0.78-2.19)
== END | disposition home or self-care (01) ==
LOC: LABWHC1 13:38
PROVIDERS: ATTEND Internal Medicine
DX: J84.9 Interstitial pulmonary disease, unspecified (principal); K92.2 Gastrointestinal hemorrhage, unspecified; E03.9 Hypothyroidism, unspecified
CPT/HCPCS: 36415; 71046; 80053; 82607; 82746; 84439; 84443; 85025

== ENCOUNTER 2022-12-07 12:51 | Inpatient (IN) | payer MEDICARE ==
[2022-12-07 13:45] LABS: Basophils % (A) 0 %; Eosinophils # (A) 0.1 k/uL (0-0.7); Eosinophils % (A) 1 %; HCT 39.7 % (39.0-53.0); HGB 12.2 gm/dL (13.0-17.5); Hypochromasia Moderate; Lymphocytes # (A) 0.9 k/uL (1.0-4.8); Lymphocytes % (A) 9 %; MCH 27.1 pg (25.0-35.0); MCHC 30.8 g/dL (31.0-37.0); Mean Platelet Volume 10.4; Monocytes # (A) 0.4 k/uL (0-1.0); Monocytes % (A) 4 %; Neutrophils # (A) 8.2 k/uL (1.3-7.7); Neutrophils % (A) 85 %; Platelet Count 134 k/uL (150-450); Poikilocytosis Slight; RBC 4.51 m/uL (4.30-5.90); WBC 9.7 k/uL (3.8-10.6)
[2022-12-07 13:48] LABS: MCV 88.1 fL (80.0-100.0)
[2022-12-07 13:49] LABS: ALT 31 U/L (4-49); AST 26 U/L (17-59); African American GFR (CKD) 66 (>60 ml/min/1.73 sqM); Albumin 3.7 g/dL (3.5-5.0); Alkaline Phosphatase 56 U/L (38-126); Anion Gap 10 mmol/L; Blood Urea Nitrogen 26 mg/dL (9-20); Calcium 9.3 mg/dL (8.4-10.2); Carbon Dioxide 23 mmol/L (22-30); Chloride 107 mmol/L (98-107); Glucose 151 mg/dL (74-99); Non-African American GFR(CKD) 57 (>60 ml/min/1.73 sqM); Potassium 4.1 mmol/L (3.5-5.1); Sodium 140 mmol/L (137-145); Total Bilirubin 0.9 mg/dL (0.2-1.3); Total Protein 6.2 g/dL (6.3-8.2)
[2022-12-07 13:55] LABS: INR 1.2 (<1.2); Partial Thromboplastin Time 23.5 sec (22.0-30.0); Prothrombin Time 12.5 sec (10.0-12.5)
[2022-12-07 13:56] LABS: NT-Pro-B-Type Natriuretic Pept 10300 pg/mL
--- NOTE | 2022-12-07 14:55 | XR ---
EXAMINATION TYPE: XR chest 2V DATE OF EXAM: 12/07/2022 COMPARISON: 09/30/2022 INDICATION: Difficulty breathing TECHNIQUE: Frontal and lateral views of the chest are obtained. FINDINGS: The heart size is rounded prominence. The pulmonary vasculature is normal. The lungs are clear. Pacemaker overlies left chest IMPRESSION: 1. Mild cardiomegaly
[2022-12-07] MEDS ORDERED: FUROSEMIDE 10 MG/ML 4 ML VIAL IV STA (15:28)
--- NOTE | 2022-12-07 15:28 | ED ---
General Adult HPI - General Chief complaint: Shortness of Breath Stated complaint: SOB Time Seen by Provider: 12/07/22 14:15 Source: patient, RN notes reviewed, old records reviewed Mode of arrival: wheelchair - History of Present Illness Initial comments: Patient is an 82-year-old male who presents emergency Department complaining of dyspnea appears been worsening for the last few weeks. He has not been taking his Lasix at home over the last 6 days. Has extensive cardiac history including atrial fibrillation no longer on blood thinners, CAD with cardiac stents. His no other acute complaints at this time. Symptoms have been ongoing. Denies PND. Endorses worsening orthopnea having sleep sitting up or. Endorses worsening lower extremity edema. Unknown if he is gaining weight. Nurse's exertional dyspnea. Endorses a mild nonproductive cough. No chest pain. No abdominal pain, nausea, vomiting. No fevers or chills. No sick contacts. Presents for further evaluation at this time. - Related Data Home Medications Medication Instructions Recorded Confirmed Multivitamins, Thera [Multivitamin 1 tab PO DAILY 04/03/16 12/07/22 (formulary)] Loratadine 10 mg PO HS 11/18/16 12/07/22 Melatonin 5 - 10 mg PO HS PRN 11/18/16 12/07/22 Nitroglycerin Sl Tabs [Nitrostat] 0.4 mg SUBLINGUAL Q5M PRN 11/18/16 12/07/22 Cholecalciferol [Vitamin D3 (25 25 mcg PO DAILY 08/19/21 12/07/22 Mcg = 1000 Iu)] Metoprolol Tartrate [Lopressor] 25 mg PO BID 08/19/21 12/07/22 Potassium Citrate 99 mg PO DAILY 08/19/21 12/07/22 Pravastatin Sodium [Pravachol] 10 mg PO HS 08/19/21 12/07/22 Levothyroxine Sodium [Synthroid] 37.5 mcg PO SUSA 05/12/22 12/07/22 Amitriptyline HCl 10 mg PO HS 12/07/22 12/07/22 Cabergoline 0.5 mg PO TU 12/07/22 12/07/22 Calcium Carbonate [Calcium] 600 mg PO DAILY 12/07/22 12/07/22 Cyanocobalamin (Vitamin B-12) 2,500 mcg PO DAILY 12/07/22 12/07/22 [Vitamin B-12] Furosemide [Lasix] 40 mg PO DAILY 12/07/22 12/07/22 Gabapentin 600 mg PO TID 12/07/22 12/07/22 Glucosa Urrutia 2Kcl/Chondroitin Urrutia 1 cap PO DAILY 12/07/22 12/07/22 [Glucosamine-Chondroitin Cap] Levothyroxine Sodium [Synthroid] 75 mcg PO MOTUWETHFR 12/07/22 12/07/22 Magnesium Oxide [Magox 400] 400 mg PO DAILY 12/07/22 12/07/22 Pantoprazole Sodium [Protonix] 40 mg PO DAILY 12/07/22 12/07/22 predniSONE 20 mg PO DAILY 12/07/22 12/07/22 Allergies Allergy/AdvReac Type Severity Reaction Status Date / Time Penicillins Allergy Rash/Hives/hand Verified 12/07/22 15:08 blisters Review of Systems ROS Statement: Those systems with pertinent positive or pertinent negative responses have been documented in the HPI. Review of Systems: CONST: Denies fever EYES: Denies blurry vision ENT: Denies nasal congestion C/V: Denies Chest pain RESP: Endorses shortness of breath GI: Denies abdominal pain : Denies dysuria SKIN: Denies rash. MSK: Denies joint pain. NEURO: Denies headache ROS Other: All systems not noted in ROS Statement are negative. 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 skin cancer, frequent lower leg edema, SOB w/exertion,. sick sinus syndrome History of Any Multi-Drug Resistant Organisms: None Reported Past Surgical History: Back Surgery, Cholecystectomy, Coronary Bypass/CABG, Heart Catheterization With Stent, Pacemaker Additional Past Surgical History / Comment(s): triple bypass 5-2010, cholecystectomy 2015,[employer] Pacemaker Lt chest, laminectomy Past Anesthesia/Blood Transfusion Reactions: No Reported Reaction Additional Past Anesthesia/Blood Transfusion Reaction / Comment(s): unsure if ever had transfusion Date of Last Stent Placement:: 09/01/21 Type of Cardiac Device: Permanent Pacemaker Device Placement Date:: Mar 2016 Past Psychological History: No Psychological Hx Reported Smoking Status: Former smoker Past Alcohol Use History: None Reported Past Drug Use History: None Reported - Past Family History Mother Family Medical History: Cancer Additional Family Medical History / Comment(s): CABG, Colon Cancer Father Family Medical History: Cancer Additional Family Medical History / Comment(s): Father of cancer unsure which type of cancer Brother(s) Additional Family Medical History / Comment(s): Brother had X4 Bypass General Exam - General Exam Comments Initial Comments: General: Appears in no acute distress. HEAD: Normal with no signs of head trauma. EYES: PERRLA, EOMI, conjunctiva normal, no discharge. ENT: Hearing grossly intact, normal oropharynx. RESPIRATORY: Mild coarse breath sounds at the bases. Mild increased work of breathing. Hypoxic on room air when moving around to 85%. Improves at rest, b ut patient placed on 2 L nasal cannula for comfort. C/V: Regular rate and rhythm. S1 and S2 auscultated, symmetric bilateral lower extremity pitting edema, peripheral pulses 2+ and intact throughout ABD: Abd is soft, nontender, nondistended EXT: Normal range of motion, no obvious deformity SKIN: No rashes or lesions observed on exposed skin. NEURO: Alert and oriented 4. Course Vital Signs 12/07/22 12:57 Temperature 97.9 F Pulse Rate 96 Respiratory 26 H Rate Blood Pressure 156/96 O2 Sat by Pulse 96 Oximetry Medical Decision Making - Medical Decision Making Was pt. sent in by a medical professional or institution (HEATHER Hernandez, [employer], urgent care, hospital, or jail...) When possible be specific @ -No Did you speak to anyone other than the patient for history (EMS, parent, family, police, friend...)? What history was obtained from this source @ -No Did you review nursing and triage notes (agree or disagree)? Why? @ -I reviewed and agree with nursing and triage notes Were old charts reviewed (outside hosp., previous admission, EMS record, old EKG, old radiological studies, urgent care reports/EKG's, jail records)? Report findings @ -Old charts reviewed Differential Diagnosis (chest pain, altered mental status, abdominal pain women, abdominal pain men, vaginal bleeding, weakness, fever, dyspnea, syncope, headache, dizziness, GI bleed, back pain, seizure, CVA, palpatations, mental health, musculoskeletal)? @ -Differential Dyspnea: Coronary syndrome, arrhythmia, tamponade, asthma, COPD, pulmonary embolism, pneumonia, pneumothorax, pulmonary effusion, anaphylaxis, diabetic ketoacidosis, flailed chest, pulmonary contusion, diaphragmatic rupture, anemia, neuromuscular, this is not meant to be an all-inclusive list. EKG interpreted by me (3pts min.). @ -As above X-rays interpreted by me (1pt min.). @ -X-ray reveals mild pulmonary vascular congestion. CT interpreted by me (1pt min.). @ -None done U/S interpreted by me (1pt. min.). @ -None done What testing was considered but not performed or refused? (CT, X-rays, U/S, labs)? Why? @ -None What meds were considered but not given or refused? Why? @ -None Did you discuss the management of the patient with other professionals (jerrica doty i.e. , PA, [employer], lab, RT, psych nurse, 7th grade social studies teacher, tapper operator, teacher, training and development officer, bilingual patient support caseworker)? Give summary @ -No Was smoking cessation discussed for >3mins.? @ -No Was critical care preformed (if so, how long)? @ -Yes, 36 minutes. Were there social determinants of health that impacted care today? How? (Homelessness, low income, unemployed, alcoholism, drug addiction, transportation, low edu. Level, literacy, decrease access to med. care, usp, rehab)? @ -No Was there de-escalation of care discussed even if they declined (Discuss DNR or withdrawal of care, Hospice)? DNR status @ -No What co-morbidities impacted this encounter? (DM, HTN, Smoking, COPD, CAD, Cancer, CVA, ARF, Chemo, Hep., AIDS, mental health diagnosis, sleep apnea, morbid obesity)? @ -None Was patient admitted / discharged? Hospital course, mention meds given and route, prescriptions, significant lab abnormalities, going to OR and other pertinent info. @ -Based on patient's presentation and physical exam, I do suspect symptoms are likely secondary to CHF exacerbation as he has not been taking his Lasix for the last approximate 6 days. We will obtain cardio pulmonary labs and workup. Patient was in agreement this plan. Vital signs remarkable for hypoxia on room air with movement into the mid 80s which improves with rest. Patient placed on 2 L nasal cannula for comfort. Labs which are started in triage are remarkable for a BNP of 10,000. Troponin indeterminate. Remainder of labs within acceptable limits. EKG shows no signs of acute ischemia. Chest x-ray reveals bilateral pulmonary vascular congestion. On reevaluation, I discussed results with the patient. I would like to admit the patient. He'll be started on IV Lasix. I ordered. Patient was in agreement this plan. Cardiology consulted. Discussed the case with the [facility] physician, Dr. Malik who accepted the patient. Undiagnosed new problem with uncertain prognosis? @ -No Drug Therapy requiring intensive monitoring for toxicity (Heparin, Nitro, Insulin, Cardizem)? @ -No Were any procedures done? @ -No Diagnosis/symptom? @ -CHF exacerbation, acute hypoxic respiratory failure Acute, or Chronic, or Acute on Chronic? @ -Acute Uncomplicated (without systemic symptoms) or Complicated (systemic symptoms)? @ -Complicated Side effects of treatment? @ -No Exacerbation, Progression, or Severe Exacerbation? @ -Exacerbation Poses a threat to life or bodily function? How? (Chest pain, USA, HI, pneumonia, PE, COPD, DKA, ARF, appy, cholecystitis, CVA, Diverticulitis, Homicidal, Suicidal, threat to staff... and all critical care pts) @ -Yes - Lab Data Result diagrams: 12/07/22 13:12 12/07/22 13:12 Lab Results 12/07/22 12/07/22 12/07/22 Range/Units 13:12 13:12 13:12 WBC 9.7 (3.8-10.6) k/uL RBC 4.51 (4.30-5.90) m/uL Hgb 12.2 L (13.0-17.5) gm/dL Hct 39.7 (39.0-53.0) % MCV 88.1 D (80.0-100.0) fL MCH 27.1 (25.0-35.0) pg MCHC 30.8 L (31.0-37.0) g/dL RDW 16.0 H (11.5-15.5) % Plt Count 134 L (150-450) k/uL MPV 10.4 Neutrophils % 85 % Lymphocytes % 9 % Monocytes % 4 % Eosinophils % 1 % Basophils % 0 % Neutrophils # 8.2 H (1.3-7.7) k/uL Lymphocytes # 0.9 L (1.0-4.8) k/uL Monocytes # 0.4 (0-1.0) k/uL Eosinophils # 0.1 (0-0.7) k/uL Basophils # 0.0 (0-0.2) k/uL Hypochromasia Moderate Poikilocytosis Slight PT 12.5 (10.0-12.5) sec INR 1.2 H (<1.2) APTT 23.5 (22.0-30.0) sec Sodium 140 (137-145) mmol/L Potassium 4.1 (3.5-5.1) mmol/L Chloride 107 (98-107) mmol/L Carbon Dioxide 23 (22-30) mmol/L Anion Gap 10 mmol/L BUN 26 H (9-20) mg/dL Creatinine 1.19 (0.66-1.25) mg/dL Est GFR (CKD-EPI)AfAm 66 (>60 ml/min/1.73 sqM) Est GFR (CKD-EPI)NonAf 57 (>60 ml/min/1.73 sqM) Glucose 151 H (74-99) mg/dL Calcium 9.3 (8.4-10.2) mg/dL Total Bilirubin 0.9 (0.2-1.3) mg/dL AST 26 (17-59) U/L ALT 31 (4-49) U/L Alkaline Phosphatase 56 (38-126) U/L Troponin I (0.000-0.034) ng/mL NT-Pro-B Natriuret Pep 27205 pg/mL Total Protein 6.2 L (6.3-8.2) g/dL Albumin 3.7 (3.5-5.0) g/dL 12/07/22 Range/Units 13:12 WBC (3.8-10.6) k/uL RBC (4.30-5.90) m/uL Hgb (13.0-17.5) gm/dL Hct (39.0-53.0) % MCV (80.0-100.0) fL MCH (25.0-35.0) pg MCHC (31.0-37.0) g/dL RDW (11.5-15.5) % Plt Count (150-450) k/uL MPV Neutrophils % % Lymphocytes % % Monocytes % % Eosinophils % % Basophils % % Neutrophils # (1.3-7.7) k/uL Lymphocytes # (1.0-4.8) k/uL Monocytes # (0-1.0) k/uL Eosinophils # (0-0.7) k/uL Basophils # (0-0.2) k/uL Hypochromasia Poikilocytosis PT (10.0-12.5) sec INR (<1.2) APTT (22.0-30.0) sec Sodium (137-145) mmol/L Potassium (3.5-5.1) mmol/L Chloride (98-107) mmol/L Carbon Dioxide (22-30) mmol/L Anion Gap mmol/L BUN (9-20) mg/dL Creatinine (0.66-1.25) mg/dL Est GFR (CKD-EPI)AfAm (>60 ml/min/1.73 sqM) Est GFR (CKD-EPI)NonAf (>60 ml/min/1.73 sqM) Glucose (74-99) mg/dL Calcium (8.4-10.2) mg/dL Total Bilirubin (0.2-1.3) mg/dL AST (17-59) U/L ALT (4-49) U/L Alkaline Phosphatase (38-126) U/L Troponin I 0.024 (0.000-0.034) ng/mL NT-Pro-B Natriuret Pep pg/mL Total Protein (6.3-8.2) g/dL Albumin (3.5-5.0) g/dL - EKG Data -: EKG Interpreted by Me EKG Comments: 12-lead Electrocardiogram Interpretation Note EKG was reviewed and interpreted by myself. 12-lead ECG performed at 1304 is interpreted by me as revealing irregular rhythm, with suspected pacemaker involvement at a rate of 79 beats per minute. Right axis deviation. QRS duration is 173 ms, QTc is 476 ms.. There were no acute ST or T wave abnormalities to suggest myocardial ischemia or injury. R wave progression across the precordium was satisfactory. By my interpretation this EKG is non- diagnostic for acute ischemia. Critical Care Time Critical Care Time: Yes Total Critical Care Time: 36 Disposition Clinical Impression: Congestive heart failure, Hypoxic respiratory failure Disposition: ADMITTED IP TO THIS HOSP Condition: Stable Referrals: Ananth Hendricks MD [Primary Care Provider] - 1-2 days Time of Disposition: 15:00
[2022-12-07] MEDS ORDERED: ASPIRIN 81 MG PO STA (15:29)
[2022-12-07] MEDS ORDERED: NALOXONE 0.4 MG/ML 1 ML VIAL IV PRN (15:30)
--- NOTE | 2022-12-07 17:38 | P.HPIM ---
History of Present Illness H&P Date: 12/07/22 82-year-old male with PMH of atrial fibrillation, CAD with history of CABG, permanent pacemaker, hypertension, dyslipidemia presents the ED for shortness of breath. Patient reports shortness of breath that has been progressively getting worse over the past 4 weeks. He reports noncompliance to his diuretics due to frequent urination. He also reports lower extremity swelling that has been getting worse over the same period of time. He denies any chest pain, palpitations, changes in urination or bowel habits. In the ED, he underwent extensive evaluation. Vital significant for respiratory rate of 26 and desaturating as low as 89% on 2 L nasal cannula. CBC showed hemoglobin of 12.2 with platelet count of 134 INR was 1.2 CMP showed BUN of 26, glucose of 151 BNP is 10,300 Troponin 0.024 EKG showed ventricular pacemaker. Chest x-ray showed mild cardiomegaly. Patient is admitted for acute on chronic diastolic CHF exacerbation. Pertinent positives and negatives as discussed in HPI, a complete review of systems was performed and all other systems are negative. General: non toxic, no distress, appears at stated age Derm: warm, dry Head: atraumatic, normocephalic, symmetric Eyes: EOMI, no lid lag, anicteric sclera Cardiovascular: S1S2 irregular, no murmur Lungs: Decreased breath sounds bilateral, no rhonchi, no rales , no accessory muscle use Ext: no gross muscle atrophy, 3+ pitting bilateral lower extremity edema, no contractures Neuro: no focal neuro deficits Psych: Alert, oriented, appropriate affect Acute on chronic diastolic CHF exacerbation Elevated BUN Supratherapeutic INR Normocytic anemia Thrombocytopenia Chronic conditions: atrial fibrillation, CAD with history of CABG, permanent pacemaker, hypertension, dyslipidemia Based on my assessment of this patient, this patient meets a high complexity level of care. Patient has a history of CHF with severe exacerbation or progression of disease which poses a threat to life or bodily function. Acute on chronic diastolic CHF exacerbation: Lasix 40 mg IV BID. Intake and Outtake. Daily weights. Echocardiogram. Cardiology consult. Elevated BUN Supratherapeutic INR Normocytic anemia Thrombocytopenia Lovenox SQ for DVT prophylaxis. FULL CODE. I have reviewed the following new vehicle sales consultant notes: I have reviewed the results of the following tests: As above. I have ordered the following tests: Echo. BMP I have discussed the care of this patient with the following independent historian: I have independently interpreted the following test below: EKG as above. 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 skin cancer, frequent lower leg edema, SOB w/exertion,. sick sinus syndrome History of Any Multi-Drug Resistant Organisms: None Reported Past Surgical History: Back Surgery, Cholecystectomy, Coronary Bypass/CABG, Heart Catheterization With Stent, Pacemaker Additional Past Surgical History / Comment(s): triple bypass -2010, cholecystectomy 2015,[employer] Pacemaker Lt chest, laminectomy Past Anesthesia/Blood Transfusion Reactions: No Reported Reaction Additional Past Anesthesia/Blood Transfusion Reaction / Comment(s): unsure if ever had transfusion Date of Last Stent Placement:: 09/01/21 Type of Cardiac Device: Permanent Pacemaker Device Placement Date:: Mar 2016 Past Psychological History: No Psychological Hx Reported Smoking Status: Former smoker Past Alcohol Use History: None Reported Past Drug Use History: None Reported - Past Family History Mother Family Medical History: Cancer Additional Family Medical History / Comment(s): CABG, Colon Cancer Father Family Medical History: Cancer Additional Family Medical History / Comment(s): Father of cancer unsure which type of cancer Brother(s) Additional Family Medical History / Comment(s): Brother had X4 Bypass Medications and Allergies Home Medications Medication Instructions Recorded Confirmed Type Multivitamins, Thera [Multivitamin 1 tab PO DAILY 04/03/16 12/07/22 History (formulary)] Loratadine 10 mg PO HS 11/18/16 12/07/22 History Melatonin 5 - 10 mg PO HS PRN 11/18/16 12/07/22 History Nitroglycerin Sl Tabs [Nitrostat] 0.4 mg SUBLINGUAL Q5M PRN 11/18/16 12/07/22 History Cholecalciferol [Vitamin D3 (25 25 mcg PO DAILY 08/19/21 12/07/22 History Mcg = 1000 Iu)] Metoprolol Tartrate [Lopressor] 25 mg PO BID 08/19/21 12/07/22 History Potassium Citrate 99 mg PO DAILY 08/19/21 12/07/22 History Pravastatin Sodium [Pravachol] 10 mg PO HS 08/19/21 12/07/22 History Levothyroxine Sodium [Synthroid] 37.5 mcg PO SUSA 05/12/22 12/07/22 History Amitriptyline HCl 10 mg PO HS 12/07/22 12/07/22 History Cabergoline 0.5 mg PO TU 12/07/22 12/07/22 History Calcium Carbonate [Calcium] 600 mg PO DAILY 12/07/22 12/07/22 History Cyanocobalamin (Vitamin B-12) 2,500 mcg PO DAILY 12/07/22 12/07/22 History [Vitamin B-12] Furosemide [Lasix] 40 mg PO DAILY 12/07/22 12/07/22 History Gabapentin 600 mg PO TID 12/07/22 12/07/22 History Glucosa Urrutia 2Kcl/Chondroitin Urrutia 1 cap PO DAILY 12/07/22 12/07/22 History [Glucosamine-Chondroitin Cap] Levothyroxine Sodium [Synthroid] 75 mcg PO MOTUWETHFR 12/07/22 12/07/22 History Magnesium Oxide [Magox 400] 400 mg PO DAILY 12/07/22 12/07/22 History Pantoprazole Sodium [Protonix] 40 mg PO DAILY 12/07/22 12/07/22 History predniSONE 20 mg PO DAILY 12/07/22 12/07/22 History Allergies Allergy/AdvReac Type Severity Reaction Status Date / Time Penicillins Allergy Rash/Hives/hand Verified 12/07/22 15:08 blisters Physical Exam Vitals: Vital Signs Temp Pulse Resp BP Pulse Ox 12/07/22 12:57 97.9 F 96 26 H 156/96 96 Intake and Output 12/07/22 12/07/22 12/07/22 06:59 14:59 22:59 Other: Weight 138.799 kg Results CBC & Chem 7: 12/07/22 13:12 12/07/22 13:12 Labs: Abnormal Lab Results - Last 24 Hours (Table) 12/07/22 12/07/22 12/07/22 Range/Units 13:12 13:12 13:12 Hgb 12.2 L (13.0-17.5) gm/dL MCHC 30.8 L (31.0-37.0) g/dL RDW 16.0 H (11.5-15.5) % Plt Count 134 L (150-450) k/uL Neutrophils # 8.2 H (1.3-7.7) k/uL Lymphocytes # 0.9 L (1.0-4.8) k/uL INR 1.2 H (<1.2) BUN 26 H (9-20) mg/dL Glucose 151 H (74-99) mg/dL Total Protein 6.2 L (6.3-8.2) g/dL
[2022-12-07] MEDS: GABAPENTIN 300 MG CAP PO SCH (20:41)
[2022-12-07] MEDS: METOPROLOL TARTRATE 25 MG TAB PO SCH (20:41)
[2022-12-07] MEDS: LORATADINE 10 MG TAB PO SCH (20:41)
[2022-12-07] MEDS: AMITRIPTYLINE HCL 10 MG TAB PO SCH (20:42)
[2022-12-07] MEDS: PRAVASTATIN SODIUM 20 MG TAB PO SCH (20:42)
[2022-12-07] MEDS: FUROSEMIDE 10 MG/ML 4 ML VIAL IV SCH (20:42)
--- NOTE | 2022-12-08 02:07 | P.CNPUL ---
History of Present Illness Consult date: 12/08/22 Requesting physician: Mason Castillo Reason for consult: dyspnea Chief complaint: Shortness of breath History of present illness: I am seeing this patient in new consultation today 12/08/2022 after he was admitted yesterday afternoon with progressively worsening shortness of breath over the last couple weeks accompanied with increased lower extremity edema. Patient is an 82-year-old white male with past medical history significant for coronary artery disease status/post CABG and subsequent stenting, atrial fibrillation, permanent pacemaker, hyperlipidemia, hypertension, obstructive sle ep apnea, hypothyroidism, and is a remote ex-smoker. His PCP is Dr. Ananth Hendricks. Patient does follow in the pulmonary office with Dr. Vela for a possible diagnosis of hypersensitivity pneumonitis. Patient reports progressively worsening ongoing shortness of breath over the last couple weeks. He also notes increased lower extremity edema. He states that he stopped taking his Lasix 2-3 days ago. He does have increased lower extremity edema. Patient does not weigh himself. Denies any chest pain, palpitations, lightheadedness or syncope. He does endorse orthopnea, and sleeps in recliner at home. Patient denies any infectious symptoms such as fever, productive cough, hemoptysis. He has a chronic dry non-productive cough. Denies sick contacts. Consult for pulmonology was placed because the patient was being worked up for possible hypersensitivity pneumonitis earlier this year. At that time, the patient had been expressing chronic shortness of breath along with a dry nonproductive c ough. He has a remote history of smoking. A PFT back in February, was consistent with restrictive lung disease. FEV1 81% of predicted, FVC 67% of predicted, FEV1/FVC ratio 119. Total lung capacity 50% of predicted. DLCO 58%, not corrected for hemoglobin. A CT chest back in March, showed scattered groundglass opacities throughout the lungs. A follow-up right-sided VATS with wedge biopsy May, showed combination of bronchiolocentric interstitial pneumonia, cellular bronchiolitis, and poorly formed nonnecrotizing granulomatosis inflammation strongly suggestive of hypersensitivity pneumonitis. Non-fibrotic variant. A separate biopsy of the lower lobe showed patchy infil trate of lymphocytes with occasional well formed nonnecrotizing granulomas more closely resembling those seen in sarcoidosis. IRAIDA level and 24-hour urine calcium were normal. Hypersensitivity screen was positive for penicillium and Cladosporium. Patient was started on oral prednisone back in July,. Anyway, I doubt this is causing the patient's current symptoms. Patient is currently lying in bed on an incline, on 2 L/m nasal cannula, in no acute distress. Chest x-ray on arrival showed cardiomegaly. No significant pulmonary vascular congestion or pleural effusions. No focal infiltrates. NT proBNP was elevated at 10,300. Troponins not elevated 3. Patient has been started on Las ix 40 mg twice a day. He states that he has been urinating often. BMP was unremarkable. CBC shows a WBC count 9.7, hemoglobin 12.2, hematocrit 39.7, platelets 134. Patient is hemodynamically stable. Review of Systems REVIEW OF SYSTEMS: CONSTITUTIONAL: Patient does not weigh himself, and is unsure if he's had weight gain. Denies any fevers EYES: Denies change in vision. EARS, NOSE, MOUTH, THROAT: Denies headaches, denies sore throat. CARDIOVASCULAR: Denies chest pain, palpitations or syncopal episodes. Admits increased lower extremity swelling and orthopnea RESPIRATORY: See HPI. GASTROINTESTINAL: Denies change in appetite, abdominal pain, nausea and vomiting, or diarrhea GENITOURINARY: Denies hematuria, denies infections. MUSKULOSKELETAL: Denies pain, denies swelling. INTEGUMENTARY: Denies rash, denies eczema. NEUROLOGICAL: Denies recent memory loss, no recent seizure activity. PSYCHIATRIC: Denies anxiety, denies depression. 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 skin cancer, frequent lower leg edema, SOB w/exertion,. sick sinus syndrome History of Any Multi-Drug Resistant Organisms: None Reported Past Surgical History: Back Surgery, Cholecystectomy, Coronary Bypass/CABG, Heart Catheterization With Stent, Pacemaker Additional Past Surgical History / Comment(s): triple bypass 5-2010, almaz cystectomy 2016,[employer] Pacemaker Lt chest, laminectomy Past Anesthesia/Blood Transfusion Reactions: No Reported Reaction Additional Past Anesthesia/Blood Transfusion Reaction / Comment(s): unsure if ever had transfusion Date of Last Stent Placement:: 09/01/21 Type of Cardiac Device: Permanent Pacemaker Device Placement Date:: Mar 2016 Past Psychological History: No Psychological Hx Reported Smoking Status: Former smoker Past Alcohol Use History: None Reported Additional Past Alcohol Use History / Comment(s): SMOKED 4 YEARS, QUIT 1970. Past Drug Use History: None Reported - Past Family History Mother Family Medical History: Cancer Additional Family Medical History / Comment(s): CABG, Colon Cancer Father Family Medical History: Cancer Additional Family Medical History / Comment(s): Father of cancer unsure which type of cancer Brother(s) Additional Family Medical History / Comment(s): Brother had X4 Bypass Medications and Allergies Home Medications Medication Instructions Recorded Confirmed Type Multivitamins, Thera [Multivitamin 1 tab PO DAILY 04/03/16 12/07/22 History (formulary)] Loratadine 10 mg PO HS 11/18/16 12/07/22 History Melatonin 5 - 10 mg PO HS PRN 11/18/16 12/07/22 History Nitroglycerin Sl Tabs [Nitrostat] 0.4 mg SUBLINGUAL Q5M PRN 11/18/16 12/07/22 History Cholecalciferol [Vitamin D3 (25 25 mcg PO DAILY 08/19/21 12/07/22 History Mcg = 1000 Iu)] Metoprolol Tartrate [Lopressor] 25 mg PO BID 08/19/21 12/07/22 History Potassium Citrate 99 mg PO DAILY 08/19/21 12/07/22 History Pravastatin Sodium [Pravachol] 10 mg PO HS 08/19/21 12/07/22 History Levothyroxine Sodium [Synthroid] 37.5 mcg PO SUSA 05/12/22 12/07/22 History Amitriptyline HCl 10 mg PO HS 12/07/22 12/07/22 History Cabergoline 0.5 mg PO TU 12/07/22 12/07/22 History Calcium Carbonate [Calcium] 600 mg PO DAILY 12/07/22 12/07/22 History Cyanocobalamin (Vitamin B-12) 2,500 mcg PO DAILY 12/07/22 12/07/22 History [Vitamin B-12] Furosemide [Lasix] 40 mg PO DAILY 12/07/22 12/07/22 History Gabapentin 600 mg PO TID 12/07/22 12/07/22 History Glucosa Urrutia 2Kcl/Chondroitin Urrutia 1 cap PO DAILY 12/07/22 12/07/22 History [Glucosamine-Chondroitin Cap] Levothyroxine Sodium [Synthroid] 75 mcg PO MOTUWETHFR 12/07/22 12/07/22 History Magnesium Oxide [Magox 400] 400 mg PO DAILY 12/07/22 12/07/22 History Pantoprazole Sodium [Protonix] 40 mg PO DAILY 12/07/22 12/07/22 History predniSONE 20 mg PO DAILY 12/07/22 12/07/22 History Allergies Allergy/AdvReac Type Severity Reaction Status Date / Time Penicillins Allergy Rash/Hives/hand Verified 12/07/22 15:08 blisters Physical Exam Vitals: Vital Signs Temp Pulse Pulse Resp BP BP BP 12/07/22 23:25 97.8 F 79 20 139/91 12/07/22 20:00 97.9 F 67 22 144/89 12/07/22 17:56 72 18 154/101 12/07/22 12:57 97.9 F 96 26 H 156/96 Pulse Ox 12/07/22 23:25 97 12/07/22 20:00 98 12/07/22 17:56 98 12/07/22 12:57 96 Intake and Output 12/07/22 12/07/22 12/08/22 14:59 22:59 06:59 Intake Total 128 Output Total 2049 450 Balance -1921 Intake: IV 10 Invasive Line 1 10 Oral 118 Output: Urine 2049 450 Other: Voiding Method Urinal Weight 138.799 kg 138.799 kg GENERAL EXAM: Alert, 82-year-old white male, comfortable in no apparent distress. HEAD: Normocephalic and atraumatic EYES: Normal reaction of pupils, equal size. NOSE: Clear with pink turbinates. THROAT: No erythema or exudates. NECK: No masses, no JVD. CHEST: No chest wall deformity. LUNGS: Equal air entry with no crackles, wheeze, rhonchi or dullness. On 2 L/m nasal cannula. No conversational dyspnea or accessory muscle use.. CVS: S1 and S2 normal with no audible murmur, irregular rhythm. No extra heart sounds. Heart rate currently 80 bpm ABDOMEN: No hepatosplenomegaly, active bowel sounds, no guarding or rigidity. SPINE: No scoliosis or deformity SKIN: No rashes CENTRAL NERVOUS SYSTEM: No focal deficits, tone is normal in all 4 extremities. EXTREMITIES: There is significant for plus pitting edema bilateral lower extremities. No clubbing, or cyanosis. Peripheral pulses are intact. Results - Laboratory Findings CBC and BMP: 12/08/22 06:56 12/08/22 06:56 PT/INR, D-dimer PT 12.5 sec (10.0-12.5) 12/07/22 13:12 INR 1.2 (<1.2) H 12/07/22 13:12 Abnormal lab findings: Abnormal Labs 12/07/22 12/07/22 12/07/22 13:12 13:12 13:12 Hgb 12.2 L MCHC 30.8 L RDW 16.0 H Plt Count 134 L Neutrophils # 8.2 H Lymphocytes # 0.9 L INR 1.2 H BUN 26 H Glucose 151 H Total Protein 6.2 L - Diagnostic Findings Chest x-ray: image reviewed Assessment and Plan Assessment: Acute hypoxemic respiratory failure, currently on 2 L/m nasal cannula, secondary to a suspected exacerbation of diastolic congestive heart failure History of hypersensitivity pneumonitis, biopsy confirmed, non-fibrotic, currently maintained on oral prednisone. Coronary artery disease with previous coronary artery bypass grafting and subsequent stenting to LAD and diagonal Atrial fibrillation with controlled ventricular rate Permanent pacemaker for an underlying sick sinus syndrome Hypertension Hyperlipidemia Hypothyroidism Obstructive sleep apnea Morbid obesity with a BMI of 42.7 kg/m Plan: Patient's medications, labs, chest x-ray reviewed Continue supplemental oxygen Patient's symptoms likely related to diastolic CHF exacerbation. Patient had been noncompliant with his Lasix. Lasix has been restarted at 40 mg BID. He is making adequate amount of urine. Repeat echocardiogram is pending Patient's oral prednisone has been resumed. Other home medications have been restarted We will continue to follow, and further recommendations are forthcoming I have personally seen and examined the patient, performed the documentation and the assessment and plan as written. Number of minutes spent on the visit:20 This is a joint evaluation that was done along with the nurse practitioner. The patient has history of chronic hypersensitivity pneumonitis and the patient has been treated with steroids on an outpatient basis and the patient is currently on prednisone as part of a burst taper and currently the patient is on a dose of 20 mg by mouth daily. The patient presented with worsening shortness of breath and the presentation is more typical of CHF on top of his chronic ILD. The patient is exceedingly edema lower extremities. The patient has increased pr oBNP level. The patient was started on diuretics and the patient is responding nicely and the patient is currently on Lasix 40 mg IV every 12 hours. He'll be kept on prednisone 20 mg by mouth daily. He has a pacemaker for previous history of sick sinus syndrome. The patient also has likely a chronic diastolic heart failure in combination with coronary artery disease, previous bypass surgery, previous PCI to LAD and diagonal. Time with Patient: Greater than 30
[2022-12-08] MEDS: LEVOTHYROXINE 75 MCG TAB PO SCH (06:44)
[2022-12-08 07:51] LABS: Anisocytosis Slight; Basophils % (A) 0 %; Eosinophils # (A) 0.1 k/uL (0-0.7); Eosinophils % (A) 2 %; HCT 39.8 % (39.0-53.0); HGB 12.7 gm/dL (13.0-17.5); Hypochromasia Moderate; Lymphocytes # (A) 1.4 k/uL (1.0-4.8); Lymphocytes % (A) 16 %; MCH 27.8 pg (25.0-35.0); MCHC 31.9 g/dL (31.0-37.0); MCV 87.1 fL (80.0-100.0); Mean Platelet Volume 9.5; Monocytes # (A) 0.5 k/uL (0-1.0); Monocytes % (A) 5 %; Neutrophils # (A) 6.5 k/uL (1.3-7.7); Neutrophils % (A) 75 %; Platelet Count 158 k/uL (150-450); RBC 4.57 m/uL (4.30-5.90); RDW 16.2 % (11.5-15.5); WBC 8.7 k/uL (3.8-10.6)
[2022-12-08 08:19] LABS: African American GFR (CKD) 72 (>60 ml/min/1.73 sqM); Anion Gap 8 mmol/L; Blood Urea Nitrogen 26 mg/dL (9-20); Carbon Dioxide 27 mmol/L (22-30); Chloride 104 mmol/L (98-107); Glucose 92 mg/dL (74-99); Non-African American GFR(CKD) 62 (>60 ml/min/1.73 sqM); Potassium 3.9 mmol/L (3.5-5.1); Sodium 139 mmol/L (137-145)
[2022-12-08] MEDS: METOPROLOL TARTRATE 25 MG TAB PO SCH ×2 (09:01→20:30)
[2022-12-08] MEDS: ENOXAPARIN 40 MG/0.4 ML SYRINGE SQ SCH (09:01)
[2022-12-08] MEDS: predniSONE 20 MG TAB PO SCH (09:01)
[2022-12-08] MEDS: PANTOPRAZOLE 40 MG TABLET PO SCH (09:01)
[2022-12-08] MEDS: GABAPENTIN 300 MG CAP PO SCH ×3 (09:01→22:14)
[2022-12-08] MEDS: FUROSEMIDE 10 MG/ML 4 ML VIAL IV SCH ×2 (09:01→20:30)
--- NOTE | 2022-12-08 11:13 | CA ---
Transthoracic Echo Report Name: Umberto Oglesby Age: 82 Gender: M : 1940 Exam Date: 12/08/2022 08:38 Exam Location: [facility] Ht (in): 71 Wt (lb): 306 Ordering Physician: Mason Castillo MD Attending/Referring Phys: Radiotelegrapher Arnulfo Lakhani Procedure CPT: Indications: CHF, dyspnea Cardiac Hx: Technical Quality: Technically difficult study Contrast 1: Lumason Total Dose (mL): 5 Contrast 2: Total Dose (mL): MEASUREMENTS (Male / Female) Normal Values 2D ECHO LV Diastolic Diameter PLAX 5.2 cm 4.2 - 5.9 / 3.9 - 5.3 cm LV Systolic Diameter PLAX 3.6 cm IVS Diastolic Thickness 1.4 cm 0.6 - 1.0 / 0.6 - 0.9 cm LVPW Diastolic Thickness 1.8 cm 0.6 - 1.0 / 0.6 - 0.9 cm LV Relative Wall Thickness 0.6 RV Internal Dim ED PLAX 3.5 cm LVOT Diameter 2.6 cm Aortic Root Diameter 3.5 cm LA Systolic Diameter LX 4.6 cm 3.0 - 4.0 / 2.7 - 3.8 cm LV Diastolic Volume MOD BP 94.8 cm??? 67 - 155 / 56 - 104 cm??? LV Systolic Volume MOD BP 39.7 cm??? - 58 / 19 - 49 cm??? LV Ejection Fraction MOD BP 58.1 % >= 55 % LV Cardiac Index MOD BP 1915.2 cm???/min???m??? LV Diastolic Volume MOD 4C 92.3 cm??? LV Systolic Volume MOD 4C 33.9 cm??? LV Ejection Fraction MOD 4C 63.3 % LV Cardiac Index MOD 4C 2034.6 cm???/min???m??? LV Diastolic Length 4C 8.2 cm LV Systolic Length 4C 7.2 cm LV Diastolic Volume MOD 2C 95.6 cm??? LV Systolic Volume MOD 2C 42.2 cm??? LV Ejection Fraction MOD 2C 55.8 % LV Cardiac Index MOD 2C 1856.5 cm???/min???m??? LV Diastolic Length 2C 8.4 cm LV Systolic Length 2C 8.0 cm LA Volume 96.7 cm??? 18 - 58 / 22 - 52 cm??? LA Volume Index 35.8 cm???/m??? 16 - 28 cm???/m??? DOPPLER AV Peak Velocity 113.9 cm/s AV Peak Gradient 5.2 mmHg LVOT Peak Velocity 61.4 cm/s LVOT Peak Gradient 1.5 mmHg LVOT Velocity Time Integral 12.0 cm LVOT Stroke Volume 61.8 cm??? LVOT Stroke Volume Index 24.5 ml/m??? LVOT Cardiac Index 2152.5 cm???/min???m??? AV Area Cont Eq pk 2.8 cm??? MV Peak Velocity 96.6 cm/s MV Peak Gradient 3.7 mmHg MV Mean Velocity 43.2 cm/s MV Mean Gradient 1.0 mmHg MV Velocity Time Integral 24.8 cm MR Peak Velocity 192.4 cm/s MR Peak Gradient 14.8 mmHg Mitral E Point Velocity 91.3 cm/s Mitral A Point Velocity 26.7 cm/s Mitral E to A Ratio 3.4 MV Deceleration Time 202.7 ms MV E' Velocity 5.4 cm/s Mitral E to MV E' Ratio 16.8 TR Peak Velocity 326.6 cm/s TR Peak Gradient 42.7 mmHg Right Ventricular Systolic Press 47.7 mmHg PV Peak Velocity 74.9 cm/s PV Peak Gradient 2.2 mmHg FINDINGS Left Ventricle Normal LV size. Mild concentric LVH. LVEF estimated at 50-55%. Atypical septal motion due to bundle-branch block. No other obvious regional wall motion abnormality. Right Ventricle Normal right ventricular size. Catheter/pacemaker wire in the right ventricular cavity. RVSP= 53mmHg. Right Atrium Normal right atrial size. Left Atrium Mild left atrial dilatation. LA volume index= 38.2ml/m2 Mitral Valve Grossly normal. Trace MR. Aortic Valve Trileaflet aortic valve. Mild AV calcification. No aortic valve stenosis or regurgitation. Tricuspid Valve Tricuspid valve not well visualized. Moderate TR. Pulmonic Valve Pulmonic valve not well visualized. No pulmonic regurgitation. Pericardium Not well visualized. Aorta Normal size aortic root and proximal ascending aorta. CONCLUSIONS LVEF estimated at 50-55% Mild concentric LVH No obvious regional wall motion abnormality PPM wire noticed in RA and RV Moderate TR, no other significant valvular pathology Mild left atrial dilatation dilatation RVSP estimated at 53 mmHg No pericardial effusion Previewed by: Dr Stanley Aguilar (Electronically Signed) Final Date: 08 December 2022 11:12
--- NOTE | 2022-12-08 12:47 | P.PN ---
Subjective Progress Note Date: 12/08/22 82-year-old male with PMH of atrial fibrillation, CAD with history of CABG, permanent pacemaker, hypertension, dyslipidemia presents the ED for shortness of breath. Patient reports shortness of breath that has been progressively getting worse over the past 4 weeks. He reports noncompliance to his diuretics due to frequent urination. He also reports lower extremity swelling that has been getting worse over the same period of time. He denies any chest pain, palpitations, changes in urination or bowel habits. In the ED, he underwent extensive evaluation. Vital significant for respiratory rate of 26 and desaturating as low as 89% on 2 L nasal cannula. CBC showed hemoglobin of 12.2 with platelet count of 134 INR was 1.2 CMP showed BUN of 26, glucose of 151 BNP is 10,300 Troponin 0.024 EKG showed ventricular pacemaker. Chest x-ray showed mild cardiomegaly. Patient is admitted for acute on chronic diastolic CHF exacerbation. 12/08 Patient was seen and examined. Improved breathing and LE swelling. CBC shows Hg 12.7. BMP shows BUN 26. Troponin 0.027 and 0.021. Echo shows EF 50-55%, atypical septal motion, mild concentric LVH, moderate TR. Discussed with Dr. Baird, history of hypersensitivity pneumonitis, continue Prednisone and IV diuresis. Weight 138.799-136.3kg. Negative fluid balance of 3272 cc. General: non toxic, no distress, appears at stated age Derm: warm, dry Head: atraumatic, normocephalic, symmetric Eyes: EOMI, no lid lag, anicteric sclera Cardiovascular: S1S2 irregular, no murmur Lungs: Decreased breath sounds bilateral, no rhonchi, no rales , no accessory muscle use Ext: no gross muscle atrophy, 2-3+ pitting bilateral lower extremity edema, no contractures Neuro: no focal neuro deficits Psych: Alert, oriented, appropriate affect Acute hypoxic respiratory failure Acute on chronic diastolic CHF exacerbation History of hypersensitivity pneumonitis Elevated BUN Supratherapeutic INR Normocytic anemia Thrombocytopenia Chronic conditions: atrial fibrillation, CAD with history of CABG, permanent pacemaker, hypertension, dyslipidemia Based on my assessment of this patient, this patient meets a high complexity level of care. Patient has a history of CHF with severe exacerbation or progression of disease which poses a threat to life or bodily function. Acute hypoxic respiratory failure Acute on chronic diastolic CHF exacerbation: Lasix 40 mg IV BID. Intake and Outtake. Daily weights. Echocardiogram as above. Monitor electrolytes. Cardiology consult. History of hypersensitivity pneumonitis: Continue Prednisone. Pulmonology on board. Elevated BUN Supratherapeutic INR Normocytic anemia Thrombocytopenia Lovenox SQ for DVT prophylaxis. FULL CODE. I have reviewed the following environmental remediation consultant notes: Pulm note. I have reviewed the results of the following tests: As above. I have ordered the following tests: BMP. I have discussed the care of this patient with the following independent historian: I have independently interpreted the following test below: I have discussed the management of this patient with the following physician: Discussed with Dr. Baird at bedside. Objective - Vital Signs Vital signs: Vital Signs Temp 97.7 F 12/08/22 11:57 Pulse 67 12/08/22 11:57 Resp 20 12/08/22 11:57 BP 133/89 12/08/22 11:57 Pulse Ox 93 L 12/08/22 11:57 FiO2 Intake & Output 12/07/22 12/08/22 12/08/22 18:59 06:59 18:59 Intake Total 118 10 Output Total 3400 1870 Balance 118 -3390 -1870 Weight 138.799 kg 136.3 kg Intake: IV 10 Invasive Line 1 10 Oral 118 Output: Urine 3400 1870 Other: Voiding Method Urinal - Labs CBC & Chem 7: 12/08/22 06:56 12/08/22 06:56 Labs: Abnormal Lab Results - Last 24 Hours (Table) 12/07/22 12/07/22 12/07/22 Range/Units 13:12 13:12 13:12 Hgb 12.2 L (13.0-17.5) gm/dL MCHC 30.8 L (31.0-37.0) g/dL RDW 16.0 H (11.5-15.5) % Plt Count 134 L (150-450) k/uL Neutrophils # 8.2 H (1.3-7.7) k/uL Lymphocytes # 0.9 L (1.0-4.8) k/uL INR 1.2 H (<1.2) BUN 26 H (9-20) mg/dL Glucose 151 H (74-99) mg/dL Total Protein 6.2 L (6.3-8.2) g/dL 10/26/23 10/26/23 Range/Units 06:56 06:56 Hgb 12.7 L (13.0-17.5) gm/dL MCHC (31.0-37.0) g/dL RDW 16.2 H (11.5-15.5) % Plt Count (150-450) k/uL Neutrophils # (1.3-7.7) k/uL Lymphocytes # (1.0-4.8) k/uL INR (<1.2) BUN 26 H (9-20) mg/dL Glucose (74-99) mg/dL Total Protein (6.3-8.2) g/dL
--- NOTE | 2022-12-08 16:44 | P.CRDCN ---
History of Present Illness History of present illness: HISTORY OF PRESENTING ILLNESS Patient is pleasant 82-year-old male with history of CAD with prior CABG as well as stenting, persistent atrial fibrillation, sick sinus syndrome status post pe rmanent pacemaker, hypertension, hyperlipidemia, obstructive sleep apnea, hypothyroidism, remote tobacco abuse, diastolic heart failure. He follows in the office with Dr. Kwok. He has prior history of CABG with BARRETO to LAD as well as SVG to diagonal occluded and SVG to PLV occluded and had undergone stenting in August 2021. Additionally he had GI bleed in September however has recovered from that. Unfortunately over last 1 month he has been having episodes of some chest discomfort as well as shortness breath and occasional diaphoresis. Pain does not feel exactly similar to his prior angina with bypass. More recently however he has been getting more short of breath with minimal exertion over last week and admits he has not really been taking his Lasix consistently and has been missing frequently. He also admits to increased lower extremity edema. Blood work shows hemoglobin 12.2, platelets 134, creatinine 1.1, proBNP 10,300, troponin 0.02, 0.02, 0.02. He was given IV Lasix and feels somewhat better. Echocardiogram shows mild LVH, EF 50-55%, RVSP 53, moderate tricuspid regurgitat ion. REVIEW OF SYSTEMS At the time of my exam: CONSTITUTIONAL: Denies fever or chills. CARDIOVASCULAR: +chest pain, +shortness of breath, +orthopnea, no palpitations. RESPIRATORY: Denies cough. GASTROINTESTINAL: Denies abdominal pain, diarrhea, constipation, nausea or vomiting. MUSCULOSKELETAL: Denies myalgias. NEUROLOGIC: Denies numbness, tingling or weakness. ENDOCRINE: Denies fatigue, weight change, polydipsia or polyurina. GENITOURINARY: Denies burning, hematuria or urgency with micturation. HEMATOLOGIC: Denies history of anemia or bleeding. PHYSICAL EXAMINATION Vital signs reviewed. CONSTITUTIONAL: No apparent distress. HEENT: Head is normocephalic. Pupils are equal, round. Sclerae anicteric. Mucous membranes of the mouth are moist. No JVD. No carotid bruit. CHEST EXAMINATION: Lungs are clear to auscultation. No chest wall tenderness is noted on palpation or with deep breathing. HEART EXAMINATION: Irregular rate and rhythm. S1, S2 heard. No murmurs, gallops or rub. ABDOMEN: Soft, nontender. Positive bowel sounds. EXTREMITIES: 2+ peripheral pulses, 1+ lower extremity edema and no calf tenderness. NEUROLOGIC EXAMINATION: Patient is awake, alert and oriented x3. ASSESSMENT 1. Acute on chronic respiratory failure mainly related to heart failure 2. Acute on chronic diastolic heart failure 3. Chest pain with exertion may be angina however also likely related to heart failure 4. CAD with prior CABG as well as recent PCI of LAD and the diagonal 08/2021 5. Previous history of GI bleed 6. Hypertension 7. Sick sinus syndrome status post permanent pacemaker 8. Persistent atrial fibrillation PLAN Patient's main presentation appears consistent with heart failure related to not taking his diuretics. Continue with IV Lasix and monitor creatinine closely. Patient does however have chest pain worse with exertion and may be anginal however may be mainly a component of heart failure. If continues to have symptoms likely consider stress testing. Ideally anticoagulation however has been discontinued secondary to GI bleed. Daily aspirin if tolerates. 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 skin cancer, frequent lower leg edema, SOB w/exertion,. sick sinus syndrome History of Any Multi-Drug Resistant Organisms: None Reported Past Surgical History: Back Surgery, Cholecystectomy, Coronary Bypass/CABG, Heart Catheterization With Stent, Pacemaker Additional Past Surgical History / Comment(s): triple bypass 5-2010, cholecystectomy 2015,[employer] Pacemaker Lt chest, laminectomy Past Anesthesia/Blood Transfusion Reactions: No Reported Reaction Additional Past Anesthesia/Blood Transfusion Reaction / Comment(s): unsure if ever had transfusion Date of Last Stent Placement:: 09/01/21 Type of Cardiac Device: Permanent Pacemaker Device Placement Date:: Mar 2016 Past Psychological History: No Psychological Hx Reported Smoking Status: Former smoker Past Alcohol Use History: None Reported Additional Past Alcohol Use History / Comment(s): SMOKED 4 YEARS, QUIT 1970. Past Drug Use History: None Reported - Past Family History Mother Family Medical History: Cancer Additional Family Medical History / Comment(s): CABG, Colon Cancer Father Family Medical History: Cancer Additional Family Medical History / Comment(s): Father of cancer unsure which type of cancer Brother(s) Additional Family Medical History / Comment(s): Brother had X4 Bypass Medications and Allergies Home Medications Medication Instructions Recorded Confirmed Type Multivitamins, Thera [Multivitamin 1 tab PO DAILY 04/03/16 12/07/22 History (formulary)] Loratadine 10 mg PO HS 11/18/16 12/07/22 History Melatonin 5 - 10 mg PO HS PRN 11/18/16 12/07/22 History Nitroglycerin Sl Tabs [Nitrostat] 0.4 mg SUBLINGUAL Q5M PRN 11/18/16 12/07/22 History Cholecalciferol [Vitamin D3 (25 25 mcg PO DAILY 08/19/21 12/07/22 History Mcg = 1000 Iu)] Metoprolol Tartrate [Lopressor] 25 mg PO BID 08/19/21 12/07/22 History Potassium Citrate 99 mg PO DAILY 08/19/21 12/07/22 History Pravastatin Sodium [Pravachol] 10 mg PO HS 08/19/21 12/07/22 History Levothyroxine Sodium [Synthroid] 37.5 mcg PO SUSA 05/12/22 12/07/22 History Amitriptyline HCl 10 mg PO HS 12/07/22 12/07/22 History Cabergoline 0.5 mg PO TU 12/07/22 12/07/22 History Calcium Carbonate [Calcium] 600 mg PO DAILY 12/07/22 12/07/22 History Cyanocobalamin (Vitamin B-12) 2,500 mcg PO DAILY 12/07/22 12/07/22 History [Vitamin B-12] Furosemide [Lasix] 40 mg PO DAILY 12/07/22 12/07/22 History Gabapentin 600 mg PO TID 12/07/22 12/07/22 History Glucosa Urrutia 2Kcl/Chondroitin Urrutia 1 cap PO DAILY 12/07/22 12/07/22 History [Glucosamine-Chondroitin Cap] Levothyroxine Sodium [Synthroid] 75 mcg PO MOTUWETHFR 12/07/22 12/07/22 History Magnesium Oxide [Magox 400] 400 mg PO DAILY 12/07/22 12/07/22 History Pantoprazole Sodium [Protonix] 40 mg PO DAILY 12/07/22 12/07/22 History predniSONE 20 mg PO DAILY 12/07/22 12/07/22 History Allergies Allergy/AdvReac Type Severity Reaction Status Date / Time Penicillins Allergy Rash/Hives/hand Verified 12/07/22 15:08 blisters Physical Exam Vitals: Vital Signs Temp Pulse Pulse Resp BP BP Pulse Ox 12/08/22 16:00 98.4 F 79 20 138/88 95 12/08/22 11:57 97.7 F 67 20 133/89 93 L 12/08/22 09:04 93 L 12/08/22 08:36 93 19 129/93 99 12/08/22 08:30 97.7 F 12/08/22 04:00 66 18 136/88 99 12/07/22 23:25 97.8 F 79 20 139/91 97 12/07/22 20:00 97.9 F 67 22 144/89 98 12/07/22 17:56 72 18 154/101 98 Intake and Output 12/08/22 12/08/22 12/08/22 06:59 14:59 22:59 Output Total 1350 1870 Balance -1350 -1870 Output: Urine 1350 1870 Other: Voiding Method Urinal Weight 136.3 kg Results 12/08/22 06:56 12/08/22 06:56 Cardiac Enzymes 12/07/22 12/07/22 Range/Units 16:53 21:49 Troponin I 0.027 0.021 (0.000-0.034) ng/mL CBC 12/08/22 Range/Units 06:56 WBC 8.7 (3.8-10.6) k/uL RBC 4.57 (4.30-5.90) m/uL Hgb 12.7 L (13.0-17.5) gm/dL Hct 39.8 (39.0-53.0) % Plt Count 158 (150-450) k/uL Comprehensive Metabolic Panel 12/08/22 Range/Units 06:56 Sodium 139 (137-145) mmol/L Potassium 3.9 (3.5-5.1) mmol/L Chloride 104 (98-107) mmol/L Carbon Dioxide 27 (22-30) mmol/L BUN 26 H (9-20) mg/dL Creatinine 1.11 (0.66-1.25) mg/dL Glucose 92 (74-99) mg/dL Calcium 9.0 (8.4-10.2) mg/dL Current Medications Generic Name Dose Route Start Last Admin Trade Name Freq PRN Reason Stop Dose Admin Amitriptyline HCl 10 mg 12/07/22 21:00 12/07/22 20:42 Amitriptyline Hcl 10 Mg Tab PO 10 mg HS ARNULFO Administration Enoxaparin Sodium 40 mg 12/08/22 09:00 12/08/22 09:01 Enoxaparin 40 Mg/0.4 Ml Syringe SQ 40 mg DAILY ARNULFO Administration Furosemide 40 mg 12/07/22 21:00 12/08/22 09:01 Furosemide 10 Mg/Ml 4 Ml Vial IV 40 mg Q12HR ARNULFO Administration Gabapentin 600 mg 12/07/22 22:00 12/08/22 16:19 Gabapentin 300 Mg Cap PO 600 mg TID ARNULFO Administration Levothyroxine Sodium 37.5 mcg 12/10/22 06:30 Levothyroxine 75 Mcg Tab PO [id number] ARNULFO Levothyroxine Sodium 75 mcg 12/08/22 06:30 12/08/22 06:44 Levothyroxine 75 Mcg Tab PO 75 mcg [id number] ARNULFO Administration Loratadine 10 mg 12/07/22 21:00 12/07/22 20:41 Loratadine 10 Mg Tab PO 10 mg HS ARNULFO Administration Metoprolol Tartrate 25 mg 12/07/22 21:00 12/08/22 09:01 Metoprolol Tartrate 25 Mg Tab PO 25 mg BID ARNULFO Administration Naloxone HCl 0.2 mg 12/07/22 15:30 Naloxone 0.4 Mg/Ml 1 Ml Vial IV Q2M PRN Opioid Reversal Pantoprazole Sodium 40 mg 12/08/22 09:00 12/08/22 09:01 Pantoprazole 40 Mg Tablet PO 40 mg DAILY ARNULFO Administration Pravastatin Sodium 10 mg 12/07/22 21:00 12/07/22 20:42 Pravastatin Sodium 20 Mg Tab PO 10 mg HS ARNULFO Administration Prednisone 20 mg 12/08/22 09:00 12/08/22 09:01 Prednisone 20 Mg Tab PO 20 mg DAILY ARNULFO Administration Intake and Output 12/08/22 12/08/22 12/08/22 06:59 14:59 22:59 Output Total 1350 1870 Balance -1350 -1870 Output: Urine 1350 1870 Other: Voiding Method Urinal Weight 136.3 kg 12/08/22 06:56 12/08/22 06:56
[2022-12-08] MEDS: LORATADINE 10 MG TAB PO SCH (20:30)
[2022-12-08] MEDS: AMITRIPTYLINE HCL 10 MG TAB PO SCH (20:31)
[2022-12-08] MEDS: PRAVASTATIN SODIUM 20 MG TAB PO SCH (20:31)
[2022-12-09] MEDS: LEVOTHYROXINE 75 MCG TAB PO SCH (06:06)
[2022-12-09] MEDS: FUROSEMIDE 10 MG/ML 4 ML VIAL IV SCH ×2 (09:46→20:36)
[2022-12-09] MEDS: GABAPENTIN 300 MG CAP PO SCH ×3 (09:47→22:51)
[2022-12-09] MEDS: ASPIRIN 81 MG PO SCH (09:47)
[2022-12-09] MEDS: predniSONE 20 MG TAB PO SCH (09:47)
[2022-12-09] MEDS: ENOXAPARIN 40 MG/0.4 ML SYRINGE SQ SCH (09:47)
[2022-12-09] MEDS: METOPROLOL TARTRATE 25 MG TAB PO SCH ×2 (09:47→20:37)
[2022-12-09] MEDS: PANTOPRAZOLE 40 MG TABLET PO SCH (09:47)
[2022-12-09 10:32] LABS: African American GFR (CKD) 69 (>60 ml/min/1.73 sqM); Anion Gap 8 mmol/L; Blood Urea Nitrogen 29 mg/dL (9-20); Calcium 9.7 mg/dL (8.4-10.2); Carbon Dioxide 33 mmol/L (22-30); Chloride 98 mmol/L (98-107); Glucose 106 mg/dL (74-99); Non-African American GFR(CKD) 60 (>60 ml/min/1.73 sqM); Sodium 139 mmol/L (137-145)
--- NOTE | 2022-12-09 11:27 | P.PN ---
Subjective HISTORY OF PRESENTING ILLNESS Patient is pleasant 82-year-old male with history of CAD with prior CABG as well as stenting, persistent atrial fibrillation, sick sinus syndrome status post permanent pacemaker, hypertension, hyperlipidemia, obstructive sleep apnea, hypothyroidism, remote tobacco abuse, diastolic heart failure. He follows in the office with Dr. Kwok. He has prior history of CABG with BARRETO to LAD as well as SVG to diagonal occluded and SVG to PLV occluded and had undergone stenting in August 2021. Additionally he had GI bleed in September however has recovered from that. Unfortunately over last 1 month he has been having episo [place] of some chest discomfort as well as shortness breath and occasional diaphoresis. Pain does not feel exactly similar to his prior angina with bypass. More recently however he has been getting more short of breath with minimal exertion over last week and admits he has not really been taking his Lasix consistently and has been missing frequently. He also admits to increased lower extremity edema. Blood work shows hemoglobin 12.2, platelets 134, creatinine 1.1, proBNP 10,300, troponin 0.02, 0.02, 0.02. He was given IV Lasix and feels somewhat better. Echocardiogram shows mild LVH, EF 50-55%, RVSP 53, moderate tricuspid regurgitation. 12/09 Patient seen and examined. Patient continued on IV Lasix and urine output good with decreased lower extremity edema. He has been off of any anticoagulation after his GI bleed however we did restart his aspirin and tolerating well. PHYSICAL EXAMINATION Vital signs reviewed. CONSTITUTIONAL: No apparent distress. HEENT: Head is normocephalic. Pupils are equal, round. Sclerae anicteric. Mucous membranes of the mouth are moist. No JVD. No carotid bruit. CHEST EXAMINATION: Lungs are clear to auscultation. No chest wall tenderness is noted on palpation or with deep breathing. HEART EXAMINATION: Irregular rate and rhythm. S1, S2 heard. No murmurs, gallops or rub. ABDOMEN: Soft, nontender. Positive bowel sounds. EXTREMITIES: 2+ peripheral pulses, 1+ lower extremity edema and no calf tenderness. NEUROLOGIC EXAMINATION: Patient is awake, alert and oriented x3. ASSESSMENT 1. Acute on chronic respiratory failure mainly related to heart failure 2. Acute on chronic diastolic heart failure 3. Chest pain with exertion may be angina however also likely related to heart failure 4. CAD with prior CABG as well as recent PCI of LAD and the diagonal 08/2021 5. Previous history of GI bleed 6. Hypertension 7. Sick sinus syndrome status post permanent pacemaker 8. Persistent atrial fibrillation PLAN Patient's main presentation appears consistent with heart failure related to not taking his diuretics. Continue with IV Lasix and monitor creatinine closely. Patient does however have chest pain worse with exertion and may be anginal however may be mainly a component of heart failure. If continues to have symptoms likely consider outpt stress testing. Ideally anticoagulation however has been discontinued secondary to GI bleed. Continue daily aspirin. Continue with diuretics. Objective - Vital Signs Vital signs: Vital Signs Temp 97.5 F L 12/09/22 09:44 Pulse 90 12/09/22 09:44 Resp 18 12/09/22 09:44 BP 114/76 12/09/22 09:44 Pulse Ox 94 L 12/09/22 08:37 FiO2 Intake & Output 12/08/22 12/09/22 12/09/22 18:59 06:59 18:59 Intake Total 900 Output Total 2870 500 Balance -1969 Weight 148 kg Intake: Oral 900 Output: Urine 2870 500 Other: Voiding Method Urinal - Labs CBC & Chem 7: 12/08/22 06:56 12/09/22 09:49 Labs: Abnormal Lab Results - Last 24 Hours (Table) 12/09/22 Range/Units 09:49 Carbon Dioxide 33 H (22-30) mmol/L BUN 29 H (9-20) mg/dL Glucose 106 H (74-99) mg/dL
--- NOTE | 2022-12-09 13:22 | P.PN ---
Subjective Progress Note Date: 12/09/22 82-year-old male with PMH of atrial fibrillation, CAD with history of CABG, permanent pacemaker, hypertension, dyslipidemia presents the ED for shortness of breath. Patient reports shortness of breath that has been progressively getting worse over the past 4 weeks. He reports noncompliance to his diuretics due to frequent urination. He also reports lower extremity swelling that has been getting worse over the same period of time. He denies any chest pain, palpitations, changes in urination or bowel habits. In the ED, he underwent extensive evaluation. Vital significant for respiratory rate of 26 and desaturating as low as 89% on 2 L nasal cannula. CBC showed hemoglobin of 12.2 with platelet count of 134 INR was 1.2 CMP showed BUN of 26, glucose of 151 BNP is 10,300 Troponin 0.024 EKG showed ventricular pacemaker. Chest x-ray showed mild cardiomegaly. Patient is admitted for acute on chronic diastolic CHF exacerbation. 12/08 Patient was seen and examined. Improved breathing and LE swelling. CBC shows Hg 12.7. BMP shows BUN 26. Troponin 0.027 and 0.021. Echo shows EF 50-55%, atypical septal motion, mild concentric LVH, moderate TR. Discussed with Dr. Baird, history of hypersensitivity pneumonitis, continue Prednisone and IV diuresis. Weight 138.799-136.3kg. Negative fluid balance of 3272 cc. 12/09 Patient was seen and examined. Continued improvement in breathing and LE swelling. BMP shows bicarb 33, BUN 29, glucose 106. Weight 138.799-136.3-148 kg. Negative fluid balance of 2470 cc. General: non toxic, no distress, appears at stated age Derm: warm, dry Head: atraumatic, normocephalic, symmetric Eyes: EOMI, no lid lag, anicteric sclera Cardiovascular: S1S2 irregular, no murmur Lungs: Decreased breath sounds bilateral, no rhonchi, no rales , no accessory muscle use Ext: no gross muscle atrophy, 1-2+ pitting bilateral lower extremity edema, no contractures Neuro: no focal neuro deficits Psych: Alert, oriented, appropriate affect Acute hypoxic respiratory failure Acute on chronic diastolic CHF exacerbation History of hypersensitivity pneumonitis Prerenal azotemia Supratherapeutic INR Normocytic anemia Thrombocytopenia Chronic conditions: atrial fibrillation, CAD with history of CABG, permanent pacemaker, hypertension, dyslipidemia Based on my assessment of this patient, this patient meets a moderate complexity level of care. Patient has a history of CHF with severe exacerbation or progression of disease which poses a threat to life or bodily function. Acute hypoxic respiratory failure Acute on chronic diastolic CHF exacerbation: Lasix 40 mg IV BID. Intake and Outtake. Daily weights. Echocardiogram as above. Monitor electrolytes. Cardiology recommends continued diuresis. History of hypersensitivity pneumonitis: Continue Prednisone. Pulmonology on board. Prerenal azotemia Supratherapeutic INR Normocytic anemia Thrombocytopenia Lovenox SQ for DVT prophylaxis. FULL CODE. I have reviewed the following design center consultant notes: Cards note. I have reviewed the results of the following tests: As above. I have ordered the following tests: BMP. I have discussed the care of this patient with the following independent historian: I have independently interpreted the following test below: I have discussed the management of this patient with the following physician: Objective - Vital Signs Vital signs: Vital Signs Temp 97.7 F 12/09/22 12:47 Pulse 79 12/09/22 12:47 Resp 17 12/09/22 12:47 BP 103/88 12/09/22 12:47 Pulse Ox 97 12/09/22 12:05 FiO2 Intake & Output 12/08/22 12/09/22 12/09/22 18:59 06:59 18:59 Intake Total 900 Output Total 2870 500 Balance -1969 - Weight 148 kg Intake: Oral 900 Output: Urine 2870 500 Other: Voiding Method Urinal # Voids 2 - Labs CBC & Chem 7: 12/08/22 06:56 12/09/22 09:49 Labs: Abnormal Lab Results - Last 24 Hours (Table) 12/09/22 Range/Units 09:49 Carbon Dioxide 33 H (22-30) mmol/L BUN 29 H (9-20) mg/dL Glucose 106 H (74-99) mg/dL
--- NOTE | 2022-12-09 14:54 | P.PN ---
Subjective Progress Note Date: 12/09/22 I am seeing this patient in new consultation today 12/08/2022 after he was admitted yesterday afternoon with progressively worsening shortness of breath over the last couple weeks accompanied with increased lower extremity edema. Patient is an 82-year-old white male with past medical history significant for coronary artery disease status/post CABG and subsequent stenting, atrial fibrillation, permanent pacemaker, hyperlipidemia, hypertension, obstructive sleep apnea, hypothyroidism, and is a remote ex-smoker. His PCP is Dr. Ananth Hendricks. Patient does follow in the pulmonary office with Dr. Vela for a possible diagnosis of hypersensitivity pneumonitis. Patient reports progressively worsening ongoing shortness of breath over the last couple weeks. He also notes increased lower extremity edema. He states that he stopped taking his Lasix 2-3 days ago. He does have increased lower extremity edema. Patient does not weigh himself. Denies any chest pain, palpitations, lightheadedness or syncope. He does endorse orthopnea, and sleeps in recliner at home. Patient denies any infectious symptoms such as fever, productive cough, hemoptysis. He has a chronic dry non-productive cough. Denies sick contacts. Consult for pulmonology was placed because the patient was being worked up for possible hypersensitivity pneumonitis earlier this year. At that time, the patient had been expressing chronic shortness of breath along with a dry nonproductive cough. He has a remote history of smoking. A PFT back in February, was consistent with restrictive lung disease. FEV1 81% of predicted, FVC 67% of predicted, FEV1/FVC ratio 119. Total lung capacity 50% of predicted. DLCO 58%, not corrected for hemoglobin. A CT chest back in March, showed scattered groundglass opacities throughout the lungs. A follow-up right-sided VATS with wedge biopsy May, showed combination of bronchiolocentric interstitial pneumonia, cellular bronchiolitis, and poorly formed nonnecrotizing granulomatosis inflammation strongly suggestive of hypersensitivity pneumonitis. Non-fibrotic variant. A separate biopsy of the lower lobe showed patchy infiltrate of lymphocytes with occasional well formed nonnecrotizing granulomas more closely resembling those seen in sarcoidosis. IRAIDA level and 24-hour urine calcium were normal. Hypersensitivity screen was positive for penicillium and Cladosporium. Patient was started on oral prednisone back in July,. Anyway, I doubt this is causing the patient's current symptoms. Patient is currently lying in bed on an incline, on 2 L/m nasal cannula, in no acute distress. Chest x-ray on arrival showed cardiomegaly. No significant pulmonary vascular congestion or pleural effusions. No focal infiltrates. NT proBNP was elevated at 10,300. Troponins not elevated 3. Patient has been started on Lasix 40 mg twice a day. He states that he has been urinating often. BMP was unremarkable. CBC shows a WBC count 9.7, hemoglobin 12.2, hematocrit 39.7, platelets 134. Patient is hemodynamically stable. On today's evaluation of 12/09/2022, seeing the patient for a follow-up. The patient is feeling slightly improved. The patient has produced at least 60 L fluid negative since he was started on diuretics and the patient remained on Lasix 40 mg IV every 12 hours. The net fluid balance has been -3.2 L and another brother 2.4 L over the past 24 hours. Meanwhile, the patient's has a BUN of 29 with a creatinine of 1.1. Sodium levels of 139. The discomfort is at 8.7 with a hemoglobin 12.7.. Echocardiogram was done and the patient has a preserved LV function with an EF of around 50-55%. The patient has moderate tricuspid regurgitation, severe pulmonary hypertension with a PA pressure of 53. There is mild concentric LVH. Clinically feeling better. Remains on prednisone 20 mg by mouth daily. Remains on Lovenox for DVT prophylaxis. No fever. No chills. No hemodynamic instability. Continues to have some residual edema lower extremity is bilaterally. Objective - Vital Signs Vital signs: Vital Signs Temp 97.5 F L 12/09/22 09:44 Pulse 90 12/09/22 09:44 Resp 18 12/09/22 09:44 BP 114/76 12/09/22 09:44 Pulse Ox 94 L 12/09/22 08:37 FiO2 Intake & Output 12/08/22 12/09/22 12/09/22 18:59 06:59 18:59 Intake Total 900 Output Total 2870 500 Balance -1969 Weight 148 kg Intake: Oral 900 Output: Urine 2870 500 Other: Voiding Method Urinal - Exam GENERAL EXAM: Alert, 82-year-old white male, comfortable in no apparent distress. HEAD: Normocephalic and atraumatic EYES: Normal reaction of pupils, equal size. NOSE: Clear with pink turbinates. THROAT: No erythema or exudates. NECK: No masses, no JVD. CHEST: No chest wall deformity. LUNGS: Equal air entry with no crackles, wheeze, rhonchi or dullness. On 2 L/m nasal cannula. No conversational dyspnea or accessory muscle use.. CVS: S1 and S2 normal with no audible murmur, irregular rhythm. No extra heart sounds. Heart rate currently 80 bpm ABDOMEN: No hepatosplenomegaly, active bowel sounds, no guarding or rigidity. SPINE: No scoliosis or deformity SKIN: No rashes CENTRAL NERVOUS SYSTEM: No focal deficits, tone is normal in all 4 extremities. EXTREMITIES: There is significant for plus pitting edema bilateral lower extremities. No clubbing, or cyanosis. Peripheral pulses are intact. - Labs CBC & Chem 7: 12/08/22 06:56 12/09/22 09:49 Labs: Abnormal Lab Results - Last 24 Hours (Table) 12/09/22 Range/Units 09:49 Carbon Dioxide 33 H (22-30) mmol/L BUN 29 H (9-20) mg/dL Glucose 106 H (74-99) mg/dL Assessment and Plan Assessment: Acute hypoxemic respiratory failure, currently on 2 L/m nasal cannula, secondary to a suspected exacerbation of diastolic congestive heart failure, should be able to transition to room air oxygen History of hypersensitivity pneumonitis, biopsy confirmed, non-fibrotic, currently maintained on oral prednisone. Coronary artery disease with previous coronary artery bypass grafting and subsequent stenting to LAD and diagonal Atrial fibrillation with controlled ventricular rate Permanent pacemaker for an underlying sick sinus syndrome Hypertension Hyperlipidemia Hypothyroidism Obstructive sleep apnea Morbid obesity with a BMI of 42.7 kg/m Diastolic heart failure with a component of fluid overload without evidence of any significant cardiac myopathy. Ejection fraction is within normal limits. The patient has moderate degree of pulmonary hypertension. Plan: Continue Lasix 40 mg every 12 hours Monitor electrolytes Monitor fluid balance The patient has history of chronic hypersensitivity pneumonitis and the patient has been treated with steroids on an outpatient basis and the patient is currently on prednisone as part of a burst taper and currently the patient is on a dose of 20 mg by mouth daily. The patient presented with worsening shortness of breath and the presentation is more typical of CHF on top of his chronic ILD. The patient has lower extremity edema which is improving The patient has increased proBNP level. The patient was started on diuretics and the patient is responding nicely and the patient is currently on Lasix 40 mg IV every 12 hours. He'll be kept on prednisone 20 mg by mouth daily. He has a pacemaker for previous history of sick sinus syndrome. T he patient also has likely a chronic diastolic heart failure in combination with coronary artery disease, previous bypass surgery, previous PCI to LAD and diagonal.
[2022-12-09] MEDS: PRAVASTATIN SODIUM 20 MG TAB PO SCH (20:36)
[2022-12-09] MEDS: AMITRIPTYLINE HCL 10 MG TAB PO SCH (20:37)
[2022-12-09] MEDS: LORATADINE 10 MG TAB PO SCH (20:37)
[2022-12-10] MEDS: LEVOTHYROXINE 75 MCG TAB PO SCH (06:31)
[2022-12-10] MEDS: ENOXAPARIN 40 MG/0.4 ML SYRINGE SQ SCH (08:22)
[2022-12-10] MEDS: FUROSEMIDE 10 MG/ML 4 ML VIAL IV SCH (08:22)
[2022-12-10] MEDS: GABAPENTIN 300 MG CAP PO SCH ×3 (08:22→21:20)
[2022-12-10] MEDS: predniSONE 20 MG TAB PO SCH (08:22)
[2022-12-10] MEDS: ASPIRIN 81 MG PO SCH (08:22)
[2022-12-10] MEDS: PANTOPRAZOLE 40 MG TABLET PO SCH (08:22)
[2022-12-10] MEDS: METOPROLOL TARTRATE 25 MG TAB PO SCH ×2 (08:22→20:45)
[2022-12-10 09:48] LABS: African American GFR (CKD) 69 (>60 ml/min/1.73 sqM); Anion Gap 13 mmol/L; Blood Urea Nitrogen 33 mg/dL (9-20); Calcium 9.3 mg/dL (8.4-10.2); Carbon Dioxide 30 mmol/L (22-30); Chloride 97 mmol/L (98-107); Glucose 201 mg/dL (74-99); Non-African American GFR(CKD) 60 (>60 ml/min/1.73 sqM); Potassium 3.6 mmol/L (3.5-5.1); Sodium 140 mmol/L (137-145)
--- NOTE | 2022-12-10 11:44 | P.PN ---
Subjective Progress Note Date: 12/10/22 I am seeing this patient in new consultation today 12/08/2022 after he was admitted yesterday afternoon with progressively worsening shortness of breath over the last couple weeks accompanied with increased lower extremity edema. Patient is an 82-year-old white male with past medical history significant for coronary artery disease status/post CABG and subsequent stenting, atrial fibrillation, permanent pacemaker, hyperlipidemia, hypertension, obstructive sleep apnea, hypothyroidism, and is a remote ex-smoker. His PCP is Dr. Ananth Hendricks. Patient does follow in the pulmonary office with Dr. Vela for a possible diagnosis of hypersensitivity pneumonitis. Patient reports progressively worsening ongoing shortness of breath over the last couple weeks. He also notes increased lower extremity edema. He states that he stopped taking his Lasix 2-3 days ago. He does have increased lower extremity edema. Patient does not weigh himself. Denies any chest pain, palpitations, lightheadedness or syncope. He does endorse orthopnea, and sleeps in recliner at home. Patient denies any infectious symptoms such as fever, productive cough, hemoptysis. He has a chronic dry non-productive cough. Denies sick contacts. Consult for pulmonology was placed because the patient was being worked up for possible hypersensitivity pneumonitis earlier this year. At that time, the patient had been expressing chronic shortness of breath along with a dry nonproductive cough. He has a remote history of smoking. A PFT back in February, was consistent with restrictive lung disease. FEV1 81% of predicted, FVC 67% of predicted, FEV1/FVC ratio 119. Total lung capacity 50% of predicted. DLCO 58%, not corrected for hemoglobin. A CT chest back in March, showed scattered groundglass opacities throughout the lungs. A follow-up right-sided VATS with wedge biopsy May, showed combination of bronchiolocentric interstitial pneumonia, cellular bronchiolitis, and poorly formed nonnecrotizing granulomatosis inflammation strongly suggestive of hypersensitivity pneumonitis. Non-fibrotic variant. A separate biopsy of the lower lobe showed patchy infiltrate of lymphocytes with occasional well formed nonnecrotizing granulomas more closely resembling those seen in sarcoidosis. IRAIDA level and 24-hour urine calcium were normal. Hypersensitivity screen was positive for penicillium and Cladosporium. Patient was started on oral prednisone back in July,. Anyway, I doubt this is causing the patient's current symptoms. Patient is currently lying in bed on an incline, on 2 L/m nasal cannula, in no acute distress. Chest x-ray on arrival showed cardiomegaly. No significant pulmonary vascular congestion or pleural effusions. No focal infiltrates. NT proBNP was elevated at 10,300. Troponins not elevated 3. Patient has been started on Lasix 40 mg twice a day. He states that he has been urinating often. BMP was unremarkable. CBC shows a WBC count 9.7, hemoglobin 12.2, hematocrit 39.7, platelets 134. Patient is hemodynamically stable. On today's evaluation of 12/09/2022, seeing the patient for a follow-up. The patient is feeling slightly improved. The patient has produced at least 60 L fluid negative since he was started on diuretics and the patient remained on Lasix 40 mg IV every 12 hours. The net fluid balance has been -3.2 L and another brother 2.4 L over the past 24 hours. Meanwhile, the patient's has a BUN of 29 with a creatinine of 1.1. Sodium levels of 139. The discomfort is at 8.7 with a hemoglobin 12.7.. Echocardiogram was done and the patient has a preserved LV function with an EF of around 50-55%. The patient has moderate tricuspid regurgitation, severe pulmonary hypertension with a PA pressure of 53. There is mild concentric LVH. Clinically feeling better. Remains on prednisone 20 mg by mouth daily. Remains on Lovenox for DVT prophylaxis. No fever. No chills. No hemodynamic instability. Continues to have some residual edema lower extremity is bilaterally. On 12/10/2022, the patient continued to diabetes aggressively. His weight is down to 132 kg and the patient is already feeling better. He remains on IV Lasix 40 mg IV every 12 hours. He remains on oxygen at 2 L. Pulse ox is 97%. We'll try to wean him down. Echocardiogram showed a preserved LV function with an EF of around 50-55%. Lower extremity edema is improving. He does have moderate to severe pulmonary hypertension with a PA pressure of 54-year-old with moderate amount of tricuspid regurgitation. No other new complaints otherwise for now. He remains on prednisone 20 mg by mouth daily regarding his chronic hypersensitivity pneumonitis. Objective - Vital Signs Vital signs: Vital Signs Temp 97.6 F 12/10/22 08:21 Pulse 61 12/10/22 11:07 Resp 18 12/10/22 11:07 BP 104/72 12/10/22 11:07 Pulse Ox 89 L 12/10/22 11:07 FiO2 Intake & Output 12/09/22 12/10/22 12/10/22 18:59 06:59 18:59 Intake Total 540 118 Output Total 1475 525 Balance 540 -1475 -407 Weight 148 kg 132.6 kg Intake: Oral 540 118 Output: Urine 1475 525 Other: Voiding Method Urinal Urinal Urinal # Voids 2 1 - Exam GENERAL EXAM: Alert, 82-year-old white male, comfortable in no apparent distress. HEAD: Normocephalic and atraumatic EYES: Normal reaction of pupils, equal size. NOSE: Clear with pink turbinates. THROAT: No erythema or exudates. NECK: No masses, no JVD. CHEST: No chest wall deformity. LUNGS: Equal air entry with no crackles, wheeze, rhonchi or dullness. On 2 L/m nasal cannula. No conversational dyspnea or accessory muscle use.. CVS: S1 and S2 normal with no audible murmur, irregular rhythm. No extra heart sounds. Heart rate currently 80 bpm ABDOMEN: No hepatosplenomegaly, active bowel sounds, no guarding or rigidity. SPINE: No scoliosis or deformity SKIN: No rashes CENTRAL NERVOUS SYSTEM: No focal deficits, tone is normal in all 4 extremities. EXTREMITIES: There is significant for plus pitting edema bilateral lower extremities. No clubbing, or cyanosis. Peripheral pulses are intact. - Labs CBC & Chem 7: 12/08/22 06:56 12/10/22 09:08 Labs: Abnormal Lab Results - Last 24 Hours (Table) 12/10/22 Range/Units 09:08 Chloride 97 L (98-107) mmol/L BUN 33 H (9-20) mg/dL Glucose 201 H (74-99) mg/dL Assessment and Plan Assessment: Acute hypoxemic respiratory failure, currently on 2 L/m nasal cannula, secondary to a suspected exacerbation of diastolic congestive heart failure, should be able to transition to room air oxygen History of hypersensitivity pneumonitis, biopsy confirmed, non-fibrotic, currently maintained on oral prednisone. Coronary artery disease with previous coronary artery bypass grafting and subsequent stenting to LAD and diagonal Atrial fibrillation with controlled ventricular rate Permanent pacemaker for an underlying sick sinus syndrome Hypertension Hyperlipidemia Hypothyroidism Obstructive sleep apnea Morbid obesity with a BMI of 42.7 kg/m Diastolic heart failure with a component of fluid overload without evidence of any significant cardiac myopathy. Ejection fraction is within normal limits. The patient has moderate degree of pulmonary hypertension. Plan: Patient continues to diabetes with a negative fluid balance and the weight is down 232 kg Continue Lasix 40 mg every 12 hours Monitor electrolytes, shows a potassium level of 3.6 needs to be replaced. BUN is at 33 with a creatinine of 1.1. Monitor fluid balance, which is essentially negative The patient has history of chronic hypersensitivity pneumonitis and the patient has been treated with steroids on an outpatient basis and the patient is currently on prednisone as part of a burst taper and currently the patient is on a dose of 20 mg by mouth daily. The patient presented with worsening shortness of breath and the presentation is more typical of CHF on top of his chronic ILD. The patient has lower extremity edema which is improving The patient has increased proBNP level. The patient was started on diuretics and the patient is responding nicely and the patient is currently on Lasix 40 mg IV every 12 hours. He'll be kept on prednisone 20 mg by mouth daily. He has a pacemaker for previous history of sick sinus syndrome. he patient also has likely a chronic diastolic heart failure in combination with coronary artery disease, previous bypass surgery, previous PCI to LAD and diagonal. Wean down FiO2 currently on 2 L.
--- NOTE | 2022-12-10 12:00 | P.PN ---
Subjective Progress Note Date: 12/10/22 HISTORY OF PRESENTING ILLNESS Patient is pleasant 82-year-old male with history of CAD with prior CABG as well as stenting, persistent atrial fibrillation, sick sinus syndrome status post permanent pacemaker, hypertension, hyperlipidemia, obstructive sleep apnea, hypothyroidism, remote tobacco abuse, diastolic heart failure. He follows in the office with Dr. Kwok. He has prior history of CABG with BARRETO to LAD as well as SVG to diagonal occluded and SVG to PLV occluded and had undergone stenting in August 2021. Additionally he had GI bleed in September however has recovered from that. Unfortunately over last 1 month he has been having episodes of some chest discomfort as well as shortness breath and occasional diaphoresis. Pain does not feel exactly similar to his prior angina with bypass. More recently however he has been getting more short of breath with minimal exertion over last week and admits he has not really been taking his Lasix consistently and has been missing frequently. He also admits to increased lower extremity edema. Blood work shows hemoglobin 12.2, platelets 134, creatinine 1.1, proBNP 10,300, troponin 0.02, 0.02, 0.02. He was given IV Lasix and feels somewhat better. Echocardiogram shows mild LVH, EF 50-55%, RVSP 53, moderate tricuspid regurgitation. 12/09 Patient seen and examined. Patient continued on IV Lasix and urine output good with decreased lower extremity edema. He has been off of any anticoagulation after his GI bleed however we did restart his aspirin and tolerating well. 12/10 Patient states he is feeling tired, still short of breath. He has been urinating well. He denies chest pain. Patient does have shortness of breath with walking short distances. He has been continued on IV Lasix. Heart rate is in the 60s, blood pressure 104/72, pulse ox 89% on room air. Repeat blood work reveals potassium 3.6, creatinine 1.15 and BUN 33. PHYSICAL EXAMINATION Vital signs reviewed. CONSTITUTIONAL: No apparent distress. HEENT: Head is normocephalic. Pupils are equal, round. Sclerae anicteric. Mucous membranes of the mouth are moist. No JVD. No carotid bruit. CHEST EXAMINATION: Lungs are clear to auscultation. No chest wall tenderness is noted on palpation or with deep breathing. HEART EXAMINATION: Irregular rate and rhythm. S1, S2 heard. No murmurs, gallops or rub. ABDOMEN: Soft, nontender. Positive bowel sounds. EXTREMITIES: 2+ peripheral pulses, 1+ lower extremity edema and no calf tenderness. NEUROLOGIC EXAMINATION: Patient is awake, alert and oriented x3. ASSESSMENT 1. Acute on chronic respiratory failure mainly related to heart failure 2. Acute on chronic diastolic heart failure 3. Chest pain with exertion may be angina however also likely related to heart failure 4. CAD with prior CABG as well as recent PCI of LAD and the diagonal 08/2021 5. Previous history of GI bleed 6. Hypertension 7. Sick sinus syndrome status post permanent pacemaker 8. Persistent atrial fibrillation PLAN Patient's main presentation appears consistent with heart failure related to not taking his diuretics. Transition IV Lasix to oral 40 mg daily Patient is cleared for discharge from cardiology may follow-up in the office in one to [address] Kwok. Nurse practitioner note has been reviewed, I agree with the documented findings and plan of care. Patient was seen and examined. Objective - Vital Signs Vital signs: Vital Signs Temp 97.6 F 12/10/22 08:21 Pulse 61 12/10/22 11:07 Resp 18 12/10/22 11:07 BP 104/72 12/10/22 11:07 Pulse Ox 89 L 12/10/22 11:07 FiO2 Intake & Output 12/09/22 12/10/22 12/10/22 18:59 06:59 18:59 Intake Total 540 118 Output Total 1475 275 Balance 540 -1475 -157 Weight 148 kg 132.6 kg Intake: Oral 540 118 Output: Urine 1475 275 Other: Voiding Method Urinal Urinal Urinal # Voids 2 1 - Labs CBC & Chem 7: 12/08/22 06:56 12/10/22 09:08 Labs: Abnormal Lab Results - Last 24 Hours (Table) 12/10/22 Range/Units 09:08 Chloride 97 L (98-107) mmol/L BUN 33 H (9-20) mg/dL Glucose 201 H (74-99) mg/dL
--- NOTE | 2022-12-10 12:12 | P.DS ---
Providers Date of admission: 12/07/22 15:30 Expected date of discharge: 12/10/22 Attending physician: Ryan Malik MD Consults: 12/07/22 15:30 Consult Physician Routine Consulting Provider: Jimmy Vela Consult Reason/Comments: dyspnea, history of fungal infection? Do you want consulting provider notified?: Yes Consult Physician Routine Consulting Provider: [facility] Consult Reason/Comments: chf, dyspnea Do you want consulting provider notified?: Yes Primary care physician: Ananth Hendricks MD Hospital Course: 82-year-old male with PMH of atrial fibrillation, CAD with history of CABG, permanent pacemaker, hypertension, dyslipidemia presents the ED for shortness of breath. Patient reports shortness of breath that has been progressively getting worse over the past 4 weeks. He reports noncompliance to his diuretics due to frequent urination. He also reports lower extremity swelling that has been getting worse over the same period of time. He denies any chest pain, palpitations, changes in urination or bowel habits. In the ED, he underwent extensive evaluation. Vital significant for respiratory rate of 26 and desaturating as low as 89% on 2 L nasal cannula. CBC showed hemoglobin of 12.2 with platelet count of 134 INR was 1.2 CMP showed BUN of 26, glucose of 151 BNP is 10,300 Troponin 0.024 EKG showed ventricular pacemaker. Chest x-ray showed mild cardiomegaly. Patient is admitted for acute on chronic diastolic CHF exacerbation. 12/08 Patient was seen and examined. Improved breathing and LE swelling. CBC shows Hg 12.7. BMP shows BUN 26. Troponin 0.027 and 0.021. Echo shows EF 50-55%, atypical septal motion, mild concentric LVH, moderate TR. Discussed with Dr. Baird, history of hypersensitivity pneumonitis, continue Prednisone and IV diuresis. Weight 138.799-136.3kg. Negative fluid balance of 3272 cc. 12/09 Patient was seen and examined. Continued improvement in breathing and LE swelling. BMP shows bicarb 33, BUN 29, glucose 106. Weight 138.799-136.3-148 kg. Negative fluid balance of 2470 cc. 12/10 Patient was seen and examined. He reports improved breathing and LE swelling. Cardiology has switched the Lasix from IV to PO. Cleared for discharge today. Home O2 eval pending at the time of this note. Advised 1.5L fluid restriction and low salt diet. Follow up with PCP within 1-2 days, Cardiology within 1 week of discharge. Pertinent studies include CXR, Echo. General: non toxic, no distress, appears at stated age Derm: warm, dry Head: atraumatic, normocephalic, symmetric Eyes: EOMI, no lid lag, anicteric sclera Cardiovascular: S1S2 irregular, no murmur Lungs: Decreased breath sounds bilateral, no rhonchi, no rales , no accessory muscle use Ext: no gross muscle atrophy, 1-2+ pitting bilateral lower extremity edema, no contractures Neuro: no focal neuro deficits Psych: Alert, oriented, appropriate affect Discharge Diagnosis: Acute hypoxic respiratory failure Acute on chronic diastolic CHF exacerbation History of hypersensitivity pneumonitis Prerenal azotemia Supratherapeutic INR Normocytic anemia Thrombocytopenia Chronic conditions: atrial fibrillation, CAD with history of CABG, permanent pacemaker, hypertension, dyslipidemia This complex discharge took 35 minutes to complete. Patient Condition at Discharge: Stable Plan - Discharge Summary Discharge Rx Participant: No New Discharge Prescriptions: New Aspirin 81 mg PO DAILY #30 tab Continue Multivitamins, Thera [Multivitamin (formulary)] 1 tab PO DAILY Loratadine 10 mg PO HS Nitroglycerin Sl Tabs [Nitrostat] 0.4 mg SUBLINGUAL Q5M PRN PRN Reason: Chest Pain Melatonin 5 - 10 mg PO HS PRN PRN Reason: Insomnia Metoprolol Tartrate [Lopressor] 25 mg PO BID Pravastatin Sodium [Pravachol] 10 mg PO HS Potassium Citrate 99 mg PO DAILY Cholecalciferol [Vitamin D3 (25 Mcg = 1000 Iu)] 25 mcg PO DAILY predniSONE 20 mg PO DAILY Pantoprazole Sodium [Protonix] 40 mg PO DAILY Glucosa Urrutia 2Kcl/Chondroitin Urrutia [Glucosamine-Chondroitin Cap] 1 cap PO DAILY Gabapentin 600 mg PO TID Calcium Carbonate [Calcium] 600 mg PO DAILY Amitriptyline HCl 10 mg PO HS Cyanocobalamin (Vitamin B-12) [Vitamin B-12] 2,500 mcg PO DAILY Levothyroxine Sodium [Synthroid] 37.5 mcg PO SUSA Magnesium Oxide [Magox 400] 400 mg PO DAILY Levothyroxine Sodium [Synthroid] 75 mcg PO MOTUWETHFR Cabergoline 0.5 mg PO TU Furosemide [Lasix] 40 mg PO DAILY #30 tab Discharge Medication List Multivitamins, Thera [Multivitamin (formulary)] 1 tab PO DAILY 04/03/16 [History] Loratadine 10 mg PO HS 11/18/16 [History] Melatonin 5 - 10 mg PO HS PRN 11/18/16 [History] Nitroglycerin Sl Tabs [Nitrostat] 0.4 mg SUBLINGUAL Q5M PRN 11/18/16 [History] Cholecalciferol [Vitamin D3 (25 Mcg = 1000 Iu)] 25 mcg PO DAILY 08/19/21 [History] Metoprolol Tartrate [Lopressor] 25 mg PO BID 08/19/21 [History] Potassium Citrate 99 mg PO DAILY 08/19/21 [History] Pravastatin Sodium [Pravachol] 10 mg PO HS 08/19/21 [History] Levothyroxine Sodium [Synthroid] 37.5 mcg PO SUSA 05/12/22 [History] Amitriptyline HCl 10 mg PO HS 12/07/22 [History] Cabergoline 0.5 mg PO TU 12/07/22 [History] Calcium Carbonate [Calcium] 600 mg PO DAILY 12/07/22 [History] Cyanocobalamin (Vitamin B-12) [Vitamin B-12] 2,500 mcg PO DAILY 12/07/22 [History] Gabapentin 600 mg PO TID 12/07/22 [History] Glucosa Urrutia 2Kcl/Chondroitin Urrutia [Glucosamine-Chondroitin Cap] 1 cap PO DAILY 12/07/22 [History] Levothyroxine Sodium [Synthroid] 75 mcg PO MOTUWETHFR 12/07/22 [History] Magnesium Oxide [Magox 400] 400 mg PO DAILY 12/07/22 [History] Pantoprazole Sodium [Protonix] 40 mg PO DAILY 12/07/22 [History] predniSONE 20 mg PO DAILY 12/07/22 [History] Aspirin 81 mg PO DAILY #30 tab 12/10/22 [Rx] Furosemide [Lasix] 40 mg PO DAILY #30 tab 12/10/22 [Rx] Follow up Appointment(s)/Referral(s): Reymundo Acevedo DO [STAFF PHYSICIAN] - 1 Week Ananth Hendricks MD [Primary Care Provider] - 1-2 days Activity/Diet/Wound Care/Special Instructions: Low salt diet Fluid restriction Discharge Disposition: HOME SELF-CARE
--- NOTE | 2022-12-10 15:26 | CT ---
CT CHEST FOR PULMONARY EMBOLISM. EXAMINATION TYPE: CT chest angio for PE DATE OF EXAM: 12/10/2022 INDICATION: SOB x [address] DLP: 1048 mGycm, Automated exposure control for dose reduction was used. CONTRAST: Patient injected with 80 cc mL of Isovue 370. COMPARISON: TECHNIQUE: CT of the chest is performed on a spiral scan at 2 mm thick sections. Study is performed with intravenous contrast timed for evaluation for pulmonary embolism. This will limit additional po rtions of the evaluation. 3-D MIP images reconstructed by the technologist are reviewed on the compu ter in the coronal and sagittal planes. FINDINGS: Acute pulmonary embolism is in the right upper lobe branch. There appears to be acute right lower lob e pulmonary embolism as well. No mediastinal or hilar adenopathy enlarged by CT criteria is evident. The ascending aorta diameter at the level of the main pulmonary artery is 4.1 cm. The main pulmonary artery diameter at the bifur cation is 3.2 cm. Lung windows are clear. Diffuse peribronchial thickening is present. Correlate for chronic bronchitis . Limited CT section through the upper abdomen are unremarkable. IMPRESSION: 1. Acute right upper and lower lobe luminary emboli.
[2022-12-10] MEDS ORDERED: Apixaban Initiation Dose--VTE 5 MG TAB PO SCH (15:53)
[2022-12-10] MEDS ORDERED: HEPARIN SODIUM 1,000 UN/ML (10ML VL) IV PRN (16:11)
[2022-12-10] MEDS: HEPARIN SOD,PORK IN 0.45% NACL 25,000 UNIT in 0.45% NACL 1 250ML.BAG IV SCH (17:04)
[2022-12-10 17:18] LABS: INR 1.1 (<1.2); Partial Thromboplastin Time 24.3 sec (22.0-30.0); Prothrombin Time 11.7 sec (10.0-12.5)
[2022-12-10] MEDS: PRAVASTATIN SODIUM 20 MG TAB PO SCH (20:45)
[2022-12-10] MEDS: AMITRIPTYLINE HCL 10 MG TAB PO SCH (20:45)
[2022-12-10] MEDS: LORATADINE 10 MG TAB PO SCH (20:45)
--- NOTE | 2022-12-10 22:15 | US ---
EXAMINATION TYPE: US venous doppler duplex LE DATE OF EXAM: 12/10/2022 9:38 PM Exam done portable COMPARISON: NONE CLINICAL INDICATION: Male, 82 years old with history of PE; SIDE PERFORMED: Bilateral TECHNIQUE: The lower extremity deep venous system is examined utilizing real time linear array sonog douglas with graded compression, doppler sonography and color-flow sonography. VESSELS IMAGED: Common Femoral Vein Deep Femoral Vein Greater Saphenous Vein * Femoral Vein Popliteal Vein Small Saphenous Vein * Proximal Calf Veins (* superficial vessels) Difficult study due to bilateral leg swelling Right Leg: Appears negative for DVT Left Leg: Appears positive for DVT in one of the proximal calf veins IMPRESSION: 1. Deep venous thrombosis proximal left calf veins.
[2022-12-11] MEDS: HEPARIN SOD,PORK IN 0.45% NACL 25,000 UNIT in 0.45% NACL 1 250ML.BAG IV SCH ×3 (03:44→20:31)
[2022-12-11] MEDS: LEVOTHYROXINE 75 MCG TAB PO SCH (05:50)
[2022-12-11 07:44] LABS: Anisocytosis Slight; Basophils # (A) 0.1 k/uL (0-0.2); Basophils % (A) 1 %; Eosinophils # (A) 0.2 k/uL (0-0.7); Eosinophils % (A) 2 %; HCT 44.4 % (39.0-53.0); HGB 14.1 gm/dL (13.0-17.5); Hypochromasia Moderate; Lymphocytes % (A) 21 %; MCH 27.5 pg (25.0-35.0); MCHC 31.7 g/dL (31.0-37.0); MCV 86.8 fL (80.0-100.0); Mean Platelet Volume 9.2; Monocytes # (A) 0.5 k/uL (0-1.0); Monocytes % (A) 6 %; Neutrophils # (A) 6.8 k/uL (1.3-7.7); Neutrophils % (A) 70 %; Platelet Count 167 k/uL (150-450); RBC 5.11 m/uL (4.30-5.90); WBC 9.7 k/uL (3.8-10.6)
[2022-12-11] MEDS: FUROSEMIDE 40 MG TAB PO SCH (08:20)
[2022-12-11] MEDS: ASPIRIN 81 MG PO SCH (08:20)
[2022-12-11] MEDS: GABAPENTIN 300 MG CAP PO SCH ×3 (08:20→20:28)
[2022-12-11] MEDS: METOPROLOL TARTRATE 25 MG TAB PO SCH ×2 (08:20→20:29)
[2022-12-11] MEDS: predniSONE 20 MG TAB PO SCH (08:20)
[2022-12-11] MEDS: PANTOPRAZOLE 40 MG TABLET PO SCH (08:20)
[2022-12-11 08:58] LABS: ALT 25 U/L (4-49); AST 21 U/L (17-59); African American GFR (CKD) 67 (>60 ml/min/1.73 sqM); Albumin 3.8 g/dL (3.5-5.0); Alkaline Phosphatase 70 U/L (38-126); Anion Gap 7 mmol/L; Blood Urea Nitrogen 30 mg/dL (9-20); Calcium 9.8 mg/dL (8.4-10.2); Carbon Dioxide 30 mmol/L (22-30); Chloride 100 mmol/L (98-107); Glucose 104 mg/dL (74-99); Non-African American GFR(CKD) 58 (>60 ml/min/1.73 sqM); Potassium 3.8 mmol/L (3.5-5.1); Sodium 137 mmol/L (137-145); Total Bilirubin 0.9 mg/dL (0.2-1.3); Total Protein 6.2 g/dL (6.3-8.2)
--- NOTE | 2022-12-11 11:46 | P.PN ---
Subjective Progress Note Date: 12/11/22 82-year-old male with PMH of atrial fibrillation, CAD with history of CABG, permanent pacemaker, hypertension, dyslipidemia presents the ED for shortness of breath. Patient reports shortness of breath that has been progressively getting worse over the past 4 weeks. He reports noncompliance to his diuretics due to frequent urination. He also reports lower extremity swelling that has been getting worse over the same period of time. He denies any chest pain, palpitations, changes in urination or bowel habits. In the ED, he underwent extensive evaluation. Vital significant for respiratory rate of 26 and desaturating as low as 89% on 2 L nasal cannula. CBC showed hemoglobin of 12.2 with platelet count of 134 INR was 1.2 CMP showed BUN of 26, glucose of 151 BNP is 10,300 Troponin 0.024 EKG showed ventricular pacemaker. Chest x-ray showed mild cardiomegaly. Patient is admitted for acute on chronic diastolic CHF exacerbation. 12/08 Patient was seen and examined. Improved breathing and LE swelling. CBC shows Hg 12.7. BMP shows BUN 26. Troponin 0.027 and 0.021. Echo shows EF 50-55%, atypical septal motion, mild concentric LVH, moderate TR. Discussed with Dr. Baird, history of hypersensitivity pneumonitis, continue Prednisone and IV diuresis. Weight 138.799-136.3kg. Negative fluid balance of 3272 cc. 12/09 Patient was seen and examined. Continued improvement in breathing and LE swelling. BMP shows bicarb 33, BUN 29, glucose 106. Weight 138.799-136.3-148 kg. Negative fluid balance of 2470 cc. 12/11 Patient was seen and examined. Transitioned to oral lasix yesterday. Home O2 eval performed, found to be hypoxic to 77% on RA with ambulation. CTA chest ordered which was + for PE. Venous doppler + for DVT. He was previously on Eliquis but was discontinued due to GI bleed in the past. He was started on heparin drip yesterday. Discussed with Dr. Argueta, continue heparin drip for one more day and monitor for GI bleed, possibly transition to Eliquis tomorrow. Hematology consulted as well. CBC is benign. APTT 136.2. BMP Na 30, glucose 104. General: non toxic, no distress, appears at stated age Derm: warm, dry Head: atraumatic, normocephalic, symmetric Eyes: EOMI, no lid lag, anicteric sclera Cardiovascular: S1S2 irregular, no murmur Lungs: Decreased breath sounds bilateral, no rhonchi, no rales , no accessory muscle use Ext: no gross muscle atrophy, 1-2+ pitting bilateral lower extremity edema, no contractures Neuro: no focal neuro deficits Psych: Alert, oriented, appropriate affect Acute hypoxic respiratory failure Pulmonary embolus with DVT Acute on chronic diastolic CHF exacerbation History of hypersensitivity pneumonitis Prerenal azotemia Chronic conditions: atrial fibrillation, CAD with history of CABG, permanent pacemaker, hypertension, dyslipidemia Based on my assessment of this patient, this patient meets a high complexity level of care. Patient has a history of CHF with severe exacerbation or progression of disease which poses a threat to life or bodily function. Acute hypoxic respiratory failure Pulmonary embolus with DVT: Continue heparin drip. History of GI bleed. Consult hematology. Transition to Eliquis tomorrow if no bleed. Acute on chronic diastolic CHF exacerbation: Lasix 40 mg PO QD. Intake and Outtake. Daily weights. Echocardiogram as above. Monitor electrolytes. Cardiology has cleared the patient for discharge. History of hypersensitivity pneumonitis: Continue Prednisone. Pulmonology on board. Prerenal azotemia Lovenox SQ for DVT prophylaxis. FULL CODE. I have reviewed the following media consultant notes: I have reviewed the results of the following tests: As above. I have ordered the following tests: CBC, APTT, BMP. I have discussed the care of this patient with the following independent historian: I have independently interpreted the following test below: I have discussed the management of this patient with the following physician: Discussed with Dr. Baird. Objective - Vital Signs Vital signs: Vital Signs Temp 97.5 F L 12/11/22 11:22 Pulse 82 12/11/22 11:22 Resp 20 12/11/22 11:22 BP 144/105 12/11/22 11:22 Pulse Ox 98 12/11/22 11:22 FiO2 Intake & Output 12/10/22 12/11/22 12/11/22 18:59 06:59 18:59 Intake Total 476 245.323 587.329 Output Total 525 425 Balance -49 245.323 162.329 Weight 133.6 kg Intake: Intake, IV Titration 245.323 107.329 Amount Heparin Sod,Pork in 0.45% 245.323 107.329 NaCl 25,000 unit In 0.45 % NaCl 1 250ml.bag @ 17. 345 UNITS/KG/HR 22.999 mls/hr IV .[id number] [facility] Rx #:[id number] Oral 476 480 Output: Urine 525 425 Other: Voiding Method Urinal Urinal Urinal - Labs CBC & Chem 7: 12/11/22 07:17 12/11/22 07:17 Labs: Abnormal Lab Results - Last 24 Hours (Table) 12/10/22 12/11/22 12/11/22 Range/Units 23:32 07:17 07:17 RDW 16.0 H (11.5-15.5) % APTT 76.0 H 136.2 H* (22.0-30.0) sec BUN (9-20) mg/dL Glucose (74-99) mg/dL Total Protein (6.3-8.2) g/dL 12/11/22 Range/Units 07:17 RDW (11.5-15.5) % APTT (22.0-30.0) sec BUN 30 H (9-20) mg/dL Glucose 104 H (74-99) mg/dL Total Protein 6.2 L (6.3-8.2) g/dL
--- NOTE | 2022-12-11 12:18 | P.PN ---
Subjective Progress Note Date: 12/11/22 I am seeing this patient in new consultation today 12/08/2022 after he was admitted yesterday afternoon with progressively worsening shortness of breath over the last couple weeks accompanied with increased lower extremity edema. Patient is an 82-year-old white male with past medical history significant for coronary artery disease status/post CABG and subsequent stenting, atrial fibrillation, permanent pacemaker, hyperlipidemia, hypertension, obstructive sleep apnea, hypothyroidism, and is a remote ex-smoker. His PCP is Dr. Ananth Hendricks. Patient does follow in the pulmonary office with Dr. Vela for a possible diagnosis of hypersensitivity pneumonitis. Patient reports progressively worsening ongoing shortness of breath over the last couple weeks. He also notes increased lower extremity edema. He states that he stopped taking his Lasix 2-3 days ago. He does have increased lower extremity edema. Patient does not weigh himself. Denies any chest pain, palpitations, lightheadedness or syncope. He does endorse orthopnea, and sleeps in recliner at home. Patient denies any infectious symptoms such as fever, productive cough, hemoptysis. He has a chronic dry non-productive cough. Denies sick contacts. Consult for pulmonology was placed because the patient was being worked up for possible hypersensitivity pneumonitis earlier this year. At that time, the patient had been expressing chronic shortness of breath along with a dry nonproductive cough. He has a remote history of smoking. A PFT back in February, was consistent with restrictive lung disease. FEV1 81% of predicted, FVC 67% of predicted, FEV1/FVC ratio 119. Total lung capacity 50% of predicted. DLCO 58%, not corrected for hemoglobin. A CT chest back in March, showed scattered groundglass opacities throughout the lungs. A follow-up right-sided VATS with wedge biopsy May, showed combination of bronchiolocentric interstitial pneumonia, cellular bronchiolitis, and poorly formed nonnecrotizing granulomatosis inflammation strongly suggestive of hypersensitivity pneumonitis. Non-fibrotic variant. A separate biopsy of the lower lobe showed patchy infiltrate of lymphocytes with occasional well formed nonnecrotizing granulomas more closely resembling those seen in sarcoidosis. IRAIDA level and 24-hour urine calcium were normal. Hypersensitivity screen was positive for penicillium and Cladosporium. Patient was started on oral prednisone back in July,. Anyway, I doubt this is causing the patient's current symptoms. Patient is currently lying in bed on an incline, on 2 L/m nasal cannula, in no acute distress. Chest x-ray on arrival showed cardiomegaly. No significant pulmonary vascular congestion or pleural effusions. No focal infiltrates. NT proBNP was elevated at 10,300. Troponins not elevated 3. Patient has been started on Lasix 40 mg twice a day. He states that he has been urinating often. BMP was unremarkable. CBC shows a WBC count 9.7, hemoglobin 12.2, hematocrit 39.7, platelets 134. Patient is hemodynamically stable. On today's evaluation of 12/09/2022, seeing the patient for a follow-up. The patient is feeling slightly improved. The patient has produced at least 60 L fluid negative since he was started on diuretics and the patient remained on Lasix 40 mg IV every 12 hours. The net fluid balance has been -3.2 L and another brother 2.4 L over the past 24 hours. Meanwhile, the patient's has a BUN of 29 with a creatinine of 1.1. Sodium levels of 139. The discomfort is at 8.7 with a hemoglobin 12.7.. Echocardiogram was done and the patient has a preserved LV function with an EF of around 50-55%. The patient has moderate tricuspid regurgitation, severe pulmonary hypertension with a PA pressure of 53. There is mild concentric LVH. Clinically feeling better. Remains on prednisone 20 mg by mouth daily. Remains on Lovenox for DVT prophylaxis. No fever. No chills. No hemodynamic instability. Continues to have some residual edema lower extremity is bilaterally. On 12/10/2022, the patient continued to diabetes aggressively. His weight is down to 132 kg and the patient is already feeling better. He remains on IV Lasix 40 mg IV every 12 hours. He remains on oxygen at 2 L. Pulse ox is 97%. We'll try to wean him down. Echocardiogram showed a preserved LV function with an EF of around 50-55%. Lower extremity edema is improving. He does have moderate to severe pulmonary hypertension with a PA pressure of 54-year-old with moderate amount of tricuspid regurgitation. No other new complaints otherwise for now. He remains on prednisone 20 mg by mouth daily regarding his chronic hypersensitivity pneumonitis. On 12/11/2022, the patient is stable and he has no specific complaints. Note that, the patient was improving. At home evaluation was done and the patient was desaturating. Based on that, a CT angiogram was done and the patient was found to have subsegmental pulmonary embolism involving the right upper lobe and the lower lobe, furthermore, Doppler of lower extremity was done and the patient was found to have a left DVT. Currently is on IV heparin. Note that he has been maintained on anticoagulation with Eliquis and this was stopped as the patient encounter day significant lower GI bleed for which she was transferred to another hospital, [facility] and he underwent treatment for GI bleeding in his anticoagulation has been stopped since. As such, we are not sure of the details of his previous GI bleed. We opted to put this patient anticoagulation with IV heparin for now. He also has history of atrial fibrillation. He is in need for long-term and cognition as long as he doesn't demonstrate any signs of GI bleeding. his blood work shows edematous count 9.7, he was 14, BUN is at 30 with a creatinine 1.1 and inpatient was switched to oral Lasix. He is on prednisone 20 mg by mouth daily. Objective - Vital Signs Vital signs: Vital Signs Temp 97.6 F 12/11/22 07:42 Pulse 87 12/11/22 07:42 Resp 20 12/11/22 07:42 BP 151/105 12/11/22 07:42 Pulse Ox 96 12/11/22 08:22 FiO2 Intake & Output 12/10/22 12/11/22 12/11/22 18:59 06:59 18:59 Intake Total 476 245.323 587.329 Output Total 525 425 Balance -49 245.323 162.329 Weight 133.6 kg Intake: Intake, IV Titration 245.323 107.329 Amount Heparin Sod,Pork in 0.45% 245.323 107.329 NaCl 25,000 unit In 0.45 % NaCl 1 250ml.bag @ 17. 345 UNITS/KG/HR 22.999 mls/hr IV .[id number] [facility] Rx #:[id number] Oral 476 480 Output: Urine 525 425 Other: Voiding Method Urinal Urinal Urinal - Exam GENERAL EXAM: Alert, 82-year-old white male, comfortable in no apparent distress. The patient is comfortable. Liters of O2 nasal cannula HEAD: Normocephalic and atraumatic EYES: Normal reaction of pupils, equal size. NOSE: Clear with pink turbinates. THROAT: No erythema or exudates. NECK: No masses, no JVD. CHEST: No chest wall deformity. LUNGS: Equal air entry with no crackles, wheeze, rhonchi or dullness. On 2 L/m nasal cannula. No conversational dyspnea or accessory muscle use.. CVS: S1 and S2 normal with no audible murmur, irregular rhythm. No extra heart sounds. Heart rate currently 80 bpm ABDOMEN: No hepatosplenomegaly, active bowel sounds, no guarding or rigidity. SPINE: No scoliosis or deformity SKIN: No rashes CENTRAL NERVOUS SYSTEM: No focal deficits, tone is normal in all 4 extremities. EXTREMITIES: There is significant for plus pitting edema bilateral lower extremities. No clubbing, or cyanosis. Peripheral pulses are intact. - Labs CBC & Chem 7: 12/11/22 07:17 12/11/22 07:17 Labs: Abnormal Lab Results - Last 24 Hours (Table) 12/10/22 12/11/22 12/11/22 Range/Units 23:32 07:17 07:17 RDW 16.0 H (11.5-15.5) % APTT 76.0 H 136.2 H* (22.0-30.0) sec BUN (9-20) mg/dL Glucose (74-99) mg/dL Total Protein (6.3-8.2) g/dL 12/11/22 Range/Units 07:17 RDW (11.5-15.5) % APTT (22.0-30.0) sec BUN 30 H (9-20) mg/dL Glucose 104 H (74-99) mg/dL Total Protein 6.2 L (6.3-8.2) g/dL Assessment and Plan Assessment: Acute hypoxemic respiratory failure, currently on 2 L/m nasal cannula, secondary to a suspected exacerbation of diastolic congestive heart failure, in addition to pulmonary embolism as the patient was found to have a right middle lobe in addition to subsegmental pulmonary emboli and a DVT of the left lower extremity, started on IV heparin Left lower extremity DVT Acute pulmonary embolism History of chronic hypersensitivity pneumonitis, biopsy confirmed, non-fibrotic, currently maintained on oral prednisone. Coronary artery disease with previous coronary artery bypass grafting and s ubsequent stenting to LAD and diagonal Atrial fibrillation with controlled ventricular rate Permanent pacemaker for an underlying sick sinus syndrome Hypertension Hyperlipidemia Hypothyroidism Obstructive sleep apnea Morbid obesity with a BMI of 42.7 kg/m Diastolic heart failure with a component of fluid overload without evidence of any significant cardiac myopathy. Ejection fraction is within normal limits. The patient has moderate degree of pulmonary hypertension. Previous history of GI bleed requiring hospitalization back in September 2022. The details of this hospitalization is not available and the patient has been taken off anticoagulants since then. Plan: Continue IV heparin monitoring for any signs of any GI bleed. I would suggest continued IV heparin for 24-48 hours and if there is no bleed, the patient can be transitioned back to long-term and cognition without liquids. Obtain records from his previous hospitalization from September 2022 regarding a lower GI bleed Continue oral Lasix Continue oral prednisone Patient has been diuresed adequately and he has remained in a negative fluid balance Monitor fluid balance, which is essentially negative The patient has history of chronic hypersensitivity pneumonitis and the patient has been treated with steroids on an outpatient basis and the patient is currently on prednisone as part of a burst taper and currently the patient is on a dose of 20 mg by mouth daily. The patient presented with worsening shortness of breath and the presentation is more typical of CHF on top of his chronic ILD. The patient has lower extremity edema which is improving The patient has increased proBNP level. The patient was started on diuretics and the patient is responding nicely and the patient is currently on Lasix 40 mg IV every 12 hours. He'll be kept on prednisone 20 mg by mouth daily. He has a pacemaker for previous history of sick sinus syndrome. he patient also has likely a chronic diastolic heart failure in combination with coronary artery disease, previous bypass surgery, previous PCI to LAD and diago nal. Wean down FiO2 currently on 2 L. Case was discussed with a medical team. We'll continue IV heparin for now. The goal is to start the patient back in anticoagulation as long list doesn't show any signs of GI bleeding. This will be long-term and coagulation with Eliquis.
--- NOTE | 2022-12-11 13:41 | P.PN ---
Subjective HISTORY OF PRESENTING ILLNESS Patient is pleasant 82-year-old male with history of CAD with prior CABG as well as stenting, persistent atrial fibrillation, sick sinus syndrome status post permanent pacemaker, hypertension, hyperlipidemia, obstructive sleep apnea, hypothyroidism, remote tobacco abuse, diastolic heart failure. He follows in the office with Dr. Kwok. He has prior history of CABG with BARRETO to LAD as well as SVG to diagonal occluded and SVG to PLV occluded and had undergone stenting in August 2021. Additionally he had GI bleed in September however has recovered from that. Unfortunately over last 1 month he has been having episo carolina of some chest discomfort as well as shortness breath and occasional diaphoresis. Pain does not feel exactly similar to his prior angina with bypass. More recently however he has been getting more short of breath with minimal exertion over last week and admits he has not really been taking his Lasix consistently and has been missing frequently. He also admits to increased lower extremity edema. Blood work shows hemoglobin 12.2, platelets 134, creatinine 1.1, proBNP 10,300, troponin 0.02, 0.02, 0.02. He was given IV Lasix and feels somewhat better. Echocardiogram shows mild LVH, EF 50-55%, RVSP 53, moderate tricuspid regurgitation. 12/09 Patient seen and examined. Patient continued on IV Lasix and urine output good with decreased lower extremity edema. He has been off of any anticoagulation after his GI bleed however we did restart his aspirin and tolerating well. 12/10 Patient states he is feeling tired, still short of breath. He has been urinating well. He denies chest pain. Patient does have shortness of breath with walking short distances. He has been continued on IV Lasix. Heart rate is in the 60s, blood pressure 104/72, pulse ox 89% on room air. Repeat blood work reveals potassium 3.6, creatinine 1.15 and BUN 33. 12/11 Patient seen and examined. Patient was noted to still be hypoxic on room air and therefore further workup performed with CTA showing pulmonary embolism and was placed on IV Lasix. Additionally showed concern of left lower extremity DVT. PHYSICAL EXAMINATION Vital signs reviewed. CONSTITUTIONAL: No apparent distress. HEENT: Head is normocephalic. Pupils are equal, round. Sclerae anicteric. Mucous membranes of the mouth are moist. No JVD. No carotid bruit. CHEST EXAMINATION: Lungs are clear to auscultation. No chest wall tenderness is noted on palpation or with deep breathing. HEART EXAMINATION: Irregular rate and rhythm. S1, S2 heard. No murmurs, gallops or rub. ABDOMEN: Soft, nontender. Positive bowel sounds. EXTREMITIES: 2+ peripheral pulses, 1+ lower extremity edema and no calf tenderness. NEUROLOGIC EXAMINATION: Patient is awake, alert and oriented x3. ASSESSMENT 1. Acute on chronic respiratory failure mainly related to heart failure +PE 2. Acute on chronic diastolic heart failure 3. Chest pain with exertion may be angina however also likely related to heart failure 4. CAD with prior CABG as well as recent PCI of LAD and the diagonal 08/2021 5. Previous history of GI bleed 6. Hypertension 7. Sick sinus syndrome status post permanent pacemaker 8. Persistent atrial fibrillation 9. Acute pulmonary embolism 10. DVT PLAN Symptoms likely multifactorial secondary to heart failure as well as pulmonary embolism. Continue with anticoagulation. Currently appears nearly euvolemic. Objective - Vital Signs Vital signs: Vital Signs Temp 97.5 F L 12/11/22 11:22 Pulse 82 12/11/22 11:22 Resp 20 12/11/22 11:22 BP 144/105 12/11/22 11:22 Pulse Ox 98 12/11/22 11:22 FiO2 Intake & Output 12/10/22 12/11/22 12/11/22 18:59 06:59 18:59 Intake Total 476 245.323 587.329 Output Total 525 1000 Balance -49 245.323 -412.671 Weight 133.6 kg Intake: Intake, IV Titration 245.323 107.329 Amount Heparin Sod,Pork in 0.45% 245.323 107.329 NaCl 25,000 unit In 0.45 % NaCl 1 250ml.bag @ 17. 345 UNITS/KG/HR 22.999 mls/hr IV .[id number] [facility] Rx #:[id number] Oral 476 480 Output: Urine 525 1000 Other: Voiding Method Urinal Urinal Urinal - Labs CBC & Chem 7: 12/11/22 07:17 12/11/22 07:17 Labs: Abnormal Lab Results - Last 24 Hours (Table) 12/10/22 12/11/22 12/11/22 Range/Units 23:32 07:17 07:17 RDW 16.0 H (11.5-15.5) % APTT 76.0 H 136.2 H* (22.0-30.0) sec BUN (9-20) mg/dL Glucose (74-99) mg/dL Total Protein (6.3-8.2) g/dL 12/11/22 Range/Units 07:17 RDW (11.5-15.5) % APTT (22.0-30.0) sec BUN 30 H (9-20) mg/dL Glucose 104 H (74-99) mg/dL Total Protein 6.2 L (6.3-8.2) g/dL
--- NOTE | 2022-12-11 14:29 | P.CONS ---
History of Present Illness - Reason for Consult Consult date: 12/11/22 Pulmonary Embolism - Chief Complaint Dyspnea - History of Present Illness Mr. Oglesby is an 82-year-old gentleman with a past medical history significant for CAD status post CABG and placement of 4 drug-eluting stents and atrial fibrillation who we were consulted on regards to pulmonary embolism. He was admitted on 12/07/2022 with increased dyspnea and anasarca in the lower extremities and was diagnosed with acute on chronic diastolic heart failure exacerbation. Echo at that time revealed elevated right ventricular systolic pressure at 53 mmHg with an ejection fraction of 50 to 55%. He had progressive improvement with IV diuretics. He was planned to be discharged on 12/10/2022, when he was noted to have significant hypoxia on exertion with oxygen saturations in the 70s. CTA on 12/10/2022 revealed acute pulmonary embolism in the right upper lobe and right lower lobe branches. He was also noted to have DVT in the proximal right calf on ultrasound duplex. He was started on th erapeutic heparin drip. Currently, he denies any dyspnea at rest or on conversation. He notes the lower extremity swelling is significantly lower than on initial presentation. He does note mild pleuritic chest pain along with a cough. Due to his history of CAD with stents along with atrial fibrillation, he was on anticoagulation with Eliquis, Plavix, and aspirin. He did have gastrointestinal bleeding in September 2022, which was attributed to his anticoagulants. He otherwise denies any major bleeding diathesis, including no intracranial hemorrhage. 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 skin cancer, frequent lower leg edema, SOB w/exertion,. sick sinus syndrome History of Any Multi-Drug Resistant Organisms: None Reported Past Surgical History: Back Surgery, Cholecystectomy, Coronary Bypass/CABG, Heart Catheterization With Stent, Pacemaker Additional Past Surgical History / Comment(s): triple bypass 5-2010, cholecystectomy 2015,[employer] Pacemaker Lt chest, laminectomy Past Anesthesia/Blood Transfusion Reactions: No Reported Reaction Additional Past Anesthesia/Blood Transfusion Reaction / Comm: unsure if ever had transfusion Date of Last Stent Placement:: 09/01/21 Type of Cardiac Device: Permanent Pacemaker Device Placement Date:: Mar 2016 Past Psychological History: No Psychological Hx Reported Smoking Status: Former smoker Past Alcohol Use History: None Reported Additional Past Alcohol Use History / Comment(s): SMOKED 4 YEARS, QUIT 1970. Past Drug Use History: None Reported - Past Family History Mother Family Medical History: Cancer Additional Family Medical History / Comment(s): CABG, Colon Cancer Father Family Medical History: Cancer Additional Family Medical History / Comment(s): Father of cancer unsure which type of cancer Brother(s) Additional Family Medical History / Comment(s): Brother had X4 Bypass Medications and Allergies Home Medications Medication Instructions Recorded Confirmed Type Multivitamins, Thera [Multivitamin 1 tab PO DAILY 04/03/16 12/07/22 History (formulary)] Loratadine 10 mg PO HS 11/18/16 12/07/22 History Melatonin 5 - 10 mg PO HS PRN 11/18/16 12/07/22 History Nitroglycerin Sl Tabs [Nitrostat] 0.4 mg SUBLINGUAL Q5M PRN 11/18/16 12/07/22 History Cholecalciferol [Vitamin D3 (25 25 mcg PO DAILY 08/19/21 12/07/22 History Mcg = 1000 Iu)] Metoprolol Tartrate [Lopressor] 25 mg PO BID 08/19/21 12/07/22 History Potassium Citrate 99 mg PO DAILY 08/19/21 12/07/22 History Pravastatin Sodium [Pravachol] 10 mg PO HS 08/19/21 12/07/22 History Levothyroxine Sodium [Synthroid] 37.5 mcg PO SUSA 05/12/22 12/07/22 History Amitriptyline HCl 10 mg PO HS 12/07/22 12/07/22 History Cabergoline 0.5 mg PO TU 12/07/22 12/07/22 History Calcium Carbonate [Calcium] 600 mg PO DAILY 12/07/22 12/07/22 History Cyanocobalamin (Vitamin B-12) 2,500 mcg PO DAILY 12/07/22 12/07/22 History [Vitamin B-12] Gabapentin 600 mg PO TID 12/07/22 12/07/22 History Glucosa Urrutia 2Kcl/Chondroitin Urrutia 1 cap PO DAILY 12/07/22 12/07/22 History [Glucosamine-Chondroitin Cap] Levothyroxine Sodium [Synthroid] 75 mcg PO [id number] 12/07/22 12/07/22 History Magnesium Oxide [Magox 400] 400 mg PO DAILY 12/07/22 12/07/22 History Pantoprazole Sodium [Protonix] 40 mg PO DAILY 12/07/22 12/07/22 History predniSONE 20 mg PO DAILY 12/07/22 12/07/22 History Apixaban [Eliquis Starter Pack 5 - 10 mg PO DIRECTED 30 Days 12/10/22 Rx (for VTE)] #1 each Aspirin 81 mg PO DAILY #30 tab 12/10/22 Rx Furosemide [Lasix] 40 mg PO DAILY #30 tab 12/10/22 Rx Allergies Allergy/AdvReac Type Severity Reaction Status Date / Time Penicillins Allergy Rash/Hives/hand Verified 12/07/22 15:08 blisters Physical Exam Vitals: Vital Signs Temp Pulse Resp BP Pulse Ox 12/11/22 11:22 97.5 F L 82 20 144/105 98 12/11/22 08:22 96 12/11/22 07:42 97.6 F 87 20 151/105 96 12/11/22 07:25 87 20 12/11/22 04:00 97.5 F L 96 20 122/89 96 12/10/22 23:34 97.9 F 85 18 126/88 97 12/10/22 20:00 97.6 F 67 18 126/87 98 12/10/22 15:43 97.5 F L 85 18 129/86 97 Intake and Output 12/10/22 12/11/22 12/11/22 22:59 06:59 14:59 Intake Total 240 245.323 587.329 Output Total 1000 Balance 240 245.323 -412.671 Intake: Intake, IV Titration 245.323 107.329 Amount Heparin Sod,Pork in 0.45% 245.323 107.329 NaCl 25,000 unit In 0.45 % NaCl 1 250ml.bag @ 17. 345 UNITS/KG/HR 22.999 mls/hr IV .[id number] [facility] Rx #:[id number] Oral 240 480 Output: Urine 1000 Other: Voiding Method Urinal Urinal Urinal Weight 133.6 kg - Constitutional General appearance: cooperative, no acute distress - EENT Eyes: EOMI - Respiratory Respiratory: bilateral: CTA - Cardiovascular Increased swelling of the right lower extremity compared to the left Rhythm: regular ankle Peripheral Edema: bilateral: 2+ - Gastrointestinal General gastrointestinal: no distended, soft - Integumentary Integumentary: no rash - Neurologic Neurologic: CNII-XII intact Results CBC & Chem 7: 12/11/22 07:17 12/11/22 07:17 Labs: Abnormal Lab Results - Last 24 Hours (Table) 12/10/22 12/11/22 12/11/22 Range/Units 23:32 07:17 07:17 RDW 16.0 H (11.5-15.5) % APTT 76.0 H 136.2 H* (22.0-30.0) sec BUN (9-20) mg/dL Glucose (74-99) mg/dL Total Protein (6.3-8.2) g/dL 12/11/22 Range/Units 07:17 RDW (11.5-15.5) % APTT (22.0-30.0) sec BUN 30 H (9-20) mg/dL Glucose 104 H (74-99) mg/dL Total Protein 6.2 L (6.3-8.2) g/dL Assessment and Plan (1) Pulmonary embolism on right Current Visit: Yes Status: Acute Code(s): I26.99 - OTHER PULMONARY EMBOLISM WITHOUT ACUTE COR PULMONALE SNOMED Code(s): 80883393 Plan: #Pulmonary embolism due to DVT -Noted to have hypoxia on exertion walking in the halls as test for home O2 -CTA on 12/02/2022 noted acute pulmonary embolism in the branches of the right upper lobe and right lower lobe -Duplex ultrasound of the lower extremities noted DVT in the right lower extremity -Given his hospitalization, this appears to be provoked secondary to immobility despite being on adequate chemoprophylaxis for DVT -We discussed doing 3 months of anticoagulation for the purposes of DVT/PE -Currently, he is not having any bleeding diathesis, but did have GI bleeding on Eliquis, aspirin, and Plavix -As he had a recent GI bleed, consideration for prophylactic dose of anticoagulation with Eliquis 2.5 mg twice daily will be recommended instead of full dose -From a hematology perspective, he can be transition from heparin drip to Eliquis -We can follow up in clinic to assess his tolerance of anticoagulation following discharge Ana Galicia MD
[2022-12-11] MEDS: LORATADINE 10 MG TAB PO SCH (20:29)
[2022-12-11] MEDS: PRAVASTATIN SODIUM 20 MG TAB PO SCH (20:29)
[2022-12-11] MEDS: AMITRIPTYLINE HCL 10 MG TAB PO SCH (20:29)
[2022-12-12] MEDS: LEVOTHYROXINE 75 MCG TAB PO SCH (06:04)
[2022-12-12] MEDS ORDERED: APIXABAN 2.5 MG TABLET PO SCH ×2 (09:00→21:00)
[2022-12-12] MEDS: FUROSEMIDE 40 MG TAB PO SCH (09:25)
[2022-12-12] MEDS: GABAPENTIN 300 MG CAP PO SCH (09:25)
[2022-12-12] MEDS: PANTOPRAZOLE 40 MG TABLET PO SCH (09:25)
[2022-12-12] MEDS: ASPIRIN 81 MG PO SCH (09:25)
[2022-12-12] MEDS: METOPROLOL TARTRATE 25 MG TAB PO SCH (09:25)
[2022-12-12] MEDS: predniSONE 20 MG TAB PO SCH (09:25)
[2022-12-12 09:51] VITALS: BP 113/75; RESP 22; TEMP 97
[2022-12-12 10:59] VITALS: PULSE 68
--- NOTE | 2022-12-12 11:40 | P.PN ---
Subjective HISTORY OF PRESENT ILLNESS: Patient is pleasant 82-year-old male with history of CAD with prior CABG as well as stenting, persistent atrial fibrillation, sick sinus syndrome status post permanent pacemaker, hypertension, hyperlipidemia, obstructive sleep apnea, hypothyroidism, remote tobacco abuse, diastolic heart failure. He follows in the office with Dr. Kwok. He has prior history of CABG with BARRETO to LAD as well as SVG to diagonal occluded and SVG to PLV occluded and had undergone stenting in August 2021. Additionally he had GI bleed in September however has recovered from that. Unfortunately over last 1 month he has been having episodes of some chest discomfort as well as shortness breath and occasional diaphoresis. Pain does not feel exactly similar to his prior angina with bypass. More recently however he has been getting more short of breath with minimal exertion over last week and admits he has not really been taking his Lasix consistently and has been missing frequently. He also admits to increased lower extremity edema. Blood work shows hemoglobin 12.2, platelets 134, creatinine 1.1, proBNP 10,300, troponin 0.02, 0.02, 0.02. He was given IV Lasix and feels somewhat better. Echocardiogram shows mild LVH, EF 50-55%, RVSP 53, moderate tricuspid regurgitation. 12/09 Patient seen and examined. Patient continued on IV Lasix and urine output good with decreased lower extremity edema. He has been off of any anticoagulation after his GI bleed however we did restart his aspirin and tolerating well. 12/10 Patient states he is feeling tired, still short of breath. He has been urinating well. He denies chest pain. Patient does have shortness of breath with walking short distances. He has been continued on IV Lasix. Heart rate is in the 60s, blood pressure 104/72, pulse ox 89% on room air. Repeat blood work reveals potassium 3.6, creatinine 1.15 and BUN 33. 12/11 Patient seen and examined. Patient was noted to still be hypoxic on room air and therefore further workup performed with CTA showing pulmonary embolism and was placed on IV Lasix. Additionally showed concern of left lower extremity DVT. 12/12/2022 Patient examined this morning at the bedside. Patient currently denies chest pain or pressure. He denies shortness of breath at rest. He does report shortness of breath with exertion. Telemetry reveals atrial fibrillation with controlled ventricular rate. Patient is currently on Eliquis 2.5 mg twice a day. PHYSICAL EXAM: VITAL SIGNS: Reviewed. GENERAL: Well-developed in no acute distress. NECK: Supple. No JVD or thyromegaly LUNGS: Respirations even and unlabored. Lungs essentially clear to auscultation bilaterally. HEART: Irregular rate and rhythm. S1 and S2 heard. EXTREMITIES: Normal range of motion. No clubbing or cyanosis. Peripheral pulses intact. No lower extremity edema ASSESSMENT: 1. Acute on chronic respiratory failure mainly related to heart failure +PE 2. Acute on chronic diastolic heart failure 3. Chest pain with exertion may be angina however also likely related to heart failure 4. CAD with prior CABG as well as recent PCI of LAD and the diagonal 08/2021 5. Previous history of GI bleed 6. Hypertension 7. Sick sinus syndrome status post permanent pacemaker 8. Persistent atrial fibrillation 9. Acute pulmonary embolism 10. DVT PLAN: Ideally, patient should be anticoagulated with 10 mg of Eliquis twice a day for one week due to acute PE and DVT. However patient did have a GI bleed in September of this year. Dr. Beckham recommends Eliquis 7.5 mg twice a day for 7 days and then will decrease dosage to 5 mg twice a day. Continue to monitor hemoglobin Continue additional cardiac medications Further recommendations pending patient's course Nurse practitioner note has been reviewed by physician. Signing provider agrees with the documented findings, assessment, and plan of care. Objective - Vital Signs Vital signs: Vital Signs Temp 98.2 F 12/11/22 20:00 Pulse 74 12/12/22 03:25 Resp 18 12/12/22 03:25 BP 136/84 12/12/22 03:25 Pulse Ox 97 12/12/22 03:25 FiO2 Intake & Output 12/11/22 12/12/22 12/12/22 18:59 06:59 18:59 Intake Total 1088.000 120 Output Total 1600 Balance -512.000 120 Weight 134.3 kg Intake: Intake, IV Titration 250.000 Amount Heparin Sod,Pork in 0.45% 250.000 NaCl 25,000 unit In 0.45 % NaCl 1 250ml.bag @ 17. 345 UNITS/KG/HR 22.999 mls/hr IV .[id number] [facility] Rx #:[id number] Oral 838 120 Output: Urine 1600 Other: Voiding Method Urinal Urinal - Labs CBC & Chem 7: 12/11/22 07:17 12/11/22 07:17 Labs: Abnormal Lab Results - Last 24 Hours (Table) 12/11/22 12/12/22 Range/Units 16:55 07:19 APTT 58.1 H 73.0 H (22.0-30.0) sec
--- NOTE | 2022-12-12 13:07 | P.PN ---
Subjective Progress Note Date: 12/12/22 I am seeing this patient in new consultation today 12/08/2022 after he was admitted yesterday afternoon with progressively worsening shortness of breath over the last couple weeks accompanied with increased lower extremity edema. Patient is an 82-year-old white male with past medical history significant for coronary artery disease status/post CABG and subsequent stenting, atrial fibrillation, permanent pacemaker, hyperlipidemia, hypertension, obstructive sleep apnea, hypothyroidism, and is a remote ex-smoker. His PCP is Dr. Ananth Hendricks. Patient does follow in the pulmonary office with Dr. Vela for a possible diagnosis of hypersensitivity pneumonitis. Patient reports progressively worsening ongoing shortness of breath over the last couple weeks. He also notes increased lower extremity edema. He states that he stopped taking his Lasix 2-3 days ago. He does have increased lower extremity edema. Patient does not weigh himself. Denies any chest pain, palpitations, lightheadedness or syncope. He does endorse orthopnea, and sleeps in recliner at home. Patient denies any infectious symptoms such as fever, productive cough, hemoptysis. He has a chronic dry non-productive cough. Denies sick contacts. Consult for pulmonology was placed because the patient was being worked up for possible hypersensitivity pneumonitis earlier this year. At that time, the patient had been expressing chronic shortness of breath along with a dry nonproductive cough. He has a remote history of smoking. A PFT back in February, was consistent with restrictive lung disease. FEV1 81% of predicted, FVC 67% of predicted, FEV1/FVC ratio 119. Total lung capacity 50% of predicted. DLCO 58%, not corrected for hemoglobin. A CT chest back in March, showed scattered groundglass opacities throughout the lungs. A follow-up right-sided VATS with wedge biopsy May, showed combination of bronchiolocentric interstitial pneumonia, cellular bronchiolitis, and poorly formed nonnecrotizing granulomatosis inflammation strongly suggestive of hypersensitivity pneumonitis. Non-fibrotic variant. A separate biopsy of the lower lobe showed patchy infiltrate of lymphocytes with occasional well formed nonnecrotizing granulomas more closely resembling those seen in sarcoidosis. IRAIDA level and 24-hour urine calcium were normal. Hypersensitivity screen was positive for penicillium and Cladosporium. Patient was started on oral prednisone back in July,. Anyway, I doubt this is causing the patient's current symptoms. Patient is currently lying in bed on an incline, on 2 L/m nasal cannula, in no acute distress. Chest x-ray on arrival showed cardiomegaly. No significant pulmonary vascular congestion or pleural effusions. No focal infiltrates. NT proBNP was elevated at 10,300. Troponins not elevated 3. Patient has been started on Lasix 40 mg twice a day. He states that he has been urinating often. BMP was unremarkable. CBC shows a WBC count 9.7, hemoglobin 12.2, hematocrit 39.7, platelets 134. Patient is hemodynamically stable. On today's evaluation of 12/09/2022, seeing the patient for a follow-up. The patient is feeling slightly improved. The patient has produced at least 60 L fluid negative since he was started on diuretics and the patient remained on Lasix 40 mg IV every 12 hours. The net fluid balance has been -3.2 L and another brother 2.4 L over the past 24 hours. Meanwhile, the patient's has a BUN of 29 with a creatinine of 1.1. Sodium levels of 139. The discomfort is at 8.7 with a hemoglobin 12.7.. Echocardiogram was done and the patient has a preserved LV function with an EF of around 50-55%. The patient has moderate tricuspid regurgitation, severe pulmonary hypertension with a PA pressure of 53. There is mild concentric LVH. Clinically feeling better. Remains on prednisone 20 mg by mouth daily. Remains on Lovenox for DVT prophylaxis. No fever. No chills. No hemodynamic instability. Continues to have some residual edema lower extremity is bilaterally. On 12/10/2022, the patient continued to diabetes aggressively. His weight is down to 132 kg and the patient is already feeling better. He remains on IV Lasix 40 mg IV every 12 hours. He remains on oxygen at 2 L. Pulse ox is 97%. We'll try to wean him down. Echocardiogram showed a preserved LV function with an EF of around 50-55%. Lower extremity edema is improving. He does have moderate to severe pulmonary hypertension with a PA pressure of 54-year-old with moderate amount of tricuspid regurgitation. No other new complaints otherwise for now. He remains on prednisone 20 mg by mouth daily regarding his chronic hypersensitivity pneumonitis. On 12/11/2022, the patient is stable and he has no specific complaints. Note that, the patient was improving. At home evaluation was done and the patient was desaturating. Based on that, a CT angiogram was done and the patient was found to have subsegmental pulmonary embolism involving the right upper lobe and the lower lobe, furthermore, Doppler of lower extremity was done and the patient was found to have a left DVT. Currently is on IV heparin. Note that he has been maintained on anticoagulation with Eliquis and this was stopped as the patient encounter day significant lower GI bleed for which she was transferred to another hospital, [facility] and he underwent treatment for GI bleeding in his anticoagulation has been stopped since. As such, we are not sure of the details of his previous GI bleed. We opted to put this patient anticoagulation with IV heparin for now. He also has history of atrial fibrillation. He is in need for long-term and cognition as long as he doesn't demonstrate any signs of GI bleeding. his blood work shows edematous count 9.7, he was 14, BUN is at 30 with a creatinine 1.1 and inpatient was switched to oral Lasix. He is on prednisone 20 mg by mouth daily. The patient is seen today 12/12/2022 in follow-up on the selective care unit. He is currently sitting up in a chair at the bedside. Awake and alert in no acute distress. He denies any worsening shortness of breath, cough or congestion. No hemoptysis. He is currently maintaining O2 saturations in the mid 90s on 2 L/m per nasal cannula. He's been afebrile. Hemodynamically stable. He will was initially on a heparin drip. He has been transitioned to Eliquis. Continued on oral Lasix. Currently in a -500 mL balance. Maintained on prednisone 20 mg daily. Dopplers of the lower extremity revealed a DVT on the left. Objective - Vital Signs Vital signs: Vital Signs Temp 97 F L 12/12/22 09:25 Pulse 68 12/12/22 09:25 Resp 22 12/12/22 09:25 BP 113/75 12/12/22 09:25 Pulse Ox 98 12/12/22 11:49 FiO2 Intake & Output 12/11/22 12/12/22 12/12/22 18:59 06:59 18:59 Intake Total 1088.000 120 Output Total 1600 Balance -512.000 120 Weight 134.3 kg Intake: Intake, IV Titration 250.000 Amount Heparin Sod,Pork in 0.45% 250.000 NaCl 25,000 unit In 0.45 % NaCl 1 250ml.bag @ 17. 345 UNITS/KG/HR 22.999 mls/hr IV .[id number] [facility] Rx #:[id number] Oral 838 120 Output: Urine 1600 Other: Voiding Method Urinal Urinal Urinal - Exam GENERAL EXAM: Alert, obese, pleasant 82-year-old male, up in a chair. On 2 L nasal cannula. The patient is comfortable. HEAD: Normocephalic and atraumatic EYES: Normal reaction of pupils, equal size. NOSE: Clear with pink turbinates. THROAT: No erythema or exudates. NECK: No masses, no JVD. CHEST: No chest wall deformity. LUNGS: Equal air entry with no crackles, wheeze, rhonchi or dullness. No conversational dyspnea. CVS: S1 and S2 normal with no audible murmur, irregular rhythm. No extra heart sounds. ABDOMEN: No hepatosplenomegaly, active bowel sounds, no guarding or rigidity. SPINE: No scoliosis or deformity SKIN: No rashes CENTRAL NERVOUS SYSTEM: No focal deficits, tone is normal in all 4 extremities. EXTREMITIES: There is significant 2+ plus pitting edema bilateral lower extremities. No clubbing, or cyanosis. Peripheral pulses are intact. - Labs CBC & Chem 7: 12/11/22 07:17 12/11/22 07:17 Labs: Abnormal Lab Results - Last 24 Hours (Table) 12/11/22 12/12/22 Range/Units 16:55 07:19 APTT 58.1 H 73.0 H (22.0-30.0) sec Assessment and Plan Assessment: Acute hypoxemic respiratory failure, currently on 2 L/m nasal cannula, secondary to a suspected exacerbation of diastolic congestive heart failure, in addition to a right middle lobe in addition to subsegmental pulmonary emboli and a DVT of the left lower extremity, started on IV heparin and now transitioned to Eliquis Left lower extremity DVT Acute pulmonary embolism History of chronic hypersensitivity pneumonitis, biopsy confirmed, non-fibrotic, currently maintained on oral prednisone. Coronary artery disease with previous coronary artery bypass grafting and subsequent stenting to LAD and diagonal Atrial fibrillation with controlled ventricular rate Permanent pacemaker for an underlying sick sinus syndrome Hypertension Hyperlipidemia Hypothyroidism Obstructive sleep apnea Morbid obesity with a BMI of 41.3 kg/m Diastolic heart failure with a component of fluid overload without evidence of any significant cardiomyopathy. Ejection fraction is within normal limits. The patient has moderate degree of pulmonary hypertension. Previous history of GI bleed requiring hospitalization back in September 2022. The details of this hospitalization is not available and the patient has been taken off anticoagulants since then Plan: The patient was seen and evaluated Medications and labs reviewed Transitioned to [facility] Plan for long-term anticoagulation Observe for any GI bleeding Continue on diuretics Evaluate for possible home oxygen Continue his daily prednisone Increase his activity as tolerated follow up in our office one week post discharge This patient was seen independently by the nurse practitioner I have personally seen and examined the patient, performed the documentation and the assessment and plan as written. Number of minutes spent on the visit: 24.
--- NOTE | 2022-12-12 13:13 | P.DS ---
Providers Date of admission: 12/07/22 15:30 Expected date of discharge: 12/12/22 Attending physician: Ryan Malik MD Consults: 12/07/22 15:30 Consult Physician Routine Consulting Provider: Jimmy Vela Consult Reason/Comments: dyspnea, history of fungal infection? Do you want consulting provider notified?: Yes Consult Physician Routine Consulting Provider: [facility] Consult Reason/Comments: chf, dyspnea Do you want consulting provider notified?: Yes 12/10/22 16:11 Consult Physician Routine Consulting Provider: Alfie Johnson Consult Reason/Comments: PE Do you want consulting provider notified?: Yes Primary care physician: Ananth Hendricks MD Hospital Course: 82-year-old male with PMH of atrial fibrillation, CAD with history of CABG, permanent pacemaker, hypertension, dyslipidemia presents the ED for shortness of breath. Patient reports shortness of breath that has been progressively getting worse over the past 4 weeks. He reports noncompliance to his diuretics due to frequent urination. He also reports lower extremity swelling that has been getting worse over the same period of time. He denies any chest pain, palpitations, changes in urination or bowel habits. In the ED, he underwent extensive evaluation. Vital significant for respiratory rate of 26 and desaturating as low as 89% on 2 L nasal cannula. CBC showed hemoglobin of 12.2 with platelet count of 134 INR was 1.2 CMP showed BUN of 26, glucose of 151 BNP is 10,300 Troponin 0.024 EKG showed ventricular pacemaker. Chest x-ray showed mild cardiomegaly. Patient is admitted for acute on chronic diastolic CHF exacerbation. 12/08 Patient was seen and examined. Improved breathing and LE swelling. CBC shows Hg 12.7. BMP shows BUN 26. Troponin 0.027 and 0.021. Echo shows EF 50-55%, atypical septal motion, mild concentric LVH, moderate TR. Discussed with Dr. Baird, history of hypersensitivity pneumonitis, continue Prednisone and IV diuresis. Weight 138.799-136.3kg. Negative fluid balance of 3272 cc. 12/09 Patient was seen and examined. Continued improvement in breathing and LE swelling. BMP shows bicarb 33, BUN 29, glucose 106. Weight 138.799-136.3-148 kg. Negative fluid balance of 2470 cc. 12/10 Patient was seen and examined. He reports improved breathing and LE swelling. Cardiology has switched the Lasix from IV to PO. Cleared for discharge today. Home O2 eval pending at the time of this note. Advised 1.5L fluid restriction and low salt diet. Follow up with PCP within 1-2 days, Cardiology within 1 week of discharge. 12/11 Patient was seen and examined. Transitioned to oral lasix yesterday. Home O2 eval performed, found to be hypoxic to 77% on RA with ambulation. CTA chest ordered which was + for PE. Venous doppler + for DVT. He was previously on Eliquis but was discontinued due to GI bleed in the past. He was started on heparin drip yesterday. Discussed with Dr. Argueta, continue heparin drip for one more day and monitor for GI bleed, possibly transition to Eliquis tomorrow. Hematology consulted as well. CBC is benign. APTT 136.2. BMP Na 30, glucose 104. 12/12 Patient was seen and examined. Hematology consulted, recommended transitioning from heparin drip to Eliquis at 2.5 mg PO BID due to GI bleed. Cardiology recommends Eliquis 7.5 mg PO BID followed by 5 mg PO BID which will be prescribed to his pharmacy. He will require home O2 on discharge. Advised 1.5L fluid restriction and low salt diet. Follow up with PCP within 1-2 days, Cardiology within 1 week of discharge. Pertinent studies include CXR, Echo, CTA chest, Venous doppler. General: non toxic, no distress, appears at stated age Derm: warm, dry Head: atraumatic, normocephalic, symmetric Eyes: EOMI, no lid lag, anicteric sclera Cardiovascular: S1S2 irregular, no murmur Lungs: Decreased breath sounds bilateral, no rhonchi, no rales , no accessory muscle use Ext: no gross muscle atrophy, 1+ pitting bilateral lower extremity edema, no contractures Neuro: no focal neuro deficits Psych: Alert, oriented, appropriate affect Discharge Diagnosis: Acute hypoxic respiratory failure Pulmonary embolus with DVT Acute on chronic diastolic CHF exacerbation History of hypersensitivity pneumonitis Prerenal azotemia Supratherapeutic INR Normocytic anemia Thrombocytopenia Chronic conditions: atrial fibrillation, CAD with history of CABG, permanent pacemaker, hypertension, dyslipidemia This complex discharge took 35 minutes to complete. Patient Condition at Discharge: Stable Plan - Discharge Summary Discharge Rx Participant: No New Discharge Prescriptions: New Apixaban [Eliquis] See Rx Instructions .ROUTE .COMPLEX #140 tab Aspirin 81 mg PO DAILY #30 tab Continue Multivitamins, Thera [Multivitamin (formulary)] 1 tab PO DAILY Loratadine 10 mg PO HS Nitroglycerin Sl Tabs [Nitrostat] 0.4 mg SUBLINGUAL Q5M PRN PRN Reason: Chest Pain Melatonin 5 - 10 mg PO HS PRN PRN Reason: Insomnia Metoprolol Tartrate [Lopressor] 25 mg PO BID Pravastatin Sodium [Pravachol] 10 mg PO HS Potassium Citrate 99 mg PO DAILY Cholecalciferol [Vitamin D3 (25 Mcg = 1000 Iu)] 25 mcg PO DAILY predniSONE 20 mg PO DAILY Pantoprazole Sodium [Protonix] 40 mg PO DAILY Glucosa Urrutia 2Kcl/Chondroitin Urrutia [Glucosamine-Chondroitin Cap] 1 cap PO DAILY Gabapentin 600 mg PO TID Calcium Carbonate [Calcium] 600 mg PO DAILY Amitriptyline HCl 10 mg PO HS Cyanocobalamin (Vitamin B-12) [Vitamin B-12] 2,500 mcg PO DAILY Levothyroxine Sodium [Synthroid] 37.5 mcg PO SUSA Magnesium Oxide [Magox 400] 400 mg PO DAILY Levothyroxine Sodium [Synthroid] 75 mcg PO MOTUWETHFR Cabergoline 0.5 mg PO TU Furosemide [Lasix] 40 mg PO DAILY #30 tab Discharge Medication List Multivitamins, Thera [Multivitamin (formulary)] 1 tab PO DAILY 04/03/16 [History] Loratadine 10 mg PO HS 11/18/16 [History] Melatonin 5 - 10 mg PO HS PRN 11/18/16 [History] Nitroglycerin Sl Tabs [Nitrostat] 0.4 mg SUBLINGUAL Q5M PRN 11/18/16 [History] Cholecalciferol [Vitamin D3 (25 Mcg = 1000 Iu)] 25 mcg PO DAILY 08/19/21 [History] Metoprolol Tartrate [Lopressor] 25 mg PO BID 08/19/21 [History] Potassium Citrate 99 mg PO DAILY 08/19/21 [History] Pravastatin Sodium [Pravachol] 10 mg PO HS 08/19/21 [History] Levothyroxine Sodium [Synthroid] 37.5 mcg PO SUSA 05/12/22 [History] Amitriptyline HCl 10 mg PO HS 12/07/22 [History] Cabergoline 0.5 mg PO TU 12/07/22 [History] Calcium Carbonate [Calcium] 600 mg PO DAILY 12/07/22 [History] Cyanocobalamin (Vitamin B-12) [Vitamin B-12] 2,500 mcg PO DAILY 12/07/22 [History] Gabapentin 600 mg PO TID 12/07/22 [History] Glucosa Urrutia 2Kcl/Chondroitin Urrutia [Glucosamine-Chondroitin Cap] 1 cap PO DAILY 12/07/22 [History] Levothyroxine Sodium [Synthroid] 75 mcg PO MOTUWETHFR 12/07/22 [History] Magnesium Oxide [Magox 400] 400 mg PO DAILY 12/07/22 [History] Pantoprazole Sodium [Protonix] 40 mg PO DAILY 12/07/22 [History] predniSONE 20 mg PO DAILY 12/07/22 [History] Aspirin 81 mg PO DAILY #30 tab 12/10/22 [Rx] Furosemide [Lasix] 40 mg PO DAILY #30 tab 12/10/22 [Rx] Apixaban [Eliquis] See Rx Instructions .ROUTE .COMPLEX #140 tab 12/12/22 [Rx] Follow up Appointment(s)/Referral(s): [facility] [NON-STAFF] - 1 Week Ananth Hendricks MD [Primary Care Provider] - 12/20/22 4:40 pm () Jimmy Vela DO [Doctor of Osteopathic Medicine] - 12/30/22 9:30 am Jaswinder Kwok MD [STAFF PHYSICIAN] - 01/04/23 3:30 pm (Device appointment and follow up with Dr. Kwok) Patient Instructions/Handouts: Pulmonary Embolism (DC), COPD (Chronic Obstructive Pulmonary Disease) (DC) Activity/Diet/Wound Care/Special Instructions: Low salt diet Fluid restriction Discharge Disposition: HOME SELF-CARE
--- NOTE | 2022-12-30 06:55 | CDI ---
Documentation Clarification Form Date: 12/30/2022 06:44:58 AM From: Karely Ma Admit Date: 12/07/2022 03:30:00 PM Patient Name: Umberto Oglesby Visit Number: [id number] Discharge Date: 12/12/2022 03:16:00 PM ATTENTION: The Clinical Documentation Specialists (CDI) and [facility] Coding Staff appreciate your assistance in clarifying documentation. Please respond to the clarification below the line at the bottom and electronically sign. The CDI & [facility] Coding staff will review the response and follow-up if needed. Please note: Queries are made part of the Legal Health Record. If you have any questions, please contact the author of this message via ITS. Dr. Dharmesh Christine PE and DVT are documented three days after admission. For each diagnosis, documentation must be clear to determine if the condition was present at the time of the patients inpatient admission or developed during the hospital stay. Additional clarification regarding the PE and DVT is requested. History/Risk Factors: respiratory failure, leg edema and found to have CHF, atrial fib and flutter, CAD, HTN, history of triple bypass, stent and pacemaker. Patient was off anticoagulants due to GI bleed. Clinical Indicators: CT chest showing PE and Doppler showing DVT proximal left calf veins Treatment: Heparin drip Discharged on Eliquis Definition of Present on Admission (POA): A diagnosis present at the time the order for admission to inpatient status was written. Please clarify if the PE and DVT was POA [ x ] Y = Yes, the condition was present at the time of the order for inpatient admission. [ ] N = No, the condition was not present at the time of the order for inpatient admission. [ ] W = Clinically undetermined if the condition was present at the time of the order for inpatient admission. likely_ MTDD
== END 2022-12-12 15:16 | disposition home or self-care (01) | DRG 175 ==
LOC: EC 12:51 → 3SCARD 15:30
PROVIDERS: ADMIT Student in an Organized Health Care Education/Training Program; ATTEND Student in an Organized Health Care Education/Training Program
DX: I26.93 Single subsegmental thrombotic pulmonary embolism without acute cor pulmonale (principal); I50.33 Acute on chronic diastolic (congestive) heart failure; I48.21 Permanent atrial fibrillation; I82.492 Acute embolism and thrombosis of other specified deep vein of left lower extremity; Z68.41 Body mass index [BMI] 40.0-44.9, adult; E66.01 Morbid (severe) obesity due to excess calories; T50.1X6A Underdosing of loop [high-ceiling] diuretics, initial encounter; R79.1 Abnormal coagulation profile; E03.9 Hypothyroidism, unspecified; I25.10 Atherosclerotic heart disease of native coronary artery without angina pectoris; D64.9 Anemia, unspecified; E78.5 Hyperlipidemia, unspecified; I27.20 Pulmonary hypertension, unspecified; I11.0 Hypertensive heart disease with heart failure; D69.6 Thrombocytopenia, unspecified; G47.33 Obstructive sleep apnea (adult) (pediatric); I07.1 Rheumatic tricuspid insufficiency; I49.5 Sick sinus syndrome; Z95.0 Presence of cardiac pacemaker; Z87.19 Personal history of other diseases of the digestive system; Z87.01 Personal history of pneumonia (recurrent); Z91.128 Patient's intentional underdosing of medication regimen for other reason; Z88.0 Allergy status to penicillin
CPT/HCPCS: 36415; 71046; 71275; 80048; 80053; 83880; 84484; 85025; 85610; 85730; 93005; 93306; 93970; 94760; 96374; 96375; 99291

== ENCOUNTER → 2023-02-15 | Outpatient (CLI) | payer MEDICARE ==
[2023-02-15 14:24] LABS: African American GFR (CKD) 63 (>60 ml/min/1.73 sqM); Blood Urea Nitrogen 29 mg/dL (9-20); Non-African American GFR(CKD) 54 (>60 ml/min/1.73 sqM)
--- NOTE | 2023-02-16 17:30 | CT ---
EXAMINATION TYPE: CT angio chest DATE OF EXAM: 02/15/2023 COMPARISON: Prior CTA chest December 10, 2022 HISTORY: hx of recent PE CT DLP: 924.60 mGycm. Automated Exposure Control for Dose Reduction was Utilized. CONTRAST: CTA scan of the thorax is performed with IV Contrast, patient injected with 80ml mL of Isovue 300, pu lmonary embolism protocol. MIP Images are created on CT scanner and reviewed. FINDINGS: Current exam has motion artifact making evaluation suboptimal. LUNGS: Overall mosaic attenuation bilaterally suggest mild diffuse edema. No pleural effusion or pneu mothorax is present bilaterally. Mild bilateral lower lung linear scarring and/or atelectasis. MEDIASTINUM: Less than ideal study with most dense contrast in the SVC. Resolved right upper lung pul monary embolism is noted. No new central pulmonary emboli. Evaluation of peripheral branches is subop timal. Persistent cardiomegaly with at least moderate biatrial dilatation. No pericardial effusion. T here is dual lead pacemaker redemonstrated. OTHER: Exaggerated thoracic kyphosis with bridging osteophytes throughout the thoracic spine. Cholecy stectomy clips are redemonstrated. IMPRESSION: 1. Suboptimal study with resolved central right-sided pulmonary emboli. No new central acute pulmonar y emboli. Suboptimal evaluation of peripheral vessels on current study. 2. Cardiomegaly redemonstrated with new mild diffuse bilateral alveolar edema thought present. Correl ate for possible CHF exacerbation.
== END | disposition home or self-care (01) ==
LOC: RADCTMAIN 13:49
PROVIDERS: ATTEND Internal Medicine Critical Care Medicine
DX: I51.7 Cardiomegaly (principal); I26.99 Other pulmonary embolism without acute cor pulmonale
CPT/HCPCS: 82565; 84520; 71275; 36415; Q9967

== ENCOUNTER → 2023-04-20 | Outpatient (CLI) | payer MEDICARE | END | disposition home or self-care (01) | LOC: LABWHC1 16:30 | PROVIDERS: ATTEND Internal Medicine Critical Care Medicine | DX: I31.39 Other pericardial effusion (noninflammatory) (principal); I45.10 Unspecified right bundle-branch block; I51.7 Cardiomegaly; I21.09 ST elevation (STEMI) myocardial infarction involving other coronary artery of anterior wall; R94.31 Abnormal electrocardiogram [ECG] [EKG] | CPT/HCPCS: 36415; 93005 ==

== ENCOUNTER → 2023-04-20 | Outpatient (CLI) | payer MEDICARE | END | disposition home or self-care (01) | LOC: RADECHMAIN 16:16 | PROVIDERS: ATTEND Internal Medicine Critical Care Medicine | DX: Z53.9 Procedure and treatment not carried out, unspecified reason (principal) ==

== ENCOUNTER → 2023-05-11 | Outpatient (CLI) | payer MEDICARE ==
--- NOTE | 2023-05-12 09:41 | CA ---
Transthoracic Echo Report Name: Umberto Oglesby Age: 82 Gender: M : 1940 Exam Date: 05/11/2023 13:31 Exam Location: [facility] Ht (in): 71 Wt (lb): 300 Ordering Physician: Jimmy Vela DO Attending/Referring Phys: State Auditor Boni Link RDCS Procedure CPT: Indications: I31.39 Cardiac Hx: Technical Quality: Poor Contrast 1: Total Dose (mL): Contrast 2: Total Dose (mL): MEASUREMENTS (Male / Female) Normal Values 2D ECHO LV Diastolic Diameter PLAX 6.1 cm 4.2 - 5.9 / 3.9 - 5.3 cm LV Systolic Diameter PLAX 4.9 cm IVS Diastolic Thickness 1.3 cm 0.6 - 1.0 / 0.6 - 0.9 cm LVPW Diastolic Thickness 1.2 cm 0.6 - 1.0 / 0.6 - 0.9 cm LV Relative Wall Thickness 0.4 LVOT Diameter 2.9 cm Aortic Root Diameter 3.6 cm LA Systolic Diameter LX 6.8 cm 3.0 - 4.0 / 2.7 - 3.8 cm DOPPLER AV Peak Velocity 115.9 cm/s AV Peak Gradient 5.4 mmHg AV Mean Velocity 84.1 cm/s AV Mean Gradient 3.1 mmHg AV Velocity Time Integral 23.3 cm LVOT Peak Velocity 63.3 cm/s LVOT Peak Gradient 1.6 mmHg LVOT Velocity Time Integral 12.5 cm LVOT Stroke Volume 80.9 cm??? LVOT Stroke Volume Index 32.3 ml/m??? LVOT Cardiac Index 1907.9 cm???/min???m??? AV Area Cont Eq vti 3.5 cm??? AV Area Cont Eq pk 3.5 cm??? Mitral E Point Velocity 83.3 cm/s Mitral A Point Velocity 36.7 cm/s Mitral E to A Ratio 2.3 MV Deceleration Time 184.7 ms TR Peak Velocity 316.1 cm/s TR Peak Gradient 40.0 mmHg PV Peak Velocity 71.1 cm/s PV Peak Gradient 2.0 mmHg FINDINGS Left Ventricle Left ventricular ejection fraction is estimated at 55-60%. Mild concentric left ventricular hypertrophy. Right Ventricle Normal right ventricular size and function. Unable to estimate the right ventricular systolic pressure. Right Atrium Catheter/pacemaker wire in the right atrial cavity. Left Atrium Severely increased left atrial diameter. Mitral Valve Trace mitral regurgitation. Aortic Valve No aortic valve stenosis or regurgitation. Tricuspid Valve Moderate tricuspid regurgitation. Pulmonic Valve No pulmonic regurgitation. Pericardium No pericardial effusion. Aorta Normal size aortic root. CONCLUSIONS Poor quality study LVEF 55% Mild concentric LVH Atypical septal motion due to paced rhythm Apical dyskinesia noticed PPM wire in RA and RV Compared to prior echo from from 11/2022 - apical hypokinesia appears new, could be PPM related. Correlate clinically Previewed by: Dr Stanley Aguilar (Electronically Signed) Final Date: 12 May 2023 09:41
== END | disposition home or self-care (01) ==
LOC: RADECHMAIN 13:03
PROVIDERS: ATTEND Internal Medicine Critical Care Medicine
DX: I31.39 Other pericardial effusion (noninflammatory) (principal); G24.9 Dystonia, unspecified
CPT/HCPCS: 93306

== ENCOUNTER → 2023-06-02 | Outpatient (CLI) | payer MEDICARE ==
--- NOTE | 2023-06-02 16:23 | BD ---
EXAMINATION TYPE: Axial Bone Density DATE OF EXAM: 06/02/2023 CLINICAL HISTORY: 82 years old Male. ICD-10 CODE: V58.65 (Z79.52) CHRONIC STEROID USE Height: 67 in Weight: 308 lbs FRAX RISK QUESTIONS: Family History (Parent hip fracture): yes father Glucocorticoids (More than 3mos): 5 mg/day for 3 months (Ex: prednisone, prednisolone, methylprednisolone, dexamethasone, and hydrocortisone). History of Fracture in Adulthood: rt foot fx(unsure when), lt ribs fx age 52, lt clavicle age 52 RISK FACTORS Surgery to Spine: l spine surgery age 72 MEDICATIONS: Thyroid Medications: yes Which medication: Synthroid How Lon+ years EXAM MEASUREMENTS: Bone mineral densitometry was performed using the [employer] System. Bone mineral density about the R hip (g/cm2): 1.078 Bone mineral density about the L hip (g/cm2): 1.134 T Score values are as follows: -----R Neck: -0.3 -----L Neck: 0.3 -----R Total: 0.6 -----L Total: 1.0 Z Score values are as follows: -----R Neck: 0.5 -----L Neck: 0.9 -----R Total: 0.6 -----L Total: 1.0 Bone mineral density baseline Bone mineral density about the L Wrist (g/cm2): 0.810 T Score values are as follows: -----Dist. R+U: 0.2 -----Prox. R+U: 1.0 -----Radius total: 0.8 Z Score values are as follows: -----Dist. R+U: 1.4 -----Prox. R+U: 2.3 -----Radius total: 2.1 Bone mineral density baseline FRAX%s: The graph provided illustrates a 17.8% chance for a major osteoporotic fx and a 10.8% chance for the hips probability for fx in 10 years time. IMPRESSION: Normal (Values between +1 and -1 indicate normal bone mass). Consider repeating this study in 5 year s or sooner if there is some new clinical indication. NOTE: T-SCORE=SD OF THE YOUNG ADULT MEAN.
== END | disposition home or self-care (01) ==
LOC: RADBDWWP 10:18
PROVIDERS: ATTEND Internal Medicine
DX: M85.88 Other specified disorders of bone density and structure, other site (principal); Z79.52 Long term (current) use of systemic steroids
CPT/HCPCS: 77080

== ENCOUNTER → 2023-10-12 | Outpatient (CLI) | payer MEDICARE ==
--- NOTE | 2023-10-12 14:31 | US ---
EXAMINATION TYPE: US arterial LE multi level DATE OF EXAM: 10/12/2023 1:14 PM CLINICAL INDICATION: Male, 83 years old with history of I73.9 PAD; Bilateral leg pain History of: Smoker: Previous Hypertension: Yes Diabetic: No Hyperlipidemia: No TIA/CVA: No Previous Vascular Surgery: Cardiac bypass x3 - 20 years ago, cardiac stents x4 - 1 year ago Vascular Ulcers: No Claudication: No Gangrene: No Doppler Waveforms: Right: Biphasic waveform posterior tibial, monophasic dorsalis pedis. Left: Triphasic waveform posterior tibial, biphasic waveform in dorsalis pedis Right Brachial Pressure: 169 Left Brachial Pressure: 154 Ankle-Brachial Indices: Right: 0.91 Left: 1.04 (Vessel hardening > 1.4; Normal 0.9 - 1.4, Moderate 0.7 - 0.9, Severe 0.5-0.7) IMPRESSION: Normal left ankle brachial index with borderline right ankle-brachial index suggesting possible mild distal peripheral arterial disease.
--- NOTE | 2023-10-13 09:32 | XR ---
EXAMINATION TYPE: XR hand complete 3 views LT DATE OF EXAM: 10/12/2023 Comparison: None Clinical History: 83-year-old male M79.642 PAIN IN LEFT HAND Findings: Moderate degenerative change first through third MCP joints. Moderate to severe second PIP joint and moderate within the third PIP and second DIP joints. Severe degenerative change first CMC joint. No a cute fracture or dislocation seen. Some metal density flecks noted projecting at the soft tissue sugg estive that the first webspace, palmar aspect of the proximal thumb, and radial aspect of the proxima l index finger. No acute fracture, subluxation, dislocation. Impression: Scattered osteoarthritic change throughout, severe at the base of the thumb and moderate along the fi rst through third MCP joints. Also at the second PIP joint. Some punctate retained metal flecks in th e soft tissues as above.
== END | disposition home or self-care (01) ==
LOC: RADUSWWP 12:25
PROVIDERS: ATTEND Internal Medicine
DX: I73.9 Peripheral vascular disease, unspecified (principal); M79.642 Pain in left hand; I10 Essential (primary) hypertension; Z87.891 Personal history of nicotine dependence; Z95.5 Presence of coronary angioplasty implant and graft
CPT/HCPCS: 93922

== ENCOUNTER → 2023-11-20 | Outpatient (CLI) | payer MEDICARE ==
--- NOTE | 2023-11-20 12:20 | FL ---
EXAMINATION TYPE: FL barium swallow w video DATE OF EXAM: 11/20/2023 CLINICAL HISTORY: 83-year-old male R13.10, dysphagia, trouble swallowing . TECHNIQUE: Deglutition study is performed utilizing thin liquid barium, barium thick pudding, and ba rium coated cracker. Total fluoroscopy time 1 minute 11 seconds. Total images: None. Real-time fluoroscopy support was provided to speech pathology. Total DAP: 25 mGycm2. COMPARISON: None. FINDINGS: The oral and pharyngeal phases show satisfactory initiation and propagation with all modalities teste d. Normal mastication is seen with solid modalities tested. There is transient penetration with thi n liquids. This improves with chin tuck maneuver. No other penetration or aspiration seen. No signifi cant residuals. IMPRESSION: Transient penetration with thin liquids which improves after chin tuck maneuver. No aspiration. Please refer to speech therapist notes for further details if necessary. [facility], , 11/20/2023 12:17 PM
== END | disposition home or self-care (01) ==
LOC: RADFLMAIN 11:22
PROVIDERS: ATTEND Otolaryngology
DX: R13.10 Dysphagia, unspecified (principal)
CPT/HCPCS: 74230

== ENCOUNTER 2024-08-25 08:32 | Inpatient (IN) | payer MEDICARE ==
--- NOTE | 2024-08-25 09:01 | ED ---
General Adult HPI - General Chief complaint: Shortness of Breath Stated complaint: SOB,chest pain Time Seen by Provider: 08/25/24 08:40 Source: patient, family, RN notes reviewed, old records reviewed Mode of arrival: ambulatory Limitations: no limitations - History of Present Illness Initial comments: This is an 84-year-old male who presents to the emergency department complaining of chest pain difficulty breathing for the last couple of days. Patient states that chest pain is like a pressure sensation. Patient states he has not been able to sleep because when he lies flat he is very short of breath. Patient states the edema in his legs is also increased. Patient states he had fluid around his lungs before and around his heart before. Patient states he also has had bypass surgery. Patient denies any fever chills but states he does have a cough that been dry. Patient denies any abdominal pain patient is nausea vomit diarrhea. Patient has back pain. Patient denies any radiation of the chest pain. - Related Data Home Medications Medication Instructions Recorded Confirmed Multivitamins, Thera [Multivitamin 1 tab PO DAILY 04/03/16 08/25/24 (formulary)] Loratadine 10 mg PO DAILY 11/18/16 08/25/24 Nitroglycerin Sl Tabs [Nitrostat] 0.4 mg SUBLINGUAL Q5M PRN 11/18/16 08/25/24 Cholecalciferol [Vitamin D3 (25 25 mcg PO DAILY 08/19/21 08/25/24 Mcg = 1000 Iu)] Metoprolol Tartrate [Lopressor] 25 mg PO BID 08/19/21 08/25/24 Potassium Citrate 99 mg PO DAILY 08/19/21 08/25/24 Pravastatin Sodium [Pravachol] 10 mg PO HS 08/19/21 08/25/24 Amitriptyline HCl 10 mg PO HS 12/07/22 08/25/24 Cabergoline 0.5 mg PO TU 12/07/22 08/25/24 Calcium Carbonate [Calcium] 600 mg PO DAILY 12/07/22 08/25/24 Cyanocobalamin (Vitamin B-12) 2,500 mcg PO DAILY 12/07/22 08/25/24 [Vitamin B-12] Gabapentin 600 mg PO TID 12/07/22 08/25/24 Glucosa Urrutia 2Kcl/Chondroitin Urrutia 1 cap PO DAILY 12/07/22 08/25/24 [Glucosamine-Chondroitin Cap] Magnesium Oxide [Magox 400] 400 mg PO BID 12/07/22 08/25/24 Pantoprazole Sodium [Protonix] 40 mg PO DAILY 12/07/22 08/25/24 predniSONE 20 mg PO DAILY 12/07/22 08/25/24 Apixaban [Eliquis] 5 mg PO BID 08/25/24 08/25/24 Levothyroxine Sodium [Synthroid] 50 mcg PO DAILY 08/25/24 08/25/24 Previous Rx's Medication Instructions Recorded Aspirin 81 mg PO DAILY #30 tab 12/10/22 Furosemide [Lasix] 40 mg PO DAILY #30 tab 12/10/22 Allergies Allergy/AdvReac Type Severity Reaction Status Date / Time Penicillins Allergy Rash/Hives/hand Verified 08/25/24 10:25 blisters Review of Systems ROS Statement: Those systems with pertinent positive or pertinent negative responses have been documented in the HPI. ROS Other: All systems not noted in ROS Statement are negative. 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 skin cancer, frequent lower leg edema, SOB w/exertion,. sick sinus syndrome History of Any Multi-Drug Resistant Organisms: None Reported Past Surgical History: Back Surgery, Cholecystectomy, Coronary Bypass/CABG, Heart Catheterization With Stent, Pacemaker Additional Past Surgical History / Comment(s): triple bypass 5-2010, cholecystectomy 2015,[employer] Pacemaker Lt chest, laminectomy Past Anesthesia/Blood Transfusion Reactions: No Reported Reaction Additional Past Anesthesia/Blood Transfusion Reaction / Comment(s): unsure if ever had transfusion Date of Last Stent Placement:: 09/01/21 Type of Cardiac Device: Permanent Pacemaker Device Placement Date:: Mar 2016 Past Psychological History: No Psychological Hx Reported Smoking Status: Former smoker Past Alcohol Use History: None Reported Past Drug Use History: None Reported - Past Family History Mother Family Medical History: Cancer Additional Family Medical History / Comment(s): CABG, Colon Cancer Father Family Medical History: Cancer Additional Family Medical History / Comment(s): Father of cancer unsure [facility] type of cancer Brother(s) Additional Family Medical History / Comment(s): Brother had X4 Bypass General Exam - General Exam Comments Initial Comments: GENERAL: Patient is well-developed and well-nourished. Patient is nontoxic and well- hydrated and is in mild distress. ENT: Neck is soft and supple. No significant lymphadenopathy is noted. Oropharynx is clear. Moist mucous membranes. Neck has full range of motion without eliciting any pain. EYES: The sclera were anicteric and conjunctiva were pink and moist. Extraocular movements were intact and pupils were equal round and reactive to light. Eyelids were unremarkable. PULMONARY: Unlabored respirations. Good breath sounds bilaterally. No audible rales rhonchi or wheezing was noted. CARDIOVASCULAR: There is a regular rate and rhythm without any murmurs gallops or rubs. ABDOMEN: Soft and nontender with normal bowel sounds. SKIN: Skin is clear with no lesions or rashes and otherwise unremarkable. NEUROLOGIC: Patient is alert and oriented x3. Cranial nerves II through XII are grossly intact. Motor and sensory are also intact. Normal speech, volume and content. Symmetrical smile. MUSCULOSKELETAL: Normal extremities with adequate strength and full range of motion. Patient has 2+ edema bilaterally LYMPHATICS: No significant lymphadenopathy is noted PSYCHIATRIC: Normal psychiatric evaluation. Limitations: no limitations Course Vital Signs 08/25/24 08/25/24 08/25/24 08:37 08:49 09:16 Temperature 97.7 F Pulse Rate 62 61 Respiratory 18 26 H 28 H Rate Blood Pressure 181/102 182/114 O2 Sat by Pulse 89 L 95 Oximetry 08/25/24 10:05 Temperature Pulse Rate 60 Respiratory 28 H Rate Blood Pressure 180/105 O2 Sat by Pulse 97 Oximetry Medical Decision Making - Medical Decision Making EKG is interpreted by myself EKG shows a paced rhythm at 60 bpm QRS is 229 QT interval is 511 QTc is 511. Was pt. sent in by a medical professional or institution (, PA, RN CORRECTIONAL, urgent care, hospital, or long term...) When possible be specific @ -No Did you speak to anyone other than the patient for history (EMS, parent, family, police, friend...)? What history was obtained from this source @ -No Did you review nursing and triage notes (agree or disagree)? Why? @ -I reviewed and agree with nursing and triage notes Were old charts reviewed (outside hosp., previous admission, EMS record, old EKG, old radiological studies, urgent care reports/EKG's, long term records)? Report findings @ -No old charts were reviewed Differential Diagnosis? @ -Differential Dyspnea: Coronary syndrome, arrhythmia, tamponade, asthma, COPD, pulmonary embolism, pneumonia, pneumothorax, pulmonary effusion, anaphylaxis, diabetic ketoacidosis, flailed chest, pulmonary contusion, diaphragmatic rupture, anemia, neuromuscular, this is not meant to be an all-inclusive list. EKG interpreted by me (3pts min.). @ -As above X-rays interpreted by me (1pt min.). @ -Chest x-ray shows acute pulmonary edema CT interpreted by me (1pt min.). @ -None done U/S interpreted by me (1pt. min.). @ -None done What testing was considered but not performed or refused? (CT, X-rays, U/S, labs)? Why? @ -None What meds were considered but not given or refused? Why? @ -None Did you discuss the management of the patient with other professionals (professionals i.e. , PA, RN CORRECTIONAL, lab, RT, psych nurse, social welfare research worker, mold press operator, teacher, marine safety officer, supportive employment case manager)? Give summary @ -I spoke with sound physicians agreed to admit the patient admit the patient wrote a bitting orders Was smoking cessation discussed for >3mins.? @ -No Was critical care preformed (if so, how long)? @ -5 minutes Were there social determinants of health that impacted care today? How? (Homelessness, low income, unemployed, alcoholism, drug addiction, transportation, low edu. Level, literacy, decrease access to med. care, assisted, rehab)? @ -No Was there de-escalation of care discussed even if they declined (Discuss DNR or withdrawal of care, Hospice)? DNR status @ -No What co-morbidities impacted this encounter? (DM, HTN, Smoking, COPD, CAD, Cancer, CVA, ARF, Chemo, Hep., AIDS, mental health diagnosis, sleep apnea, morbid obesity)? @ -None Was patient admitted / discharged? Hospital course, mention meds given and route, prescriptions, significant lab abnormalities, going to OR and other pertinent info. @ -Patient had elevated blood pressure and chest pain as well as difficulty breathing. Patient's x-ray showed congestive heart failure. Patient was given Lasix and Nitropaste and his morning medications for his blood pressure. Patient was oxygenating 88% on room air patient was placed on oxygen. Undiagnosed new problem with uncertain prognosis? @ -No Drug Therapy requiring intensive monitoring for toxicity (Heparin, Nitro, Insulin, Cardizem)? @ -No Were any procedures done? @ -No Diagnosis/symptom? @ -Acute pulmonary edema Acute, or Chronic, or Acute on Chronic? @ -Acute Uncomplicated (without systemic symptoms) or Complicated (systemic symptoms)? @ -Default Side effects of treatment? @ -No Exacerbation, Progression, or Severe Exacerbation? @ -No Poses a threat to life or bodily function? How? (Chest pain, USA, HI, pneumonia, PE, COPD, DKA, ARF, appy, cholecystitis, CVA, Diverticulitis, Homicidal, Suicidal, threat to staff... and all critical care pts) @ -Yes this can lead to hypoxia and endorgan dysfunction Diagnosis/symptom? @ -Chest pain Acute, or Chronic, or Acute on Chronic? @ -Acute Uncomplicated (without systemic symptoms) or Complicated (systemic symptoms)? @ -Complicate Side effects of treatment? @ -None Exacerbation, Progression, or Severe Exacerbation] @ -No Poses a threat to life or bodily function? @ -This can lead to an HI and endorgan dysfunction - Lab Data Result diagrams: 08/25/24 09:16 08/25/24 09:16 Lab Results 08/25/24 08/25/24 08/25/24 Range/Units 09:16 09:16 09:16 WBC 10.43 H (4.50-10.00) 10*3/uL RBC 4.79 (4.40-5.60) 10*6/uL Hgb 15.3 (13.0-17.0) g/dL Hct 44.8 (39.6-50.0) % MCV 93.5 (80.0-97.0) fL MCH 31.9 (27.0-32.0) pg MCHC 34.2 (32.0-37.0) g/dL Plt Count 109 L (140-440) 10*3/uL MPV 11.7 (9.5-12.2) fL Immature Gran % (Auto) 0.4 % Neutrophils % 79.0 % Lymphocytes % 12.4 % Monocytes % 6.2 % Eosinophils % 1.6 % Basophils % 0.4 % Immature Gran # 0.04 (0.00-0.04) 10*3/uL Neutrophils # 8.24 H (1.80-7.70) 10*3/uL Lymphocytes # 1.29 (0.90-5.00) 10*3/uL Monocytes # 0.65 (0.20-1.00) 10*3/uL Eosinophils # 0.17 (0.04-0.35) 10*3/uL Basophils # 0.04 (0.00-0.10) 10*3/uL Immature Plt Fraction 6.2 H (1.1-6.1) % PT 11.6 (10.0-12.5) sec INR 1.1 (<1.2) APTT 23.7 (22.0-30.0) sec Sodium 143 (137-145) mmol/L Potassium 3.8 (3.5-5.1) mmol/L Chloride 105 (98-107) mmol/L Carbon Dioxide 29 (22-30) mmol/L Anion Gap 9 mmol/L BUN 18 (9-20) mg/dL Creatinine 1.10 (0.66-1.25) mg/dL Est GFR (CKD-EPI)AfAm 72 (>60 ml/min/1.73 sqM) Est GFR (CKD-EPI)NonAf 62 (>60 ml/min/1.73 sqM) Glucose 132 H (74-99) mg/dL Calcium 9.7 (8.4-10.2) mg/dL Magnesium 2.1 (1.6-2.3) mg/dL Total Bilirubin 1.3 (0.2-1.3) mg/dL AST 29 (17-59) U/L ALT 23 (4-49) U/L Alkaline Phosphatase 77 (38-126) U/L Troponin I (0.000-0.034) ng/mL NT-Pro-B Natriuret Pep 6770 pg/mL Total Protein 7.2 (6.3-8.2) g/dL Albumin 4.7 (3.5-5.0) g/dL 08/25/24 Range/Units 09:16 WBC (4.50-10.00) 10*3/uL RBC (4.40-5.60) 10*6/uL Hgb (13.0-17.0) g/dL Hct (39.6-50.0) % MCV (80.0-97.0) fL MCH (27.0-32.0) pg MCHC (32.0-37.0) g/dL Plt Count (140-440) 10*3/uL MPV (9.5-12.2) fL Immature Gran % (Auto) % Neutrophils % % Lymphocytes % % Monocytes % % Eosinophils % % Basophils % % Immature Gran # (0.00-0.04) 10*3/uL Neutrophils # (1.80-7.70) 10*3/uL Lymphocytes # (0.90-5.00) 10*3/uL Monocytes # (0.20-1.00) 10*3/uL Eosinophils # (0.04-0.35) 10*3/uL Basophils # (0.00-0.10) 10*3/uL Immature Plt Fraction (1.1-6.1) % PT (10.0-12.5) sec INR (<1.2) APTT (22.0-30.0) sec Sodium (137-145) mmol/L Potassium (3.5-5.1) mmol/L Chloride (98-107) mmol/L Carbon Dioxide (22-30) mmol/L Anion Gap mmol/L BUN (9-20) mg/dL Creatinine (0.66-1.25) mg/dL Est GFR (CKD-EPI)AfAm (>60 ml/min/1.73 sqM) Est GFR (CKD-EPI)NonAf (>60 ml/min/1.73 sqM) Glucose (74-99) mg/dL Calcium (8.4-10.2) mg/dL Magnesium (1.6-2.3) mg/dL Total Bilirubin (0.2-1.3) mg/dL AST (17-59) U/L ALT (4-49) U/L Alkaline Phosphatase (38-126) U/L Troponin I 0.019 (0.000-0.034) ng/mL NT-Pro-B Natriuret Pep pg/mL Total Protein (6.3-8.2) g/dL Albumin (3.5-5.0) g/dL Disposition Clinical Impression: Acute pulmonary edema, Chest pain Disposition: ADMITTED IP TO THIS HOSP Referrals: Ananth Hendricks DO [Primary Care Provider] - 1-2 days Time of Disposition: 10:36
[2024-08-25] MEDS: NITROGLYCERIN OINT 1 INCH/GM PACKET TOPICAL STA (09:14)
[2024-08-25] MEDS: ASPIRIN 81 MG PO STA (09:14)
[2024-08-25] MEDS: FUROSEMIDE 10 MG/ML 4 ML VIAL IV STA (09:17)
[2024-08-25 09:29] LABS: Basophils # (A) 0.04 10*3/uL (0.00-0.10); Basophils % (A) 0.4 %; Eosinophils # (A) 0.17 10*3/uL (0.04-0.35); Eosinophils % (A) 1.6 %; HCT 44.8 % (39.6-50.0); HGB 15.3 g/dL (13.0-17.0); Immature Platelet Fraction 6.2 % (1.1-6.1); Lymphocytes # (A) 1.29 10*3/uL (0.90-5.00); Lymphocytes % (A) 12.4 %; MCH 31.9 pg (27.0-32.0); MCHC 34.2 g/dL (32.0-37.0); MCV 93.5 fL (80.0-97.0); Monocytes # (A) 0.65 10*3/uL (0.20-1.00); Monocytes % (A) 6.2 %; Neutrophils # (A) 8.24 10*3/uL (1.80-7.70); Neutrophils % (A) 79.0 %; Platelet Count 109 10*3/uL (140-440); RBC 4.79 10*6/uL (4.40-5.60); RDW 12.8 % (11.5-14.5); WBC 10.43 10*3/uL (4.50-10.00)
[2024-08-25 09:46] LABS: INR 1.1 (<1.2); Partial Thromboplastin Time 23.7 sec (22.0-30.0); Prothrombin Time 11.6 sec (10.0-12.5)
[2024-08-25 09:47] LABS: ALT 23 U/L (4-49); AST 29 U/L (17-59); African American GFR (CKD) 72 (>60 ml/min/1.73 sqM); Albumin 4.7 g/dL (3.5-5.0); Alkaline Phosphatase 77 U/L (38-126); Anion Gap 9 mmol/L; Blood Urea Nitrogen 18 mg/dL (9-20); Calcium 9.7 mg/dL (8.4-10.2); Carbon Dioxide 29 mmol/L (22-30); Chloride 105 mmol/L (98-107); Glucose 132 mg/dL (74-99); Magnesium 2.1 mg/dL (1.6-2.3); Non-African American GFR(CKD) 62 (>60 ml/min/1.73 sqM); Potassium 3.8 mmol/L (3.5-5.1); Sodium 143 mmol/L (137-145); Total Protein 7.2 g/dL (6.3-8.2)
[2024-08-25 09:55] LABS: NT-Pro-B-Type Natriuretic Pept 6770 pg/mL
--- NOTE | 2024-08-25 10:02 | XR ---
Chest, 2 view. CLINICAL INDICATION: Male, 84 years old with history of Chest Pain COMPARISON: 04/19/2023 TECHNIQUE: PA and lateral views the chest are obtained. FINDINGS: There is moderate to marked pulmonary vascular congestion and cardiomegaly with small bilateral pleur al effusions. There is a 2-lead cardiac pacemaker. There is no pneumothorax space consolidation. IMPRESSION: Findings consistent with moderate CHF. [facility], , 08/25/2024 10:00 AM
[2024-08-25] MEDS: NITROGLYCERIN OINT 1 INCH/GM PACKET TOPICAL SCH (11:30)
--- NOTE | 2024-08-25 11:46 | P.HPIM ---
History of Present Illness H&P Date: 08/25/24 Chief Complaint: shortness of breath Patient is a 84-year-old male with a past medical history of chronic diastolic heart failure, hypothyroidism, pulmonary embolism/DVT, atrial fibrillation, coronary artery disease status post CABG, status post pacemaker, hypertension, hyperlipidemia who presents to the ED with worsening shortness of breath over the past week and also intermittent chest pain. Patient states that he has a difficult time sleeping at nighttime due to the shortness of breath he states that he sleeps in a recliner due to shortness of breath. He states that if he sits upright it helps with his breathing however if he is at a slight angle he gets short of breath. Patient also reports worsening swelling in his lower extremity he admits that he does not follow a low-salt diet and also does not monitor his fluid intake. at bedside states that he drinks a lot of pop. Patient also complained of substernal chest pain that is pressure-like and rad iates to his back. Patient was placed on nitro patch in the ED and his chest pain improved. In the ED patient BNP was 6770. Chest x-ray showed moderate CHF. Patient was 89% on room air. He was placed on 3 L nasal cannula and now satting well. Patient was given IV Lasix 40 mg once and he then had good urine output. Patient states that his breathing is now slightly better. ROS: 10 ROS reviewed and are negative except as noted in HPI Physical exam General: [Alert and oriented, well nourished, no acute distress]. Eye: [PERRL, EOMI, normal conjunctiva]. HENT: [Normocephalic, clear tympanic membranes, normal hearing, moist oral mucosa, no scleral icterus, no sinus tenderness]. Neck: [Supple, non-tender, no carotid bruits, no JVD, no lymphadenopathy]. Lungs: [Diminished breath sounds bilaterally]. Heart: [Normal rate, regular rhythm, no murmur, gallop, +2 pitting edema bilateral lower extremities]. Abdomen: [Soft, non-tender, non-distended, normal bowel sounds, no masses]. Musculoskeletal: [Normal range of motion and strength, no tenderness or swelling]. Skin: [Skin is warm, dry and pink, no rashes or lesions]. Neurologic: [Awake, alert, and oriented X3, CN II-XII intact]. Psychiatric: [Cooperative, appropriate mood and affect]. Assessment and plan Acute hypoxic respiratory failure Acute on chronic diastolic heart failure likely due to diet noncompliance Discussed with the ED physician and accepted the admission for treatment of his heart failure Continue with IV Lasix 40 mg every 8 hours Fluid restriction 1500 cc Heart failure Consult cardiology Patient currently on 3 L nasal cannula Wean O2 as tolerated chest pain Continue with Nitropatch Trend troponin 3 times First troponin is negative Cardiology consult EKG showed paced rhythm without any ischemic changes Pulmonary embolism/DVT Continue with Eliquis 5 mg p.o. twice daily Coronary artery disease status post CABG Continue with aspirin 81 mg p.o. daily, metoprolol 25 mg p.o. daily, pravastatin 10 mg p.o. at bedtime hypothyroidism Continue with Synthroid 50 mcg p.o. daily Status post pacemaker Stable Neuropathy Continue 100 mg p.o. 3 times daily History of prolactinoma? Patient on cabergoline 0.5 mg on Tuesdays Chronic use of opioids Will resume his prednisone 20 mg p.o. 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 skin cancer, frequent lower leg edema, SOB w/exertion,. sick sinus syndrome History of Any Multi-Drug Resistant Organisms: None Reported Past Surgical History: Back Surgery, Cholecystectomy, Coronary Bypass/CABG, Heart Catheterization With Stent, Pacemaker Additional Past Surgical History / Comment(s): triple bypass -2010, cholecystectomy 2015,[employer] Pacemaker Lt chest, laminectomy Past Anesthesia/Blood Transfusion Reactions: No Reported Reaction Additional Past Anesthesia/Blood Transfusion Reaction / Comment(s): unsure if ever had transfusion Date of Last Stent Placement:: 09/01/21 Type of Cardiac Device: Permanent Pacemaker Device Placement Date:: Mar 2016 Past Psychological History: No Psychological Hx Reported Smoking Status: Former smoker Past Alcohol Use History: None Reported Past Drug Use History: None Reported - Past Family History Mother Family Medical History: Cancer Additional Family Medical History / Comment(s): CABG, Colon Cancer Father Family Medical History: Cancer Additional Family Medical History / Comment(s): Father of cancer unsure which type of cancer Brother(s) Additional Family Medical History / Comment(s): Brother had X4 Bypass Medications and Allergies Home Medications Medication Instructions Recorded Confirmed Type Multivitamins, Thera [Multivitamin 1 tab PO DAILY 04/03/16 08/25/24 History (formulary)] Loratadine 10 mg PO DAILY 11/18/16 08/25/24 History Nitroglycerin Sl Tabs [Nitrostat] 0.4 mg SUBLINGUAL Q5M PRN 11/18/16 08/25/24 History Cholecalciferol [Vitamin D3 (25 25 mcg PO DAILY 08/19/21 08/25/24 History Mcg = 1000 Iu)] Metoprolol Tartrate [Lopressor] 25 mg PO BID 08/19/21 08/25/24 History Potassium Citrate 99 mg PO DAILY 08/19/21 08/25/24 History Pravastatin Sodium [Pravachol] 10 mg PO HS 08/19/21 08/25/24 History Amitriptyline HCl 10 mg PO HS 12/07/22 08/25/24 History Cabergoline 0.5 mg PO TU 12/07/22 08/25/24 History Calcium Carbonate [Calcium] 600 mg PO DAILY 12/07/22 08/25/24 History Cyanocobalamin (Vitamin B-12) 2,500 mcg PO DAILY 12/07/22 08/25/24 History [Vitamin B-12] Gabapentin 600 mg PO TID 12/07/22 08/25/24 History Glucosa Urrutia 2Kcl/Chondroitin Urrutia 1 cap PO DAILY 12/07/22 08/25/24 History [Glucosamine-Chondroitin Cap] Magnesium Oxide [Magox 400] 400 mg PO BID 12/07/22 08/25/24 History Pantoprazole Sodium [Protonix] 40 mg PO DAILY 12/07/22 08/25/24 History predniSONE 20 mg PO DAILY 12/07/22 08/25/24 History Aspirin 81 mg PO DAILY #30 tab 12/10/22 08/25/24 Rx Furosemide [Lasix] 40 mg PO DAILY #30 tab 12/10/22 08/25/24 Rx Apixaban [Eliquis] 5 mg PO BID 08/25/24 08/25/24 History Levothyroxine Sodium [Synthroid] 50 mcg PO DAILY 08/25/24 08/25/24 History Allergies Allergy/AdvReac Type Severity Reaction Status Date / Time Penicillins Allergy Rash/Hives/hand Verified 08/25/24 10:25 blisters Physical Exam Osteopathic Statement: *. No significant issues noted on an osteopathic structural exam other than those noted in the History and Physical/Consult. Vitals: Vital Signs Temp Pulse Resp BP Pulse Ox 08/25/24 10:35 59 L 166/94 08/25/24 10:05 60 28 H 180/105 97 08/25/24 09:16 61 28 H 182/114 95 08/25/24 08:49 26 H 08/25/24 08:37 97.7 F 62 18 181/102 89 L Intake and Output 08/24/24 08/25/24 08/25/24 22:59 06:59 14:59 Output Total 400 Balance -400 Output: Urine 400 Other: Weight 136.078 kg Results CBC & Chem 7: 08/25/24 09:16 08/25/24 09:16 Labs: Abnormal Lab Results - Last 24 Hours (Table) 08/25/24 08/25/24 Range/Units 09:16 09:16 WBC 10.43 H (4.50-10.00) 10*3/uL Plt Count 109 L (140-440) 10*3/uL Neutrophils # 8.24 H (1.80-7.70) 10*3/uL Immature Plt Fraction 6.2 H (1.1-6.1) % Glucose 132 H (74-99) mg/dL
[2024-08-25] MEDS: ONDANSETRON 4 MG/2 ML VIAL IVP PRN (15:45)
[2024-08-25] MEDS: FUROSEMIDE 10 MG/ML 4 ML VIAL IV SCH (15:46)
[2024-08-25] MEDS: GABAPENTIN 300 MG CAP PO SCH (15:47)
[2024-08-25] MEDS: ACETAMINOPHEN TAB 325 MG TAB PO PRN (15:48)
[2024-08-25] MEDS: AMITRIPTYLINE HCL 10 MG TAB PO SCH (20:21)
[2024-08-25] MEDS: APIXABAN 5 MG TAB PO SCH (20:22)
[2024-08-25] MEDS: MAGNESIUM OXIDE 400 MG TAB PO SCH (20:22)
[2024-08-25] MEDS: METOPROLOL TARTRATE 25 MG TAB PO SCH (20:23)
[2024-08-25] MEDS: PRAVASTATIN SODIUM 20 MG TAB PO SCH (20:23)
[2024-08-26] MEDS: LEVOTHYROXINE 50 MCG TAB PO SCH (06:01)
--- NOTE | 2024-08-26 08:08 | P.CON ---
Consult Note - . Consult date: 08/26/24 Assessment/Plan:: Chief complaint: Bilateral lower extremity edema and abrasions HPI: Is an 84-year-old male that is a longstanding patient of mine. He is being evaluated in the ER currently for fluid on his lungs. Patient states that he had bilateral lower extremity edema. He denies any weeping but does have multiple abrasions to the anterior shins. He states that these are not secondary to the new edema he feels as though these have been chronic. I have seen him for greater than 1 year for similar conditions. He denies any extensive pain to the shins or calves but does report pain around his ankles that are extensively swollen today. He feels though it is went down in the last 24 hours since he has been in the hospital and he is feeling improved. He rates his pain as a 4 out of 10 today. Lower extremity exam: Vascular: Nonpalpable DP pulse bilateral likely secondary to edema, PT pulse is 2 out of 4 to the left ankle and 1 out of 4 to the right ankle CFT less than 3 seconds to all digits +2 pitting edema to bilateral lower extremity that is worse in the ankle in comparison to the anterior smiley Derm: Multiple abrasions to anterior shins bilateral as well as dorsal digits on the right foot. These all have dry eschar caps. There is no purulence or surrounding erythema to these areas. No clear signs of cellulitis are noted. No weeping to the anterior shins or legs. Neuro: Decreased light touch sensation to the level of the midfoot bilateral MSK: No significant pain with palpation to bilateral lower extremity with the exception of bilateral ankles where his socks have caused severe indentation. I see no breakdown of the soft tissue but I did remove the secondary to the pain and compression. Socks are placed around the foot but not up into the ankle. No pain with compression of the calves. Calves are soft and supple bilateral. Assessment: 1. Abrasions anterior shins bilateral 2. Abrasions dorsal toes of right foot 3. Lymphedema bilateral lower extremity 4. Bilateral ankle pain Plan: Extensive discussion with patient today regarding his clinical findings. I see no need for radiographic imaging. I think that his ankle pain is likely secondary to the extensive edema and compression of his socks. These were removed. No signs of soft tissue breakdown of these areas. Discussed his abrasions to the dorsal toes and shins. This is frequently in occurrence for him. Discussed monitoring these closely for any signs of cellulitis. He current currently does not have any. I see no need for dressing changes. Discussed the risks of lower extremity edema and the pressure this can put on the soft tissues causing weeping and further breakdown. We will monitor this closely while patient remains in house. Thank you for this consult. Natalie Santos DPM, AACFAS
[2024-08-26] MEDS: CYANOCOBALAMIN 500 MCG TAB PO SCH (08:49)
[2024-08-26] MEDS: MULTIVITAMINS, THERA 1 EACH TAB PO SCH (08:50)
[2024-08-26] MEDS: PANTOPRAZOLE 40 MG TABLET PO SCH (08:50)
[2024-08-26] MEDS: LORATADINE 10 MG TAB PO SCH (08:50)
[2024-08-26] MEDS: CHOLECALCIFEROL 25 MCG (1000 IU) TABLET PO SCH (08:51)
[2024-08-26] MEDS: ASPIRIN 81 MG PO SCH (08:52)
[2024-08-26] MEDS: predniSONE 20 MG TAB PO SCH (08:52)
[2024-08-26 10:47] LABS: Basophils # (A) 0.03 10*3/uL (0.00-0.10); Basophils % (A) 0.4 %; Eosinophils # (A) 0.20 10*3/uL (0.04-0.35); Eosinophils % (A) 3.0 %; HCT 44.7 % (39.6-50.0); HGB 14.7 g/dL (13.0-17.0); Immature Platelet Fraction 7.2 % (1.1-6.1); Lymphocytes # (A) 1.12 10*3/uL (0.90-5.00); Lymphocytes % (A) 16.8 %; MCH 31.3 pg (27.0-32.0); MCHC 32.9 g/dL (32.0-37.0); MCV 95.3 fL (80.0-97.0); Monocytes # (A) 0.36 10*3/uL (0.20-1.00); Monocytes % (A) 5.4 %; Neutrophils # (A) 4.93 10*3/uL (1.80-7.70); Neutrophils % (A) 73.8 %; Platelet Count 105 10*3/uL (140-440); RBC 4.69 10*6/uL (4.40-5.60); RDW 13.1 % (11.5-14.5); WBC 6.68 10*3/uL (4.50-10.00)
[2024-08-26 11:28] LABS: African American GFR (CKD) 75 (>60 ml/min/1.73 sqM); Anion Gap 5 mmol/L; Blood Urea Nitrogen 17 mg/dL (9-20); Calcium 9.1 mg/dL (8.4-10.2); Carbon Dioxide 36 mmol/L (22-30); Chloride 100 mmol/L (98-107); Glucose 194 mg/dL (74-99); Magnesium 2.2 mg/dL (1.6-2.3); Non-African American GFR(CKD) 65 (>60 ml/min/1.73 sqM); Potassium 3.4 mmol/L (3.5-5.1); Sodium 141 mmol/L (137-145)
[2024-08-26] MEDS ORDERED: IPRATROPIUM-ALBUTEROL 3 ML NEB INHALATION PRN (13:00)
--- NOTE | 2024-08-26 13:05 | P.PN ---
Subjective Progress Note Date: 08/26/24 Hospital course Patient is a 84-year-old male with a past medical history of chronic diastolic heart failure, hypothyroidism, pulmonary embolism/DVT, atrial fibrillation, coronary artery disease status post CABG, status post pacemaker, hypertension, hyperlipidemia who presents to the ED with worsening shortness of breath over the past week and also intermittent chest pain. Patient states that he has a difficult time sleeping at nighttime due to the shortness of breath he states that he sleeps in a recliner due to shortness of breath. He states that if he sits upright it helps with his breathing however if he is at a slight angle he gets short of breath. Patient also reports worsening swelling in his lower extremity he admits that he does not follow a low-salt diet and also does not monitor his fluid intake. at bedside states that he drinks a lot of pop. Patient also complained of substernal chest pain that is pressure-like and radiates to his back. Patient was placed on nitro patch in the ED and his chest pain improved. In the ED patient BNP was 6770. Chest x-ray showed moderate CHF. Patient was 89% on room air. He was placed on 3 L nasal cannula and now satting well. Patient was given IV Lasix 40 mg once and he then had good urine output. Patient states that his breathing is now slightly better. Patient started on IV diuretics. Patient's breathing has improving. Subjective Patient seen this morning. He states that his breathing is much better today. He states that he is making good urine output. Physical exam General examination - Alert and Oriented 3 in NAD Heart - + S1S2 no murmurs Lungs -diminished breath sounds bilaterally Abdomen soft NT ND +ve BS Extremities -+1 pitting edema bilateral lower extremities, bilateral lower extremity laceration [employer] - Moving all 4 extremities spontaneously Psych - Calm and cooperative Assessment and plan Acute on chronic hypoxic respiratory failure Acute on chronic diastolic heart failure likely due to diet noncompliance COPD not in exacerbation Continue with IV Lasix 40 mg every 8 hours -> decrease to every 12 hours Fluid restriction Cardiology consult pending Patient is currently on 3 L nasal cannula. He wears 2 L at home. Wean O2 as tolerated Continue with his home dose of prednisone 20 mg daily. DuoNeb as needed Monitor renal function while on high-dose diuretics. Today potassium is 3.4, creatinine 1.06, magnesium 2.2. Will give the patient 60 mg of potassium chloride Cardiology started the patient on Entresto 1 tab p.o. twice daily Chest pain Continue Nitropatch Troponins are negative Cardiology consult pending Patient's chest pain has now resolved Coronary disease status post CABG Continue with aspirin 81 mg p.o. daily, metoprolol 25 mg p.o. daily, pravastatin 10 mg p.o. at bedtime History of pulmonary embolism and DVT Continue Eliquis 5 mg p.o. twice daily Hypothyroidism Continue Synthroid 50 mcg p.o. daily Status post pacemaker Stable Neuropathy Continue gabapentin 100 mg p.o. 3 times daily History of prolactinoma Patient on cabergoline 0.5 mg on Tuesdays DVT prophylaxis: Eliquis Objective - Vital Signs Vital signs: Vital Signs Temp 97.8 F 08/26/24 08:00 Pulse 60 08/26/24 08:00 Resp 18 08/26/24 08:00 BP 158/93 08/26/24 08:00 Pulse Ox 96 08/26/24 08:36 FiO2 Intake & Output 08/25/24 08/26/24 08/26/24 18:59 06:59 18:59 Output Total 400 Balance -400 Weight 136.078 kg Output: Urine 400 - Labs CBC & Chem 7: 08/26/24 10:18 08/26/24 10:18 Labs: Abnormal Lab Results - Last 24 Hours (Table) 08/26/24 08/26/24 Range/Units 10:18 10:18 Plt Count 105 L (140-440) 10*3/uL Immature Plt Fraction 7.2 H (1.1-6.1) % Potassium 3.4 L (3.5-5.1) mmol/L Carbon Dioxide 36 H (22-30) mmol/L Glucose 194 H (74-99) mg/dL
[2024-08-26] MEDS: DAPAGLIFLOZIN PROPANEDIOL 5 MG TABLET PO SCH (13:26)
[2024-08-26] MEDS: POTASSIUM CHLORIDE ER 20 MEQ TAB.ER PO STA (13:27)
--- NOTE | 2024-08-26 13:49 | P.CRDCN ---
History of Present Illness Consult date: 08/26/24 Consult reason: congestive heart failure Chief complaint: Exertional dyspnea History of present illness: Patient is a 83-year-old male with a history of coronary disease status post CABG and previous stenting, persistent A-fib on Eliquis, sick sinus syndrome status post permanent pacemaker, hypertension, hyperlipidemia presented to the ER with worsening shortness of breath from past 2 weeks. Patient reports that he has been experiencing exertional dyspnea, orthopnea, PND and swelling of the legs that has been getting worse as well. Patient reports that he is compliant with his cardiac medications. However he admits of not following a low-salt diet and has also reported increasing his daily weights. Patient denies any recent upper respiratory tract infection. Since his admission patient has been receiving diuresis with Lasix and has had good urine output. Patient reports improvement in his shortness of breath since his admission. Additionally, patient also been complaining of intermittent substernal chest pain which she describes as heavy, 6 out of 10, radiating to back, better with sitting position worse with supine position associated with mildly productive cough. Patient denies lightheadedness, dizziness, abdominal pain, diarrhea, constipation, dysuria, melena or medic easy. His primary meat loiner is Dr. Kwok. Stress test was done 2 weeks ago which was unremarkable for any ischemia. His most recent echocardiogram was in April 2023 with ejection fraction of 55 to 60% and mild concentric left ventricular hypertrophy with increased left atrium size. His home cardiac medications are Lopressor, Lasix, aspirin, Eliquis. Labs and images on this admission: WBC 10.4, hemoglobin 15.3, platelet count 109, sodium 143, potassium 2.8, BUN 18, creatinine 1.10, magnesium 2.1, AST 29, ALT 23, ALP 77, troponin I 0.019, 0.017, 0.018, NT proBNP 6770 Chest x-ray shows pulmonary vascular congestion with small bilateral pleural effusion EKG shows paced rhythm with underlying A-fib which is unchanged from previous EKG Vitals: Temperature 97.8 F, heart rate 60 bpm, respiratory rate 18, blood pressure 158/93, oxygen 96% on 3 L nasal cannula Review of systems: Pertinent positives and negatives as discussed in HPI, a complete review of systems was performed and all other systems are negative. Social history: Non-smoker no alcohol Physical examination: Vital signs reviewed General: non toxic, no distress Head: atraumatic, normocephalic, symmetric Eyes: EOMI, no lid lag, anicteric sclera, pupils equal round reactive to light ENT: Nose and ears atraumatic Neck: No cervical lymphadenopathy, trachea midline, supple Mouth: no lip lesion, mucus membranes moist Cardiovascular: S1S2 reg, no murmur, positive dorsalis pedis pulse bilateral, 3+ pitting edema bilaterally lower extremities Lungs: Mild crackles on both sides with no rales or wheezing. No use of acc essory muscles. Abdominal: soft, nontender to palpation, no guarding Psych: Alert, oriented, appropriate affect Assessment: #Acute on chronic HFpEF, ejection fraction 55 to 60% on echocardiogram in April 2023 #Atypical chest pain, non-ACS, troponin negative #History of CAD status post CABG and stenting #Sick sinus syndrome status post PPM #Persistent A-fib, rate controlled, on Eliquis #Hyperlipidemia #Hypertension Active: Resume home cardiac medications Monitor I's and O's, strict daily weights, fluid restriction 1500 mL/day Decrease IV Lasix to 40 mg twice daily Optimize GDMT: Add Farxiga and Entresto, continue with metoprolol tartrate. Will add Aldactone after discontinuing IV Lasix Discontinue pravastatin. Add Lipitor 40 mg once daily Check NT proBNP tomorrow Check BMP and mag tomorrow Order echocardiogram Replete electrolytes Dictation was produced using [employer] dictation software. Please excuse any grammatical, word or spelling errors. 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 skin cancer, frequent lower leg edema, SOB w/exertion,. sick sinus syndrome History of Any Multi-Drug Resistant Organisms: None Reported Past Surgical History: Back Surgery, Cholecystectomy, Coronary Bypass/CABG, Heart Catheterization With Stent, Pacemaker Additional Past Surgical History / Comment(s): triple bypass 5-2010, cholecystectomy 2015,[employer] Edwin Pacemaker Lt chest, laminectomy Past Anesthesia/Blood Transfusion Reactions: No Reported Reaction Additional Past Anesthesia/Blood Transfusion Reaction / Comment(s): unsure if ever had transfusion Date of Last Stent Placement:: 09/01/21 Type of Cardiac Device: Permanent Pacemaker Device Placement Date:: Mar 2016 Past Psychological History: No Psychological Hx Reported Smoking Status: Former smoker Past Alcohol Use History: None Reported Past Drug Use History: None Reported - Past Family History Mother Family Medical History: Cancer Additional Family Medical History / Comment(s): CABG, Colon Cancer Father Family Medical History: Cancer Additional Family Medical History / Comment(s): Father of cancer unsure which type of cancer Brother(s) Additional Family Medical History / Comment(s): Brother had X4 Bypass Medications and Allergies Home Medications Medication Instructions Recorded Confirmed Type Multivitamins, Thera [Multivitamin 1 tab PO DAILY 04/03/16 08/25/24 History (formulary)] Loratadine 10 mg PO DAILY 11/18/16 08/25/24 History Nitroglycerin Sl Tabs [Nitrostat] 0.4 mg SUBLINGUAL Q5M PRN 11/18/16 08/25/24 History Cholecalciferol [Vitamin D3 (25 25 mcg PO DAILY 08/19/21 08/25/24 History Mcg = 1000 Iu)] Metoprolol Tartrate [Lopressor] 25 mg PO BID 08/19/21 08/25/24 History Potassium Citrate 99 mg PO DAILY 08/19/21 08/25/24 History Pravastatin Sodium [Pravachol] 10 mg PO HS 08/19/21 08/25/24 History Amitriptyline HCl 10 mg PO HS 12/07/22 08/25/24 History Cabergoline 0.5 mg PO TU 12/07/22 08/25/24 History Calcium Carbonate [Calcium] 600 mg PO DAILY 12/07/22 08/25/24 History Cyanocobalamin (Vitamin B-12) 2,500 mcg PO DAILY 12/07/22 08/25/24 History [Vitamin B-12] Gabapentin 600 mg PO TID 12/07/22 08/25/24 History Glucosa Urrutia 2Kcl/Chondroitin Urrutia 1 cap PO DAILY 12/07/22 08/25/24 History [Glucosamine-Chondroitin Cap] Magnesium Oxide [Magox 400] 400 mg PO BID 12/07/22 08/25/24 History Pantoprazole Sodium [Protonix] 40 mg PO DAILY 12/07/22 08/25/24 History predniSONE 20 mg PO DAILY 12/07/22 08/25/24 History Aspirin 81 mg PO DAILY #30 tab 12/10/22 08/25/24 Rx Furosemide [Lasix] 40 mg PO DAILY #30 tab 12/10/22 08/25/24 Rx Apixaban [Eliquis] 5 mg PO BID 08/25/24 08/25/24 History Levothyroxine Sodium [Synthroid] 50 mcg PO DAILY 08/25/24 08/25/24 History Allergies Allergy/AdvReac Type Severity Reaction Status Date / Time Penicillins Allergy Rash/Hives/hand Verified 08/25/24 10:25 blisters Physical Exam Vitals: Vital Signs Temp Pulse Resp BP Pulse Ox 08/26/24 08:36 96 08/26/24 08:00 97.8 F 60 18 158/93 96 08/26/24 06:00 60 20 153/94 94 L 08/26/24 04:00 60 20 154/93 94 L 08/26/24 02:00 60 18 142/90 94 L 08/26/24 00:00 60 20 160/100 94 L 08/25/24 21:49 60 22 138/93 94 L 08/25/24 20:15 60 20 158/103 96 08/25/24 17:58 98.1 F 60 22 144/86 94 L 08/25/24 15:40 97.9 F 60 20 155/97 93 L 08/25/24 15:00 60 24 155/98 Results 08/26/24 10:18 08/26/24 10:18 Cardiac Enzymes 08/25/24 08/25/24 Range/Units 16:53 23:00 Troponin I 0.018 0.016 (0.000-0.034) ng/mL CBC 08/26/24 Range/Units 10:18 WBC 6.68 (4.50-10.00) 10*3/uL RBC 4.69 (4.40-5.60) 10*6/uL Hgb 14.7 (13.0-17.0) g/dL Hct 44.7 (39.6-50.0) % Plt Count 105 L (140-440) 10*3/uL Comprehensive Metabolic Panel 08/26/24 Range/Units 10:18 Sodium 141 (137-145) mmol/L Potassium 3.4 L (3.5-5.1) mmol/L Chloride 100 (98-107) mmol/L Carbon Dioxide 36 H (22-30) mmol/L BUN 17 (9-20) mg/dL Creatinine 1.06 (0.66-1.25) mg/dL Glucose 194 H (74-99) mg/dL Calcium 9.1 (8.4-10.2) mg/dL Current Medications Generic Name Dose Route Start Last Admin Trade Name Freq PRN Reason Stop Dose Admin Acetaminophen 650 mg 08/25/24 15:21 08/26/24 02:55 Acetaminophen Tab 325 Mg Tab PO 650 mg Q6HR PRN Administration Fever and/ or Pain Albuterol/Ipratropium 3 ml 08/26/24 13:00 Ipratropium-Albuterol 3 Ml Neb INHALATION RT-QID PRN Shortness Of Breath Or Wheezing Amitriptyline HCl 10 mg 08/25/24 21:00 08/25/24 20:21 Amitriptyline Hcl 10 Mg Tab PO 10 mg HS ARNULFO Administration Apixaban 5 mg 08/25/24 21:00 08/26/24 08:51 Apixaban 5 Mg Tab PO 5 mg BID ARNULFO Administration Protocol Aspirin 81 mg 08/26/24 09:00 08/26/24 08:52 Aspirin 81 Mg PO 81 mg DAILY ARNULFO Administration Atorvastatin Calcium 40 mg 08/27/24 09:00 Atorvastatin 40 Mg Tab PO DAILY ARNULFO Cholecalciferol 25 mcg 08/26/24 09:00 08/26/24 08:51 Cholecalciferol 25 Mcg (1000 Iu) Tablet PO 25 mcg DAILY ARNULFO Administration Cyanocobalamin 2,500 mcg 08/26/24 09:00 08/26/24 08:49 Cyanocobalamin 500 Mcg Tab PO 2,500 mcg DAILY ARNULFO Administration Dapagliflozin 5 mg 08/26/24 10:45 Dapagliflozin Propanediol 5 Mg Tablet PO DAILY ARNULFO Furosemide 40 mg 08/26/24 21:00 Furosemide 10 Mg/Ml 4 Ml Vial IV Q12HR ARNULFO Gabapentin 600 mg 08/25/24 16:00 08/26/24 08:53 Gabapentin 300 Mg Cap PO 600 mg TID ARNULFO Administration Levothyroxine Sodium 50 mcg 08/26/24 06:30 08/26/24 06:01 Levothyroxine 50 Mcg Tab PO 50 mcg 0630 ARNULFO Administration Loratadine 10 mg 08/26/24 09:00 08/26/24 08:50 Loratadine 10 Mg Tab PO 10 mg DAILY ARNULFO Administration Magnesium Oxide 400 mg 08/25/24 21:00 08/26/24 08:51 Magnesium Oxide 400 Mg Tab PO 400 mg BID ARNULFO Administration Metoprolol Tartrate 25 mg 08/25/24 21:00 08/26/24 08:52 Metoprolol Tartrate 25 Mg Tab PO 25 mg BID ARNULFO Administration Multivitamins 1 each 08/26/24 09:00 08/26/24 08:50 Multivitamins, Thera 1 Each Tab PO 1 each DAILY ARNULFO Administration Patient's Own ( 0.5 mg 08/27/24 09:00 Cabergoline [ PO Cabergoline] 0.5 Mg TU ARNULFO Tablet) Ondansetron HCl 4 mg 08/25/24 15:21 08/25/24 15:45 Ondansetron 4 Mg/2 Ml Vial IVP 4 mg Q6HR PRN Administration Nausea And Vomiting Pantoprazole Sodium 40 mg 08/26/24 09:00 08/26/24 08:50 Pantoprazole 40 Mg Tablet PO 40 mg DAILY ARNULFO Administration Potassium Chloride 20 meq 08/26/24 15:00 Potassium Chloride Er 20 Meq Tab.Er PO 08/26/24 15:01 ONCE ONE Prednisone 20 mg 08/26/24 09:00 08/26/24 08:52 Prednisone 20 Mg Tab PO 20 mg DAILY ARNULFO Administration Sacubitril/Valsartan 1 each 08/26/24 21:00 Sacubitril/Valsartan 24 Mg-26 Mg Tablet PO BID ARNULFO 08/26/24 10:18 08/26/24 10:18
[2024-08-26] MEDS: POTASSIUM CHLORIDE ER 20 MEQ TAB.ER PO ONE (16:21)
[2024-08-26 18:26] VITALS: RESP 16
--- NOTE | 2024-08-26 19:11 | P.CNPUL ---
History of Present Illness Consult date: 08/26/24 Reason for consult: dyspnea History of present illness: This is a 84-year-old male patient, obese with a BMI of 42, presenting to the hospital for increased shortness of breath and increased lower extremity edema. The patient also reported orthopnea along with increased lower extremity swelling. He did also complain of some intermittent substernal chest pain and he was placed on a nitroglycerin patch in the emergency department. He is known to have chronic diastolic heart failure, coronary artery disease with previous bypass surgery and the patient has a permanent pacemaker in place. 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 daily. He has hypertension hyperlipidemia and history of atrial fibrillation and previous history of DVT and pulmonary embolism. In the emergency department, the patient was placed on oxygen at 3 L/min nasal cannula. His blood work showed a WBC count of 6.6 with hemoglobin 14.7 and a platelet count of 105. BUN is 17 with a creatinine of 1.06 and serum bicarbonate 36 and a potassium level is at 3.4 and sodium is at 141. Troponins are 0.01 x 4 respectively and the proBNP level was 6770. The chest x-ray was reviewed and it is consistent with cardiomegaly and pulm vascular congestion/interstitial/alveolar pulmonary edema. Patient is already feeling better. He is currently on IV Lasix 40 mg every 12 hours and is producing good urine output. He is maintained on metoprolol 25 mg p.o. twice daily and aspirin. Started on Farxiga 5 mg p.o. daily and Entresto 24/ 1 tablet twice daily and is also maintained on aspirin and anticoagulation with Eliquis. He is EKG is consistent with paced rhythm at a rate of 60. Last echocardiogram from April 2023 showed a preserved LV function with an EF of around 55 to 60%. Repeat echocardiogram was ordered. Review of Systems Constitutional: Reports fatigue, Reports weight gain Eyes: denies as per HPI, denies blurred vision, denies bulging eye, denies decreased vision, denies diplopia, denies discharge, denies dry eye, denies irritation, denies itching, denies pain, denies photophobia, denies loss of peripheral vision, denies loss of vision, denies tunnel vision/blind spots Ears: deny: decreased hearing, ear discharge, earache, tinnitus Ears, nose, mouth and throat: Reports as per HPI Breasts: absent: as per HPI, gynecomastia Cardiovascular: Reports decreased exercise tolerance, Reports dyspnea on exertion, Reports high blood pressure, Reports irregular heart beat, Reports leg edema, Reports shortness of breath Respiratory: Reports dyspnea Gastrointestinal: Reports as per HPI Genitourinary: Reports as per HPI Musculoskeletal: Reports as per HPI Musculoskeletal: bilateral: ankle swelling, absent: ankle pain, ankle stiffness Integumentary: Reports as per HPI Neurological: Reports as per HPI Psychiatric: Reports as per HPI Endocrine: Reports as per HPI Hematologic/Lymphatic: Reports as per HPI Allergic/Immunologic: Reports as per HPI Past Medical History Past Medical History: Atrial Fibrillation, Atrial Flutter, Coronary Artery Disease (CAD), Cancer, Hyperlipidemia, Hypertension, Osteoarthritis (OA) Additional Past Medical History / Comment(s): 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 skin cancer, frequent lower leg edema, SOB w/exertion,. sick sinus syndrome History of Any Multi-Drug Resistant Organisms: None Reported Past Surgical History: Back Surgery, Cholecystectomy, Coronary Bypass/CABG, Heart Catheterization With Stent, Pacemaker Additional Past Surgical History / Comment(s): triple bypass -2010, cholecystectomy 2015,[employer] Edwin Pacemaker Lt chest, laminectomy Past Anesthesia/Blood Transfusion Reactions: No Reported Reaction Additional Past Anesthesia/Blood Transfusion Reaction / Comment(s): unsure if ever had transfusion Date of Last Stent Placement:: 09/01/21 Type of Cardiac Device: Permanent Pacemaker Device Placement Date:: Mar 2016 Past Psychological History: No Psychological Hx Reported Smoking Status: Former smoker Past Alcohol Use History: None Reported Past Drug Use History: None Reported - Past Family History Mother Family Medical History: Cancer Additional Family Medical History / Comment(s): CABG, Colon Cancer Father Family Medical History: Cancer Additional Family Medical History / Comment(s): Father of cancer unsure which type of cancer Brother(s) Additional Family Medical History / Comment(s): Brother had X4 Bypass Medications and Allergies Home Medications Medication Instructions Recorded Confirmed Type Multivitamins, Thera [Multivitamin 1 tab PO DAILY 04/03/16 08/25/24 History (formulary)] Loratadine 10 mg PO DAILY 11/18/16 08/25/24 History Nitroglycerin Sl Tabs [Nitrostat] 0.4 mg SUBLINGUAL Q5M PRN 11/18/16 08/25/24 History Cholecalciferol [Vitamin D3 (25 25 mcg PO DAILY 08/19/21 08/25/24 History Mcg = 1000 Iu)] Metoprolol Tartrate [Lopressor] 25 mg PO BID 08/19/21 08/25/24 History Potassium Citrate 99 mg PO DAILY 08/19/21 08/25/24 History Pravastatin Sodium [Pravachol] 10 mg PO HS 08/19/21 08/25/24 History Amitriptyline HCl 10 mg PO HS 12/07/22 08/25/24 History Cabergoline 0.5 mg PO TU 12/07/22 08/25/24 History Calcium Carbonate [Calcium] 600 mg PO DAILY 12/07/22 08/25/24 History Cyanocobalamin (Vitamin B-12) 2,500 mcg PO DAILY 12/07/22 08/25/24 History [Vitamin B-12] Gabapentin 600 mg PO TID 12/07/22 08/25/24 History Glucosa Urrutia 2Kcl/Chondroitin Urrutia 1 cap PO DAILY 12/07/22 08/25/24 History [Glucosamine-Chondroitin Cap] Magnesium Oxide [Magox 400] 400 mg PO BID 12/07/22 08/25/24 History Pantoprazole Sodium [Protonix] 40 mg PO DAILY 12/07/22 08/25/24 History predniSONE 20 mg PO DAILY 12/07/22 08/25/24 History Aspirin 81 mg PO DAILY #30 tab 12/10/22 08/25/24 Rx Furosemide [Lasix] 40 mg PO DAILY #30 tab 12/10/22 08/25/24 Rx Apixaban [Eliquis] 5 mg PO BID 08/25/24 08/25/24 History Levothyroxine Sodium [Synthroid] 50 mcg PO DAILY 08/25/24 08/25/24 History Allergies Allergy/AdvReac Type Severity Reaction Status Date / Time Penicillins Allergy Rash/Hives/hand Verified 08/25/24 10:25 blisters Physical Exam Vitals: Vital Signs Temp Pulse Resp BP Pulse Ox 08/26/24 08:36 96 08/26/24 08:00 97.8 F 60 18 158/93 96 08/26/24 06:00 60 20 153/94 94 L 08/26/24 04:00 60 20 154/93 94 L 08/26/24 02:00 60 18 142/90 94 L 08/26/24 00:00 60 20 160/100 94 L 08/25/24 21:49 60 22 138/93 94 L 08/25/24 20:15 60 20 158/103 96 08/25/24 17:58 98.1 F 60 22 144/86 94 L 08/25/24 15:40 97.9 F 60 20 155/97 93 L 08/25/24 15:00 60 24 155/98 Results - Laboratory Findings CBC and BMP: 08/26/24 10:18 08/26/24 10:18 PT/INR, D-dimer PT 11.6 sec (10.0-12.5) 08/25/24 09:16 INR 1.1 (<1.2) 08/25/24 09:16 Abnormal lab findings: Abnormal Labs 08/25/24 08/25/24 08/26/24 09:16 09:16 10:18 WBC 10.43 H Plt Count 109 L 105 L Neutrophils # 8.24 H Immature Plt Fraction 6.2 H 7.2 H Potassium Carbon Dioxide Glucose 132 H 08/26/24 10:18 WBC Plt Count Neutrophils # Immature Plt Fraction Potassium 3.4 L Carbon Dioxide 36 H Glucose 194 H Assessment and Plan Plan: Acute on chronic shortness of breath with hypoxic respiratory failure, currently on 3 L by nasal cannula. Presentation is consistent with CHF. Noted the patient also has history of chronic hypersensitive pneumonitis that was biopsy confirmed, known fibrotic in nature treated with systemic steroids under the care of Dr. Vela. Nevertheless, the observed pulmonary filtrates are rather new and they are more consistent with CHF History of hypersensitivity pneumonitis, chronic, biopsy confirmed, none fibrotic, treated with systemic steroids CHF with preserved LV function. Awaiting repeat echocardiogram. proBNP level i s elevated. Noted the patient has previous history of diastolic heart failure with preserved LV function with moderate degree of pulmonary hypertension History of paroxysmal atrial fibrillation, current rhythm is paced at rate of 60 History of sick sinus syndrome, post pacemaker insertion Lower extremity edema, rule out underlying CHF Coronary artery disease, with previous coronary bypass surgery and previous coronary stenting to LAD and diagonal Hypertension Hyperlipidemia Obesity with a BMI of 42 Hypothyroidism Previous history of DVT left lower extremity, in addition to pulmonary embolism as the patient was found to have a right middle lobe in addition to subsegmental pulmonary emboli and a DVT of the left lower extremity Previous history of GI bleed requiring hospitalization back in September 2022. The details of this hospitalization is not available Plan Continue oxygen supplementation and patient is currently on 3 days of oxygen by nasal cannula to maintain saturation above 90% IV Lasix 40 mg every 12 hours Monitor fluid balance Continue anticoagulation with Eliquis Cardiac rhythm is paced Repeat echocardiogram Optimize CHF and the patient is currently on metoprolol 25 mg p.o. twice a day. The patient was also started on Farxiga 5 mg p.o. daily and Entresto 1 tablet twice a day. Continue DuoNeb treatments [id number] Continue aspirin Continue prednisone 20 mg p.o. daily regarding his chronic hypersensitivity pneumonitis Cardiology consultation Will continue to follow
[2024-08-26] MEDS: SACUBITRIL/VALSARTAN 24 MG-26 MG TABLET PO SCH (20:48)
[2024-08-26] MEDS: FUROSEMIDE 10 MG/ML 4 ML VIAL IV SCH (20:49)
[2024-08-27 06:31] LABS: African American GFR (CKD) 68 (>60 ml/min/1.73 sqM); Anion Gap 9 mmol/L; Blood Urea Nitrogen 22 mg/dL (9-20); Calcium 9.4 mg/dL (8.4-10.2); Carbon Dioxide 33 mmol/L (22-30); Chloride 99 mmol/L (98-107); Glucose 122 mg/dL (74-99); Magnesium 2.6 mg/dL (1.6-2.3); Non-African American GFR(CKD) 58 (>60 ml/min/1.73 sqM); Potassium 3.6 mmol/L (3.5-5.1); Sodium 141 mmol/L (137-145)
[2024-08-27 06:40] LABS: NT-Pro-B-Type Natriuretic Pept 1820 pg/mL
[2024-08-27] MEDS: ATORVASTATIN 40 MG TAB PO SCH (08:20)
[2024-08-27] MEDS: CABERGOLINE 0.5 MG PO SCH (09:09)
[2024-08-27] MEDS: POTASSIUM CHLORIDE ER 20 MEQ TAB.ER PO STA (09:47)
--- NOTE | 2024-08-27 13:19 | P.PN ---
Subjective Progress Note Date: 08/27/24 Patient is a 83-year-old male with a history of coronary disease status post CABG and previous stenting, persistent A-fib on Eliquis, sick sinus syndrome status post permanent pacemaker, hypertension, hyperlipidemia presented to the ER with worsening shortness of breath from past 2 weeks. Patient reports that he has been experiencing exertional dyspnea, orthopnea, PND and swelling of the legs that has been getting worse as well. Patient reports that he is compliant with his cardiac medications. However he admits of not following a low-salt diet and has also reported increasing his daily weights. Patient denies any recent upper respiratory tract infection. Since his admission patient has been receiving diuresis with Lasix and has had good urine output. Patient reports improvement in his shortness of breath since his admission. Additionally, patient also been complaining of intermittent substernal chest pain which she describes as heavy, 6 out of 10, radiating to back, better with sitting position worse with supine position associated with mildly productive cough. Patient denies lightheadedness, dizziness, abdominal pain, diarrhea, constipation, dysuria, melena or medic easy. 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 Stress test was done 2 weeks ago which was unremarkable for any ischemia. His most recent echocardiogram was in April 2023 with ejection fraction of 55 to 60% and mild concentric left ventricular hypertrophy with increased left atrium size. His home cardiac medications are Lopressor, Lasix, aspirin, Eliquis. Social history: No tobacco smoking or alcohol use Labs and images on this admission: WBC 10.4, hemoglobin 15.3, platelet count 109, sodium 143, potassium 2.8, BUN 18, creatinine 1.10, magnesium 2.1, AST 29, ALT 23, ALP 77, troponin I 0.019, 0.017, 0.018, NT proBNP 6770 Chest x-ray shows pulmonary vascular congestion with small bilateral pleural effusion EKG shows paced rhythm with underlying A-fib which is unchanged from previous EKG 08/27/2024: Patient seen and examined at the bedside. Patient reports no chest pain and reports drastic improvement in shortness of breath. His urine output was 2.8 L within 24 hours. Currently on IV Lasix 40 twice daily. Labs from today show sodium 141, potassium 3.6, BUN 22, creatinine 1.6, magnesium 2.6, NT proBNP 1820 Echocardiogram shows LVEF of 40 to 45% with severe concentric left ventricular hypertrophy. Physical examination: Vital signs reviewed General: non toxic, no distress Head: atraumatic, normocephalic, symmetric Eyes: EOMI, no lid lag, anicteric sclera, pupils equal round reactive to light ENT: Nose and ears atraumatic Neck: No cervical lymphadenopathy, trachea midline, supple Mouth: no lip lesion, mucus membranes moist Cardiovascular: S1S2 reg, no murmur, positive dorsalis pedis pulse bilateral, 1+ pitting edema bilaterally lower extremities Lungs: Mild crackles on both sides with no rales or wheezing. No use of accessory muscles. Abdominal: soft, nontender to palpation, no guarding Psych: Alert, oriented, appropriate affect Assessment: #Acute on chronic HFrEF, LVEF 40 to 45% on echocardiogram #Atypical chest pain, non-ACS, troponin negative #History of CAD status post CABG and stenting #Sick sinus syndrome status post PPM #Persistent A-fib, rate controlled, on Eliquis #Hyperlipidemia #Hypertension Active: Echocardiogram shows LVEF of 40 to 45% with severe concentric left ventricular hypertrophy. Continue with home cardiac medications Monitor I's and O's, strict daily weights, fluid restriction 1500 mL/day Discontinue IV Lasix Transition to oral Lasix 40 once daily Optimize GDMT: Continue with Farxiga, Entresto, metoprolol tartrate. Will add Aldactone after discontinuing IV Lasix Lipitor 40 mg once daily Check BMP and mag tomorrow Replete electrolytes Dictation was produced using [employer] dictation software. Please excuse any grammatical, word or spelling errors. Nando Malik MD PGY 2 Objective - Vital Signs Vital signs: Vital Signs Temp 97.7 F 08/27/24 11:23 Pulse 56 L 08/27/24 11:23 Resp 16 08/27/24 11:23 BP 102/67 08/27/24 11:23 Pulse Ox 96 08/27/24 11:23 FiO2 Intake & Output 08/26/24 08/27/24 08/27/24 18:59 06:59 18:59 Intake Total 120 120 Output Total 2825 200 Balance -2705 -80 Weight 136.5 kg 135.5 kg Intake: Oral 120 120 Output: Urine 2825 200 Stool 0 Other: Voiding Method Urinal - Labs CBC & Chem 7: 08/26/24 10:18 08/27/24 05:53 Labs: Abnormal Lab Results - Last 24 Hours (Table) 08/27/24 Range/Units 05:53 Carbon Dioxide 33 H (22-30) mmol/L BUN 22 H (9-20) mg/dL Glucose 122 H (74-99) mg/dL Magnesium 2.6 H (1.6-2.3) mg/dL
--- NOTE | 2024-08-27 13:22 | CA ---
Transthoracic Echo Report Name: Umberto Oglesby Age: 84 Gender: M : 1940 Exam Date: 08/27/2024 09:11 Exam Location: [facility] Ht (in): 71 Wt (lb): 300 Ordering Physician: Nando Malik MD Attending/Referring Phys: Jimmy Vela DO [employer] Marielena Iverson RDCS Procedure CPT: Indications: chf exacerbation Cardiac Hx: Technical Quality: Technically difficult study Contrast 1: Definity Total Dose (mL): 2 Contrast 2: Total Dose (mL): MEASUREMENTS (Male / Female) Normal Values 2D ECHO LV Diastolic Diameter PLAX 5.1 cm 4.2 - 5.9 / 3.9 - 5.3 cm LV Systolic Diameter PLAX 3.8 cm IVS Diastolic Thickness 2.1 cm 0.6 - 1.0 / 0.6 - 0.9 cm LVPW Diastolic Thickness 2.0 cm 0.6 - 1.0 / 0.6 - 0.9 cm LV Relative Wall Thickness 0.8 RV Internal Dim ED PLAX 4.2 cm LVOT Diameter 2.7 cm LA Systolic Diameter LX 5.0 cm 3.0 - 4.0 / 2.7 - 3.8 cm LA Volume 126.9 cm??? 18 - 58 / 22 - 52 cm??? LA Volume Index 47.5 cm???/m??? 16 - 28 cm???/m??? M-MODE Aortic Root Diameter MM 4.1 cm AV Cusp Separation MM 2.0 cm DOPPLER AV Peak Velocity 150.8 cm/s AV Peak Gradient 9.1 mmHg AV Mean Velocity 110.7 cm/s AV Mean Gradient 5.3 mmHg AV Velocity Time Integral 29.9 cm LVOT Peak Velocity 86.8 cm/s LVOT Peak Gradient 3.0 mmHg LVOT Velocity Time Integral 16.3 cm LVOT Stroke Volume 93.4 cm??? LVOT Stroke Volume Index 37.3 ml/m??? LVOT Cardiac Index 2062.0 cm???/min???m??? AV Area Cont Eq vti 3.1 cm??? AV Area Cont Eq pk 3.3 cm??? MV Area PHT 2.6 cm??? MV Deceleration Time 170.9 ms TR Peak Velocity 273.6 cm/s TR Peak Gradient 29.9 mmHg Right Ventricular Systolic Press 39.0 mmHg FINDINGS Left Ventricle Left ventricular ejection fraction is estimated at 40-45 %. Left ventricular cavity size normal. Severe concentric left ventricular hypertrophy. Right Ventricle Moderate right ventricular dilatation. Mild pulmonary hypertension. Right Atrium Mild right atrial dilatation. No right atrial thrombus or mass seen. Left Atrium Moderately increased left atrial diameter. Severely increased left atrial volume. Moderately increased left atrial area. Mitral Valve Structurally normal mitral valve. No mitral stenosis, regurgitation or prolapse. Aortic Valve Trileaflet aortic valve. No aortic valve stenosis or regurgitation. Aortic valve sclerosis. Tricuspid Valve Structurally normal tricuspid valve. Mild tricuspid regurgitation. Pulmonic Valve Pulmonic valve not well visualized. Pericardium No pericardial effusion. Aorta Mild aortic dilatation at the level of the sinuses of valsalva 41 mm CONCLUSIONS Technically difficult study for interpretation Mildly impaired LV function with EF between 40 to 45% Poorly visualized intracardiac valves Previewed by: Dr. Hector Ralph MD (Electronically Signed) Final Date: 27 August 2024 13:21
--- NOTE | 2024-08-27 13:46 | P.PN ---
Subjective Progress Note Date: 08/27/24 Hospital Course: 84-year-old male with medical history of diastolic CHF, chronic hypoxic respir atory failure secondary to chronic hypersensitivity pneumonitis, pulmonary fibrosis on 2 L home oxygen, atrial fibrillation on Eliquis, CAD status post CABG, status post pacemaker, HTN, HLD, who presented to the ER with shortness of breath and leg swelling.Patient also complained of substernal chest pain that is pressure-like and radiates to his back. Patient was placed on nitro patch in the ED and his chest pain improved. In the ED patient BNP was 6770. Chest x- ray showed moderate CHF. Patient was 89% on room air. He was placed on 3 L nasal cannula and now satting well. He was admitted for treatment of CHF exacerbation, cardiology and pulmonology consulted. Per pulmonology, patient's presentation is most likely consistent with CHF exacerbation. Cardiology added Betsey Mosher, planning to add Aldactone once patient is done with IV Lasix. Pravastatin was switched to Lipitor 40 daily. TTE showed EF of 40 to 45%, technically difficult study., Technically difficult study. 08/27: Patient seen examined at bedside, no acute events overnight. He states that his shortness of breath has improved, lower extremity swelling is going down. No chest pain, no abdominal pain. He is afebrile heart rate in 50s, blood pressure 132/78, SPO2 97% on 2 L. Creatinine remains stable at 1.16, normal sodium and potassium today. BNP 1820. Patient transition to oral Lasix starting tomorrow. Vitals Signs Reviewed. General: [nontoxic], [no distress], [appears at stated age] Derm: [warm], [dry] Head: [atraumatic], [normocephalic], [symmetric] Eyes: [EOMI], [no lid lag], [anicteric sclera] Mouth: [no lip lesion], [mucus membranes moist] Cardiovascular: [S1S2 reg], [no murmur] Lungs: [CTA bilateral], [no rhonchi, no rales] , [no accessory muscle use] Abdominal: [soft], [ nontender to palpation], [no guarding], [no appreciable organomegaly] Ext: [no gross muscle atrophy], [bilateral pitting lower extremity edema [no contractures] Neuro: [ CN II-XI grossly intact], [no focal neuro deficits] Psych: [Alert], [oriented], [appropriate affect] Assessment and Plan: Acute on chronic hypoxic respiratory failure secondary to HFrEF exacerbation Atypical chest pain, ACS ruled out History of CAD status post CABG, stent placement Sick sinus syndrome status post pacemaker Persistent A-fib on Eliquis HLD HTN -On baseline oxygen, transition to oral Lasix starting 08/28 -Pulmonology and cardiology following, appreciate recommendations, echo as above -Continue Eliquis 5 mg p.o. twice daily -Continue Lipitor 40 mg daily, Farxiga 10 mg p.o. daily, Lopressor 25 mg p.o. twice daily, Entresto twice daily -Continue strict I's and O's, daily weights, telemetry, monitor BMP daily -Repeat chest x-ray in the morning ordered by pulmonology -Continue fluid restriction 1500 cc -PT OT consulted Chronic hypoxic respiratory failure secondary to chronic hypersensitivity pneumonitis, pulmonary fibrosis: Continue home prednisone 20 mg p.o. daily, Protonix 40 mg p.o. daily Morbid obesity BMI 42 Hypothyroidism: Continue home Synthroid 50 mcg p.o. daily Neuropathy: Continue home gabapentin 600p.o. 3 times daily History of prolactinoma: Continue cabergoline 0.5 mg on Tuesdays DVT ppx: Eliquis Code status: Full code Anticipated discharge place: [facility] Anticipated discharge time: 24 hours Objective - Vital Signs Vital signs: Vital Signs Temp 97.7 F 08/27/24 11:23 Pulse 56 L 08/27/24 11:23 Resp 16 08/27/24 11:23 BP 102/67 08/27/24 11:23 Pulse Ox 96 08/27/24 11:23 FiO2 Intake & Output 08/26/24 08/27/24 08/27/24 18:59 06:59 18:59 Intake Total 120 300 Output Total 2825 600 Balance -2705 -300 Weight 136.5 kg 135.5 kg Intake: Oral 120 300 Output: Urine 2825 600 Stool 0 Other: Voiding Method Urinal - Labs CBC & Chem 7: 08/26/24 10:18 08/27/24 05:53 Labs: Abnormal Lab Results - Last 24 Hours (Table) 08/27/24 Range/Units 05:53 Carbon Dioxide 33 H (22-30) mmol/L BUN 22 H (9-20) mg/dL Glucose 122 H (74-99) mg/dL Magnesium 2.6 H (1.6-2.3) mg/dL
--- NOTE | 2024-08-27 13:54 | P.PN ---
Subjective Progress Note Date: 08/27/24 This is a 84-year-old male patient, obese with a BMI of 42, presenting to the hospital for increased shortness of breath and increased lower extremity edema. The patient also reported orthopnea along with increased lower extremity swelling. He did also complain of some intermittent substernal chest pain and he was placed on a nitroglycerin patch in the emergency department. He is known to have chronic diastolic heart failure, coronary artery disease with previous bypass surgery and the patient has a permanent pacemaker in place. 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 daily. He has hypertension hyperlipidemia and history of atrial fibrillation and previous history of DVT and pulmonary embolism. In the emergency department, the patient was placed on oxygen at 3 L/min nasal cannula. His blood work showed a WBC count of 6.6 with hemoglobin 14.7 and a platelet count of 105. BUN is 17 with a creatinine of 1.06 and serum bicarbonate 36 and a potassium level is at 3.4 and sodium is at 141. Troponins are 0.01 x 4 respectively and the proBNP level was 6770. The chest x-ray was reviewed and it is consistent with cardiomegaly and pulm vascular congestion/interstitial/alveolar pulmonary edema. Patient is already feeling better. He is currently on IV Lasix 40 mg every 12 hours and is producing good urine output. He is maintained on metoprolol 25 mg p.o. twice daily and aspirin. Started on Farxiga 5 mg p.o. daily and Entresto 24/ 1 tablet twice daily and is also maintained on aspirin and anticoagulation with Eliquis. He is EKG is consistent with paced rhythm at a rate of 60. Last echocardiogram from April 2023 showed a preserved LV function with an EF of around 55 to 60%. Repeat echocardiogram was ordered. On 08/27/2024, the patient is resting comfortably in bed. The patient feels less short of breath compared to yesterday and there is also improvement in the lower extremity edema. The patient remains on IV Lasix and the patient receiving 40 mg of IV Lasix every 12 hours. The patient is in a negative fluid balance of 2.7 L over the past 24 hours. Meanwhile, echocardiogram was obtained on 08/27/2024 and the patient was found to have a mild impairment of LV function with an ejection fraction of 40 to 45%, there is moderate RV dilatation, mild pulmonary pretension with a RVSP of 39. In terms of blood work, the patient's electrolytes show a sodium of 141, BUN is 22 with a creatinine of 1.1, serum bicarb is at 33 and the chloride is 99. The patient has no specific complaints for now. Medications were reviewed. Remains on anticoagulation with Eliquis 5 mg p.o. twice a day. Remains on metoprolol 25 mg p.o. twice daily. Remains on Entresto 1 tablet a day. The patient also remains on prednisone 20 mg p.o. daily regarding his previous history of hypersensitivity pneumonitis. Objective - Vital Signs Vital signs: Vital Signs Temp 98.3 F 08/27/24 04:14 Pulse 60 08/27/24 08:15 Resp 16 08/27/24 08:15 BP 132/78 08/27/24 08:15 Pulse Ox 97 08/27/24 08:15 FiO2 Intake & Output 08/26/24 08/27/24 08/27/24 18:59 06:59 18:59 Intake Total 120 120 Output Total 2825 Balance -2705 120 Weight 136.5 kg 135.5 kg Intake: Oral 120 120 Output: Urine 2825 Stool 0 Other: Voiding Method Urinal - Labs CBC & Chem 7: 08/26/24 10:18 08/27/24 05:53 Labs: Abnormal Lab Results - Last 24 Hours (Table) 08/26/24 08/26/24 08/27/24 Range/Units 10:18 10:18 05:53 Plt Count 105 L (140-440) 10*3/uL Immature Plt Fraction 7.2 H (1.1-6.1) % Potassium 3.4 L (3.5-5.1) mmol/L Carbon Dioxide 36 H 33 H (22-30) mmol/L BUN 22 H (9-20) mg/dL Glucose 194 H 122 H (74-99) mg/dL Magnesium 2.6 H (1.6-2.3) mg/dL Assessment and Plan Plan: Acute on chronic shortness of breath with hypoxic respiratory failure, currently on 3 L by nasal cannula. Presentation is consistent with CHF. Noted the patient also has history of chronic hypersensitive pneumonitis that was biopsy confirmed, known fibrotic in nature treated with systemic steroids under the care of Dr. Vela. Nevertheless, the observed pulmonary filtrates are rather new and they are more consistent with CHF. Clinically is improving and the patient has responded Lasix and the patient has produced adequate amount of urine output with a negative fluid balance over the past 24 hours. Clinically, less short of breath. History of hypersensitivity pneumonitis, chronic, biopsy confirmed, none fibrotic, treated with systemic steroids, currently on prednisone 20 mg p.o. daily CHF with mild impairment of the LV function with an ejection fraction of 40 to 45% based on echocardiogram that was done on 08/26/2024. The patient also has mild pulmonary hypertension. History of paroxysmal atrial fibrillation, current rhythm is paced at rate of 60, maintained on long-term anticoagulation with Eliquis History of sick sinus syndrome, post pacemaker insertion Lower extremity edema, rule out underlying CHF Coronary artery disease, with previous coronary bypass surgery and previous coronary stenting to LAD and diagonal Hypertension Hyperlipidemia Obesity with a BMI of 42 Hypothyroidism Previous history of DVT left lower extremity, in addition to pulmonary embolism as the patient was found to have a right middle lobe in addition to subsegmental pulmonary emboli and a DVT of the left lower extremity Previous history of GI bleed requiring hospitalization back in September 2022. The details of this hospitalization is not available Plan Continue oxygen supplementation and patient is currently on 3 liters of oxygen by nasal cannula Continue IV Lasix and switch the patient to oral Lasix as of tomorrow. Monitor fluid balance Continue anticoagulation with Eliquis Cardiac rhythm is paced Repeat echocardiogram was noted and the patient has ejection fraction of 40 to 45% Continue metoprolol 25 mg p.o. twice a day. The patient was also started on Farxiga 5 mg p.o. daily and Entresto 1 tablet twice a day. Continue DuoNeb treatments [id number] Continue aspirin Continue prednisone 20 mg p.o. daily regarding his chronic hypersensitivity pneumonitis Cardiology consultation is appreciated Will continue to follow Time with Patient: Greater than 30
[2024-08-27 14:24] VITALS: BMI 41.6
[2024-08-28 07:39] LABS: African American GFR (CKD) 84 (>60 ml/min/1.73 sqM); Anion Gap 9 mmol/L; Blood Urea Nitrogen 25 mg/dL (9-20); Calcium 9.6 mg/dL (8.4-10.2); Carbon Dioxide 29 mmol/L (22-30); Chloride 104 mmol/L (98-107); Glucose 114 mg/dL (74-99); Magnesium 2.6 mg/dL (1.6-2.3); Non-African American GFR(CKD) 73 (>60 ml/min/1.73 sqM); Potassium 4.1 mmol/L (3.5-5.1); Sodium 142 mmol/L (137-145)
--- NOTE | 2024-08-28 08:42 | XR ---
EXAMINATION TYPE: XR chest 1V DATE OF EXAM: 08/28/2024 COMPARISON: 08/25/2024 CLINICAL INDICATION: Male, 84 years old with history of CHF; shortness of breath TECHNIQUE: Single frontal view of the chest is obtained. FINDINGS: Left anterior chest wall pacemaker generator with right atrial and right ventricular leads . Median sternotomy wires. Heart remains mild to moderately enlarged. The interstitium and vasculatur e shows improvement in the interval. No consolidation or pleural effusion. IMPRESSION: Similar [id number] cardiomegaly but with significant improvement in the previous p ulmonary vascular congestion. [facility], Workstation: [id number], 08/28/2024 8:39 AM
[2024-08-28] MEDS: DAPAGLIFLOZIN PROPANEDIOL 10 MG TABLET PO SCH (09:35)
[2024-08-28] MEDS: FUROSEMIDE 40 MG TAB PO SCH (09:36)
[2024-08-28 12:12] VITALS: BP 112/75; PULSE 60; TEMP 97.7
--- NOTE | 2024-08-28 14:19 | P.PN ---
Subjective Progress Note Date: 08/28/24 This is a 84-year-old male patient, obese with a BMI of 42, presenting to the hospital for increased shortness of breath and increased lower extremity edema. The patient also reported orthopnea along with increased lower extremity swelling. He did also complain of some intermittent substernal chest pain and he was placed on a nitroglycerin patch in the emergency department. He is known to have chronic diastolic heart failure, coronary artery disease with previous bypass surgery and the patient has a permanent pacemaker in place. 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 daily. He has hypertension hyperlipidemia and history of atrial fibrillation and previous history of DVT and pulmonary embolism. In the emergency department, the patient was placed on oxygen at 3 L/min nasal cannula. His blood work showed a WBC count of 6.6 with hemoglobin 14.7 and a platelet count of 105. BUN is 17 with a creatinine of 1.06 and serum bicarbonate 36 and a potassium level is at 3.4 and sodium is at 141. Troponins are 0.01 x 4 respectively and the proBNP level was 6770. The chest x-ray was reviewed and it is consistent with cardiomegaly and pulm vascular congestion/interstitial/alveolar pulmonary edema. Patient is already feeling better. He is currently on IV Lasix 40 mg every 12 hours and is producing good urine output. He is maintained on metoprolol 25 mg p.o. twice daily and aspirin. Started on Farxiga 5 mg p.o. daily and Entresto 24/ 1 tablet twice daily and is also maintained on aspirin and anticoagulation with Eliquis. He is EKG is consistent with paced rhythm at a rate of 60. Last echocardiogram from April 2023 showed a preserved LV function with an EF of around 55 to 60%. Repeat echocardiogram was ordered. On 08/27/2024, the patient is resting comfortably in bed. The patient feels less short of breath compared to yesterday and there is also improvement in the lower extremity edema. The patient remains on IV Lasix and the patient receiving 40 mg of IV Lasix every 12 hours. The patient is in a negative fluid balance of 2.7 L over the past 24 hours. Meanwhile, echocardiogram was obtained on 08/27/2024 and the patient was found to have a mild impairment of LV function with an ejection fraction of 40 to 45%, there is moderate RV dilatation, mild pulmonary pretension with a RVSP of 39. In terms of blood work, the patient's electrolytes show a sodium of 141, BUN is 22 with a creatinine of 1.1, serum bicarb is at 33 and the chloride is 99. The patient has no specific complaints for now. Medications were reviewed. Remains on anticoagulation with Eliquis 5 mg p.o. twice a day. Remains on metoprolol 25 mg p.o. twice daily. Remains on Entresto 24/26 1 tablet a day. The patient also remains on prednisone 20 mg p.o. daily regarding his previous history of hypersensitivity pneumonitis. On 08/28/2024, the patient is being seen for a follow-up. The patient is feeling well. Reports marked improvement in his respiratory status and no active shortness of breath at this point. A repeat chest x-ray was done and it shows significant improvement in the interstitial infiltrates discussed earlier in im provement in CHF and the patient's volume status has been optimized. No clear indication for underlying interstitial lung disease as the patient has history of chronic hypersensitive pneumonitis and the patient still maintained on prednisone of 20 mg p.o. daily. BUN is 25 with a creatinine of 0.9. Sodium levels at 142 and a potassium level is at 4.1. The patient has been switched to oral Lasix 40 mg p.o. daily. He is on anticoagulation with Eliquis 5 mg p.o. twice a day. Remains on metoprolol 25 mg p.o. twice daily, Entresto 24/26 1 tablet a day and Farxiga 10 mg p.o. daily. Remains on aspirin. Remains on Lipitor. No altered mentation. Oxygenation is stable and the patient is curre ntly on 2 L of oxygen by nasal cannula with a pulse ox of 95%. Objective - Vital Signs Vital signs: Vital Signs Temp 97.5 F L 08/28/24 08:00 Pulse 54 L 08/28/24 08:00 Resp 16 08/28/24 08:00 BP 115/79 08/28/24 08:00 Pulse Ox 95 08/28/24 08:00 FiO2 Intake & Output 08/27/24 08/28/24 08/28/24 18:59 06:59 18:59 Intake Total 540 280 140 Output Total 1025 700 Balance -485 -420 140 Weight 135.5 kg 135.4 kg Intake: IV 40 20 Invasive Line 1 20 10 Invasive Line 2 20 10 Oral 540 240 120 Output: Urine 1025 700 Stool 0 Other: Voiding Method Urinal Urinal - Exam The patient appeared well nourished and normally developed. Vital signs as documented. Patient is currently on 2 L of oxygen by nasal cannula. Head exam is unremarkable. No scleral icterus or corneal arcus noted. Neck is without jugular venous distension, thyromegaly, or carotid bruits. Carotid upstrokes are brisk bilaterally. Lungs are clear to auscultation and percussion. Few crackles in the lung base bilaterally. Cardiac exam reveals the PMI to be normally sized and situated. Rhythm is regular. First and second heart sounds normal. No murmurs, rubs or gallops. Abdominal exam reveals normal bowel sounds, no masses, no organomegaly and no aortic enlargement. Extremities are nonedematous and both femoral and pedal pulses are normal. Examination of the skin revealed no evidence of significant rashes, suspicious appearing nevi or other concerning lesions. Neurologically, the patient is awake and alert and the patient does not have any focal neurological deficit. Cranial nerves are essentially intact. - Labs CBC & Chem 7: 08/26/24 10:18 08/28/24 07:01 Labs: Abnormal Lab Results - Last 24 Hours (Table) 08/28/24 Range/Units 07:01 BUN 25 H (9-20) mg/dL Glucose 114 H (74-99) mg/dL Magnesium 2.6 H (1.6-2.3) mg/dL Assessment and Plan Plan: Acute on chronic shortness of breath with hypoxic respiratory failure, currently on 2 L by nasal cannula. Presentation is consistent with CHF. Noted the patient also has history of chronic hypersensitive pneumonitis that was biopsy confirmed, known fibrotic in nature treated with systemic steroids under the care of Dr. Vela. Nevertheless, the observed pulmonary filtrates are rather new and they are more consistent with CHF. Clinically is improving and the patient has responded Lasix and the patient has produced adequate amount of urine output with a negative fluid balance over the past 24 hours. Clinically, less short of breath. A repeat chest x-ray from 08/28/2024 showed improvement in the CHF findings and improvement in the interstitial bilateral pulmonary infiltrates. No significant shortness of breath at this point. History of hypersensitivity pneumonitis, chronic, biopsy confirmed, none fibr otic, treated with systemic steroids, currently on prednisone 20 mg p.o. daily CHF with mild impairment of the LV function with an ejection fraction of 40 to 45% based on echocardiogram that was done on 08/26/2024. The patient also has mild pulmonary hypertension. History of paroxysmal atrial fibrillation, current rhythm is paced at rate of 60, maintained on long-term anticoagulation with Eliquis History of sick sinus syndrome, post pacemaker insertion Lower extremity edema, rule out underlying CHF Coronary artery disease, with previous coronary bypass surgery and previous coronary stenting to LAD and diagonal Hypertension Hyperlipidemia Obesity with a BMI of 42 Hypothyroidism Previous history of DVT left lower extremity, in addition to pulmonary embolism as the patient was found to have a right middle lobe in addition to subsegmental pulmonary emboli and a DVT of the left lower extremity Previous history of GI bleed requiring hospitalization back in September 2022. The details of this hospitalization is not available Plan Continue oxygen supplementation and patient is currently on 2 liters of oxygen by nasal cannula Continue Lasix 40 mg p.o. daily Monitor fluid balance Continue anticoagulation with Eliquis Cardiac rhythm is paced Repeat echocardiogram was noted and the patient has ejection fraction of 40 to 45% Continue metoprolol 25 mg p.o. twice a day. The patient was also started on Farxiga 5 mg p.o. daily and Entresto 1 tablet twice a day. Continue DuoNeb treatments [id number] Continue aspirin Continue prednisone 20 mg p.o. daily regarding his chronic hypersensitivity pneumonitis Cardiology consultation is appreciated Will continue to follow
--- NOTE | 2024-08-28 15:24 | P.DS ---
Providers Date of admission: 08/25/24 10:36 Attending physician: Ryan Malik Consults: 08/25/24 10:36 Consult Physician Routine Consulting Provider: [facility] Consult Reason/Comments: Chest pain, acute pulmonary edema Do you want consulting provider notified?: Yes Primary care physician: Ananth Hendricks Hospital Course: Discharge Diagnosis: Acute on chronic hypoxic respiratory failure secondary to HFrEF exacerbation Atypical chest pain, ACS ruled out History of CAD status post CABG, stent placement Sick sinus syndrome status post pacemaker Persistent A-fib on Eliquis HLD HTN Chronic hypoxic respiratory failure secondary to chronic hypersensitivity pneumonitis, pulmonary fibrosis Morbid obesity BMI 42 Hypothyroidism: Hospital Course: 84-year-old male with medical history of diastolic CHF, chronic hypoxic respiratory failure secondary to chronic hypersensitivity pneumonitis, pulmonary fibrosis on 2 L home oxygen, atrial fibrillation on Eliquis, CAD status post CABG, status post pacemaker, HTN, HLD, who presented to the ER with shortness of breath and leg swelling.Patient also complained of substernal chest pain that is pressure-like and radiates to his back. Patient was placed on nitro patch in the ED and his chest pain improved. In the ED patient BNP was 6770. Chest x- ray showed moderate CHF. Patient was 89% on room air. He was placed on 3 L nasal cannula and now satting well. He was admitted for treatment of CHF exacerbation, cardiology and pulmonology consulted. Per pulmonology, patient's presentation is most likely consistent with CHF exacerbation. Cardiology added Farxiga, Entresto, planning to add Aldactone once patient is done with IV Lasix. Pravastatin was switched to Lipitor 40 daily. TTE showed EF of 40 to 45%, technically difficult study., Technically difficult study. 08/28: Patient seen examined at bedside, no acute events overnight. He states that his shortness of breath has resolved, no at baseline, lower extremity swelling almost completely resolved. No chest pain, no abdominal pain. He is afebrile heart rate in 50s, blood pressure 132/78, SPO2 97% on 2 L. BMP remained stable. Patient was cleared for discharge by cardiology, resume home Lasix 40, prescription sent for Entresto and Farxiga. Patient to follow-up with PCP, cardiology. He was seen by PT OT who recommended home care, patient refused at this time, discussed with social work. Patient seen and examined at bedside. Vital signs reviewed and stable. General: [nontoxic], [no distress], [appears at stated age] Derm: [warm], [dry] Head: [atraumatic], [normocephalic], [symmetric] Eyes: [EOMI], [no lid lag], [anicteric sclera] Mouth: [no lip lesion], [mucus membranes moist] Cardiovascular: [S1S2 reg], [no murmur] Lungs: [CTA bilateral], [no rhonchi, no rales] , [no accessory muscle use] Abdominal: [soft], [ nontender to palpation], [no guarding], [no appreciable organomegaly] Ext: [no gross muscle atrophy], [very mild residual nonpitting edema], [no contractures] Neuro: [ CN II-XI grossly intact], [no focal neuro deficits], chronic feet neuropathy Psych: [Alert], [oriented], [appropriate affect] A total of 40 minutes of time were spent preparing this complex discharge summary. Patient was discharged on 08/29. Plan - Discharge Summary Discharge Rx Participant: No New Discharge Prescriptions: New Sacubitril/Valsartan [Entresto 24 mg-26 mg Tablet] 1 each PO BID #30 tab Dapagliflozin Propanediol [Farxiga] 10 mg PO DAILY #30 tab Atorvastatin [Lipitor] 40 mg PO DAILY #30 tab Continue Multivitamins, Thera [Multivitamin (formulary)] 1 tab PO DAILY Loratadine 10 mg PO DAILY Nitroglycerin Sl Tabs [Nitrostat] 0.4 mg SUBLINGUAL Q5M PRN PRN Reason: Chest Pain Metoprolol Tartrate [Lopressor] 25 mg PO BID Potassium Citrate 99 mg PO DAILY Cholecalciferol [Vitamin D3 (25 Mcg = 1000 Iu)] 25 mcg PO DAILY predniSONE 20 mg PO DAILY Pantoprazole Sodium [Protonix] 40 mg PO DAILY Glucosa Urrutia 2Kcl/Chondroitin Urrutia [Glucosamine-Chondroitin Cap] 1 cap PO DAILY Gabapentin 600 mg PO TID Calcium Carbonate [Calcium] 600 mg PO DAILY Amitriptyline HCl 10 mg PO HS Cyanocobalamin (Vitamin B-12) [Vitamin B-12] 2,500 mcg PO DAILY Magnesium Oxide [Magox 400] 400 mg PO BID Cabergoline 0.5 mg PO TU Aspirin 81 mg PO DAILY #30 tab Furosemide [Lasix] 40 mg PO DAILY #30 tab Apixaban [Eliquis] 5 mg PO BID Levothyroxine Sodium [Synthroid] 50 mcg PO DAILY Discontinued Pravastatin Sodium [Pravachol] 10 mg PO HS Discharge Medication List Multivitamins, Thera [Multivitamin (formulary)] 1 tab PO DAILY 04/03/16 [History] Loratadine 10 mg PO DAILY 11/18/16 [History] Nitroglycerin Sl Tabs [Nitrostat] 0.4 mg SUBLINGUAL Q5M PRN 11/18/16 [History] Cholecalciferol [Vitamin D3 (25 Mcg = 1000 Iu)] 25 mcg PO DAILY 08/19/21 [Hist ory] Metoprolol Tartrate [Lopressor] 25 mg PO BID 08/19/21 [History] Potassium Citrate 99 mg PO DAILY 08/19/21 [History] Amitriptyline HCl 10 mg PO HS 12/07/22 [History] Cabergoline 0.5 mg PO TU 12/07/22 [History] Calcium Carbonate [Calcium] 600 mg PO DAILY 12/07/22 [History] Cyanocobalamin (Vitamin B-12) [Vitamin B-12] 2,500 mcg PO DAILY 12/07/22 [History] Gabapentin 600 mg PO TID 12/07/22 [History] Glucosa Urrutia 2Kcl/Chondroitin Urrutia [Glucosamine-Chondroitin Cap] 1 cap PO DAILY 12/07/22 [History] Magnesium Oxide [Magox 400] 400 mg PO BID 12/07/22 [History] Pantoprazole Sodium [Protonix] 40 mg PO DAILY 12/07/22 [History] predniSONE 20 mg PO DAILY 12/07/22 [History] Aspirin 81 mg PO DAILY #30 tab 12/10/22 [Rx] Furosemide [Lasix] 40 mg PO DAILY #30 tab 12/10/22 [Rx] Apixaban [Eliquis] 5 mg PO BID 08/25/24 [History] Levothyroxine Sodium [Synthroid] 50 mcg PO DAILY 08/25/24 [History] Atorvastatin [Lipitor] 40 mg PO DAILY #30 tab 08/28/24 [Rx] Dapagliflozin Propanediol [Farxiga] 10 mg PO DAILY #30 tab 08/28/24 [Rx] Sacubitril/Valsartan [Entresto 24 mg-26 mg Tablet] 1 each PO BID #30 tab 08/28/24 [Rx] Follow up Appointment(s)/Referral(s): Simin Melendez MD [STAFF PHYSICIAN] - 1 Week Ananth Hendricks DO [Primary Care Provider] - 1-2 days Activity/Diet/Wound Care/Special Instructions: Please, follow-up with your primary care physician and microcomputer technician. Please take all the medications as prescribed. Please, monitor your blood pressure daily, keep a log of the readings to discuss with your heart doctor and your primary care provider. Follow low-salt diet as provided in the AVS. Check your weight daily and again keep a log of the readings. What to Expect at Home Your energy will slowly return. You may need help taking care of yourself when you first get home. You may feel sad or depressed. All of these things are normal. Checking Yourself at Home Weigh yourself every morning on the same scale when you get up -- before you eat but after you use the bathroom. Make sure you are wearing similar clothing each time you weigh yourself. Write down your weight every day on a chart so that you can keep track of it.Call your doctor or nurse advice line if you have a sudden weight gain, such as more than 1 to 1.3 kilograms (2 to 3 pounds) in a day or 2.3 kilograms (5 pounds) in a week. (Your doctor may suggest a different range o f weight gain.) A sudden weight gain may mean that your heart failure is getting worse. Throughout the day, ask yourself: Is my energy level normal? Do I get more short of breath when I am doing my everyday activities? Are my clothes or shoes feeling tight? Are my ankles or legs swelling? Am I coughing more often? Does my cough sound wet? Do I get short of breath at night or when I lie down? If you are having new (or different) symptoms, ask yourself: Did I eat something different than usual or try a new food? Did I take all of my medicines the right way at the right times? Diet and Fluids Your health care provider may ask you to limit how much you drink. When your heart failure is not very severe, you may not have to limit your fluids too much. As your heart failure gets worse, you may be asked to limit fluids to 6 to 9 cups (1.5 to 2 liters) a day. You will need to eat less salt. Salt can make you thirsty, and being thirsty can cause you to drink too much fluid. Extra salt also makes fluid stay in your body. Lots of foods that do not taste salty, or that you do not add salt to, still contain a lot of salt. You may need to take a diuretic, or water pill. Do not drink alcohol. Alcohol makes it harder for your heart muscles to work. Ask your provider what to do on special occasions where alcohol and foods you are trying to avoid will be served. If you smoke, stop. Ask for help quitting if you need it. Do not let anybody smoke in your home. Learn more about what you should eat to make your heart and blood vessels healthier. Avoid fatty foods. Stay away from fast-food restaurants. Avoid some prepared and frozen foods. Learn fast food tips. Try to stay away from things that are stressful for you. If you feel stressed all the time, or if you are very sad, talk with your provider who can refer you to a counselor. Discharge Disposition: HOME SELF-CARE
--- NOTE | 2024-08-28 19:08 | P.PN ---
Subjective Progress Note Date: 08/28/24 Patient is a 83-year-old male with a history of coronary disease status post CABG and previous stenting, persistent A-fib on Eliquis, sick sinus syndrome status post permanent pacemaker, hypertension, hyperlipidemia presented to the ER with worsening shortness of breath from past 2 weeks. Patient reports that he has been experiencing exertional dyspnea, orthopnea, PND and swelling of the legs that has been getting worse as well. Patient reports that he is compliant with his cardiac medications. However he admits of not following a low-salt diet and has also reported increasing his daily weights. Patient denies any recent upper respiratory tract infection. Since his admission patient has been receiving diuresis with Lasix and has had good urine output. Patient reports improvement in his shortness of breath since his admission. Additionally, patient also been complaining of intermittent substernal chest pain which she describes as heavy, 6 out of 10, radiating to back, better with sitting position worse with supine position associated with mildly productive cough. Patient denies lightheadedness, dizziness, abdominal pain, diarrhea, constipation, dysuria, melena or medic easy. His primary commercial real estate paralegal is Dr. Kwok. Stress test was done 2 weeks ago which was unremarkable for any ischemia. His most recent echocardiogram was in April 2023 with ejection fraction of 55 to 60% and mild concentric left ventricular hypertrophy with increased left atrium size. His home cardiac medications are Lopressor, Lasix, aspirin, Eliquis. Social history: No tobacco smoking or alcohol use Labs and images on this admission: WBC 10.4, hemoglobin 15.3, platelet count 109, sodium 143, potassium 2.8, BUN 18, creatinine 1.10, magnesium 2.1, AST 29, ALT 23, ALP 77, troponin I 0.019, 0 .017, 0.018, NT proBNP 6770 Chest x-ray shows pulmonary vascular congestion with small bilateral pleural effusion EKG shows paced rhythm with underlying A-fib which is unchanged from previous EKG 08/27/2024: Patient seen and examined at the bedside. Patient reports no chest pain and reports drastic improvement in shortness of breath. His urine output was 2.8 L within 24 hours. Currently on IV Lasix 40 twice daily. Labs from today show sodium 141, potassium 3.6, BUN 22, creatinine 1.6, magnesium 2.6, NT proBNP 1820 Echocardiogram shows LVEF of 40 to 45% with severe concentric left ventricular hypertrophy. 08/28/2024: Patient was seen and examined at the bedside. Patient reports no chest pain and shortness of breath. His respiratory status is at baseline. Patient reports good urine output. Sodium 142, potassium 4.1, BUN 25, creatinine 0.97, magnesium 2.6. Physical examination: Vital signs reviewed General: non toxic, no distress Head: atraumatic, normocephalic, symmetric Eyes: EOMI, no lid lag, anicteric sclera, pupils equal round reactive to light ENT: Nose and ears atraumatic Neck: No cervical lymphadenopathy, trachea midline, supple Mouth: no lip lesion, mucus membranes moist Cardiovascular: S1S2 reg, no murmur, positive dorsalis pedis pulse bilateral, 1+ pitting edema bilaterally lower extremities Lungs: Mild crackles on both sides with no rales or wheezing. No use of accessory muscles. Abdominal: soft, nontender to palpation, no guarding Psych: Alert, oriented, appropriate affect Assessment: #Acute on chronic HFrEF, LVEF 40 to 45% on echocardiogram #Atypical chest pain, non-ACS, troponin negative #History of CAD status post CABG and stenting #Sick sinus syndrome status post PPM #Persistent A-fib, rate controlled, on Eliquis #Hyperlipidemia #Hypertension Active: Echocardiogram shows LVEF of 40 to 45% with severe concentric left ventricular hypertrophy. Continue with home cardiac medications Monitor I's and O's, strict daily weights, fluid restriction 1500 mL/day Continue Lasix 40 milligram p.o. once daily Optimize GDMT: Continue with Farxiga, Entresto, metoprolol tartrate. Add Aldactone this afternoon Lipitor 40 mg once daily Patient is otherwise stable from cardiology standpoint. Patient is cleared for discharge and can follow-up with Dr. Kwok within 1 to 2 weeks. Dictation was produced using [employer] dictation software. Please excuse any grammatical, word or spelling errors. Nando Malik MD PGY 2 Objective - Vital Signs Vital signs: Vital Signs Temp 97.5 F L 08/28/24 03:05 Pulse 60 08/28/24 03:05 Resp 16 08/28/24 03:05 BP 156/95 08/28/24 03:05 Pulse Ox 97 08/28/24 03:05 FiO2 Intake & Output 0708/28/24 08/28/24 18:59 06:59 18:59 Intake Total 540 280 140 Output Total 1025 700 Balance -485 -420 140 Weight 135.5 kg 135.4 kg Intake: IV 40 20 Invasive Line 1 20 10 Invasive Line 2 20 10 Oral 540 240 120 Output: Urine 1025 700 Stool 0 Other: Voiding Method Urinal - Labs CBC & Chem 7: 08/26/24 10:18 08/28/24 07:01 Labs: Abnormal Lab Results - Last 24 Hours (Table) 08/28/24 Range/Units 07:01 BUN 25 H (9-20) mg/dL Glucose 114 H (74-99) mg/dL Magnesium 2.6 H (1.6-2.3) mg/dL
== END 2024-08-28 19:11 | disposition home or self-care (01) | DRG 291 ==
LOC: EC 08:32 → 3SCARD 10:36
PROVIDERS: ADMIT Student in an Organized Health Care Education/Training Program; ATTEND Student in an Organized Health Care Education/Training Program
DX: I11.0 Hypertensive heart disease with heart failure (principal); I50.43 Acute on chronic combined systolic (congestive) and diastolic (congestive) heart failure; J96.21 Acute and chronic respiratory failure with hypoxia; J67.9 Hypersensitivity pneumonitis due to unspecified organic dust; I48.19 Other persistent atrial fibrillation; Z79.01 Long term (current) use of anticoagulants; I48.92 Unspecified atrial flutter; G62.9 Polyneuropathy, unspecified; I49.5 Sick sinus syndrome; E66.01 Morbid (severe) obesity due to excess calories; E03.9 Hypothyroidism, unspecified; Z68.41 Body mass index [BMI] 40.0-44.9, adult; J44.9 Chronic obstructive pulmonary disease, unspecified; R07.89 Other chest pain; S80.812A Abrasion, left lower leg, initial encounter; S80.811A Abrasion, right lower leg, initial encounter; S90.414A Abrasion, right lesser toe(s), initial encounter; I25.10 Atherosclerotic heart disease of native coronary artery without angina pectoris; Z99.81 Dependence on supplemental oxygen; Z79.890 Hormone replacement therapy; E78.5 Hyperlipidemia, unspecified; I89.0 Lymphedema, not elsewhere classified; Z95.0 Presence of cardiac pacemaker; Z91.119 Patient's noncompliance with dietary regimen due to unspecified reason; Z86.711 Personal history of pulmonary embolism; Z86.718 Personal history of other venous thrombosis and embolism; Z79.52 Long term (current) use of systemic steroids; Z79.82 Long term (current) use of aspirin; Z79.891 Long term (current) use of opiate analgesic; Z79.899 Other long term (current) drug therapy; Z80.0 Family history of malignant neoplasm of digestive organs; Z85.828 Personal history of other malignant neoplasm of skin; Z87.891 Personal history of nicotine dependence; Z95.1 Presence of aortocoronary bypass graft; Z90.49 Acquired absence of other specified parts of digestive tract; Z95.5 Presence of coronary angioplasty implant and graft
CPT/HCPCS: 36415; 71045; 71046; 80048; 80053; 83735; 83880; 84484; 85025; 85610; 85730; 93005; 93306; 94760; 96374; 96375; 96376; 99285

== ENCOUNTER → 2024-09-06 | Outpatient (CLI) | payer MEDICARE ==
[2024-09-06 16:22] LABS: Anion Gap 16.90 mmol/L (4.00-12.00); BUN/Creat Ratio 20.23 Ratio (12.00-20.00); Blood Urea Nitrogen 26.3 mg/dL (9.0-27.0); Calcium 9.4 mg/dL (8.7-10.3); Carbon Dioxide 22.1 mmol/L (21.6-31.8); Chloride 104 mmol/L (96-109); Glucose 145 mg/dL (70-110); Potassium 3.8 mmol/L (3.5-5.5); Sodium 143 mmol/L (135-145)
[2024-09-06 17:16] LABS: NT-Pro-B-Type Natriuretic Pept 983 pg/mL (0-450)
== END | disposition home or self-care (01) ==
LOC: LABWHC1 10:58
PROVIDERS: ATTEND Internal Medicine Cardiovascular Disease
DX: I50.33 Acute on chronic diastolic (congestive) heart failure (principal)
CPT/HCPCS: 36415; 80048; 83880